=== PATIENT | male | born 1965 | race Caucasian/White ===

== ENCOUNTER 2020-01-23 23:01 | Observation (INO) ==
[2020-01-23] MEDS ORDERED: HYDROmorphone INJ 1 MG/ML SYRINGE IV STA (23:35)
--- NOTE | 2020-01-23 23:57 | Emergency Department Note ---
Impression & Plan Intractable pain ED Provider Note NAME: CLARITA PENA AGE: 54 SEX: M ARRIVES VIA: Walk-In INFORMANT: Patient, his ED PROVIDER(S): Isabel Aden DO CHIEF COMPLAINT: Intractable left-sided pain status post trauma PLAN: Disposition: Admitted to the [facility] service Condition: Good MEDICAL DECISION MAKING: This is a 54-year-old male patient who was involved in a major trauma 2 days ago and transferred to [facility] in [place] as a level 1 trauma patient. Patient was discharged around 3 PM this afternoon from [place]. Tonight, the patient had difficulty getting himself up out of bed because of the pain associated with his injuries. Triage Nursing notes reviewed and agree them. Additional history obtained from the patient's Prior medical records reviewed Vital Signs: reviewed and remarkable for hypertension Differential diagnosis: Anxiety, medication noncompliance, intractable pain, multisystem trauma ER treatment provided: IV Dilaudid HPI: 54/M arrives for evaluation of intractable pain. The patient was a multisystem trauma from 2 days ago. The patient fell from a ladder and suffered multiple traumatic injuries. He was transferred to [facility] in [place] as a level 1 trauma patient. He was admitted there for 2 days and discharged from the hospital to home yesterday. The patient took Tylenol for his pain last evening but had extreme difficulty getting himself in and out of bed because of the discomfort in his left elbow and the left side of his chest. The patient's left elbow is in a sling because of a fracture. He describes having difficulty with pulling himself up out of bed because of not having anything to grab onto. He describes that his is unable to help him due to her size. ROS: The patient has not taken the oxycodone that was prescribed for him as of yet because he would normally take it at bedtime and he has not yet gone to bed. Patient denies any new injuries and only describes the pain associated with the diagnosed spinous fractures, clavicle fracture, and elbow fracture PAST MEDICAL HISTORY:See Below PAST SURGICAL HISTORY:See Below FAMILY HISTORY:See Below SOCIAL HISTORY:See Below HOME MEDICATIONS:See list ALLERGIES:See list VITALS:See Below PHYSICAL EXAMINATION: HEENT: Head - normocephalic and atraumatic Pupils are equal, round, and reactive to light. Extraocular eye muscles are intact, and sclera are anicteric. Nose - moist nasal mucosa without discharge. Mouth - moist buccal mucosa. Oropharynx is nonerythematous and there is no tonsillar exudate or edema noted. Neck: Supple; no JVD, nuchal rigidity, cervical lymphadenopathy, or auscultated bruits. Heart: Regular rate and rhythm. There is a normal S1 and S2 with no murmurs, clicks, or gallops appreciated. Lungs: Clear to auscultation bilaterally with no wheezes, rales, or rhonchi. Abdomen: Soft, completely nontender, nondistended, with good bowel sounds. There are no palpable pulsatile masses or hepatosplenomegaly. There is no guarding, rigidity, or rebound noted. Back: Patient has multiple areas of ecchymosis over the lower back from his trauma Extremities: Left upper extremity is in splinting material and a sling. Skin: warm and dry with good turgor and no rashes. ED COURSE: Times/Reassessments: 2320: Patient was evaluated in room C 11. A complete history and physical was performed. An IV lock was initiated and the patient was given a dose of IV Dilaudid for pain. Did review previous electronic medical records with regards to the trauma from 2 days ago. 0025: The patient was reevaluated at this time and is feeling much better. I discussed the case with the executive account manager and she has evaluated the situation and reviewed the notes in [facility]. The patient will be admitted into the hospital and evaluated for possible admission to [facility] Isabel Aden DO Past Med/Surg History Medical History (Updated 01/25/20 @ 18:23 by Isabel dAen DO) Cough H/O backache History of night sweats Hx of allergic rhinitis Hx of anxiety disorder Hx of chest pain Hx of cirrhosis Hx of esophageal varices Hx of urticaria Hypertension Positive colorectal cancer screening using Cologuard test Surgical History H/O colonoscopy History of esophagogastroduodenoscopy (EGD) Hx of arthroscopy of knee Family History Other Cancer Social History Smoking Status: Never smoker Hx Alcohol Use: No Hx Substance Use: No Preferred Language: Ghanaian Communication Ability: Effective Mixer Runner Required: No Beliefs That Will Affect Care: None marital status: Single Current Living Situation: Significant Other Current Living Situation Comment: girlfriend and granddaughter 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 Safe at Home: Yes Safety Concerns: Feels Safe At This Time Childhood Exposure to Second-Hand Smoke: No Assistive Devices: Brace/Splint/Immobilizer and Glasses Allergies Allergies Allergy/AdvReac Type Severity Reaction Status Date / Time hydrocodone [From Vicodin] Allergy Intermediate Hallucinati Verified 01/24/20 09:48 ng Home Meds Home Medications Medication Instructions Recorded Confirmed azelastine 137 mcg (0.1 %) nasal 1 sprays INTNAS BID PRN 02/17/19 01/23/20 spray aerosol dicyclomine 20 mg tablet 20 mg PO DAILY tab 02/17/19 01/23/20 lisinopril 20 mg tablet 20 mg PO DAILY 02/17/19 01/23/20 loratadine 10 mg tablet 10 mg PO DAILY 02/17/19 01/23/20 pantoprazole 40 mg tablet,delayed 40 mg PO DAILY 02/17/19 01/23/20 release tramadol 50 mg tablet 50 mg PO Q6H PRN 02/17/19 01/23/20 Qvar RediHaler 1 puffs INH BID PRN 01/21/20 01/23/20 Previous Rx's Medication Instructions Recorded sucralfate 1 gram tablet 1 gm PO BID #60 tab 02/17/19 docusate sodium 100 mg PO BID 30 Days #60 cap 01/25/20 oxycodone 5 mg PO Q4H PRN 4 Days #16 tab 01/25/20 polyethylene glycol 3350 [Miralax] 17 g PO DAILY PRN 30 Days #30 ea 01/25/20 sennosides [Senokot] 8.6 mg PO QAM 30 Days #30 tab 01/25/20 Results & Data (ED) Vital Signs Vital Signs - 24 hr 01/23/20 23:06 01/24/20 00:15 01/24/20 00:50 Temperature 37 C Temperature Source Oral Pulse Rate 85 Pulse Rate [Finger] 75 Respiratory Rate 20 16 Respiratory Effort / Characteristics Non-Labored Spontaneous Non-Labored Spontaneous Respiratory Depth Normal Normal Blood Pressure 166/89 H Blood Pressure [Right Arm] 159/77 H Blood Pressure Mean 114 Blood Pressure Mean [Right Arm] 104 Blood Pressure Position Sitting Pulse Oximetry 94 93 88 L Oxygen Delivery Method Room Air Room Air Room Air Sepsis Recent Fever Within 48 Hours No Sepsis New/Unexplained Change in Mental Status N/A Sepsis Action Taken by Nursing No Action Required Oxygen Flow Rate - Titration 2 Pulse Oximetry Post Tiitration 96 Laboratory Data Result diagrams: 01/25/20 05:11 01/25/20 05:11 Administered Medications Discontinued Medications Dicyclomine HCl (Dicyclomine Hcl 20 Mg Tab) 20 mg PO DAILY THERESA Stop: 02/23/20 08:59 Last Admin: 01/24/20 15:22 Dose: Not Given Documented by: [id number] Dicyclomine HCl (Dicyclomine Hcl 20 Mg Tab) 20 mg PO HS THERESA Stop: 02/23/20 20:59 Last Admin: 01/24/20 20:23 Dose: 20 mg Documented by: [id number] Docusate Sodium (Docusate Sodium 100 Mg Cap) 100 mg PO BID THERESA Stop: 02/23/20 11:44 Last Admin: 01/25/20 08:02 Dose: 100 mg Documented by: [id number] Admin: 01/24/20 20:24 Dose: 100 mg Documented by: [id number] Admin: 01/24/20 13:01 Dose: 100 mg Documented by: [id number] Hydromorphone HCl (Hydromorphone Inj 1 Mg/Ml Syringe) 1 mg IV NOW STA Stop: 01/23/20 23:36 Last Admin: 01/23/20 23:50 Dose: 1 mg Documented by: [id number] Potassium Chloride (K Andre / Wtr) 10 meq in 100 mls @ 100 mls/hr IV ONE ONE Stop: 01/24/20 10:41 Last Infusion: 01/24/20 11:58 Dose: 0 mls/hr Documented by: [id number] Admin: 01/24/20 10:55 Dose: 100 mls/hr Documented by: [id number] Promethazine HCl 6.25 mg/ (Sodium Chloride) 50.25 mls @ 201 mls/hr IV Q6H PRN PRN Reason: Nausea And Vomiting Stop: 02/24/20 08:44 Last Infusion: 01/25/20 09:33 Dose: 0 mls/hr Documented by: [id number] Admin: 01/25/20 08:45 Dose: 201 mls/hr Documented by: [id number] Lisinopril (Lisinopril 20 Mg Tab) 20 mg PO DAILY [facility] Stop: 02/23/20 08:59 Last Admin: 01/25/20 08:01 Dose: 20 mg Documented by: [id number] Admin: 01/24/20 11:02 Dose: 20 mg Documented by: [id number] Loratadine (Loratadine 10 Mg Tab) 10 mg PO DAILY [facility] Stop: 02/23/20 08:59 Last Admin: 01/25/20 08:02 Dose: 10 mg Documented by: [id number] Admin: 01/24/20 11:02 Dose: 10 mg Documented by: [id number] Miscellaneous (Azelastine~Order Awaiting Action) 1 ea N/A QS [facility] Stop: 02/23/20 07:59 Last Admin: 01/25/20 08:03 Dose: Not Given Documented by: [id number] Admin: 01/24/20 22:47 Dose: Not Given Documented by: [id number] Admin: 01/24/20 18:06 Dose: Not Given Documented by: [id number] Admin: 01/24/20 15:21 Dose: Not Given Documented by: [id number] Ondansetron HCl (Ondansetron Inj 2 Mg/Ml 2 Ml Vial) 4 mg IV Q6H PRN PRN Reason: Nausea Stop: 02/23/20 02:07 Last Admin: 01/25/20 06:13 Dose: 4 mg Documented by: [id number] Admin: 01/24/20 09:10 Dose: 4 mg Documented by: [id number] Oxycodone HCl (Oxycodone Hcl Ir 5 Mg Tab (Immediate Release)) 5 mg PO Q4H PRN PRN Reason: Pain Stop: 02/07/20 02:07 Last Admin: 01/25/20 08:01 Dose: 5 mg Documented by: [id number] Admin: 01/24/20 22:48 Dose: 5 mg Documented by: [id number] Admin: 01/24/20 18:04 Dose: 5 mg Documented by: [id number] Admin: 01/24/20 13:28 Dose: 5 mg Documented by: [id number] Admin: 01/24/20 09:21 Dose: 5 mg Documented by: [id number] Admin: 01/24/20 02:38 Dose: 5 mg Documented by: [id number] Pantoprazole Sodium (Pantoprazole 40 Mg Tab) 40 mg PO DAILY THERESA Stop: 02/23/20 08:59 Last Admin: 01/25/20 08:02 Dose: 40 mg Documented by: [id number] Admin: 01/24/20 11:02 Dose: 40 mg Documented by: [id number] Polyethylene Glycol (Polyethylene (Miralax) 17 Gm Pack) 17 gm PO DAILY THERESA Stop: 02/23/20 11:44 Last Admin: 01/25/20 08:03 Dose: 17 gm Documented by: [id number] Admin: 01/24/20 13:00 Dose: 17 gm Documented by: [id number] Potassium Chloride (Potassium Chloride 20 Meq Tabcr) 60 meq PO NOW STA Stop: 01/24/20 09:43 Last Admin: 01/24/20 10:58 Dose: 60 meq Documented by: [id number] Potassium Chloride (Potassium Chloride 20 Meq Tabcr) 40 meq PO NOW STA Stop: 01/25/20 07:21 Last Admin: 01/25/20 08:03 Dose: 40 meq Documented by: [id number] Sennosides (Senna 8.6 Mg Tab) 8.6 mg PO QAM THERESA Stop: 02/23/20 11:44 Last Admin: 01/25/20 08:02 Dose: 8.6 mg Documented by: [id number] Admin: 01/24/20 13:01 Dose: 8.6 mg Documented by: [id number] Sucralfate (Sucralfate 1 Gm Tab) 1 gm PO BID THERESA Stop: 02/23/20 08:59 Last Admin: 01/25/20 08:02 Dose: 1 gm Documented by: [id number] Admin: 01/24/20 20:24 Dose: 1 gm Documented by: [id number] Admin: 01/24/20 11:01 Dose: 1 gm Documented by: [id number] Discharge Plan Visit Data Chief Complaint: Pain (Generalized) Stated Complaint: LEFT SIDE PAIN DISCHARGED FROM [facility] TODAY ED Provider: Isabel Aden Discharge Problem: Intractable pain Patient Disposition: Admitted As Inpatient Condition: Good Discharge Instructions Interventions: ED Discharge Assessment Last Done: 01/24/20 01:46
[2020-01-24] MEDS ORDERED: TRAMADOL HCL 50 MG TABLET PO PRN (02:08)
[2020-01-24] MEDS ORDERED: HYDROmorphone INJ 0.5 MG/0.5 ML SYR IV PRN (02:08)
[2020-01-24] MEDS ORDERED: POLYETHYLENE (MIRALAX) 17 GM PACK PO PRN (02:08)
[2020-01-24] MEDS: OXYCODONE HCL IR 5 MG TAB (IMMEDIATE RELEASE) PO PRN ×5 (02:38→22:48)
[2020-01-24] MEDS ORDERED: FLUTICASONE FUROATE 100MCG 14 PUFFS/INHALER INH PRN (03:13)
--- NOTE | 2020-01-24 06:28 | History and Physical Report ---
DATE OF ADMISSION: 01/23/2020 CHIEF COMPLAINT: Status post recent fall with left-sided fractures, comes with generalized pain. 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 Recently the patient couple of days ago fell from the ladder 6 feet high and fractured, left ulna fracture, left clavicle fracture, left T9-T10 spinous process fracture, left posterior 10th rib fracture. He was transferred to [facility] as a level 2 alert and the patient's says he was fine there. He said his bed was elevated and there was rails, was able to get up from the bed, and able to walk and they discharged him on pain medications yesterday in 3:00 p.m. When he goes home, at home he again had difficulty ambulating and could not able to get out of the bed because of pain. His tried to help him by pulling and it exacerbated his pain and decided to come to the ER for possible rehab placement. Currently resting comfortably and hemodynamically stable. Denies any other complaints. He did not moved his bowels since last when he fell. Denies any headache. No dizziness, no blurred vision. No earache, no runny nose, no sore throat, no cough, no difficulty swallowing. Appetite is not that great. No chest pain, no shortness of breath. Because of pain, he was nauseous earlier, but that is resolved now. No abdominal pain. Constipated. Normal bladder movements. No rash seen anywhere. ALLERGIES: VICODIN. PAST MEDICAL HISTORY: As mentioned above. PAST SURGICAL HISTORY: Colonoscopies, multiple EGDs with endoscopic ultrasound, left knee meniscectomy. MEDICATIONS: Currently the patient from [place] is discharged on Tylenol 325 mg 3 tablets p.o. 8 hours p.r.n. for 5 days, lidocaine patch topical skin daily, oxycodone 10 mg p.o. q. 6 hours p.r.n. for pain, tramadol 50 mg p.o. q. 6 hours p.r.n. for pain, Bentyl 20 mg p.o. at bedtime, sucralfate 1 gram p.o. at bedtime, lisinopril 20 mg p.o. daily, Protonix 40 mg p.o. daily, ipratropium nasal spray b.i.d., cyclobenzaprine 10 mg p.o. at bedtime p.r.n., azelastine 0.1% nasal spray b.i.d., Claritin 10 mg p.o. daily. FAMILY HISTORY: Significant for mother had stomach cancer, at age of 36. Brother has hypertension. Maternal grandmother of heart disease in the 30s. SOCIAL HISTORY: No smoking, no alcohol, no drug use. Lives with his . REVIEW OF SYMPTOMS: As per HPI. Rest of review of symptoms negative. PHYSICAL EXAMINATION: GENERAL: The patient is of moderate build, not in acute distress. VITAL SIGNS: Temperature 37, pulse 75, respiratory rate 16, blood pressure 159/77, HEENT: Atraumatic. Pupils equal, round, reactive to light. Oral mucosa moist. NECK: No JVD, no neck masses. CARDIOVASCULAR SYSTEM: S1, S2 heard. Regular rate and rhythm. No murmur, no gallop. RESPIRATORY SYSTEM: Normal AP diameter. No accessory muscle use. No wheezing, no crackles. ABDOMEN: Soft, bowel sounds present, nontender. No distention. CENTRAL NERVOUS SYSTEM: Cranial nerves II-XII grossly intact. Nonfocal. EXTREMITIES: Left upper extremity is in sling. Able to move his lower extremity. No edema seen, no erythema seen. LABORATORY DATA: Labs from [place] from yesterday , hemoglobin 12.1, hematocrit 35.5, platelets 86. Sodium 141, potassium 3.7, chloride 106, bicarb 26, BUN 15, creatinine 1.4, serum glucose 93. ASSESSMENT AND PLAN: A 54-year-old male who recently fell from the ladder, mechanical fall with left-sided clavicle fracture, left posterior 10th rib fracture, left ulna fracture, left T9-T10 spinous process fracture, was transferred to [facility] and was discharged, comes in because of generalized pain and not able to ambulate. 1. Recent status post mechanical fall with multiple fractures on the left side as mentioned above.Having ambulatory dysfunction. Pain control with oxycodone p.r.n. and Dilaudid p.r.n. PT/OT, the patient may need placement. Social Service to help with discharge. 2. 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 Continue sucralfate, Protonix. 3. Thrombocytopenia secondary to liver cirrhosis. We will follow the labs 4. Hypertension. Continue his lisinopril. We will monitor the blood pressure. 5. Allergic rhinitis, nasal sprays. 6. Deep vein thrombosis prophylaxis, SCDs. DISPOSITION: Observe in medical floor. PT/OT. Social Service to help with discharge planning. Level 1 full code. MTDD
[2020-01-24 07:19] LABS: Basophils # (auto) 0.03 K/uL (0-0.2); Basophils % (auto) 0.6 %; Eosinophils # (auto) 0.24 K/uL (0-0.5); Eosinophils % (auto) 4.4 %; Hematocrit (blood only) 34.9 % (42-52); Hemoglobin 12.6 g/dL (14.0-18.0); Immature Granulocytes # (auto) 0.01 K/uL (0.00-0.02); Immature Granulocytes % (auto) 0.2 %; Lymphocytes % (auto) 20.2 %; Mean Corpuscular Hemoglobin 32.3 pg (25-34); Mean Corpuscular Hgb Conc 36.1 g/dL (32-36); Mean Corpuscular Volume 89.5 fL (80-100); Mean Platelet Volume 9.3 fL (7.4-10.4); Monocytes # (auto) 0.65 K/uL (0.11-0.59); Monocytes % (auto) 11.9 %; Neutrophils # (auto) 3.41 K/uL (1.4-6.5); Neutrophils % (auto) 62.7 %; Platelet Count 100 K/uL (130-400); RDW Coefficient of Variation 13.9 % (11.5-14.5); RDW Standard Deviation 45.4 fL (36.4-46.3); White Blood Count 5.44 K/uL (4.8-10.8)
[2020-01-24 07:46] LABS: BUN Creatinine Ratio 12.8 (10-20); Calcium 9.2 mg/dl (8.5-10.1); Creatinine Clr Calc Pharmacy 103.7 ml/min; Est GFR (African American) 81.1; Magnesium 2.2 mg/dl (1.8-2.4); Potassium 3.2 mmol/L (3.5-5.1)
[2020-01-24] MEDS ORDERED: DICYCLOMINE HCL 20 MG TAB PO SCH ×2 (09:00→21:00)
[2020-01-24] MEDS: ONDANSETRON INJ 2 MG/ML 2 ML VIAL IV PRN (09:10)
[2020-01-24] MEDS ORDERED: POTASSIUM CHLORIDE 20 MEQ TABCR PO STA (09:42)
[2020-01-24] MEDS ORDERED: POTASSIUM CHLORIDE / WTR 10 MEQ/100 ML PLCT IV ONE (09:42)
[2020-01-24] MEDS: SUCRALFATE 1 GM TAB PO SCH ×2 (11:01→20:24)
[2020-01-24] MEDS: LORATADINE 10 MG TAB PO SCH (11:02)
[2020-01-24] MEDS: PANTOprazole 40 MG TAB PO SCH (11:02)
[2020-01-24] MEDS: lisinopriL 20 MG TAB PO SCH (11:02)
--- NOTE | 2020-01-24 11:32 | Hospitalist Progress Note ---
Date of Service January 24, 2020 Assessment & Plan (1) Clavicle fracture: (2) Left ulnar fracture: (3) Closed fracture of spinous process of thoracic vertebra: (4) Closed rib fracture: (5) Pain: -A 54-year-old male who recently fell from the ladder, mechanical fall with left-sided clavicle fracture, left posterior 10th rib fracture, left ulna fracture, left T9-T10 spinous process fracture, was transferred to [facility] and was discharged, comes in because of generalized pain and not able to ambulate. 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 Patient described recent medical care prior to this presentation at [facility] primarily because patient feels he is lacking in home supports for non-surgical fractures. Patient breathing on room air. no shortness of breath. no chest pain. no abdomen pain. tolerating left upper extremity discomforts when talking to medical doctor. Patient reports constipation. Patient was seen by ed case manager and physical therapy options were discussed. Review of Systems Review of Systems: All systems reviewed & are unremarkable except as noted in Subjective Physical Exam Constitutional: cooperative Eyes: PERRL, conjunctivae normal, anicteric sclerae EOM intact bilaterally ENMT: external ear and nose normal, oropharynx normal Neck: trachea midline, no thyromegaly Respiratory: normal respiratory effort, lungs clear to auscultation Cardiovascular: Rate/Rhythm: regular rate Gastrointestinal (Abdomen): normal bowel sounds, soft, nontender, no hepatosplenomegaly Musculoskeletal: left shoulder in sling and left arm with dressing Neurologic: PERRL, EOMI, accommodation nl, no face palsy, no dysarthria Psychiatric: A+Ox3, euthymic affect Results & Data Results & Data ([facility]) Vital Signs (Past 12 Hours) Vital Signs Temp Pulse Pulse Resp BP Pulse Ox 01/24/20 07:04 37 C 72 20 129/79 96 01/24/20 02:05 37.1 C 79 14 143/78 H 94 01/24/20 01:45 67 16 140/80 97 01/24/20 00:50 88 L 01/24/20 00:15 75 16 159/77 H 93 (1) Clavicle fracture Clavicle location: unspecified part of clavicle Encounter type: initial encounter Fracture alignment: displaced Fracture type: closed Laterality: left Qualified Code(s): S42.002A - Fracture of unspecified part of left clavicle, initial encounter for closed fracture (2) Left ulnar fracture Encounter type: initial encounter Fracture alignment: displaced Fracture morphology: comminuted Fracture type: closed Ulna location: shaft Qualified Code(s): S52.252A - Displaced comminuted fracture of shaft of ulna, left arm, initial encounter for closed fracture (3) Closed fracture of spinous process of thoracic vertebra Encounter type: initial encounter Qualified Code(s): S22.008A - Other fracture of unspecified thoracic vertebra, initial encounter for closed fracture (4) Closed rib fracture Encounter type: initial encounter Laterality: unspecified laterality Rib fracture type: single rib Qualified Code(s): S22.39XA - Fracture of one rib, unspecified side, initial encounter for closed fracture
[2020-01-24] MEDS: POLYETHYLENE (MIRALAX) 17 GM PACK PO SCH (13:00)
[2020-01-24] MEDS: DOCUSATE SODIUM 100 MG CAP PO SCH ×2 (13:01→20:24)
[2020-01-24] MEDS: SENNA 8.6 MG TAB PO SCH (13:01)
[2020-01-24] MEDS ORDERED: Nursing to Pharmacy Communication SCH (15:00)
[2020-01-24] MEDS: AZELASTINE~ORDER AWAITING ACTION SCH ×3 (15:21→22:47)
[2020-01-25 05:42] LABS: Hematocrit (blood only) 33.7 % (42-52); Mean Corpuscular Hgb Conc 35.6 g/dL (32-36); Mean Corpuscular Volume 89.9 fL (80-100); RDW Coefficient of Variation 13.8 % (11.5-14.5); RDW Standard Deviation 45.2 fL (36.4-46.3); Red Blood Count 3.75 M/uL (4.7-6.1); White Blood Count 4.86 K/uL (4.8-10.8)
[2020-01-25 06:08] LABS: Basophils # (auto) 0.04 K/uL (0-0.2); Basophils % (auto) 0.8 %; Eosinophils # (auto) 0.22 K/uL (0-0.5); Eosinophils % (auto) 4.5 %; Immature Granulocytes # (auto) 0.01 K/uL (0.00-0.02); Immature Granulocytes % (auto) 0.2 %; Lymphocytes # (auto) 1.19 K/uL (1.2-3.4); Lymphocytes % (auto) 24.5 %; Mean Platelet Volume 9.7 fL (7.4-10.4); Monocytes # (auto) 0.51 K/uL (0.11-0.59); Monocytes % (auto) 10.5 %; Neutrophils # (auto) 2.89 K/uL (1.4-6.5); Neutrophils % (auto) 59.5 %; Platelet Count 98 K/uL (130-400); Platelet Estimate Decreased (Normal); RBC Morphology Unremarkable
[2020-01-25] MEDS: ONDANSETRON INJ 2 MG/ML 2 ML VIAL IV PRN (06:13)
[2020-01-25 06:19] LABS: Albumin Level 3.2 gm/dl (3.4-5.0); BUN Creatinine Ratio 12.3 (10-20); Calcium 8.5 mg/dl (8.5-10.1); Creatinine Clr Calc Pharmacy 109.3 ml/min; Est GFR (African American) 86.5; Est GFR (Non-African American) 74.6; Potassium 3.3 mmol/L (3.5-5.1)
[2020-01-25 06:22] LABS: Albumin Globulin Ratio 1.1 (0.9-2); Bilirubin,Total 1.8 mg/dl (0.2-1); Globulin 2.9 gm/dl (2.5-4.0); Total Protein 6.1 gm/dl (6.4-8.2)
[2020-01-25] MEDS ORDERED: POTASSIUM CHLORIDE 20 MEQ TABCR PO STA (07:20)
[2020-01-25] MEDS: lisinopriL 20 MG TAB PO SCH (08:01)
[2020-01-25] MEDS: OXYCODONE HCL IR 5 MG TAB (IMMEDIATE RELEASE) PO PRN (08:01)
[2020-01-25] MEDS: DOCUSATE SODIUM 100 MG CAP PO SCH (08:02)
[2020-01-25] MEDS: SUCRALFATE 1 GM TAB PO SCH (08:02)
[2020-01-25] MEDS: PANTOprazole 40 MG TAB PO SCH (08:02)
[2020-01-25] MEDS: SENNA 8.6 MG TAB PO SCH (08:02)
[2020-01-25] MEDS: LORATADINE 10 MG TAB PO SCH (08:02)
[2020-01-25] MEDS: AZELASTINE~ORDER AWAITING ACTION SCH (08:03)
[2020-01-25] MEDS: POLYETHYLENE (MIRALAX) 17 GM PACK PO SCH (08:03)
[2020-01-25] MEDS ORDERED: PROMETHAZINE HCL 6.25 MG in SODIUM CHLORIDE 0.9% 50 ML IV PRN (08:45)
--- NOTE | 2020-01-25 09:25 | Hospitalist Progress Note ---
Date of Service January 25, 2020 Assessment & Plan (1) Clavicle fracture: (2) Left ulnar fracture: (3) Closed fracture of spinous process of thoracic vertebra: (4) Closed rib fracture: (5) Pain: -A 54-year-old male who recently fell from the ladder, mechanical fall with left-sided clavicle fracture, left posterior 10th rib fracture, left ulna fracture, left T9-T10 spinous process fracture, was transferred to [facility] and was discharged, comes in because of generalized pain and not able to ambulate. 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 He has not vomiting so far. he reports of some left lower rib pain. He reports he is using incentive spirometer. Otherwise patient not in distress. breathing on room air. no sternal chest pain. no abdominal pain. no dizziness. gallery manager is working on his case in regards to physical therapy center. Review of Systems Review of Systems: All systems reviewed & are unremarkable except as noted in Subjective Physical Exam Constitutional: cooperative Eyes: PERRL, conjunctivae normal, anicteric sclerae EOM intact bilaterally ENMT: external ear and nose normal, oropharynx normal Neck: trachea midline, no thyromegaly Respiratory: normal respiratory effort, lungs clear to auscultation Cardiovascular: Rate/Rhythm: regular rate Gastrointestinal (Abdomen): normal bowel sounds, soft, nontender, no hepatosplenomegaly Musculoskeletal: Head/Neck/Chest: normocephalic Extremities: + upper extremity abnormal to inspection (left shoulder/arm sling) Neurologic: PERRL, EOMI, accommodation nl, no face palsy, no dysarthria Psychiatric: A+Ox3, euthymic affect Results & Data Results [facility] ([facility]) Vital Signs (Past 12 Hours) Vital Signs Temp Pulse Resp BP Pulse Ox 01/25/20 06:04 37.1 C 77 16 132/82 93 01/24/20 23:38 37.2 C 72 16 141/69 H 94 (1) Clavicle fracture Clavicle location: unspecified part of clavicle Encounter type: initial encounter Fracture alignment: displaced Fracture type: closed Laterality: left Qualified Code(s): S42.002A - Fracture of unspecified part of left clavicl e, initial encounter for closed fracture (2) Left ulnar fracture Encounter type: initial encounter Fracture alignment: displaced Fracture morphology: comminuted Fracture type: closed Ulna location: shaft Qualified Code(s): S52.252A - Displaced comminuted fracture of shaft of ulna, left arm, initial encounter for closed fracture (3) Closed fracture of spinous process of thoracic vertebra Encounter type: initial encounter Qualified Code(s): S22.008A - Other fracture of unspecified thoracic vertebra, initial encounter for closed fracture (4) Closed rib fracture Encounter type: initial encounter Laterality: unspecified laterality Rib fracture type: single rib Qualified Code(s): S22.39XA - Fracture of one rib, unspecified side, initial encounter for closed fracture
--- NOTE | 2020-01-25 12:13 | Discharge Summary ---
Date of Service January 25, 2020 Admission HPI Per Admitting Provider DATE OF ADMISSION: 01/23/2020 CHIEF COMPLAINT: Status post recent fall with left-sided fractures, comes with generalized pain. 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 Recently the patient couple of days ago fell from the ladder 6 feet high and fractured, left ulna fracture, left clavicle fracture, left T9-T10 spinous process fracture, left posterior 10th rib fracture. He was transferred to [facility] as a level 2 alert and the patient's says he was fine there. He said his bed was elevated and there was rails, was able to get up from the bed, and able to walk and they discharged him on pain medications yesterday in 3:00 p.m. When he goes home, at home he again had difficulty ambulating and could not able to get out of the bed because of pain. His tried to help him by pulling and it exacerbated his pain and decided to come to the ER for possible rehab placement. Currently resting comfortably and hemodynamically stable. Denies any other complaints. He did not moved his bowels since last when he fell. Denies any headache. No dizziness, no blurred vision. No earache, no runny nose, no sore throat, no cough, no difficulty swallowing. Appetite is not that great. No chest pain, no shortness of breath. Because of pain, he was nauseous earlier, but that is resolved now. No abdominal pain. Constipated. Normal bladder movements. No rash seen anywhere. Principal Diagnosis Clavicle fracture Left ulnar fracture Closed fracture of spinous process of thoracic vertebra Closed rib fracture Pain Hypokalemia, mild Constipation Discharge Exam Constitutional cooperative Eyes PERRL, conjunctivae normal, anicteric sclerae EOM intact bilaterally ENMT external ear and nose normal, oropharynx normal Neck trachea midline, no thyromegaly Respiratory normal respiratory effort, lungs clear to auscultation Cardiovascular Rate/Rhythm: regular rate Gastrointestinal (Abdomen) normal bowel sounds, soft, nontender, no hepatosplenomegaly Musculoskeletal Head/Neck/Chest: normocephalic Extremities: + upper extremity abnormal to inspection (left shoulder/arm sling) Neurologic PERRL, EOMI, accommodation nl, no face palsy, no dysarthria Psychiatric A+Ox3, euthymic affect Discharge Data Allergies Allergy/AdvReac Type Severity Reaction Status Date / Time hydrocodone [From Vicodin] Allergy Intermediate Hallucinati Verified 01/24/20 09:48 ng Consultations 01/24/20 00:27 ED Decision to Admit Stat 01/24/20 02:08 Consult Case Management - Discharge Planning Routine Hospital Course (1) Clavicle fracture: (2) Left ulnar fracture: (3) Closed fracture of spinous process of thoracic vertebra: (4) Closed rib fracture: (5) Pain: -A 54-year-old male who recently fell from the ladder, mechanical fall with left-sided clavicle fracture, left posterior 10th rib fracture, left ulna fracture, left T9-T10 spinous process fracture, was transferred to [facility] and was discharged, comes in because of generalized pain and not able to ambulate. 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, history of esophageal varices -sucralfate, Protonix Thrombocytopenia secondary to liver cirrhosis -follow the platelets Hypertension -lisinopril Hypokalemia, mild -serum potassium 3.2 on presentation, patient has been receiving potassium supplements Allergic rhinitis -no airway complaints -on nasal sprays as needed Deep vein thrombosis prophylaxis: SCDs Total Time Total Time Spent Total Time Spent (In Minutes): 40 minutes Total Time Includes: Examination of the Patient, Discharge Planning, Medication Reconciliation and Communication With Other Providers Discharge Plan Discharge Items Patient Disposition: Transfer Inpatient Rehab Fac Reason For Visit: FALL, PAIN Discharge Diagnosis: Clavicle fracture: Left ulnar fracture: Closed fracture of spinous process of thoracic vertebra: Closed rib fracture: Pain Hypokalemia, mild Constipation Condition on Discharge: Good Activity: Per Instructions section Non-emergency contact: Primary Care Provider Call non-emergency contact if: you have any medication questions Follow-up/Referrals: Tim Brown DO [Primary Care Provider] - Diet: Regular Addtl Attending Provider Instructions: discharge to [facility] for physical therapy Patient should have follow up serum potassium and CBC performed by primary care doctor 02/15/2020 9:00 AM Provider Tim Brown Department Family [facility] Patient reports that he will follow in [facility] area for any musculoskeletal assessments with specialists for the multiple fractures in healing Pending Studies at Discharge: No Stand-Alone Forms: My [facility] [employer] Skilled Items Patient informed of condition?: Yes DNR: No Discharge Level of Care: Acute rehab Communicable Disease: No Discharge Prognosis: Stable Lines: None Urinary Catheter: No Medications and DC Order Prescriptions: New sennosides [Senokot] 8.6 mg Tablet 8.6 mg PO QAM 30 Days Qty: 30 RF: 0 polyethylene glycol 3350 [Miralax] 17 gram Powder In Packet 17 g PO DAILY PRN (Reason: constipation) 30 Days Qty: 30 RF: 0 docusate sodium 100 mg Capsule 100 mg PO BID 30 Days Qty: 60 RF: 0 oxycodone 5 mg Tablet 5 mg PO Q4H PRN (Reason: pain) 4 Days Qty: 16 RF: 0 Continued lisinopril [Prinivil] 20 mg tablet 20 mg PO DAILY RF: 0 sucralfate [Carafate] 1 gram tablet 1 gm PO BID Qty: 60 RF: 2 pantoprazole [Protonix] 40 mg tablet,delayed release (DR/EC) 40 mg PO DAILY RF: 0 dicyclomine 20 mg tablet 20 mg PO DAILY RF: 0 loratadine [Claritin] 10 mg tablet 10 mg PO DAILY RF: 0 tramadol 50 mg tablet 50 mg PO Q6H PRN (Reason: Pain) RF: 0 azelastine 137 mcg (0.1 %) aerosol,spray 1 sprays INTNAS BID PRN (Reason: Nasal Congestion) RF: 0 Qvar RediHaler 40 mcg/actuation HFA aerosol breath activated 1 puffs INH BID PRN (Reason: Shortness Of Breath Or Wheezing) RF: 0 Discharge Orders: Discharge Order (Routine); Ordered 01/25/20 Ordered By: Bj Velez Admission Data Admit Date/Time: 01/24/20 01:20 Attending Provider: Bj Velez Admit Provider: Renan Leigh Primary Care Provider: Tim Brown Other Providers: Renan Leigh ; [facility] ; [place] ; [place] Other Interventions: Discharge Summary Assessment (RN) Last Done: 01/25/20 11:53
== END 2020-01-25 14:18 ==
LOC: ED 23:01 → 3E 23:01

== ENCOUNTER 2020-03-14 11:34 | Observation (INO) ==
[2020-03-14] MEDS ORDERED: HYDROmorphone INJ 1 MG/ML SYRINGE IV STA (12:10)
[2020-03-14] MEDS ORDERED: SODIUM CHLORIDE 0.9% 1000ML 1,000 ML IV ONE (12:10)
[2020-03-14] MEDS ORDERED: ONDANSETRON INJ 2 MG/ML 2 ML VIAL IV STA ×2 (12:10→16:21)
--- NOTE | 2020-03-14 12:14 | Emergency Department Note ---
History of Present Illness General Chief complaint: Abdominal Pain Stated complaint: ABDOMINAL PAIN/DR ROUSSEAU TO MEET PT Time Seen by Provider: 03/14/20 11:43 Source: patient Mode of arrival: ambulatory Limitations: no limitations History of Present Illness Maximum Pain Intensity: 9 This patient is a 54-year-old male who presents to the emergency department for evaluation of abdominal pain and nausea. Patient reports symptoms started 4 days ago. He was seen here for the symptoms 3 days ago, but feels that they were treating his back pain rather than his abdominal pain. He states the pain is across the lower abdomen and he feels extremely nauseous, but is unable to vomit. He has tried to make himself vomit but has been unable to. He was initially having diarrhea but states that he has not had a bowel movement since he was seen here. He did notice some greenish mucus with bowel movements when he was still having them. He states that he has not been able to eat or drink anything since he was seen here. He states that he has some episodes of feeling sweaty at times, but denies any fevers. He denies any urinary symptoms. Patient rates his discomfort a 9/10. He reports a history of esophageal varices. He does not drink alcohol. He states that he was cleared by his primary care provider, Dr. Brown today. He states that Dr. Brown contacted Dr. Rousseau from GI, who had recommended a scope per patient. Home Medications Home Medications Medication Instructions Recorded Confirmed Type dicyclomine 20 mg tablet 20 mg PO DAILY tab 02/17/19 03/14/20 History lisinopril 20 mg tablet 20 mg PO DAILY 02/17/19 03/14/20 History loratadine 10 mg tablet 10 mg PO DAILY 02/17/19 03/14/20 History pantoprazole 40 mg tablet,delayed 40 mg PO DAILY 02/17/19 03/14/20 History release tramadol 50 mg tablet 50 - 100 mg PO Q6H PRN 02/17/19 03/14/20 History Qvar RediHaler 1 puffs INH BID PRN 01/21/20 03/14/20 History docusate sodium [Col-Rite] 100 mg PO BID PRN 03/11/20 03/14/20 History gabapentin 300 mg PO TID 03/11/20 03/14/20 History metoclopramide HCl [Reglan] 10 mg PO Q6H PRN #20 tab 03/11/20 03/14/20 Rx ondansetron 4 mg TRANSLINGUAL Q8 PRN 03/11/20 03/14/20 History polyethylene glycol 3350 17 g PO DAILY PRN 03/11/20 03/14/20 History sennosides [Senna Lax] 8.6 mg PO QAM 03/11/20 03/14/20 History Allergies Allergy/AdvReac Type Severity Reaction Status Date / Time hydrocodone [From Vicodin] Allergy Intermediate Hallucinati Verified 03/14/20 12:08 ng Past Med/Surg History Medical History Cirrhosis Cough H/O backache History of night sweats HTN (hypertension) Hx of allergic rhinitis Hx of anxiety disorder Hx of chest pain Hx of cirrhosis Hx of esophageal varices Hx of urticaria Hypertension Positive colorectal cancer screening using Cologuard test Surgical History H/O colonoscopy History of esophagogastroduodenoscopy (EGD) Hx of arthroscopy of knee Family History Other Cancer Social History Smoking Status: Never smoker Hx Alcohol Use: No Hx Substance Use: No Preferred Language: Spanish Communication Ability: Effective Head Waitress Required: No Beliefs That Will Affect Care: None marital status: Single Current Living Situation: Spouse Current Living Situation Comment: girlfriend and granddaughter 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 Other Information That Helps Us Care for You: No Feels Safe at Home: Yes Safety Concerns: Feels Safe At This Time Childhood Exposure to Second-Hand Smoke: No Assistive Devices: Glasses Review of Systems A total of 10 systems reviewed and were otherwise negative Physical Exam Vital Signs Vital Signs - 24 hr 03/14/20 11:36 03/14/20 12:34 03/14/20 12:50 Temperature 37 C Temperature Source Oral Pulse Rate 83 65 66 Pulse Rate from SpO2 Sensor 63 64 Pulse Rhythm Regular Pulse Strength Normal Respiratory Rate 20 27 H 16 Respiratory Effort / Characteristics Non-Labored Spontaneous Respiratory Depth Normal Respiratory Pattern Regular Blood Pressure 153/104 H 135/84 Blood Pressure Mean 120 106 Pulse Oximetry 95 93 91 Oxygen Delivery Method Room Air Sepsis Recent Fever Within 48 Hours No Sepsis New/Unexplained Change in Mental Status N/A Sepsis Action Taken by Nursing No Action Required 03/14/20 14:48 03/14/20 14:49 03/14/20 14:50 Temperature Temperature Source Pulse Rate 62 67 72 Pulse Rate from SpO2 Sensor 64 64 73 Pulse Rhythm Pulse Strength Respiratory Rate 12 16 16 Respiratory Effort / Characteristics Respiratory Depth Respiratory Pattern Blood Pressure 127/77 Blood Pressure Mean 81 Pulse Oximetry 99 97 97 Oxygen Delivery Method Sepsis Recent Fever Within 48 Hours Sepsis New/Unexplained Change in Mental Status Sepsis Action Taken by Nursing 03/14/20 15:00 03/14/20 15:10 03/14/20 15:20 Temperature Temperature Source Pulse Rate 61 60 64 Pulse Rate from SpO2 Sensor 61 60 64 Pulse Rhythm Pulse Strength Respiratory Rate 14 12 16 Respiratory Effort / Characteristics Respiratory Depth Respiratory Pattern Blood Pressure 140/80 Blood Pressure Mean 91 Pulse Oximetry 99 98 97 Oxygen Delivery Method Sepsis Recent Fever Within 48 Hours Sepsis New/Unexplained Change in Mental Status Sepsis Action Taken by Nursing 03/14/20 15:30 03/14/20 15:40 Temperature Temperature Source Pulse Rate 70 61 Pulse Rate from SpO2 Sensor 64 60 Pulse Rhythm Pulse Strength Respiratory Rate 12 14 Respiratory Effort / Characteristics Respiratory Depth Respiratory Pattern Blood Pressure 130/77 Blood Pressure Mean 94 Pulse Oximetry 98 97 Oxygen Delivery Method Sepsis Recent Fever Within 48 Hours Sepsis New/Unexplained Change in Mental Status Sepsis Action Taken by Nursing VITALS: Vitals are noted on the nurse's note and reviewed by myself. GENERAL: This is a 54-year-old male, uncomfortable appearing but in no significant distress. SKIN: The skin was without rashes. EARS: External auditory canals clear, tympanic membranes pearly wylie without erythema or effusion bilaterally. EYES: Pupils equal round and reactive to light and accommodation. No scleral icterus. MOUTH: Mucous membranes moist. Tonsils are not enlarged. Pharynx without erythema or exudate. NECK: Supple without nuchal rigidity. No lymphadenopathy. HEART: Regular rate and rhythm without murmurs gallops or rubs. LUNGS: Clear to auscultation bilaterally without wheezes, rales or rhonchi. ABDOMEN: Positive bowel sounds x 4. Soft, mild tenderness to palpation across lower abdomen. No guarding or rebound tenderness. NEURO: Patient was alert and oriented to person place and time. Course Consultations Consultation #1: Maryjane Barron NP - GI Consultation #2: Erica Quinn PA-C - [facility] hospitalist Administered Medications Discontinued Medications Hydromorphone HCl (Hydromorphone Inj 1 Mg/Ml Syringe) 1 mg IV NOW STA Stop: 03/14/20 12:11 Last Admin: 03/14/20 12:30 Dose: 1 mg Documented by: [id number] Hydromorphone HCl (Hydromorphone Inj 0.5 Mg/0.5 Ml Syr) 0.5 mg IV NOW STA Stop: 03/14/20 16:22 Last Admin: 03/14/20 17:08 Dose: 0.5 mg Documented by: [id number] Sodium Chloride (Nss 1000ml) 1,000 mls @ 999 mls/hr IV .Q1H1M ONE Stop: 03/14/20 13:10 Last Infusion: 03/14/20 14:48 Dose: 0 mls/hr Documented by: [id number] Admin: 03/14/20 12:31 Dose: 999 mls/hr Documented by: [id number] Potassium Chloride (K Andre / Wtr) 10 meq in 100 mls @ 100 mls/hr IV Q1H THERESA Stop: 03/14/20 17:59 Last Infusion: 03/14/20 18:24 Dose: 0 mls/hr Documented by: [id number] Admin: 03/14/20 17:08 Dose: 100 mls/hr Documented by: [id number] Ioversol (Ioversol 100ml) 93 ml IV ONCE ONE Stop: 03/14/20 20:07 Last Admin: 03/14/20 20:07 Dose: 1 ml Documented by: [id number] Ondansetron HCl (Ondansetron Inj 2 Mg/Ml 2 Ml Vial) 4 mg IV NOW STA Stop: 03/14/20 12:11 Last Admin: 03/14/20 12:30 Dose: 4 mg Documented by: [id number] Ondansetron HCl (Ondansetron Inj 2 Mg/Ml 2 Ml Vial) 4 mg IV NOW STA Stop: 03/14/20 16:22 Last Admin: 03/14/20 17:08 Dose: 4 mg Documented by: [id number] Medical Decision Making Differential Diagnosis Differential diagnosis includes appendicitis, diverticulitis, bowel obstruction, inflammatory bowel disease, renal colic, PUD, biliary pathology, pancreatitis, mesenteric ischemia, aortic pathology, infection, genitourinary, UTI, perforated viscus, among others. Medical Records Attestation: I reviewed the patient's medical records. Home Medications Current Medication List: was personally reviewed by me Laboratory Data Attestation: I reviewed the patient's lab results. Result diagrams: 03/14/20 12:27 03/14/20 12: Lab Results 03/14/20 03/14/20 03/14/20 Range/Units 12:27 12: 12: WBC 4.77 L (4.8-10.8) K/uL RBC 4.32 L (4.7-6.1) M/uL Hgb 14.0 (14.0-18.0) g/dL Hct 38.5 L (42-52) % MCV 89.1 (80-100) fL MCH 32.4 (25-34) pg MCHC 36.4 H (32-36) g/dL RDW Std Deviation 43.2 (36.4-46.3) fL RDW Coeff of [place]enceslao 13.3 (11.5-14.5) % Plt Count 100 L (130-400) K/uL MPV 9.9 (7.4-10.4) fL Immature Gran % (Auto) 0.4 % Neut % (Auto) 66.0 % Lymph % (Auto) 20.8 % [place] % (Auto) 8.0 % Eos % (Auto) 4.2 % Baso % (Auto) 0.6 % Neut # (Auto) 3.15 (1.4-6.5) K/uL Lymph # (Auto) 0.99 L (1.2-3.4) K/uL [place] # (Auto) 0.38 (0.11-0.59) K/uL Eos # (Auto) 0.20 (0-0.5) K/uL Baso # (Auto) 0.03 (0-0.2) K/uL Immature Gran # (Auto) 0.02 (0.00-0.02) K/uL Sodium 141 (136-145) mmol/L Potassium 3.2 L (3.5-5.1) mmol/L Chloride 108 H (98-107) mmol/L Carbon Dioxide 27 (21-32) mmol/L Anion Gap 6.0 (3-11) BUN 12 (7-18) mg/dl Creatinine 1.31 (0.6-1.4) mg/dl Est Cr Clr Drug Dosing 88.2 ml/min Est GFR ( Amer) 70.0 Est GFR (Non-Af Amer) 60.4 BUN/Creatinine Ratio 8.9 L (10-20) Glucose 91 (70-99) mg/dl Calcium 9.6 (8.5-10.1) mg/dl Magnesium 2.3 (1.8-2.4) mg/dl Total Bilirubin 2.3 H (0.2-1) mg/dl Direct Bilirubin 0.4 H (0-0.2) mg/dl AST 26 (15-37) U/L ALT 26 (12-78) U/L Alkaline Phosphatase 69 (45-117) U/L Total Protein 7.1 (6.4-8.2) gm/dl Albumin 4.0 (3.4-5.0) gm/dl Globulin 3.1 (2.5-4.0) gm/dl Albumin/Globulin Ratio 1.3 (0.9-2) Lipase 140 (73-393) U/L TSH 2.870 (0.300-4.500) uIu/ml Urine Color Urine Appearance (Clear) Urine pH (4.5-7.5) Ur Specific [place] (1.000-1.030) Urine Protein (Negative) Urine Glucose (UA) (Negative) Urine Ketones (Negative) Urine Blood (Negative) Urine Nitrite (Negative) Urine Bilirubin (Negative) Urine Urobilinogen (Negative) Ur Leukocyte Esterase (Negative) Urine WBC (Auto) (0-5) /hpf Urine RBC (Auto) (0-4) /hpf U Hyaline Cast (Auto) (0-5) /lpf U Epithel Cells (Auto) (0-5) /lpf Urine Bacteria (Auto) (Negative) 03/14/20 Range/Units 14:00 WBC (4.8-10.8) K/uL RBC (4.7-6.1) M/uL Hgb (14.0-18.0) g/dL Hct (42-52) % MCV (80-100) fL MCH (25-34) pg MCHC (32-36) g/dL RDW Std Deviation (36.4-46.3) fL RDW Coeff of [place]enceslao (11.5-14.5) % Plt Count (130-400) K/uL MPV (7.4-10.4) fL Immature Gran % (Auto) % Neut % (Auto) % Lymph % (Auto) % [place] % (Auto) % Eos % (Auto) % Baso % (Auto) % Neut # (Auto) (1.4-6.5) K/uL Lymph # (Auto) (1.2-3.4) K/uL [place] # (Auto) (0.11-0.59) K/uL Eos # (Auto) (0-0.5) K/uL Baso # (Auto) (0-0.2) K/uL Immature Gran # (Auto) (0.00-0.02) K/uL Sodium (136-145) mmol/L Potassium (3.5-5.1) mmol/L Chloride (98-107) mmol/L Carbon Dioxide (21-32) mmol/L Anion Gap (3-11) BUN (7-18) mg/dl Creatinine (0.6-1.4) mg/dl Est Cr Clr Drug Dosing ml/min Est GFR ( Amer) Est GFR (Non-Af Amer) BUN/Creatinine Ratio (10-20) Glucose (70-99) mg/dl Calcium (8.5-10.1) mg/dl Magnesium (1.8-2.4) mg/dl Total Bilirubin (0.2-1) mg/dl Direct Bilirubin (0-0.2) mg/dl AST (15-37) U/L ALT (12-78) U/L Alkaline Phosphatase (45-117) U/L Total Protein (6.4-8.2) gm/dl Albumin (3.4-5.0) gm/dl Globulin (2.5-4.0) gm/dl Albumin/Globulin Ratio (0.9-2) Lipase (73-393) U/L TSH (0.300-4.500) uIu/ml Urine Color Dark Yellow Urine Appearance Clear (Clear) Urine pH 6.5 (4.5-7.5) Ur Specific [place] 1.019 (1.000-1.030) Urine Protein Trace H (Negative) Urine Glucose (UA) Negative (Negative) Urine Ketones Negative (Negative) Urine Blood Negative (Negative) Urine Nitrite Negative (Negative) Urine Bilirubin Negative (Negative) Urine Urobilinogen Negative (Negative) Ur Leukocyte Esterase Negative (Negative) Urine WBC (Auto) 1-5 (0-5) /hpf Urine RBC (Auto) 0-4 (0-4) /hpf U Hyaline Cast (Auto) 1-5 (0-5) /lpf U Epithel Cells (Auto) 5-10 H (0-5) /lpf Urine Bacteria (Auto) Negative (Negative) Imaging Data Attestation: I personally reviewed and interpreted this imaging study as follows: Radiologist's Impression: AP CHEST WITH ABDOMINAL SERIES CLINICAL HISTORY: Lower abdominal pain. Nausea FINDINGS: An AP upright chest radiograph is compared to study dated 12/18/2013 and correlated with chest CT dated 01/21/2020. The cardiomediastinal silhouette is unremarkable. There is mild elevation of the right hemidiaphragm. Atelectasis is noted at the lung bases. The lungs and pleural spaces are otherwise clear. No pneumothorax is seen. The bony thorax is grossly intact. Supine and decubitus abdominal radiographs are correlated with abdominal CT dated 03/11/2020. There is a nonobstructed abdominal bowel gas pattern. No evidence of intraperitoneal free air is seen. A 5 mm nonobstructing calculus is seen over the left lower pole. No calcifications are seen projecting over the right kidney or along the course of the ureters. The spleen is enlarged. The lumbosacral spine and bony pelvis appear intact. IMPRESSION: 1. No active disease in the chest. 2. Nonobstructed abdominal bowel gas pattern. 3. Left-sided nephrolithiasis. 4. Splenomegaly. MDM Narrative The patient is a 54-year-old male who presents today complaining of continued lower abdominal pain. Patient with a recent history of trauma 2 months ago and several injuries sustained at that time. Patient now having lower abdominal pain over the past 4 to 5 days. He was seen here 3 days ago and had a CT scan which showed cirrhosis, no acute intra-abdominal pathology. Patient did have a hematoma of the lower back, which certainly could be contributing to his pain. Labs today are unremarkable, unchanged from previous. Urinalysis is unremarkable, post void bladder scan without any urinary retention. At this point, patient has had several days of pain which has been intractable. He reports that his symptoms are so severe that he is not eating or drinking at home. I did speak with GI on-call, and they feel that the patient may be a good candidate for admission and endoscopy possibly tomorrow. I discussed options of care with the patient and he does not feel that he can go home. The case was discussed with the [facility] service, who agreed to evaluate the patient for further care. Impression & Plan Intractable abdominal pain, Nausea Discharge Plan Visit Data Chief Complaint: Abdominal Pain Stated Complaint: ABDOMINAL PAIN/DR ROUSSEAU TO MEET PT ED Provider: John Walker ED Midlevel Provider: Natalie Kuhn Discharge Problem: Intractable abdominal pain, Nausea Patient Disposition: Admitted As Inpatient Discharge Instructions Interventions: ED Discharge Assessment Last Done: 03/14/20 17:20
[2020-03-14 12:38] LABS: Basophils # (auto) 0.03 K/uL (0-0.2); Basophils % (auto) 0.6 %; Eosinophils % (auto) 4.2 %; Hematocrit (blood only) 38.5 % (42-52); Immature Granulocytes # (auto) 0.02 K/uL (0.00-0.02); Immature Granulocytes % (auto) 0.4 %; Lymphocytes # (auto) 0.99 K/uL (1.2-3.4); Lymphocytes % (auto) 20.8 %; Mean Corpuscular Hemoglobin 32.4 pg (25-34); Mean Corpuscular Hgb Conc 36.4 g/dL (32-36); Mean Corpuscular Volume 89.1 fL (80-100); Mean Platelet Volume 9.9 fL (7.4-10.4); Monocytes # (auto) 0.38 K/uL (0.11-0.59); Neutrophils # (auto) 3.15 K/uL (1.4-6.5); Platelet Count 100 K/uL (130-400); RDW Coefficient of Variation 13.3 % (11.5-14.5); RDW Standard Deviation 43.2 fL (36.4-46.3); Red Blood Count 4.32 M/uL (4.7-6.1); White Blood Count 4.77 K/uL (4.8-10.8)
[2020-03-14 12:54] LABS: BUN Creatinine Ratio 8.9 (10-20); Calcium 9.6 mg/dl (8.5-10.1); Creatinine Clr Calc Pharmacy 88.2 ml/min; Est GFR (Non-African American) 60.4; Potassium 3.2 mmol/L (3.5-5.1)
[2020-03-14 12:57] LABS: Albumin Globulin Ratio 1.3 (0.9-2); Bilirubin,Total 2.3 mg/dl (0.2-1); Globulin 3.1 gm/dl (2.5-4.0); Total Protein 7.1 gm/dl (6.4-8.2)
--- NOTE | 2020-03-14 13:27 | XRay Report ---
AP CHEST WITH ABDOMINAL SERIES CLINICAL HISTORY: Lower abdominal pain. Nausea FINDINGS: An AP upright chest radiograph is compared to study dated 12/18/2013 and correlated with chest CT date d 01/21/2020. The cardiomediastinal silhouette is unremarkable. There is mild elevation of the right h emidiaphragm. Atelectasis is noted at the lung bases. The lungs and pleural spaces are otherwise andra r. No pneumothorax is seen. The bony thorax is grossly intact. Supine and decubitus abdominal radiographs are correlated with abdominal CT dated 03/11/2020. There is a nonobstructed abdominal bowel gas pattern. No evidence of intraperitoneal free air is seen. A 5 mm nonobstructing calculus is seen over the left lower pole. No calcifications are seen projecting over the right kidney or along the course of the ureters. The spleen is enlarged. The lumbosacral spine a nd bony pelvis appear intact. IMPRESSION: 1. No active disease in the chest. 2. Nonobstructed abdominal bowel gas pattern. 3. Left-sided nephrolithiasis. 4. Splenomegaly. ACT 112: Negative or not required by law. Electronically signed by: John Ross M.D. 03/14/2020 1:25 PM
[2020-03-14 14:27] LABS: Appearance Urine Clear (Clear); Bacteria Urine Automated Negative (Negative); Bilirubin Urine Negative (Negative); Blood Urine Negative (Negative); Color Urine Dark Yellow; Glucose Urine UA Negative (Negative); Ketones Urine Negative (Negative); Leukocyte Esterase Urine Negative (Negative); Nitrite Urine Negative (Negative); Protein Urine Trace (Negative); RBC Urine Automated 0-4 /hpf (0-4); Specific Gravity Urine 1.019 (1.000-1.030); Urobilinogen Urine Negative (Negative); pH Urine 6.5 (4.5-7.5)
[2020-03-14] MEDS ORDERED: HYDROmorphone INJ 0.5 MG/0.5 ML SYR IV STA (16:21)
--- NOTE | 2020-03-14 17:03 | History & Physical Report ---
Date of Service March 14, 2020 Assessment & Plan (1) Nausea & vomiting: (2) RLQ abdominal pain: This is a 54-year-old male who has significant past medical history of hepatic cirrhosis, esophageal varices, hyperlipidemia, allergic rhinitis, recent trauma who presents to ED secondary to nausea and abdominal pain x5 days. admit to med/surg obtain CT A/P with IV and oral contrast given hx of RLQ abd pain/diarrhea IV PPI BID consult GI Clear liquid diet, NPO after midnight antiemetics, IV dilaudid prn continue bentyl - if CT unremarkable consider increasing frequency covid screen likely EGD in a.m. if diarrhea returns - culture/cdiff (3) Cirrhosis: Follows [facility] GI plt 100, no s/sx of active bleeding known lumbar sacral hematoma from trauma euvolemic (4) H/O recent trauma: s/p Fall from ladder to back from 6ft L clavicle fx L ulnar fx - continue splint, follow ortho L rib fracture Transverse spinous process fx L posterior gluteal/sacral hematoma - still with pain - on gabapentin, prn tramadol - not improving (5) HTN (hypertension): BP elevated in ED likely in setting of pain continue lisinopril (6) DVT prophylaxis: SCDS/TEDS avoid chemical prophylaxis in setting of hematoma Disposition: admit to med/surg Follow up: PCP Dr. Brown upon discharge along with appropriate [facility] and surg follow up Pt was seen and examined in collaboration with Dr. Rivera, please see addendum History of Present Illness Chief Complaint: Nausea and abdominal pain x5 days. Primary Care Provider: Tim Brown, This is a 54-year-old male who has significant past medical history of hepatic cirrhosis, esophageal varices, hyperlipidemia, allergic rhinitis, recent trauma who presents to ED secondary to nausea and abdominal pain x5 days. Of significance patient recently hospitalized at [facility] on 01/20-01/22 secondary to falling backwards 6 foot from ladder. He sustained a left ulnar fracture, left clavicle fracture, left rib fracture, fracture thoracic spinous processes and left gluteal and sacral hematoma. He was initially discharged home; however he presented back to hospital secondary to inability to care for self. He had a 5-day stay at [facility]. Since hospitalization he has been experiencing intermittent nausea and abdominal pain. He has also been experiencing low back pain secondary to hematoma. Approximately 5 days ago nausea became constant. He feels like he has to vomit but is unable to bring anything up. "I try to stick finger down my throat but nothing comes up." "I feel like I am full up to my throat." Overall poor appetite and poor p.o. intake for the last 5 days. He has had inability to vomit. He also complains of lower abdominal pain right greater than left. Pain has gradually increased in severity and is constant. Worse with movement and trying to buckle pants. Also worse with palpation. He states 3 days ago he had significant diarrhea with associated yellow film, but since then he has not been able to have a bowel movement. He denies any difficulty with urination. He complains of sweats and chills but denies any documented fever. He denies any lightheadedness, di zziness, chest pain, shortness of breath, cough or hemoptysis. He does follow GI secondary to history of cirrhosis, esophageal varices and splenomegaly. He denies any melena or hematochezia. He further denies any hematemesis. He denies any prior history of peptic ulcer disease. He denies any history of alcohol abuse. Denies significant NSAID use. Of significance patient was seen and evaluated by PCP today. Case was discussed with GI Dr. Rousseau who recommended inpatient admission for likely EGD. He is currently not partaking in any outpatient therapy. He continues to have left upper extremity splint in place. He has [facility] in [place] secondary to hematoma due to persistent low back pain. He states he gets swelling and warmth to his low back with movement that resolves with rest. He feels hematoma is not improving. 1 week ago he did CT abdomen pelvis with IV contrast which revealed collection in the posterior body wall in the upper pelvic region which may represent evolving hematoma, fat necrosis was also differential. In ED patient remained hemodynamically stable. Lab work notable for WBC 4.77, H&H 14.0 and 30.5, platelet 100, K3.2, BUN 12, creatinine 1.31, total bilirubin 2.3. Urinalysis unremarkable. Chest x-ray abdomen pelvis revealed nonobstructive bowel gas pattern, splenomegaly and left-sided nephrolithiasis. He received IV Dilaudid and Zofran with mild improvement of symptoms. Allergies Allergy/AdvReac Type Severity Reaction Status Date / Time hydrocodone [From Vicodin] Allergy Intermediate Hallucinati Verified 03/14/20 12:08 ng Home Medications Home Medications Medication Instructions Recorded Confirmed Type dicyclomine 20 mg tablet 20 mg PO DAILY tab 02/17/19 03/14/20 History lisinopril 20 mg tablet 20 mg PO DAILY 02/17/19 03/14/20 History loratadine 10 mg tablet 10 mg PO DAILY 02/17/19 03/14/20 History pantoprazole 40 mg tablet,delayed 40 mg PO DAILY 02/17/19 03/14/20 History release tramadol 50 mg tablet 50 - 100 mg PO Q6H PRN 02/17/19 03/14/20 History Qvar RediHaler 1 puffs INH BID PRN 01/21/20 03/14/20 History docusate sodium [Col-Rite] 100 mg PO BID PRN 03/11/20 03/14/20 History gabapentin 300 mg PO TID 03/11/20 03/14/20 History metoclopramide HCl [Reglan] 10 mg PO Q6H PRN #20 tab 03/11/20 03/14/20 Rx ondansetron 4 mg TRANSLINGUAL Q8 PRN 03/11/20 03/14/20 History polyethylene glycol 3350 17 g PO DAILY PRN 03/11/20 03/14/20 History sennosides [Senna Lax] 8.6 mg PO QAM 03/11/20 03/14/20 History Past Med/Surg History Medical History Cirrhosis Cough H/O backache History of night sweats HTN (hypertension) Hx of allergic rhinitis Hx of anxiety disorder Hx of chest pain Hx of cirrhosis Hx of esophageal varices Hx of urticaria Hypertension Positive colorectal cancer screening using Cologuard test Surgical History H/O colonoscopy History of esophagogastroduodenoscopy (EGD) Hx of arthroscopy of knee Family History Other Cancer Social History Smoking Status: Never smoker Hx Alcohol Use: No Hx Substance Use: No Preferred Language: Nigerian Communication Ability: Effective [place] Joiner Required: No Beliefs That Will Affect Care: None marital status: Single Current Living Situation: Spouse Current Living Situation Comment: girlfriend and granddaughter 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 Safe at Home: Yes Childhood Exposure to Second-Hand Smoke: No Assistive Devices: Brace/Splint/Immobilizer and Glasses Review of Systems Review of Systems: All systems reviewed & are unremarkable except as noted in HPI & below Physical Exam Physical Exam: Constitutional: WD/WN, male, vitals as above, NAD, sitting up in bed, pleasant, conversing easily Head: Normocephalic, Atraumatic Eyes: PERRL, conjunctivae normal, anicteric sclerae ENMT: external ear and nose normal, oropharynx normal Neck: trachea midline, no thyromegaly normal visual inspection Respiratory: normal respiratory effort, lungs clear to auscultation, no wheeze, rales, rhonchi. Normal insp/exp effort, no accessory muscle use Cardiovascular: RRR, no murmur, no edema Vessels: no JVD or carotid bruit Chest: normal inspection of chest Abdomen: normal bowel sounds, tender to palpation right lower quadrant, positive rebound, positive McBurney's, soft, nondistended Musculoskeletal: no cyanosis or clubbing, extremities motor strength 5/5, left upper extremity forearm splint in place, NVI distally Skin: no rashes, warm and dry normal turgor Neurologic: PERRL, EOMI, accommodation nl, no face palsy, no dysarthria CN's II-XI intact bilaterally and moves all extremities Psychiatric: A+Ox3, euthymic affect Lymphatic: no cervical or axillary lymphadenopathy : deferred Results & Data Results & Data ([facility]) Vital Signs (Past 12 Hours) Vital Signs Temp Pulse Resp BP Pulse Ox 03/14/20 16:00 75 21 134/96 97 03/14/20 15:50 64 15 97 03/14/20 15:40 61 14 97 03/14/20 15:30 70 12 130/77 98 03/14/20 15:20 64 16 97 03/14/20 15:10 60 12 98 03/14/20 15:00 61 14 140/80 99 03/14/20 14:50 72 16 97 03/14/20 14:49 67 16 97 03/14/20 14:48 62 12 127/77 99 03/14/20 12:50 66 16 91 03/14/20 12:34 65 27 H 135/84 93 03/14/20 11:36 37 C 83 20 153/104 H 95 Laboratory Results Short CBC 03/14/20 Range/Units 12:27 WBC 4.77 L (4.8-10.8) K/uL Hgb 14.0 (14.0-18.0) g/dL Hct 38.5 L (42-52) % Plt Count 100 L (130-400) K/uL BMP 03/14/20 12:27 Sodium 141 Potassium 3.2 L Chloride 108 H Carbon Dioxide 27 BUN 12 Creatinine 1.31 Glucose 91 Calcium 9.6 Liver Function 03/14/20 Range/Units 12:27 Total Bilirubin 2.3 H (0.2-1) mg/dl AST 26 (15-37) U/L ALT 26 (12-78) U/L Alkaline Phosphatase 69 (45-117) U/L Albumin 4.0 (3.4-5.0) gm/dl Urine 03/14/20 Range/Units 14:00 Urine Color Dark Yellow Urine Appearance Clear (Clear) Urine pH 6.5 (4.5-7.5) Ur Specific [place] 1.019 (1.000-1.030) Urine Protein Trace H (Negative) Urine Glucose (UA) Negative (Negative) Diagnostic Findings CXR/KUB: IMPRESSION: 1. No active disease in the chest. 2. Nonobstructed abdominal bowel gas pattern. 3. Left-sided nephrolithiasis. 4. Splenomegaly. CT A/P IV contrast: IMPRESSION 1. Collection in the posterior body wall in the upper pelvic region may represent evolving hematoma. Fat necrosis is also a differential. No air foci to suggest superimposed infection. 2. Cirrhosis with portal hypertension. 3. Mild prostatomegaly. Medications Administered Discontinued Medications Hydromorphone HCl (Hydromorphone Inj 1 Mg/Ml Syringe) 1 mg IV NOW STA Stop: 03/14/20 12:11 Last Admin: 03/14/20 12:30 Dose: 1 mg Documented by: [id number] Sodium Chloride (Nss 1000ml) 1,000 mls @ 999 mls/hr IV .Q1H1M ONE Stop: 03/14/20 13:10 Last Infusion: 03/14/20 14:48 Dose: 0 mls/hr Documented by: [id number] Admin: 03/14/20 12:31 Dose: 999 mls/hr Documented by: [id number] Ondansetron HCl (Ondansetron Inj 2 Mg/Ml 2 Ml Vial) 4 mg IV NOW STA Stop: 03/14/20 12:11 Last Admin: 03/14/20 12:30 Dose: 4 mg Documented by: [id number] Code Status & VTE Plan Code Status Full Code VTE Prophylaxis Plan VTE Prophylaxis will be ordered: Yes Reason for no VTE drug order: Contraindicated Supervising Physician Co-Signing Physician Notes Pt was seen and examined. Agreed with VANGIE exam, assessment and plan. 54-year-old male with PMH of hepatic cirrhosis, esophageal varices, hyperlipidemia, allergic rhinitis, recent trauma presented to ED secondary to nausea and abdominal pain x5 days. Pt was recently hospitalized at [facility] on 01/20-01/22 after falling backwards 6 foot from ladder that caused left ulnar fracture, left clavicle fracture, left rib fracture, fracture thoracic spinous processes and left gluteal and sacral hematoma. Pt said that he has been having intermittent nausea associated with abdominal pain since discharge from [facility]. Pt said that he has not been eating much. He said that he tried to induce himself to vomiting, but unable to vomit. He said that he continues to have constant lower abdominal pain that is worsening. Denies any lightheadedness, dizziness, chest pain, shortness of breath, cough or hemoptysis. CT head showed marked splenomegaly and esophageal varices indicate portal hypertension. Gallbladder wall thickening is nonspecific and may be related to chronic liver disease. A crescentic fluid collection in the soft tissues superficial to the sacral paraspinous musculature is likely related to recent trauma. Will start on clear liquid diet. Continue antiemetics, IVF and IV dilaudid prn. Gastro consult. Will make NPO after midnight for possible EGD. Continue monitor closely. MD Miguel (1) Nausea & vomiting Vomiting Intractability: non-intractable Vomiting type: unspecified Qualified Code(s): R11.2 - Nausea with vomiting, unspecified
[2020-03-14] MEDS: POTASSIUM CHLORIDE / WTR 10 MEQ/100 ML PLCT IV SCH ×2 (17:08→20:21)
[2020-03-14 18:00] LABS: Magnesium 2.3 mg/dl (1.8-2.4); Thyroid Stimulating Hormone 2.87 uIu/ml (0.300-4.500)
[2020-03-14] MEDS ORDERED: POLYETHYLENE (MIRALAX) 17 GM PACK PO PRN (18:23)
[2020-03-14] MEDS ORDERED: ACETAMINOPHEN 325 MG TAB PO PRN (18:23)
[2020-03-14] MEDS ORDERED: ALUMINUM/MAGNESIUM SUSP 30 ML UDC PO PRN (18:23)
[2020-03-14] MEDS ORDERED: MAGNESIUM HYDROXIDE SUSP 30 ML UDC PO PRN (18:23)
[2020-03-14 19:51] LABS: Bilirubin Direct 0.4 mg/dl (0-0.2)
[2020-03-14] MEDS ORDERED: IOVERSOL 100ml IV ONE (20:06)
[2020-03-14] MEDS: NSS + 20MEQ KCL 20 MEQ/1,000 ML BAG IV SCH (20:21)
--- NOTE | 2020-03-14 20:30 | CT Scan Report ---
CT SCAN OF THE ABDOMEN AND PELVIS WITH IV CONTRAST CLINICAL HISTORY: Right lower quadrant abdominal pain. COMPARISON STUDY: Abdominal CT dated 03/11/2020. TECHNIQUE: Following the IV administration of 93 cc of Optiray 320, CT scan of the abdomen and pelvi s is performed from the lung bases to the proximal femora. Images are reviewed in the axial, sagittal , and coronal planes. IV contrast was administered without complication. Oral contrast was utilized. A dose lowering technique was utilized adhering to the principles of ALARA. CT DOSE: 1426.70 mGy.cm FINDINGS: Lung bases: The heart is normal in size and without pericardial effusion. The lung bases are clear no ting bibasilar atelectasis. There is a tiny hiatal hernia. Esophageal varices are noted. Liver: The contrast-enhanced liver is cirrhotic in morphology and heterogeneous in attenuation. There is hypertrophy of the left lobe and nodularity of the surface contour. Diffusely diminished attenuat ion of the liver suggests steatosis. There is no intrahepatic biliary ductal dilatation. The hepatic veins and portal veins are patent. Question a subtle 3 cm low-attenuation lesion in the right lobe of the liver. This is best seen on axial image #31 of 110. Gallbladder: The gallbladder wall appears thickened and there is pericholecystic inflammation. Spleen: The spleen is enlarged measuring 21.8 cm in length. Pancreas: Mildly atrophic and grossly unremarkable. Adrenal glands: Unremarkable. Kidneys: The contrast enhanced kidneys demonstrate mild cortical atrophy and are without hydronephros is. The kidneys enhance symmetrically. A 4 mm nonobstructing calculus is seen in the left lower pole. Abdominal vasculature: The abdominal aorta is normal in course and caliber noting mild atheroscleroti c calcification. Bowel: There is no bowel obstruction. Enteric contrast reaches the sigmoid colon. The appendix is we ll-visualized and normal. Peritoneum: There is no intraperitoneal free air or abdominal ascites. There is a small fat-containin g umbilical hernia. Lymphadenopathy: Numerous mildly enlarged upper abdominal and portacaval lymph nodes are nonspecific and may be related to chronic liver disease. Pelvic viscera: The prostate gland is enlarged and heterogeneous. There is asymmetric enhancement inv olving the right peripheral zone seen on image #488. Median lobe hypertrophy is observed. The bladder wall is thickened and trabeculated indicating chronic outlet obstruction. Skeletal structures: No lytic or blastic lesions are seen. There is a subacute/healing left posterior 10th rib fracture. There are subacute/healing spinous process fractures of T8, T9, and T10. A 6 x 2 x 12.5 cm crescentic fluid collection superficial to the sacral paraspinous musculature is seen on im age #356. IMPRESSION: 1. The liver is cirrhotic in morphology and heterogeneous in attenuation. 2. Marked splenomegaly and esophageal varices indicate portal hypertension. 3. Gallbladder wall thickening is nonspecific and may be related to chronic liver disease. There is p ericholecystic inflammation, and given the history of right-sided abdominal pain a gallbladder ultras ound is recommended to assess for acute cholecystitis. 4. There are subacute/healing fractures of the left posterior 10th rib and the spinous processes of T 8, T9, and T10. 5. The prostate gland is enlarged and heterogeneous. Asymmetric enhancement is noted involving the ri ght peripheral zone. This is not well assessed by CT and correlation with serum PSA levels is recomme nded. 6. Question a subtle 3 cm low-attenuation lesion in the right lobe of liver. Correlation a nonemergen t MRI of the liver is recommended for further assessment. 7. There are numerous mildly enlarged upper abdominal lymph nodes. This are nonspecific and may be re lated to chronic liver disease. 8. A crescentic fluid collection in the soft tissues superficial to the sacral paraspinous musculatur e is likely related to recent trauma. 9. Left-sided nephrolithiasis. 10. Additional findings as above. ACT 112: Negative or not required by law. Electronically signed by: John Ross M.D. 03/14/2020 8:29 PM
[2020-03-14] MEDS: GABAPENTIN 300 MG CAP PO SCH (21:22)
[2020-03-14] MEDS: PANTOprazole 40 MG in SYRINGE 0 ML IV SCH (21:22)
[2020-03-14] MEDS: ONDANSETRON INJ 2 MG/ML 2 ML VIAL IV PRN (22:52)
[2020-03-14] MEDS: PROMETHAZINE HCL 12.5 MG in SODIUM CHLORIDE 0.9% 50 ML IV PRN (23:54)
[2020-03-15] MEDS: NSS + 20MEQ KCL 20 MEQ/1,000 ML BAG IV SCH (06:04)
[2020-03-15 06:15] LABS: Hematocrit (blood only) 35.9 % (42-52); Hemoglobin 12.9 g/dL (14.0-18.0); Mean Corpuscular Hgb Conc 35.9 g/dL (32-36); Mean Corpuscular Volume 89.1 fL (80-100); RDW Coefficient of Variation 13.3 % (11.5-14.5); RDW Standard Deviation 42.8 fL (36.4-46.3); Red Blood Count 4.03 M/uL (4.7-6.1)
[2020-03-15] MEDS: ONDANSETRON INJ 2 MG/ML 2 ML VIAL IV PRN (06:29)
[2020-03-15 06:30] LABS: Mean Platelet Volume 10.7 fL (7.4-10.4); Platelet Count 68 K/uL (130-400)
[2020-03-15 06:48] LABS: Albumin Globulin Ratio 1.3 (0.9-2); Albumin Level 3.4 gm/dl (3.4-5.0); BUN Creatinine Ratio 9.9 (10-20); Bilirubin,Total 2.4 mg/dl (0.2-1); Calcium 8.7 mg/dl (8.5-10.1); Creatinine Clr Calc Pharmacy 90.9 ml/min; Est GFR (African American) 72.7; Est GFR (Non-African American) 62.7; Globulin 2.6 gm/dl (2.5-4.0); Potassium 3.7 mmol/L (3.5-5.1)
[2020-03-15] MEDS: PROMETHAZINE HCL 12.5 MG in SODIUM CHLORIDE 0.9% 50 ML IV PRN (07:55)
[2020-03-15] MEDS: HYDROmorphone INJ 0.5 MG/0.5 ML SYR IV PRN ×2 (09:54→16:30)
--- NOTE | 2020-03-15 10:47 | Ultrasound Report ---
US abdomen limited HISTORY: 54 years-old Male eval for cholecystitis acute nausea with vomiting COMPARISON: CT abdomen and pelvis 03/14/2020 TECHNIQUE: Multiple real-time sonographic images of the abdominal right upper quadrant were obtained assessing grayscale appearance and color flow FINDINGS: The pancreas is mostly obscured by bowel gas. Marginal nodularity of the heterogeneous liver suggesti ve of cirrhosis. No hepatic mass identified. Normal common bile duct, 4 mm. The gallbladder wall isael ures the upper limits of normal at 3 mm and is mildly distended. No shadowing cholelithiasis. The per icholecystic edema is better characterized on comparison CT. Obscuring bowel gas limits the study. Imaged right kidney is unremarkable without hydronephrosis. IMPRESSION: 1. Limited exam secondary to obscuring bowel gas. 2. Mild gallbladder distention with the wall measuring in the upper limits of normal. No cholelithias is identified. The pericholecystic inflammation is better characterized on comparison CT. Findings ma y be secondary from underlying liver disease versus acute acalculus cholecystitis. Follow-up nuclear medicine hepatobiliary scan may be considered. 3. Cirrhotic morphology of the liver. ACT 112: Negative or not required by law. The above report was generated using voice recognition software. It may contain grammatical, syntax o r spelling errors. Electronically signed by: Vipul Adan M.D. 03/15/2020 10:45 AM
--- NOTE | 2020-03-15 10:53 | Gastrointestinal Consultation ---
Date of Consultation March 15, 2020 Assessment & Plan (1) Nausea: (2) Cirrhosis: (3) RLQ abdominal pain: Pt is a 54 yo male w hx of cirrhosis who sustained a fall from ladder back in January and suffered several fractures, large hematoma on sacral area; admitted for persistent nausea w/o vomiting, poor PO intake and abd pain mainly on RLQ area. CT abd/pelvis showed signs of possible gallbladder thickening ? related to cirrhosis vs cholecystitis. ? 3cm R liver lesion, non specific upper abd lymph node enlargement. No obstructive or inflammatory process in bowels noted. He has been taking Tramadol for his injuries but denies NSAIDs, ETOH. ? gastritis vs PUD causing nausea/poor appetite - IVF support - CL diet - PPI IV BID - Zofran prn nausea - Obtain RUQ u/s to r/o cholelithiasis, cholecystitis - Will keep him NPO after midnight and consider EGD inpt vs outpt depending on his clinical response - Need outpt GI f/u for cirrhosis management and further eval of R liver mass w MRI liver Supervising Physician Co-Signing Physician Notes I performed a history and physical examination of the patient today, including specifically on physical exam - soft abdomen. I have discussed the patient's management with the advanced practitioner. Please refer to the nurse practitioner's note for the documented findings and plan of care. 54 yrs old male patient admitted with N/V/Abdominal pain, CT scan showed ? cholecystitis, No gallstones on sono, LFTs normal except elevated Bilirubin related to his liver cirrhosis. Also showed varices and periportal LN. ? 3 cm Liver lesion. Plan for EGD tomorrow, if negative then consider HIDA scan to r/o cholecystitis though seems unlikely. MRI Liver protocol to evaluate the liver lesion. History of Present Illness Reason for Consultation: Abd pain, nausea Requesting Physician: Dr. Hamlet Miguel Attending Physician: Dr. Elizabeth Medeiros History of Present Illness Pt is a 54 y/o male who was referred to ED by his PCP for c/o persistent nausea, poor appetite and lower abd pain. He had a fall from ladder in January was admitted at [facility] and he sustained a left ulnar fracture, left clavicle fracture, left rib fracture, fracture thoracic spinous processes and left gluteal and sacral hematoma. He had been taking Tramadol for his lower back pain and reports in last few weeks cannot eat/drink much. He feels very nauseated t brooke not vomiting even after drinking sips of fluid. He is having dry heaves and felt abd pain may be related to this. He's had multiple CT abd/pelvis in this hospital and [employer] system in last week. But most recently one yesterday on admission showed: 1. The liver is cirrhotic in morphology and heterogeneous in attenuation. 2. Marked splenomegaly and esophageal varices indicate portal hypertension. 3. Gallbladder wall thickening is nonspecific and may be related to chronic liver disease. There is pericholecystic inflammation, and given the history of right-sided abdominal pain a gallbladder ultrasound is recommended to assess for acute cholecystitis. 4. There are subacute/healing fractures of the left posterior 10th rib and the spinous processes of T8, T9, and T10. 5. The prostate gland is enlarged and heterogeneous. Asymmetric enhancement is noted involving the right peripheral zone. This is not well assessed by CT and correlation with serum PSA levels is recommended. 6. Question a subtle 3 cm low-attenuation lesion in the right lobe of liver. Correlation a nonemergent MRI of the liver is recommended for further assessment. 7. There are numerous mildly enlarged upper abdominal lymph nodes. This are nonspecific and may be related to chronic liver disease. 8. A crescentic fluid collection in the soft tissues superficial to the sacral paraspinous musculature is likely related to recent trauma. 9. Left-sided nephrolithiasis. Last EGD in 2018: grade III varices, hyperplastic gastric polyps Last colonoscopy in 2018: Adenomatous colon polyp including tubuvillous adenoma, recall 6 months recommended Allergies Allergy/AdvReac Type Severity Reaction Status Date / Time hydrocodone [From Vicodin] Allergy Intermediate Hallucinati Verified 03/14/20 12:08 Home Medications Home Medications Medication Instructions Recorded Confirmed Type dicyclomine 20 mg tablet 20 mg PO DAILY tab 02/17/19 03/14/20 History lisinopril 20 mg tablet 20 mg PO DAILY 02/17/19 03/14/20 History loratadine 10 mg tablet 10 mg PO DAILY 02/17/19 03/14/20 History pantoprazole 40 mg tablet,delayed 40 mg PO DAILY 02/17/19 03/14/20 History release tramadol 50 mg tablet 50 - 100 mg PO Q6H PRN 02/17/19 03/14/20 History Qvar RediHaler 1 puffs INH BID PRN 01/21/20 03/14/20 History docusate sodium [Col-Rite] 100 mg PO BID PRN 03/11/20 03/14/20 History gabapentin 300 mg PO TID 03/11/20 03/14/20 History metoclopramide HCl [Reglan] 10 mg PO Q6H PRN #20 tab 03/11/20 03/14/20 Rx ondansetron 4 mg TRANSLINGUAL Q8 PRN 03/11/20 03/14/20 History polyethylene glycol 3350 17 g PO DAILY PRN 03/11/20 03/14/20 History sennosides [Senna Lax] 8.6 mg PO QAM 03/11/20 03/14/20 History Patient History Medical History Cirrhosis Cough H/O backache History of night sweats HTN (hypertension) Hx of allergic rhinitis Hx of anxiety disorder Hx of chest pain Hx of cirrhosis Hx of esophageal varices Hx of urticaria Hypertension Positive colorectal cancer screening using Cologuard test Surgical History H/O colonoscopy History of esophagogastroduodenoscopy (EGD) Hx of arthroscopy of knee Family History Other Cancer Social History Smoking Status: Never smoker Hx Alcohol Use: No Hx Substance Use: No Preferred Language: Vietnamese Communication Ability: Effective Avionics Engineer Required: No Beliefs That Will Affect Care: None marital status: Single Current Living Situation: Spouse Current Living Situation Comment: girlfriend and granddaughter 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 Safe at Home: Yes Childhood Exposure to Second-Hand Smoke: No Assistive Devices: Brace/Splint/Immobilizer Review of Systems Review of Systems: All systems reviewed & are unremarkable except as noted in HPI & below Physical Exam Constitutional: WD/WN, vitals as above well groomed, cooperative and comfortable Eyes: PERRL, conjunctivae normal, anicteric sclerae ENMT: external ear and nose normal, oropharynx normal Respiratory: normal respiratory effort, lungs clear to auscultation Cardiovascular: RRR, no murmur, no edema Gastrointestinal (Abdomen): TTP RLQ abd Skin: no rashes, warm and dry no jaundice Psychiatric: A+Ox3, euthymic affect Lymphatic: no lymphedema Results & Data ([facility]) Vital Signs (Past 12 Hours) Vital Signs Temp Pulse Resp BP Pulse Ox 03/15/20 07:07 36.8 C 59 L 18 142/83 H 97 03/14/20 22:50 36.7 C 64 20 126/84 96
[2020-03-15] MEDS: GABAPENTIN 300 MG CAP PO SCH ×3 (11:25→20:34)
[2020-03-15] MEDS: DICYCLOMINE HCL 20 MG TAB PO SCH ×2 (11:25→11:42)
[2020-03-15] MEDS: FLUTICASONE FUROATE 100MCG 14 PUFFS/INHALER INH SCH ×2 (11:26→11:40)
[2020-03-15] MEDS: lisinopril 20 MG TAB PO SCH (11:42)
[2020-03-15] MEDS: PANTOprazole 40 MG in SYRINGE 0 ML IV SCH ×2 (11:42→20:33)
--- NOTE | 2020-03-15 20:18 | Hospitalist Progress Note ---
Date of Service March 15, 2020 Assessment & Plan (1) Nausea & vomiting: (2) RLQ abdominal pain: Per admitting service notes: This is a 54-year-old male who has significant past medical history of hepatic cirrhosis, esophageal varices, hyperlipidemia, allergic rhinitis, recent trauma who presents to ED secondary to nausea and abdominal pain x5 days. CT abdomen/pelvis: 1. The liver is cirrhotic in morphology and heterogeneous in attenuation. 2. Marked splenomegaly and esophageal varices indicate portal hypertension. 3. Gallbladder wall thickening is nonspecific and may be related to chronic liver disease. There is pericholecystic inflammation, and given the history of right-sided abdominal pain a gallbladder ultrasound is recommended to assess for acute cholecystitis. 4. There are subacute/healing fractures of the left posterior 10th rib and the spinous processes of T8, T9, and T10. 5. The prostate gland is enlarged and heterogeneous. Asymmetric enhancement is noted involving the right peripheral zone. This is not well assessed by CT and correlation with serum PSA levels is recommended. 6. Question a subtle 3 cm low-attenuation lesion in the right lobe of liver. Correlation a nonemergent MRI of the liver is recommended for further assessment. 7. There are numerous mildly enlarged upper abdominal lymph nodes. This are nonspecific and may be related to chronic liver disease. 8. A crescentic fluid collection in the soft tissues superficial to the sacral paraspinous musculature is likely related to recent trauma. 9. Left-sided nephrolithiasis. 10. Additional findings as above. GB US: 1. Limited exam secondary to obscuring bowel gas. 2. Mild gallbladder distention with the wall measuring in the upper limits of normal. No cholelithiasis identified. The pericholecystic inflammation is better characterized on comparison CT. Findings may be secondary from underlying liver disease versus acute acalculus cholecystitis. Follow-up nuclear medicine hepatobiliary scan may be considered. 3. Cirrhotic morphology of the liver. -- check PSA level Right Liver Lesion: will need MRI of the liver -- GI consulted for EGD tomorrow, possible HIDA scan (3) Cirrhosis: Follows [facility] plt 68k, no s/sx of active bleeding--> monitor known lumbar sacral hematoma from trauma euvolemic (4) H/O recent trauma: per admitting service notes: s/p Fall from ladder to back from 6ft L clavicle fx L ulnar fx - continue splint, follow ortho L rib fracture Transverse spinous process fx L posterior gluteal/sacral hematoma - still with pain - on gabapentin, prn tramadol - not improving (5) HTN (hypertension): BP stable continue lisinopril (6) DVT prophylaxis: SCDS/TEDS avoid chemical prophylaxis in setting of hematoma Disposition: anticipate d/c home when medically stable PCP Dr. Brown upon discharge along with appropriate [facility] surg follow up Pt was seen and examined in collaboration with Dr. Rivera, please see addendum Admission and Anticipated Discharge Date Admission Date: March 14, 2020 Subjective Follow-up for abdominal pain, history of cirrhosis Seen resting in bed, watching TV, comfortable, not in distress Reports persistent lower quadrant pain Had intermittent nausea today No fevers or chills No chest pain, shortness of breath, palpitations, dizziness No other symptoms Review of Systems Review of Systems: All systems reviewed & are unremarkable except as noted in Subjective Physical Exam Physical Exam: General- oriented x 3, not in distress, speaks in sentences with no effort or accessory muscle use Head- atraumatic Eyes- PERRL, EOMI, anicteric ENT- oropharynx clear Neck- supple, no JVD, no adenopathy, no thyromegaly; carotids +2/2, no bruits appreciated Lungs- clear to auscultation bilaterally, no rales/wheezes Heart- normal rate, regular rhythm; no murmur, no gallop, no rub appreciated Abdomen- normal bowel sounds, nondistended, soft, nontender, no masses or hepatosplenomegaly Extremities- no pretibial edema, no calf tenderness; peripheral pulses intact Neuro- alert, oriented x 3; CN 2-12 grossly intact; motor 5/5 bilaterally;sensation 100% on all extremities; no other gross focal neurologic deficits Skin- warm & dry Results & Data Results & Data ([facility]) Vital Signs (Past 12 Hours) Vital Signs Pulse Resp BP Pulse Ox 03/15/20 15:45 64 17 121/75 96 Laboratory Results Laboratory Results - last 24 hr 03/15/20 03/15/20 03/15/20 05:54 05:54 05:54 WBC 3.40 L RBC 4.03 L Hgb 12.9 L Hct 35.9 L MCV 89.1 MCH 32.0 MCHC 35.9 RDW Std Deviation 42.8 RDW Coeff of Wenceslao 13.3 Plt Count 68 L MPV 10.7 H Sodium 141 Potassium 3.7 D Chloride 110 H Carbon Dioxide 26 Anion Gap 4.0 BUN 13 Creatinine 1.27 Est Cr Clr Drug Dosing 90.9 Est GFR ( Amer) 72.7 Est GFR (Non-Af Amer) 62.7 BUN/Creatinine Ratio 9.9 L Glucose 84 Calcium 8.7 Total Bilirubin 2.4 H AST 29 ALT 22 Alkaline Phosphatase 59 Total Protein 6.0 L Albumin 3.4 Globulin 2.6 Albumin/Globulin Ratio 1.3 Specimen Hemolysis Hepatitis C Ab Screen Neg (1) Nausea & vomiting Vomiting Intractability: non-intractable Vomiting type: unspecified Qualified Code(s): R11.2 - Nausea with vomiting, unspecified
[2020-03-16] MEDS: ONDANSETRON INJ 2 MG/ML 2 ML VIAL IV PRN ×2 (04:43→20:27)
[2020-03-16] MEDS: HYDROmorphone INJ 0.5 MG/0.5 ML SYR IV PRN ×2 (06:26→16:57)
--- NOTE | 2020-03-16 08:45 | Gastroenterology Progress Note ---
Date of Service March 16, 2020 Assessment & Plan (1) Nausea: (2) Cirrhosis: (3) RLQ abdominal pain: Pt is a 54 yo male w hx of cirrhosis who sustained a fall from ladder back in January and suffered several fractures, large hematoma on sacral area; admitted for persistent nausea w/o vomiting, poor PO intake and abd pain mainly on RLQ area. CT abd/pelvis showed signs of possible gallbladder thickening ? related to cirrhosis vs cholecystitis. ? 3cm R liver lesion, non specific upper abd lymph node enlargement. No obstructive or inflammatory process in bowels noted. He has been taking Tramadol for his injuries but denies NSAIDs, ETOH. ? gastritis vs PUD causing nausea/poor appetite U/S 03/15/2020: 1. Limited exam secondary to obscuring bowel gas. 2. Mild gallbladder distention with the wall measuring in the upper limits of normal. No cholelithiasis identified. The pericholecystic inflammation is better characterized on comparison CT. Findings may be secondary from underlying liver disease versus acute acalculus cholecystitis. Follow-up nuclear medicine hepatobiliary scan may be considered. 3. Cirrhotic morphology of the liver. - IVF support - Keep NPO for EGD eval today - PPI IV BID - Zofran & Phenergan prn nausea - Bentyl 20mg BID prn cramping - Check stool cx, Cdiff if diarrhea continues - If EGD unremarkable will consider HIDA scan to r/o biliary dyskinesia , acalculus cholecystitis - Need outpt GI f/u for cirrhosis management and further eval of R liver mass w MRI liver Attg add: I interviewed and examined pt, reviewed chart and labs. Pt with persistent nausea. Exam as above. Will plan EGD today. Admission and Anticipated Discharge Date Admission Date: March 14, 2020 Subjective Pt had nausea, diarrhea and abd cramping overnight after supper. Stools black- greenish in color Can't eat much liquids yesterday Review of Systems Review of Systems: All systems reviewed & are unremarkable except as noted in HPI & below Physical Exam Constitutional: WD/WN, vitals as above well groomed, cooperative and comfortable Eyes: PERRL, conjunctivae normal, anicteric sclerae ENMT: external ear and nose normal, oropharynx normal Respiratory: normal respiratory effort, lungs clear to auscultation Cardiovascular: RRR, no murmur, no edema Gastrointestinal (Abdomen): Inspection/Auscultation: + hypoactive bowel sounds Percussion/Palpation: + abdomen tender (RUQ, across lower abd areas ) and abdomen soft Skin: no rashes, warm and dry no jaundice Psychiatric: A+Ox3, euthymic affect Lymphatic: no lymphedema Results & Data ([facility]) Vital Signs (Past 12 Hours) Vital Signs Temp Pulse Resp BP Pulse Ox 03/16/20 07:55 36.8 C 65 16 137/82 94 03/15/20 23:50 36.9 C 66 20 143/77 H 96
[2020-03-16] MEDS: FLUTICASONE FUROATE 100MCG 14 PUFFS/INHALER INH SCH (08:48)
[2020-03-16] MEDS: PANTOprazole 40 MG in SYRINGE 0 ML IV SCH ×2 (08:48→20:39)
[2020-03-16] MEDS: lisinopril 20 MG TAB PO SCH (08:48)
[2020-03-16] MEDS: GABAPENTIN 300 MG CAP PO SCH ×3 (08:48→20:35)
--- NOTE | 2020-03-16 10:33 | Anesthesiology Consultation ---
Date of Service March 16, 2020 Assessment & Plan (1) Encounter for pre-operative examination: Chart Review Chart Review: Acceptable Risk for Surgery and Patient NOT seen in Pre Admission Testing Consults Requested none ASA ASA3 Proposed Anesthesia Anesthesia Type: MAC Risk / Benefits Reviewed With: PT / POA / Parent / Guardian, Accepts Plan and In formed Consent Obtained History Surgery Operation Date: 03/16/20 10:15 Proposed Procedures p Esophagogastroduodenoscopy Dr Amaya - Jeffy Boggs MD Height/Weight Height: 6 ft 4 in Weight: 117.3 kg Allergies Allergy/AdvReac Type Severity Reaction Status Date / Time hydrocodone [From Vicodin] Allergy Intermediate Hallucinati Verified 03/14/20 12:08 ng Medications Home Medications Medication Instructions Recorded Confirmed Last Taken dicyclomine 20 mg tablet 20 mg PO DAILY tab 02/17/19 03/14/20 03/13/20 lisinopril 20 mg tablet 20 mg PO DAILY 02/17/19 03/14/20 03/13/20 loratadine 10 mg tablet 10 mg PO DAILY 02/17/19 03/14/20 03/13/20 pantoprazole 40 mg tablet,delayed 40 mg PO DAILY 02/17/19 03/14/20 03/13/20 release tramadol 50 mg tablet 50 - 100 mg PO Q6H PRN 02/17/19 03/14/20 03/13/20 Qvar RediHaler 1 puffs INH BID PRN 01/21/20 03/14/20 03/13/20 docusate sodium [Col-Rite] 100 mg PO BID PRN 03/11/20 03/14/20 03/13/20 gabapentin 300 mg PO TID 03/11/20 03/14/20 03/13/20 metoclopramide HCl [Reglan] 10 mg PO Q6H PRN #20 tab 03/11/20 03/14/20 03/13/20 ondansetron 4 mg TRANSLINGUAL Q8 PRN 03/11/20 03/14/20 03/13/20 polyethylene glycol 3350 17 g PO DAILY PRN 03/11/20 03/14/20 03/13/20 sennosides [Senna Lax] 8.6 mg PO QAM 03/11/20 03/14/20 03/13/20 Active Medications Generic Name Dose Route Start Last Admin Trade Name Freq PRN Reason Stop Dose Admin Fluticasone Furoate 1 puffs 03/15/20 09:00 03/16/20 08:48 Fluticasone Furoate 100mcg 14 Puffs/Inhaler INH 04/14/20 08:59 Not Given QAM THERESA Gabapentin 300 mg 03/14/20 21:00 03/16/20 08:48 Gabapentin 300 Mg Cap PO 04/13/20 20:59 Not Given TID THERESA Hydromorphone HCl 0.5 mg 03/14/20 18:23 03/16/20 06:26 Hydromorphone Inj 0.5 Mg/0.5 Ml Syr IV 03/28/20 18:22 0.5 mg Q4H PRN Administration Pain Pantoprazole Sodium 40 mg/ 10 mls @ 5 mls/min 03/14/20 21:00 03/16/20 08:48 Syringe IV 04/13/20 20:59 5 mls/min BID THERESA Administration Promethazine HCl 12.5 mg/ 50.5 mls @ 202 mls/hr 03/14/20 23:28 03/15/20 09:19 Sodium Chloride IV 04/13/20 23:27 Infused Q6H PRN Infusion Nausea And Vomiting Lisinopril 20 mg 03/15/20 09:00 03/16/20 08:48 Lisinopril 20 Mg Tab PO 04/14/20 08:59 20 mg DAILY THERESA Administration Ondansetron HCl 4 mg 03/14/20 18:23 03/16/20 04:43 Ondansetron Inj 2 Mg/Ml 2 Ml Vial IV 04/13/20 18:22 4 mg Q6H PRN Administration Nausea NPO Date Last Intake of Fluids: 03/15/20 Time Last Intake of Fluids: 18:00 Date Last Intake of Solids: 03/11/20 Time Last Intake of Solids: 08:00 Past Medical History Medical History Cirrhosis Cough H/O backache History of night sweats HTN (hypertension) Hx of allergic rhinitis Hx of anxiety disorder Hx of chest pain Hx of cirrhosis Hx of esophageal varices Hx of urticaria Hypertension Positive colorectal cancer screening using Cologuard test Exercise / Class Metabolic Activity II 4-5 Yardwork/Stairs/Walk up hill Past Family History Family History Other Cancer Past Surgical History Surgical History H/O colonoscopy History of esophagogastroduodenoscopy (EGD) Hx of arthroscopy of knee Past Anesthesia History No Hx of Anesthesia Complications and No Family Hx of Anesthesia Complications History of PONV No Hx of PONV and No Hx of Motion Sickness Social History Smoking Status: Never smoker Hx Alcohol Use: No Hx Substance Use: No substance use type: does not use Physical Exam Vital Signs Last Vital Signs Temp 36.8 C 03/16/20 10:19 Pulse 60 03/16/20 10:19 Resp 16 03/16/20 10:19 BP 137/81 03/16/20 10:19 Pulse Ox 94 03/16/20 10:19 Constitutional + obese ENMT Mouth: no dentition abnormality Thyromental Distance: > or= 3.5 Finger Breadths Mallampati Class: II Neck normal visual inspection Respiratory normal respiratory effort Auscultation: lungs clear to auscultation bilaterally Cardiovascular Rate/Rhythm: regular rate and regular rhythm Psychiatric Orientation: alert Testing Laboratory Results 03/15/20 05:54 03/15/20 05:54 Urine Color Dark Yellow 03/14/20 14:00 Urine Appearance Clear (Clear) 03/14/20 14:00 Urine pH 6.5 (4.5-7.5) 03/14/20 14:00 Ur Specific [place] 1.019 (1.000-1.030) 03/14/20 14:00 Urine Protein Trace (Negative) H 03/14/20 14:00 Urine Glucose (UA) Negative (Negative) 03/14/20 14:00 Urine Ketones Negative (Negative) 03/14/20 14:00 Urine Nitrite Negative (Negative) 03/14/20 14:00 Ur Leukocyte Esterase Negative (Negative) 03/14/20 14:00 Urine WBC (Auto) 1-5 /hpf (0-5) 03/14/20 14:00 Urine RBC (Auto) 0-4 /hpf (0-4) 03/14/20 14:00 U Hyaline Cast (Auto) 1-5 /lpf (0-5) 03/14/20 14:00 U Epithel Cells (Auto) 5-10 /lpf (0-5) H 03/14/20 14:00 Urine Bacteria (Auto) Negative (Negative) 03/14/20 14:00
[2020-03-16] MEDS ORDERED: fentaNYL citrate 100 MCG/2 ML VIAL ONE (11:04)
[2020-03-16] MEDS ORDERED: ONDANSETRON INJ 2 MG/ML 2 ML VIAL ONE (11:18)
[2020-03-16] MEDS ORDERED: LIDOCAINE HCL 2% 2 ML VIAL/AMP(20MG/ML) INFIL ONE (11:28)
[2020-03-16] MEDS ORDERED: PROPOFOL IV EMULSION 10 MG/ML 20 ML VIAL IV ONE (11:28)
--- NOTE | 2020-03-16 11:35 | GI REPORT ---
Patient Name: Holli Weinstein Procedure Date: 03/16/2020 10:52 AM Date of : 1965 Admit Type: Inpatient Age: 54 Gender: Male Attending MD: Jeffy Boggs MD Procedure: Upper GI endoscopy Providers: Jeffy Boggs MD Referring MD: Tim Brown Do, Bj Daugherty Do Indications: Nausea with vomiting Medicines: See the Anesthesia note for documentation of the administered medications Complications: No immediate complications. Estimated Blood Loss: Estimated blood loss: none. Procedure: Pre-Anesthesia Assessment: - ASA Grade Assessment: III - A patient with severe systemic disease. After obtaining informed consent, the endoscope was passed under direct vision. Throughout the procedure, the patient's blood pressure, pulse, and oxygen saturations were monitored continuously. The Scope was introduced through the mouth, and advanced to the second part of duodenum. The upper GI endoscopy was accomplished without difficulty. The patient tolerated the procedure well. Findings: Three columns of grade II varices with stigmata of recent bleeding were found in the lower third of the esophagus. Few red mookie signs were present. The varices appeared unchanged in size from prior exam. The GE junction was at 44 cm. The gastroesophageal flap valve was visualized endoscopically and classified as Hill Grade II (fold present, opens with respiration). There were no gastric varices. The mucosa of the body, cardia, and fundus were normal -- there was no significant evidence of portal gastropathy. There were multiple nodules in the antrum, similar to before; this is likely related to portal hypertension. The duodenum was normal. The papilla was normal. Biopsies taken from the duodenum and from the stomach. Recommendation: - Discharge patient to home. Mike Negro MD 03/16/2020 11:35:26 AM This report has been signed electronically. Note Initiated On: 03/16/2020 10:52 AM Number of Addenda: 0 I attest to the content of the Intraoperative Record and orders documented therein, exceptions below {[id number]}
--- NOTE | 2020-03-16 13:12 | Hospitalist Progress Note ---
Date of Service March 16, 2020 Assessment & Plan (1) Nausea & vomiting: (2) RLQ abdominal pain: Per admitting service notes: This is a 54-year-old male who has significant past medical history of hepatic cirrhosis, esophageal varices, hyperlipidemia, allergic rhinitis, recent trauma who presents to ED secondary to nausea and abdominal pain x5 days. CT abdomen/pelvis: 1. The liver is cirrhotic in morphology and heterogeneous in attenuation. 2. Marked splenomegaly and esophageal varices indicate portal hypertension. 3. Gallbladder wall thickening is nonspecific and may be related to chronic liver disease. There is pericholecystic inflammation, and given the history of right-sided abdominal pain a gallbladder ultrasound is recommended to assess for acute cholecystitis. 4. There are subacute/healing fractures of the left posterior 10th rib and the spinous processes of T8, T9, and T10. 5. The prostate gland is enlarged and heterogeneous. Asymmetric enhancement is noted involving the right peripheral zone. This is not well assessed by CT and correlation with serum PSA levels is recommended. 6. Question a subtle 3 cm low-attenuation lesion in the right lobe of liver. Correlation a nonemergent MRI of the liver is recommended for further assessment. 7. There are numerous mildly enlarged upper abdominal lymph nodes. This are nonspecific and may be related to chronic liver disease. 8. A crescentic fluid collection in the soft tissues superficial to the sacral paraspinous musculature is likely related to recent trauma. 9. Left-sided nephrolithiasis. 10. Additional findings as above. GB US: 1. Limited exam secondary to obscuring bowel gas. 2. Mild gallbladder distention with the wall measuring in the upper limits of normal. No cholelithiasis identified. The pericholecystic inflammation is better characterized on comparison CT. Findings may be secondary from underlying liver disease versus acute acalculus cholecystitis. Follow-up nuclear medicine hepatobiliary scan may be considered. 3. Cirrhotic morphology of the liver. -- check PSA level Right Liver Lesion: will need MRI of the liver -- GI consulted for EGD today, possible HIDA scan (3) Cirrhosis: Follows [facility] plt 68k, no s/sx of active bleeding--> monitor known lumbar sacral hematoma from trauma euvolemic (4) H/O recent trauma: per admitting service notes: s/p Fall from ladder to back from 6ft L clavicle fx L ulnar fx - continue splint, follow ortho L rib fracture Transverse spinous process fx L posterior gluteal/sacral hematoma - still with pain - on gabapentin, prn tramadol - not improving (5) HTN (hypertension): BP stable continue lisinopril (6) DVT prophylaxis: SCDS/TEDS avoid chemical prophylaxis in setting of hematoma Disposition: anticipate d/c home when medically stable PCP Dr. Brown upon discharge along with appropriate [facility] and surg follow up Labs Checked ROS-No Headache, No Visual Changes, No Nausea, No Vomiting, No Fever, No Chills, No Neck Pain or Stiffness, No Chest Pain, No Palpitations, No SOB, No CAMACHO, No Cough, No Sputum, No Wheezing, No Abdominal Pain, No Diarrhea, No Hematemesis, No Hemoptysis, No Unexpected Weight Loss, No Flank pain, No Melena, No Hematochezia, No Frequency, No Urgency, No Burning, No Hematuria, No Rashes, No Diaphoresis. Appetite is Normal, +Back and abd pain Physical Exam Gen-AAO x 3, NAD, Afebrile Head-NCAT, EOMI, PERRLA, Anicteric Sclera, No Posterior Pharyngeal Erythema Neck-Supple, No JVD, No Thyromegaly, No Masses, No LAD, No Bruits Lungs-Clear to Auscultation Bilaterally, No Rales, No Rhonchi, No Wheezing, No Crepitus Chest-No S4, +S1, +S2, No S3, No Murmurs, No Rubs, No Gallops, No Ectopy Abdomen-Soft, Bowel Sounds Present, Tender, Non Distended, No Hepatomegaly, No Splenomegaly, No Palpable Masses, No Rebound, No Rigidity, No Guarding Musculoskeletal-Full Range of Motion Bilaterally, No CVAT Extremities-No Cyanosis, No Clubbing, No Edema Nuero-Cranial Nerves II-XII grossly intact, Motor WNL, DTRs WNL, Strength WNL, Non Focal Psych-Normal Mood Admission and Anticipated Discharge Date Admission Date: March 14, 2020 Results & Data Results & Data ([facility]) Vital Signs (Past 12 Hours) Vital Signs Temp Pulse Resp BP BP Pulse Ox 03/16/20 12:47 37.1 C 69 18 132/77 96 03/16/20 11:54 61 16 136/83 98 03/16/20 11:40 66 16 144/87 H 94 11/11/20 11:25 73 16 128/75 96 03/16/20 10:19 36.8 C 60 16 137/81 94 03/16/20 07:55 36.8 C 65 16 137/82 94 (1) Nausea & vomiting Vomiting Intractability: non-intractable Vomiting type: unspecified Qualified Code(s): R11.2 - Nausea with vomiting, unspecified
--- NOTE | 2020-03-16 13:14 | Anesthesiology Progress Note ---
Date of Service March 16, 2020 Anesthesia Post Procedure Vital Signs Vital Signs: Temp Pulse Resp BP BP Pulse Ox 03/16/20 12:47 37.1 C 69 18 132/77 96 03/16/20 11:54 61 16 136/83 98 03/16/20 11:40 66 16 144/87 H 94 03/16/20 11:25 73 16 128/75 96 03/16/20 10:19 36.8 C 60 16 137/81 94 03/16/20 07:55 36.8 C 65 16 137/82 94 03/15/20 23:50 36.9 C 66 20 143/77 H 96 03/15/20 15:45 64 17 121/75 96 Transfer of Care Handoff Completed per policy Notes Mental Status: alert / awake / arousable Patient Amnestic to Procedure: Yes Nausea / Vomiting: adequately controlled Pain: adequately controlled Airway Patency, RR, SpO2: stable & adequate BP & HR: stable & adequate Hydration State: stable & adequate Anesthetic Complications: no major complications apparent
[2020-03-16] MEDS: DICYCLOMINE HCL 20 MG TAB PO SCH ×2 (13:36→20:38)
[2020-03-16] MEDS: PROMETHAZINE HCL 12.5 MG in SODIUM CHLORIDE 0.9% 50 ML IV PRN (22:08)
[2020-03-17] MEDS: HYDROmorphone INJ 0.5 MG/0.5 ML SYR IV PRN ×2 (06:44→23:57)
[2020-03-17] MEDS: ONDANSETRON INJ 2 MG/ML 2 ML VIAL IV PRN (06:44)
[2020-03-17 09:00] LABS: Hematocrit (blood only) 34.9 % (42-52); Hemoglobin 12.8 g/dL (14.0-18.0); Mean Corpuscular Hemoglobin 32.2 pg (25-34); Mean Corpuscular Hgb Conc 36.7 g/dL (32-36); Mean Corpuscular Volume 87.9 fL (80-100); RDW Coefficient of Variation 13.2 % (11.5-14.5); RDW Standard Deviation 42.3 fL (36.4-46.3); Red Blood Count 3.97 M/uL (4.7-6.1); White Blood Count 3.36 K/uL (4.8-10.8)
[2020-03-17 09:10] LABS: Mean Platelet Volume 10.1 fL (7.4-10.4); Platelet Count 85 K/uL (130-400)
[2020-03-17 09:23] LABS: Albumin Level 3.5 gm/dl (3.4-5.0); BUN Creatinine Ratio 8.5 (10-20); Calcium 9.1 mg/dl (8.5-10.1); Creatinine Clr Calc Pharmacy 89.5 ml/min; Est GFR (African American) 71.4; Est GFR (Non-African American) 61.6; Potassium 3.3 mmol/L (3.5-5.1)
[2020-03-17 09:27] LABS: Basophils # (auto) 0.03 K/uL (0-0.2); Basophils % (auto) 0.9 %; Eosinophils # (auto) 0.18 K/uL (0-0.5); Eosinophils % (auto) 5.4 %; Immature Granulocytes # (auto) 0.01 K/uL (0.00-0.02); Immature Granulocytes % (auto) 0.3 %; Lymphocytes # (auto) 0.68 K/uL (1.2-3.4); Lymphocytes % (auto) 20.2 %; Monocytes # (auto) 0.26 K/uL (0.11-0.59); Monocytes % (auto) 7.7 %; Neutrophils % (auto) 65.5 %
[2020-03-17 09:46] LABS: Albumin Globulin Ratio 1.3 (0.9-2); Bilirubin,Total 3.3 mg/dl (0.2-1); Globulin 2.8 gm/dl (2.5-4.0); Total Protein 6.3 gm/dl (6.4-8.2)
[2020-03-17] MEDS: FLUTICASONE FUROATE 100MCG 14 PUFFS/INHALER INH SCH (10:00)
[2020-03-17] MEDS: GABAPENTIN 300 MG CAP PO SCH ×3 (10:19→21:48)
[2020-03-17] MEDS: DICYCLOMINE HCL 20 MG TAB PO SCH ×2 (10:19→21:48)
--- NOTE | 2020-03-17 10:20 | Gastroenterology Progress Note ---
Date of Service March 17, 2020 Assessment & Plan (1) Nausea: (2) Cirrhosis: (3) RLQ abdominal pain: Pt is a 54 yo male w hx of cirrhosis who sustained a fall from ladder back in January and suffered several fractures, large hematoma on sacral area; admitted for persistent nausea w/o vomiting, poor PO intake and abd pain mainly on RLQ area. CT abd/pelvis showed signs of possible gallbladder thickening ? related to cirrhosis vs cholecystitis. ? 3cm R liver lesion, non specific upper abd lymph node enlargement. No obstructive or inflammatory process in bowels noted. He has been taking Tramadol for his injuries but denies NSAIDs, ETOH. ? gastritis vs PUD causing nausea/poor appetite U/S 03/15/2020: 1. Limited exam secondary to obscuring bowel gas. 2. Mild gallbladder distention with the wall measuring in the upper limits of normal. No cholelithiasis identified. The pericholecystic inflammation is better characterized on comparison CT. Findings may be secondary from underlying liver disease versus acute acalculus cholecystitis. Follow-up nuclear medicine hepatobiliary scan may be considered. 3. Cirrhotic morphology of the liver. EGD 03/16/2020: Grade II varices, portal hypertensive gastropathy - HIDA scan today - Outpt [facility] - Will try him on Reglan 5mg IV qAC to promote Gi motility - PPI IV BID - Zofran & Phenergan prn nausea - Bentyl 20mg BID prn cramping - Check stool cx, Cdiff if diarrhea continues -> Cdiff negative ; cx pending - Need outpt GI f/u for cirrhosis management and further eval of R liver mass w MRI liver Attg add: I interviewed and examined pt, reviewed chart and labs. Pt with continued pain and nausea. Plan as above. Admission and Anticipated Discharge Date Admission Date: March 16, 2020 Subjective Pt had Dilaudid IV for abd pain this AM. GES unable to be completed today due to him receiving narcotic causing delay in test time + staff shortage . He again is c/o some nausea and abd pain w CL ingestion. Loose stools overnight Review of Systems Review of Systems: All systems reviewed & are unremarkable except as noted in HPI & below Physical Exam Constitutional: WD/WN, vitals as above well groomed, cooperative and comfortable Eyes: PERRL, conjunctivae normal, anicteric sclerae ENMT: external ear and nose normal, oropharynx normal Respiratory: normal respiratory effort, lungs clear to auscultation Cardiovascular: RRR, no murmur, no edema Gastrointestinal (Abdomen): Inspection/Auscultation: normal bowel sounds Percussion/Palpation: + abdomen tender (RUQ, across lower abd areas ) and abdomen soft Skin: no rashes, warm and dry no jaundice Psychiatric: A+Ox3, euthymic affect Lymphatic: no lymphedema Results & Data ([facility]) Vital Signs (Past 12 Hours) Vital Signs Temp Pulse Resp BP BP Pulse Ox 03/17/20 07:45 36.7 C 60 18 127/78 92 03/17/20 00:00 36.8 C 55 L 18 132/79 95
[2020-03-17] MEDS: lisinopril 20 MG TAB PO SCH (10:23)
[2020-03-17] MEDS: PANTOprazole 40 MG in SYRINGE 0 ML IV SCH ×2 (10:24→21:48)
--- NOTE | 2020-03-17 10:46 | Hospitalist Progress Note ---
Date of Service March 17, 2020 Assessment & Plan (1) Nausea & vomiting: (2) RLQ abdominal pain: Per admitting service notes: This is a 54-year-old male who has significant past medical history of hepatic cirrhosis, esophageal varices, hyperlipidemia, allergic rhinitis, recent trauma who presents to ED secondary to nausea and abdominal pain x5 days. CT abdomen/pelvis: 1. The liver is cirrhotic in morphology and heterogeneous in attenuation. 2. Marked splenomegaly and esophageal varices indicate portal hypertension. 3. Gallbladder wall thickening is nonspecific and may be related to chronic liver disease. There is pericholecystic inflammation, and given the history of right-sided abdominal pain a gallbladder ultrasound is recommended to assess for acute cholecystitis. 4. There are subacute/healing fractures of the left posterior 10th rib and the spinous processes of T8, T9, and T10. 5. The prostate gland is enlarged and heterogeneous. Asymmetric enhancement is noted involving the right peripheral zone. This is not well assessed by CT and correlation with serum PSA levels is recommended. 6. Question a subtle 3 cm low-attenuation lesion in the right lobe of liver. Correlation a nonemergent MRI of the liver is recommended for further assessment. 7. There are numerous mildly enlarged upper abdominal lymph nodes. This are nonspecific and may be related to chronic liver disease. 8. A crescentic fluid collection in the soft tissues superficial to the sacral paraspinous musculature is likely related to recent trauma. 9. Left-sided nephrolithiasis. 10. Additional findings as above. GB US: 1. Limited exam secondary to obscuring bowel gas. 2. Mild gallbladder distention with the wall measuring in the upper limits of normal. No cholelithiasis identified. The pericholecystic inflammation is better characterized on comparison CT. Findings may be secondary from underlying liver disease versus acute acalculus cholecystitis. Follow-up nuclear medicine hepatobiliary scan may be considered. 3. Cirrhotic morphology of the liver. Nuc Scan today (3) Cirrhosis: Follows [facility]t 68k, no s/sx of active bleeding--> monitor known lumbar sacral hematoma from trauma euvolemic (4) H/O recent trauma: per admitting service notes: s/p Fall from ladder to back from 6ft L clavicle fx L ulnar fx - continue splint, follow ortho L rib fracture Transverse spinous process fx L posterior gluteal/sacral hematoma - still with pain - on gabapentin, prn tramadol - not improving (5) HTN (hypertension): BP stable continue lisinopril (6) DVT prophylaxis: SCDS/TEDS avoid chemical prophylaxis in setting of hematoma Disposition: anticipate d/c home when medically stable, Saturday likely PCP Dr. Brown upon discharge along with appropriate [facility] and surg follow up Labs Checked ROS-No Headache, No Visual Changes, No Nausea, No Vomiting, No Fever, No Chills, No Neck Pain or Stiffness, No Chest Pain, No Palpitations, No SOB, No CAMACHO, No Cough, No Sputum, No Wheezing, No Abdominal Pain, + Diarrhea, No Hematemesis, No Hemoptysis, No Unexpected Weight Loss, No Flank pain, No Melena, No Hematochezia, No Frequency, No Urgency, No Burning, No Hematuria, No Rashes, No Diaphoresis. Appetite is Normal, +Back and abd pain Physical Exam Gen-AAO x 3, NAD, Afebrile Head-NCAT, EOMI, PERRLA, Anicteric Sclera, No Posterior Pharyngeal Erythema Neck-Supple, No JVD, No Thyromegaly, No Masses, No LAD, No Bruits Lungs-Clear to Auscultation Bilaterally, No Rales, No Rhonchi, No Wheezing, No Crepitus Chest-No S4, +S1, +S2, No S3, No Murmurs, No Rubs, No Gallops, No Ectopy Abdomen-Soft, Bowel Sounds Present, Tender, Non Distended, No Hepatomegaly, No Splenomegaly, No Palpable Masses, No Rebound, No Rigidity, No Guarding Musculoskeletal-Full Range of Motion Bilaterally, No CVAT Extremities-No Cyanosis, No Clubbing, No Edema Nuero-Cranial Nerves II-XII grossly intact, Motor WNL, DTRs WNL, Strength WNL, Non Focal Psych-Normal Mood Admission and Anticipated Discharge Date Admission Date: March 16, 2020 Results & Data Results & Data ([facility]) Vital Signs (Past 12 Hours) Vital Signs Temp Pulse Resp BP BP Pulse Ox 03/17/20 10:21 62 131/80 03/17/20 07:45 36.7 C 60 18 127/78 92 03/17/20 00:00 36.8 C 55 L 18 132/79 95 (1) Nausea & vomiting Vomiting Intractability: non-intractable Vomiting type: unspecified Qualified Code(s): R11.2 - Nausea with vomiting, unspecified
[2020-03-17] MEDS ORDERED: SINCALIDE IV ONE (14:00)
[2020-03-17] MEDS ORDERED: SODIUM CHLORIDE 0.9% IV ONE (14:00)
--- NOTE | 2020-03-17 15:22 | Nuclear Medicine Report ---
NM hepatobiliary EF CLINICAL HISTORY: eval for biliary dyskinesia and cholecystitis COMPARISON STUDY: CT of the abdomen and pelvis March 14, 2020. Right upper quadrant ultrasound Nov emb 2019. TECHNIQUE: 5.3 mCi of technetium 99m Choletec was injected IV at 1:00 PM on March 17, 2020. Imagin g of the abdomen was carried out for 60 minutes. At this time, 2.35 mcg of sincalide was injected IV as per protocol and imaging carried is carried out for an additional 45 minutes. FINDINGS: Hepatic uptake of radiotracer is prompt and homogeneous. Apparent decreased uptake within t he right hepatic lobe is due to asymmetric decreased size of the right hepatic lobe which is shown on CT. Activity within the common bile duct and small bowel is noted at 10 minutes. Gallbladder activit y is noted at 20 minutes. Gallbladder ejection fraction was difficult to estimate given adjacent colo n however the gallbladder ejection fraction is within normal limits and likely greater than 90%. IMPRESSION: 1. No evidence for acute or chronic cholecystitis. 2. Gallbladder ejection fraction difficult to calculate but within normal limits. ACT 112: Negative or not required by law. Electronically signed by: Arnol Oliva M.D. 03/17/2020 3:21 PM
[2020-03-17] MEDS: METOCLOPRAMIDE HCL INJ 5 MG/ML 2 ML VIAL IV SCH ×2 (15:47→18:09)
[2020-03-18 07:19] LABS: Hematocrit (blood only) 37.8 % (42-52); Hemoglobin 13.5 g/dL (14.0-18.0); Mean Corpuscular Hgb Conc 35.7 g/dL (32-36); Mean Corpuscular Volume 89.6 fL (80-100); Platelet Count 110 K/uL (130-400); RDW Coefficient of Variation 13.5 % (11.5-14.5); Red Blood Count 4.22 M/uL (4.7-6.1); White Blood Count 4.27 K/uL (4.8-10.8)
[2020-03-18] MEDS: METOCLOPRAMIDE HCL INJ 5 MG/ML 2 ML VIAL IV SCH ×2 (07:33→11:30)
[2020-03-18 07:49] LABS: Albumin Level 3.7 gm/dl (3.4-5.0); BUN Creatinine Ratio 9.2 (10-20); Calcium 9.1 mg/dl (8.5-10.1); Creatinine Clr Calc Pharmacy 83.7 ml/min; Est GFR (African American) 65.8; Est GFR (Non-African American) 56.7; Potassium 3.3 mmol/L (3.5-5.1)
[2020-03-18 07:52] LABS: Albumin Globulin Ratio 1.4 (0.9-2); Bilirubin,Total 2.8 mg/dl (0.2-1); Globulin 2.7 gm/dl (2.5-4.0); Total Protein 6.4 gm/dl (6.4-8.2)
[2020-03-18] MEDS: PANTOprazole 40 MG in SYRINGE 0 ML IV SCH (09:14)
[2020-03-18] MEDS: DICYCLOMINE HCL 20 MG TAB PO SCH (09:14)
[2020-03-18] MEDS: FLUTICASONE FUROATE 100MCG 14 PUFFS/INHALER INH SCH ×2 (09:14→09:17)
[2020-03-18] MEDS: lisinopril 20 MG TAB PO SCH (09:14)
[2020-03-18] MEDS: GABAPENTIN 300 MG CAP PO SCH ×2 (09:14→09:16)
--- NOTE | 2020-03-18 10:13 | Gastroenterology Progress Note ---
Date of Service March 18, 2020 Assessment & Plan (1) Nausea: (2) Cirrhosis: (3) RLQ abdominal pain: Pt is a 54 yo male w hx of cirrhosis who sustained a fall from ladder back in January and suffered several fractures, large hematoma on sacral area; admitted for persistent nausea w/o vomiting, poor PO intake and abd pain mainly on RLQ area. CT abd/pelvis showed signs of possible gallbladder thickening ? related to cirrhosis vs cholecystitis. ? 3cm R liver lesion, non specific upper abd lymph node enlargement. No obstructive or inflammatory process in bowels noted. He has been taking Tramadol for his injuries but denies NSAIDs, ETOH. ? gastritis vs PUD causing nausea/poor appetite U/S 03/15/2020: 1. Limited exam secondary to obscuring bowel gas. 2. Mild gallbladder distention with the wall measuring in the upper limits of normal. No cholelithiasis identified. The pericholecystic inflammation is better characterized on comparison CT. Findings may be secondary from underlying liver disease versus acute acalculus cholecystitis. Follow-up nuclear medicine hepatobiliary scan may be considered. 3. Cirrhotic morphology of the liver. EGD 03/16/2020: Grade II varices, portal hypertensive gastropathy HIDA scan 03/17/2020: No signs of cholecystitis, normal EF He is able to tolerate solid meals now since last night and after trial of Reglan. - No contraindication for DC home from GI standpoint. Please send home with Rx of Reglan 5mg PO QAC -Will arrange outpt [facility]ES and outpt GI f/u for cirrhosis management &further eval of R liver mass w MRI liver Admission and Anticipated Discharge Date Admission Date: March 16, 2020 Supervising Physician Co-Signing Physician Notes I have discussed the patient's management with the advanced practitioner. Please refer to the nurse practitioner's note for the documented findings and plan of care. Subjective Pt tolerated solid meals w/o further n/v, abd pain symptoms. He feels ready to go home Yesterday HIDA scan study was unremarkable. Review of Systems Review of Systems: All systems reviewed & are unremarkable except as noted in HPI & below Physical Exam Constitutional: WD/WN, vitals as above well groomed, cooperative and comfortable Eyes: PERRL, conjunctivae normal, anicteric sclerae ENMT: external ear and nose normal, oropharynx normal Respiratory: no respiratory distress and does not use accessory muscles Gastrointestinal (Abdomen): Percussion/Palpation: abdomen soft; abdomen nontender (RUQ, across lower abd areas ) Skin: no rashes, warm and dry no jaundice Psychiatric: A+Ox3, euthymic affect Lymphatic: no lymphedema Results & Data ([facility]) Vital Signs (Past 12 Hours) Vital Signs Temp Pulse Resp BP BP Pulse Ox 03/18/20 07:42 36.7 C 58 L 20 122/76 94 03/17/20 23:53 37.1 C 64 14 119/72 94
--- NOTE | 2020-03-18 10:46 | Discharge Summary ---
Date of Service March 18, 2020 Admission HPI Per Admitting Provider This is a 54-year-old male who has significant past medical history of hepatic cirrhosis, esophageal varices, hyperlipidemia, allergic rhinitis, recent trauma who presents to ED secondary to nausea and abdominal pain x5 days. Of significance patient recently hospitalized at [facility] on 01/20-01/22 secondary to falling backwards 6 foot from ladder. He sustained a left ulnar fracture, left clavicle fracture, left rib fracture, fracture thoracic spinous processes and left gluteal and sacral hematoma. He was initially discharged home; however he presented back to hospital secondary to inability to care for s elf. He had a 5-day stay at [facility]. Since hospitalization he has been experiencing intermittent nausea and abdominal pain. He has also been experiencing low back pain secondary to hematoma. Approximately 5 days ago nausea became constant. He feels like he has to vomit but is unable to bring anything up. "I try to stick finger down my throat but nothing comes up." "I feel like I am full up to my throat." Overall poor appetite and poor p.o. intake for the last 5 days. He has had inability to vomit. He also complains of lower abdominal pain right greater than left. Pain has gradually increased in severity and is constant. Worse with movement and trying to buckle pants. Also worse with palpation. He states 3 days ago he had significant diarrhea with associated yellow film, but since then he has not been able to have a bowel movement. He denies any difficulty with urination. He complains of sweats and chills but denies any documented fever. He denies any lightheadedness, dizziness, chest pain, shortness of breath, cough or hemoptysis. He does follow GI secondary to history of cirrhosis, esophageal varices and splenomegaly. He denies any melena or hematochezia. He further denies any hematemesis. He denies any prior history of peptic ulcer disease. He denies any history of alcohol abuse. Denies significant NSAID use. Of significance patient was seen and evaluated by PCP today. Case was discussed with GI Dr. Rousseau who recommended inpatient admission for likely EGD. He is currently not partaking in any outpatient therapy. He continues to have left upper extremity splint in place. He has followed up with [facility] in [place] secondary to hematoma due to persistent low back pain. He states he gets swelling and warmth to his low back with movement that resolves with rest. He feels hematoma is not improving. 1 week ago he did CT abdomen pelvis with IV contrast which revealed collection in the posterior body wall in the upper pelvi c region which may represent evolving hematoma, fat necrosis was also differential. In ED patient remained hemodynamically stable. Lab work notable for WBC 4.77, H&H 14.0 and 30.5, platelet 100, K3.2, BUN 12, creatinine 1.31, total bilirubin 2.3. Urinalysis unremarkable. Chest x-ray abdomen pelvis revealed nonobstructive bowel gas pattern, splenomegaly and left-sided nephrolithiasis. He received IV Dilaudid and Zofran with mild improvement of symptoms. Admission Exam Per Admitting Provider Constitutional: WD/WN, male, vitals as above, NAD, sitting up in bed, pleasant, conversing easily Head: Normocephalic, Atraumatic Eyes: PERRL, conjunctivae normal, anicteric sclerae ENMT: external ear and nose normal, oropharynx normal Neck: trachea midline, no thyromegaly normal visual inspection Respiratory: normal respiratory effort, lungs clear to auscultation, no wheeze, rales, rhonchi. Normal insp/exp effort, no accessory muscle use Cardiovascular: RRR, no murmur, no edema Vessels: no JVD or carotid bruit Chest: normal inspection of chest Abdomen: normal bowel sounds, tender to palpation right lower quadrant, positive rebound, positive McBurney's, soft, nondistended Musculoskeletal: no cyanosis or clubbing, extremities motor strength 5/5, left upper extremity forearm splint in place, NVI distally Skin: no rashes, warm and dry normal turgor Neurologic: PERRL, EOMI, accommodation nl, no face palsy, no dysarthria CN's II-XI intact bilaterally and moves all extremities Psychiatric: A+Ox3, euthymic affect Lymphatic: no cervical or axillary lymphadenopathy : deferred Principal Diagnosis (1) Nausea & vomiting: (2) RLQ abdominal pain: (3) Cirrhosis: (4) H/O recent trauma: (5) HTN (hypertension): Discharge Exam See Below Discharge Data Allergies Allergy/AdvReac Type Severity Reaction Status Date / Time hydrocodone [From Vicodin] Allergy Intermediate Hallucinati Verified 03/14/20 12:08 ng Consultations 03/14/20 15:12 ED Decision to Admit Stat 03/14/20 15:48 Consult Gastroenterology Routine 03/18/20 06:58 Consult General Surgery Routine Current Diagnoses Essential (primary) hypertension (03/16/20) Unspecified cirrhosis of liver (03/16/20) Right lower quadrant pain (03/16/20) Nausea (03/16/20) Nausea with vomiting, unspecified (03/16/20) Encounter for other preprocedural examination (03/16/20) Encounter for prophylactic measures, unspecified (03/16/20) Personal history of other (healed) physical injury and trauma (03/16/20) Allergies hydrocodone [From Vicodin] Allergy (Intermediate, Verified 03/14/20 12:08) Hallucinating Height/Weight/Isolation Height 6 ft 4 in Weight 117.3 kg Chemistry 03/17/20 03/18/20 08:36 07:00 Sodium 142 141 Potassium 3.3 L 3.3 L Chloride 112 H 109 H Carbon Dioxide 24 26 Anion Gap 7.0 6.0 BUN 11 13 Creatinine 1.29 1.38 Glucose 86 91 Microbiology 03/17/20 06:00 Stool Escherichia coli Shiga Toxins Test - Pending 03/17/20 06:00 Stool Stool Culture - Pending Procedures Performed Operation Date: 03/16/20 10:15 Actual Procedures p EGD Biopsy Cytology - Jeffy Boggs MD Ordered Studies 03/14/20 16:20 CT abd pelvis oral and IV con Stat 03/15/20 10:00 US abdomen limited Routine Hospital Course (1) Nausea & vomiting: (2) RLQ abdominal pain: Per admitting service notes: This is a 54-year-old male who has significant past medical history of hepatic cirrhosis, esophageal varices, hyperlipidemia, allergic rhinitis, recent trauma who presents to ED secondary to nausea and abdominal pain x5 days. CT abdomen/pelvis: 1. The liver is cirrhotic in morphology and heterogeneous in attenuation. 2. Marked splenomegaly and esophageal varices indicate portal hypertension. 3. Gallbladder wall thickening is nonspecific and may be related to chronic liver disease. There is pericholecystic inflammation, and given the history of right-sided abdominal pain a gallbladder ultrasound is recommended to assess for acute cholecystitis. 4. There are subacute/healing fractures of the left posterior 10th rib and the spinous processes of T8, T9, and T10. 5. The prostate gland is enlarged and heterogeneous. Asymmetric enhancement is noted involving the right peripheral zone. This is not well assessed by CT and correlation with serum PSA levels is recommended. 6. Question a subtle 3 cm low-attenuation lesion in the right lobe of liver. Correlation a nonemergent MRI of the liver is recommended for further assessment. 7. There are numerous mildly enlarged upper abdominal lymph nodes. This are nonspecific and may be related to chronic liver disease. 8. A crescentic fluid collection in the soft tissues superficial to the sacral paraspinous musculature is likely related to recent trauma. 9. Left-sided nephrolithiasis. 10. Additional findings as above. GB US: 1. Limited exam secondary to obscuring bowel gas. 2. Mild gallbladder distention with the wall measuring in the upper limits of normal. No cholelithiasis identified. The pericholecystic inflammation is better characterized on comparison CT. Findings may be secondary from underlying liver disease versus acute acalculus cholecystitis. Follow-up nuclear medicine hepatobiliary scan may be considered. 3. Cirrhotic morphology of the liver. Nuc Scan Negagtive (3) Cirrhosis: Follows [facility] (4) H/O recent trauma: per admitting service notes: s/p Fall from ladder to back from 6ft L clavicle fx L ulnar fx - continue splint, follow ortho L rib fracture Transverse spinous process fx L posterior gluteal/sacral hematoma - still with pain - on gabapentin, prn tramadol - not improving (5) HTN (hypertension): BP stable continue lisinopril (6) DVT prophylaxis: SCDS/TEDS avoid chemical prophylaxis in setting of hematoma Disposition: d/c home today, Katja and Jasvir on DC PCP Dr. Brown upon discharge along with appropriate [facility] follow up Labs Checked ROS-No Headache, No Visual Changes, Occas Nausea, No Vomiting, No Fever, No Chills, No Neck Pain or Stiffness, No Chest Pain, No Palpitations, No SOB, No CAMACHO, No Cough, No Sputum, No Wheezing, No Abdominal Pain, + Diarrhea, No Hematemesis, No Hemoptysis, No Unexpected Weight Loss, No Flank pain, No Melena, No Hematochezia, No Frequency, No Urgency, No Burning, No Hematuria, No Rashes, No Diaphoresis. Appetite is Normal, +Back and abd pain Physical Exam Gen-AAO x 3, NAD, Afebrile Head-NCAT, EOMI, PERRLA, Anicteric Sclera, No Posterior Pharyngeal Erythema Neck-Supple, No JVD, No Thyromegaly, No Masses, No LAD, No Bruits Lungs-Clear to Auscultation Bilaterally, No Rales, No Rhonchi, No Wheezing, No Crepitus Chest-No S4, +S1, +S2, No S3, No Murmurs, No Rubs, No Gallops, No Ectopy Abdomen-Soft, Bowel Sounds Present, Tender, Non Distended, No Hepatomegaly, No Splenomegaly, No Palpable Masses, No Rebound, No Rigidity, No Guarding Musculoskeletal-Full Range of Motion Bilaterally, No CVAT Extremities-No Cyanosis, No Clubbing, No Edema Nuero-Cranial Nerves II-XII grossly intact, Motor WNL, DTRs WNL, Strength WNL, Non Focal Psych-Normal Mood Total Time Total Time Spent Total Time Spent (In Minutes): 45 mins Total Time Includes: Examination of the Patient, Discharge Planning, Medication Reconciliation and Communication With Other Providers Discharge Plan Discharge Items Patient Disposition: Home - Self-Care Reason For Visit: ABDOMINAL PAIN/DR ROUSSEAU TO MEET PT Discharge Diagnosis: (1) Nausea & vomiting: (2) RLQ abdominal pain: (3) Cirrhosis: (4) H/O recent trauma: (5) HTN (hypertension): Condition on Discharge: Good Activity: Resume your previous activity Lifting: None and Gradually increase as tolerated Bathing: No limitations Sexual Activity: When tolerated Exercise/Sports: Gradually increase as tolerated Driving/Machine Use: No limitations Weightbearing: Full weightbearing Non-emergency contact: Primary Care Provider and Cosmetic Sales Assistant Call non-emergency contact if: you have any medication questions Follow-up/Referrals: Jeffy Boggs MD [Physician] - Tim Brown DO [Primary Care Provider] - Diet: Regular Diet Comment: 6 small meals daily Addtl Attending Provider Instructions: none Pending Studies at Discharge: No Stand-Alone Forms: [employer], Smoking Cessation Medications and DC Order Prescriptions: New dicyclomine 20 mg Tablet 20 mg PO BID Qty: 60 RF: 0 Continued lisinopril [Prinivil] 20 mg tablet 20 mg PO DAILY RF: 0 pantoprazole [Protonix] 40 mg tablet,delayed release (DR/EC) 40 mg PO DAILY RF: 0 loratadine [Claritin] 10 mg tablet 10 mg PO DAILY RF: 0 tramadol 50 mg tablet 50 - 100 mg PO Q6H PRN (Reason: Pain) RF: 0 gabapentin 300 mg capsule 300 mg PO TID RF: 0 ondansetron 4 mg tablet,disintegrating 4 mg translingual Q8 PRN (Reason: Nausea) RF: 0 polyethylene glycol 3350 17 gram powder in packet 17 g PO DAILY PRN (Reason: Constipation) RF: 0 docusate sodium [Col-Rite] 100 mg capsule 100 mg PO BID PRN (Reason: Constipation) RF: 0 sennosides [Senna Lax] 8.6 mg tablet 8.6 mg PO QAM RF: 0 metoclopramide HCl [Reglan] 10 mg tablet 10 mg PO Q6H PRN (Reason: nausea and vomiting) Qty: 20 RF: 0 Qvar RediHaler 40 mcg/actuation HFA aerosol breath activated 1 puffs INH BID PRN (Reason: Shortness Of Breath Or Wheezing) RF: 0 Discontinued dicyclomine 20 mg tablet 20 mg PO DAILY RF: 0 Discharge Orders: Discharge Order (Routine); Ordered 03/18/20 Ordered By: Bj Daugherty Admission Data Admit Date/Time: 03/16/20 14:30 Attending Provider: Bj Daugherty Admit Provider: Timbo Rivera Primary Care Provider: Tim Brown Other Providers: Jeffy Boggs ; Timbo Rviera ; Miguel Casanova ; Rima Portillo ; Chula Rousseau ; Teddy Ellsworth ; Douglas Trujillo ; Elisabet Galarza ; Brandi Ledezma ; Lopez Hope Jr ; Jake Del Castillo ; Sven Renae ; Renee Johnson Other Interventions: Discharge Summary Assessment (RN) Last Done: 03/16/20 11:38
--- NOTE | 2020-03-18 11:27 | Surgery Consultation ---
Date of Consultation March 18, 2020 Assessment & Plan (1) RLQ abdominal pain: pt is a 54 year-old male who was admitted to hospital with nausea and RUQ pain, IMP: RUQ pain, HIDA scan - negative for acute cholecystitis plan, no surgery indication for cholecystectomy now, pt can be discharged home today, F/U 2 weeks, pt and his agree with the plan, I answered all questions, Thanks, Present on Admission?: Yes Supervising Physician Co-Signing Physician Notes Pt was seen and examined. Agreed with PA-C exam, assessment and plan. 54-year-old male with PMH of hepatic cirrhosis, esophageal varices, hyperlipidemia, allergic rhinitis, recent trauma presented to ED secondary to nausea and abdominal pain x5 days. Pt was recently hospitalized at [facility] on 01/20-01/22 after falling backwards 6 foot from ladder that caused left ulnar fracture, left clavicle fracture, left rib fracture, fracture thoracic spinous processes and left gluteal and sacral hematoma. Pt said that he has been having intermittent nausea associated with abdominal pain since discharge from [facility]. Pt said that he has not been eating much. He said that he tried to induce himself to vomiting, but unable to vomit. He said that he continues to have constant lower abdominal pain that is worsening. Denies any lightheadedness, dizziness, chest pain, shortness of breath, cough or hemoptysis. CT head showed marked splenomegaly and esophageal varices indicate portal hypertension. Gallbladder wall thickening is nonspecific and may be related to chronic liver disease. A crescentic fluid collection in the soft tissues superficial to the sacral paraspinous musculature is likely related to recent trauma. Will start on clear liquid diet. Continue antiemetics, IVF and IV dilaudid prn. Gastro consult. Will make NPO after midnight for possible EGD. Continue monitor closely. MD Miguel History of Present Illness Attending Physician: Bj Daugherty DO History of Present Illness Pt is a 54 y/o male who was referred to ED by his PCP for c/o persistent nausea, poor appetite and lower abd pain. He had a fall from ladder in January was admitted at [facility] and he sustained a left ulnar fracture, left clavicle fracture, left rib fracture, fracture thoracic spinous processes and left gluteal and sacral hematoma. He had been taking Tramadol for his lower back pain and reports in last few weeks cannot eat/drink much. He feels very nauseated though not vomiting even after drinking sips of fluid. He is having dry heaves and felt abd pain may be related to this. He's had multiple CT abd/pelvis in this hospital and [facility] system in last week. But most recently one yesterday on admission showed: 1. The liver is cirrhotic in morphology and heterogeneous in attenuation. 2. Marked splenomegaly and esophageal varices indicate portal hypertension. 3. Gallbladder wall thickening is nonspecific and may be related to chronic liver disease. There is pericholecystic inflammation, and given the history of right-sided abdominal pain a gallbladder ultrasound is recommended to assess for acute cholecystitis. 4. There are subacute/healing fractures of the left posterior 10th rib and the spinous processes of T8, T9, and T10. 5. The prostate gland is enlarged and heterogeneous. Asymmetric enhancement is noted involving the right peripheral zone. This is not well assessed by CT and correlation with serum PSA levels is recommended. 6. Question a subtle 3 cm low-attenuation lesion in the right lobe of liver. Correlation a nonemergent MRI of the liver is recommended for further assessment. 7. There are numerous mildly enlarged upper abdominal lymph nodes. This are nonspecific and may be related to chronic liver disease. 8. A crescentic fluid collection in the soft tissues superficial to the sacral paraspinous musculature is likely related to recent trauma. 9. Left-sided nephrolithiasis. Last EGD in 2018: grade III varices, hyperplastic gastric polyps Last colonoscopy in 2018: Adenomatous colon polyp including tubuvillous adenoma, recall 6 months recommended I ( Jake Del Castillo mD ) got a call for consult gallbladder disease, I reviewed pt's H/P, labs, CT scan, U/S, HIDA scan with pt. pt doing better, no abdominal pain, no nausea, no vomiting, no fever tolerated diet, Allergies Allergy/AdvReac Type Severity Reaction Status Date / Time hydrocodone [From Vicodin] Allergy Intermediate Hallucinati Verified 03/14/20 12:08 ng Home Medications Home Medications Medication Instructions Recorded Confirmed Type dicyclomine 20 mg tablet 20 mg PO DAILY tab 02/17/19 03/14/20 History lisinopril 20 mg tablet 20 mg PO DAILY 02/17/19 03/14/20 History loratadine 10 mg tablet 10 mg PO DAILY 02/17/19 03/14/20 History pantoprazole 40 mg tablet,delayed 40 mg PO DAILY 02/17/19 03/14/20 History release tramadol 50 mg tablet 50 - 100 mg PO Q6H PRN 02/17/19 03/14/20 History Qvar RediHaler 1 puffs INH BID PRN 01/21/20 03/14/20 History docusate sodium [Col-Rite] 100 mg PO BID PRN 03/11/20 03/14/20 History gabapentin 300 mg PO TID 03/11/20 03/14/20 History metoclopramide HCl [Reglan] 10 mg PO Q6H PRN #20 tab 03/11/20 03/14/20 Rx ondansetron 4 mg TRANSLINGUAL Q8 PRN 03/11/20 03/14/20 History polyethylene glycol 3350 17 g PO DAILY PRN 03/11/20 03/14/20 History sennosides [Senna Lax] 8.6 mg PO QAM 03/11/20 03/14/20 History Patient History Medical History Cirrhosis Cough H/O backache History of night sweats HTN (hypertension) Hx of allergic rhinitis Hx of anxiety disorder Hx of chest pain Hx of cirrhosis Hx of esophageal varices Hx of urticaria Hypertension Positive colorectal cancer screening using Cologuard test Surgical History H/O colonoscopy History of esophagogastroduodenoscopy (EGD) Hx of arthroscopy of knee Family History Other Cancer Social History Smoking Status: Never smoker Hx Alcohol Use: No Hx Substance Use: No Preferred Language: Austrian Communication Ability: Effective Hand Molder Meat Required: No Beliefs That Will Affect Care: None marital status: Single Current Living Situation: Spouse Current Living Situation Comment: girlfriend and granddaughter 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 Safe at Home: Yes Childhood Exposure to Second-Hand Smoke: No Assistive Devices: Brace/Splint/Immobilizer Review of Systems Review of Systems: All systems reviewed & are unremarkable except as noted in HPI & below Allergies Allergy/AdvReac Type Severity Reaction Status Date / Time hydrocodone [From Vicodin] Allergy Intermediate Hallucinati Verified 03/14/20 12:08 ng Home Medications Home Medications Medication Instructions Recorded Confirmed Type dicyclomine 20 mg tablet 20 mg PO DAILY tab 02/17/19 03/14/20 History lisinopril 20 mg tablet 20 mg PO DAILY 02/17/19 03/14/20 History loratadine 10 mg tablet 10 mg PO DAILY 02/17/19 03/14/20 History pantoprazole 40 mg tablet,delayed 40 mg PO DAILY 02/17/19 03/14/20 History release tramadol 50 mg tablet 50 - 100 mg PO Q6H PRN 02/17/19 03/14/20 History Qvar RediHaler 1 puffs INH BID PRN 01/21/20 03/14/20 History docusate sodium [Col-Rite] 100 mg PO BID PRN 03/11/20 03/14/20 History gabapentin 300 mg PO TID 03/11/20 03/14/20 History metoclopramide HCl [Reglan] 10 mg PO Q6H PRN #20 tab 03/11/20 03/14/20 Rx ondansetron 4 mg TRANSLINGUAL Q8 PRN 03/11/20 03/14/20 History polyethylene glycol 3350 17 g PO DAILY PRN 03/11/20 03/14/20 History sennosides [Senna Lax] 8.6 mg PO QAM 03/11/20 03/14/20 History dicyclomine 20 mg PO BID #60 tab 03/18/20 Rx Patient History Medical History Cirrhosis Cough H/O backache History of night sweats HTN (hypertension) Hx of allergic rhinitis Hx of anxiety disorder Hx of chest pain Hx of cirrhosis Hx of esophageal varices Hx of urticaria Hypertension Positive colorectal cancer screening using Cologuard test Surgical History H/O colonoscopy History of esophagogastroduodenoscopy (EGD) Hx of arthroscopy of knee Family History Other Cancer Social History Smoking Status: Never smoker Hx Alcohol Use: No Hx Substance Use: No Preferred Language: Austrian Communication Ability: Effective Hand Molder Meat Required: No Beliefs That Will Affect Care: None marital status: Single Current Living Situation: Spouse Current Living Situation Comment: girlfriend and granddaughter 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 Other Information That Helps Us Care for You: No Feels Safe at Home: Yes Safety Concerns: Feels Safe At This Time Childhood Exposure to Second-Hand Smoke: No Assistive Devices: None Results & Data ([facility]) Vital Signs (Past 12 Hours) Vital Signs Temp Pulse Resp BP BP Pulse Ox 03/18/20 07:42 36.7 C 58 L 20 122/76 94 03/17/20 23:53 37.1 C 64 14 119/72 94 Laboratory Results Abnormal Labs 03/14/20 03/14/20 03/14/20 12:27 12:27 12:27 WBC 4.77 L RBC 4.32 L Hgb Hct 38.5 L MCHC 36.4 H Plt Count 100 L MPV Lymph # (Auto) 0.99 L Potassium 3.2 L Chloride 108 H BUN/Creatinine Ratio 8.9 L Total Bilirubin 2.3 H Direct Bilirubin 0.4 H Total Protein Urine Protein U Epithel Cells (Auto) 03/14/20 03/15/20 03/15/20 14:00 05:54 05:54 WBC 3.40 L RBC 4.03 L Hgb 12.9 L Hct 35.9 L MCHC Plt Count 68 L MPV 10.7 H Lymph # (Auto) Potassium Chloride 110 H BUN/Creatinine Ratio 9.9 L Total Bilirubin 2.4 H Direct Bilirubin Total Protein 6.0 L Urine Protein Trace H U Epithel Cells (Auto) 5-10 H 03/17/20 03/17/20 03/18/20 08:36 08:36 07:00 WBC 3.36 L 4.27 L RBC 3.97 L 4.22 L Hgb 12.8 L 13.5 L Hct 34.9 L 37.8 L MCHC 36.7 H Plt Count 85 L 110 L MPV Lymph # (Auto) 0.68 L Potassium 3.3 L Chloride 112 H BUN/Creatinine Ratio 8.5 L Total Bilirubin 3.3 H Direct Bilirubin Total Protein 6.3 L Urine Protein U Epithel Cells (Auto) 03/18/20 07:00 WBC RBC Hgb Hct MCHC Plt Count MPV Lymph # (Auto) Potassium 3.3 L Chloride 109 H BUN/Creatinine Ratio 9.2 L Total Bilirubin 2.8 H Direct Bilirubin Total Protein Urine Protein U Epithel Cells (Auto) Diagnostic Findings NM hepatobiliary EF CLINICAL HISTORY: eval for biliary dyskinesia and cholecystitis COMPARISON STUDY: CT of the abdomen and pelvis March 14, 2020. Right upper quadrant ultrasound March 15, 2020. TECHNIQUE: 5.3 mCi of technetium 99m Choletec was injected IV at 1:00 PM on March 17, 2020. Imaging of the abdomen was carried out for 60 minutes. At this time, 2.35 mcg of sincalide was injected IV as per protocol and imaging carried is carried out for an additional 45 minutes. FINDINGS: Hepatic uptake of radiotracer is prompt and homogeneous. Apparent decreased uptake within the right hepatic lobe is due to asymmetric decreased size of the right hepatic lobe which is shown on CT. Activity within the common bile duct and small bowel is noted at 10 minutes. Gallbladder activity is noted at 20 minutes. Gallbladder ejection fraction was difficult to estimate given adjacent colon however the gallbladder ejection fraction is within normal limits and likely greater than 90%. IMPRESSION: 1. No evidence for acute or chronic cholecystitis. 2. Gallbladder ejection fraction difficult to calculate but within normal limits. US abdomen limited HISTORY: 54 years-old Male eval for cholecystitis acute nausea with vomiting COMPARISON: CT abdomen and pelvis 03/14/2020 TECHNIQUE: Multiple real-time sonographic images of the abdominal right upper quadrant were obtained assessing grayscale appearance and color flow FINDINGS: The pancreas is mostly obscured by bowel gas. Marginal nodularity of the heterogeneous liver suggestive of cirrhosis. No hepatic mass identified. Normal common bile duct, 4 mm. The gallbladder wall measures the upper limits of normal at 3 mm and is mildly distended. No shadowing cholelithiasis. The pericholecystic edema is better characterized on comparison CT. Obscuring bowel gas limits the study. Imaged right kidney is unremarkable without hydronephrosis. IMPRESSION: 1. Limited exam secondary to obscuring bowel gas. 2. Mild gallbladder distention with the wall measuring in the upper limits of normal. No cholelithiasis identified. The pericholecystic inflammation is better characterized on comparison CT. Findings may be secondary from underlying liver disease versus acute acalculus cholecystitis. Follow-up nuclear medicine hepatobiliary scan may be considered. 3. Cirrhotic morphology of the liver. CT SCAN OF THE ABDOMEN AND PELVIS WITH IV CONTRAST CLINICAL HISTORY: Right lower quadrant abdominal pain. COMPARISON STUDY: Abdominal CT dated 03/11/2020. TECHNIQUE: Following the IV administration of 93 cc of Optiray 320, CT scan of the abdomen and pelvis is performed from the lung bases to the proximal femora. Images are reviewed in the axial, sagittal, and coronal planes. IV contrast was administered without complication. Oral contrast was utilized. A dose lowering technique was utilized adhering to the principles of ALARA. CT DOSE: 1426.70 mGy.cm FINDINGS: Lung bases: The heart is normal in size and without pericardial effusion. The lung bases are clear noting bibasilar atelectasis. There is a tiny hiatal hernia. Esophageal varices are noted. Liver: The contrast-enhanced liver is cirrhotic in morphology and heterogeneous in attenuation. There is hypertrophy of the left lobe and nodularity of the surface contour. Diffusely diminished attenuation of the liver suggests steatosis. There is no intrahepatic biliary ductal dilatation. The hepatic veins and portal veins are patent. Question a subtle 3 cm low-attenuation lesion in the right lobe of the liver. This is best seen on axial image #31 of 110. Gallbladder: The gallbladder wall appears thickened and there is pericholecystic inflammation. Spleen: The spleen is enlarged measuring 21.8 cm in length. Pancreas: Mildly atrophic and grossly unremarkable. Adrenal glands: Unremarkable. Kidneys: The contrast enhanced kidneys demonstrate mild cortical atrophy and are without hydronephrosis. The kidneys enhance symmetrically. A 4 mm nonobstructing calculus is seen in the left lower pole. Abdominal vasculature: The abdominal aorta is normal in course and caliber noting mild atherosclerotic calcification. Bowel: There is no bowel obstruction. Enteric contrast reaches the sigmoid colon. The appendix is well-visualized and normal. Peritoneum: There is no intraperitoneal free air or abdominal ascites. There is a small fat-containing umbilical hernia. Lymphadenopathy: Numerous mildly enlarged upper abdominal and portacaval lymph nodes are nonspecific and may be related to chronic liver disease. Pelvic viscera: The prostate gland is enlarged and heterogeneous. There is asymmetric enhancement involving the right peripheral zone seen on image #488. Median lobe hypertrophy is observed. The bladder wall is thickened and trabeculated indicating chronic outlet obstruction. Skeletal structures: No lytic or blastic lesions are seen. There is a subacute/healing left posterior 10th rib fracture. There are subacute/healing spinous process fractures of T8, T9, and T10. A 6 x 2 x 12.5 cm crescentic fluid collection superficial to the sacral paraspinous musculature is seen on image #356. IMPRESSION: 1. The liver is cirrhotic in morphology and heterogeneous in attenuation. 2. Marked splenomegaly and esophageal varices indicate portal hypertension. 3. Gallbladder wall thickening is nonspecific and may be related to chronic liver disease. There is pericholecystic inflammation, and given the history of right-sided abdominal pain a gallbladder ultrasound is recommended to assess for acute cholecystitis. 4. There are subacute/healing fractures of the left posterior 10th rib and the spinous processes of T8, T9, and T10. 5. The prostate gland is enlarged and heterogeneous. Asymmetric enhancement is noted involving the right peripheral zone. This is not well assessed by CT and correlation with serum PSA levels is recommended. 6. Question a subtle 3 cm low-attenuation lesion in the right lobe of liver. Correlation a nonemergent MRI of the liver is recommended for further assessment. 7. There are numerous mildly enlarged upper abdominal lymph nodes. This are nonspecific and may be related to chronic liver disease. 8. A crescentic fluid collection in the soft tissues superficial to the sacral paraspinous musculature is likely related to recent trauma. 9. Left-sided nephrolithiasis. 10. Additional findings as above.
== END 2020-03-18 12:49 | disposition home or self-care (01) ==
LOC: 3N 11:34 → ED 11:34 → SUATTDRO 15:48 → 3N 17:20

== ENCOUNTER 2020-10-07 16:54 | Observation (INO) ==
[2020-10-07] MEDS ORDERED: KETOROLAC TROMETHAMINE 15 MG/ML VIAL IV STA (17:20)
[2020-10-07] MEDS ORDERED: GI COCKTAIL ED USE PO ONE (17:20)
[2020-10-07] MEDS ORDERED: SODIUM CHLORIDE 0.9% 1000ML 1,000 ML IV ONE (17:20)
[2020-10-07] MEDS ORDERED: ONDANSETRON INJ 2 MG/ML 2 ML VIAL IV STA (17:20)
--- NOTE | 2020-10-07 17:28 | Emergency Department Note ---
History of Present Illness General Chief Complaint: Illness Stated Complaint: SICK IN STOMACH, LIGHT HEADED, SHAKEY Time Seen by Provider: 10/07/20 17:07 History of Present Illness Provider Complaint: abdominal pain Onset (ago): 1 week(s) Pain Consistency: constant Location: epigastric Radiation: none Severity: moderate Maximum Pain Intensity: 8 Current Pain Intensity: 8 Quality: + aching Relieved By: + medication (Zofran) Exacerbated By: + nothing Context: no foreign travel, no possible food poisoning, no recent antibiotic use, no recent surgery/procedure and no history of similar episodes Associated Symptoms: + nausea, + vomiting and + weakness (and dizziness); no diarrhea, no fever, no chills, no constipation, no dysuria, no hematemesis, no hematochezia, no melena, no hematuria, no anorexia, no syncope, no headache, no neck pain, no back pain and no chest pain Home Medications Medication Instructions Recorded Confirmed Type lisinopril 20 mg tablet 20 mg PO QAM 02/17/19 10/07/20 History loratadine 10 mg tablet 10 mg PO QAM 02/17/19 10/07/20 History pantoprazole 40 mg tablet,delayed 40 mg PO BID 02/17/19 10/07/20 History release tramadol 50 mg tablet 50 - 100 mg PO Q6H PRN 02/17/19 10/07/20 History ondansetron 4 mg TRANSLINGUAL Q8H PRN 03/11/20 10/07/20 History dicyclomine 20 mg PO HS 07/05/20 10/07/20 History gabapentin 300 mg PO TID 07/05/20 10/07/20 History metoclopramide HCl [Reglan] 10 mg PO TID PRN 07/05/20 10/07/20 History sucralfate [Carafate] 1 g PO ACHS 07/05/20 10/07/20 History Allergies Allergy/AdvReac Type Severity Reaction Status Date / Time hydrocodone [From Vicodin] Allergy Intermediate Hallucinati Verified 10/07/20 17:41 ng Past Med/Surg History Medical History Cirrhosis Cough GI bleed H/O backache History of night sweats HTN (hypertension) Hx of allergic rhinitis Hx of anxiety disorder Hx of chest pain Hx of cirrhosis Hx of esophageal varices Hx of urticaria Hypertension Positive colorectal cancer screening using Cologuard test Surgical History H/O colonoscopy History of esophagogastroduodenoscopy (EGD) Hx of arthroscopy of knee Family History Other Cancer Social History Smoking Status: Never smoker Hx Alcohol Use: No Hx Substance Use: No Preferred Language: Mauritian Communication Ability: Effective End Trimmer Required: No Beliefs That Will Affect Care: None marital status: Single Current Living Situation: Family and Significant Other Current Living Situation Comment: [facility] 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 Safe at Home: Yes Childhood Exposure to Second-Hand Smoke: No Assistive Devices: Glasses Review of Systems A total of 10 systems reviewed and were otherwise negative Physical Exam Vital Signs: Vital Signs - 24 hr 10/07/20 17:00 10/07/20 18:00 10/07/20 18:16 Temperature 36.5 C Temperature Source Oral Pulse Rate 70 62 Pulse Rate [Apical ] 65 Pulse Rhythm Regular Pulse Rhythm [Apic al] Regular Pulse Strength [Ap ical] Normal Respiratory Rate 18 18 18 Respiratory Effort / Characteristics Non-Labored Sponta neous Respiratory Depth Normal Respiratory Patter n Regular Blood Pressure 159/92 H Blood Pressure [Ri ght Arm] 142/92 H Blood Pressure Litzy n 114 Blood Pressure Litzy n [Right Arm] 108 Blood Pressure Pos ition [Right Arm] Sitting Pulse Oximetry 97 96 96 Oxygen Delivery Me thod Room Air Room Air Sepsis Recent Feve r Within 48 Hours No Sepsis New/Unexpla ined Change in Men elana Status No Sepsis Action Take n by Nursing No Action Required Physical Exam: Physical Exam GENERAL: He is oriented to person, place, and time. He appears well-developed a nd well-nourished. He does not appear distressed. HENT: Exam performed. - Head: Normocephalic and atraumatic. - Right Ear: External ear normal. No mastoid tenderness. - Left Ear: External ear normal. No mastoid tenderness. - Mouth/Throat: The oropharynx is clear and moist. No trismus in the jaw. No dental abscesses or uvula swelling. No oropharyngeal exudate or tonsillar abscesses. EYES: Conjunctivae and EOM are normal. Pupils are equal, round, and reactive to light. Right eye exhibits no discharge. Left eye exhibits no discharge. No scleral icterus. NECK: Normal range of motion. Neck supple. No JVD present. No spinous process tenderness present. No carotid bruit present. No rigidity. No tracheal deviation and normal range of motion present. No Brudzinski's sign and no Kernig's sign noted. CV: Normal rate, regular rhythm, normal heart sounds and intact distal pulses. There is no peripheral edema. Palpable radial pulses bue. PULM/CHEST: Effort normal and breath sounds normal. No respiratory distress. No stridor. He has no wheezes. He has no rales. - Chest Wall: He exhibits no tenderness. ABD: The abdomen is soft. Bowel sounds are normal. He has no distension. No mass is present. There is no tenderness. There is no rebound, no guarding, no Torres's sign and no tenderness at McBurney's point. Rovsig negative. MUSC/SKEL: Normal range of motion. There is no peripheral edema, tenderness or deformity. LYMPH: No cervical adenopathy. NEURO: He is alert and oriented to person, place, and time. He has normal strength. No cranial nerve deficit or sensory deficit. Coordination and gait normal. GCS eye subscore is 4. GCS verbal subscore is 5. GCS motor subscore is 6. Cerebellar tests wnl. SKIN: Skin is warm and dry. He is not diaphoretic. PSYCH: He has a normal mood and affect. Behavior is normal. Judgment and thought content normal. Course Course 1706: The patient was evaluated in room A9. A complete history and physical exam was performed Cardiac monitoring: An order was placed for continuous cardiac monitoring. The monitor shows a rate of 70 with sinus rhythm 2020: Labs show leukopenia of 3.95 which is at the patient's baseline given the previous white blood cell counts were also low. Hemoglobin is within normal limits. D-dimer is elevated 780. CT of the chest negative for PE. Bilirubin alcohol is elevated to direct bilirubin is elevated , These do appear to be at the patient's baseline. Patient's troponin is elevated 0.058, this is better than his previous troponins. Ammonia elevated at 54.6. Patient has not had ammonia level drawn in our system. We will likely admit the patient to the [facility] team given his continued abdominal discomfort and his elevated ammonia level. Ultrasound of the gallbladder still pending at this time. 2055: Vital signs stable. Ultrasound shows no cholecystitis. Discussed the case with [facility]ist Dr. Moore who admit the patient to his service given his ammonia elevation and abdominal pain. Administered Medications Discontinued Medications Al Hydrox/Mg Hydrox/Simethicone (Gi Cocktail Ed Use) 1 dose PO ONE ONE Stop: 10/07/20 17:21 Last Admin: 10/07/20 17:48 Dose: 1 dose Documented by: [id number] Sodium Chloride (Nss 1000ml) 1,000 mls @ 999 mls/hr IV .Q1H1M ONE Stop: 10/07/20 18:20 Last Infusion: 10/07/20 18:49 Dose: 0 mls/hr Documented by: [id number] Admin: 10/07/20 17:49 Dose: 999 mls/hr Documented by: [id number] Ioversol (Optiray 350 500ml) 120 ml IV ONCE ONE Stop: 10/07/20 18:52 Last Admin: 10/07/20 18:53 Dose: 120 ml Documented by: [id number] Ketorolac Tromethamine (Ketorolac Tromethamine 15 Mg/Ml Vial) 15 mg IV NOW STA Stop: 10/07/20 17:21 Last Admin: 10/07/20 17:49 Dose: 15 mg Documented by: [id number] Ondansetron HCl (Ondansetron Inj 2 Mg/Ml 2 Ml Vial) 4 mg IV NOW STA Stop: 10/07/20 17:21 Last Admin: 10/07/20 17:48 Dose: 4 mg Documented by: [id number] Medical Decision Making Laboratory Data Result diagrams: 10/07/20 17:47 10/07/20 17:47 Lab Results 10/07/20 10/07/20 10/07/20 Range/Units 17:47 17:47 17:47 WBC 3.95 L (4.8-10.8) K/uL RBC 4.18 L (4.7-6.1) M/uL Hgb 13.7 L (14.0-18.0) g/dL Hct 37.5 L (42-52) % MCV 89.7 (80-100) fL MCH 32.8 (25-34) pg MCHC 36.5 H (32-36) g/dL RDW Std Deviation 44.6 (36.4-46.3) fL RDW Coeff of Wenceslao 13.6 (11.5-14.5) % Plt Count 91 L (130-400) K/uL MPV 9.7 (7.4-10.4) fL Immature Gran % (Auto) 0.3 % Neut % (Auto) 59.9 % Lymph % (Auto) 24.8 % [place] % (Auto) 8.4 % Eos % (Auto) 5.6 % Baso % (Auto) 1.0 % Neut # (Auto) 2.37 (1.4-6.5) K/uL Lymph # (Auto) 0.98 L (1.2-3.4) K/uL [place] # (Auto) 0.33 (0.11-0.59) K/uL Eos # (Auto) 0.22 (0-0.5) K/uL Baso # (Auto) 0.04 (0-0.2) K/uL Immature Gran # (Auto) 0.01 (0.00-0.02) K/uL PT 11.1 (9.0-12.0) Seconds INR 1.1 (0.9-1.1) APTT 24.8 (21.0-31.0) Seconds PTT Ratio 0.9 D-Dimer 780 H* (0-500) ug/L FEU Sodium 143 (136-145) mmol/L Potassium 3.4 L (3.5-5.1) mmol/L Chloride 109 H (98-107) mmol/L Carbon Dioxide 27 (21-32) mmol/L Anion Gap 6.0 (3-11) BUN 15 (7-18) mg/dl Creatinine 1.17 (0.6-1.4) mg/dl Est Cr Clr Drug Dosing 99.4 ml/min Est GFR ( Amer) 80.3 ml/min Est GFR (Non-Af Amer) 69.3 ml/min BUN/Creatinine Ratio 13.0 (10-20) Glucose 86 (70-99) mg/dl Calcium 9.8 (8.5-10.1) mg/dl Magnesium 2.1 (1.8-2.4) mg/dl Total Bilirubin 2.0 H (0.2-1) mg/dl Direct Bilirubin 0.4 H (0-0.2) mg/dl AST 27 (15-37) U/L ALT 32 (12-78) U/L Alkaline Phosphatase 61 (45-117) U/L Ammonia (11-32) umol/L Troponin I 0.058 H* (0-0.045) ng/ml Total Protein 6.7 (6.4-8.2) gm/dl Albumin 3.8 (3.4-5.0) gm/dl Lipase 131 (73-393) U/L COVID-19 Eval Order SARS-CoV-2 (PCR) (Negative) 10/07/20 10/07/20 10/07/20 Range/Units 17:47 17:47 17:47 WBC (4.8-10.8) K/uL RBC (4.7-6.1) M/uL Hgb (14.0-18.0) g/dL Hct (42-52) % MCV (80-100) fL MCH (25-34) pg MCHC (32-36) g/dL RDW Std Deviation (36.4-46.3) fL RDW Coeff of Wenceslao (11.5-14.5) % Plt Count (130-400) K/uL MPV (7.4-10.4) fL Immature Gran % (Auto) % Neut % (Auto) % Lymph % (Auto) % [place] % (Auto) % Eos % (Auto) % Baso % (Auto) % Neut # (Auto) (1.4-6.5) K/uL Lymph # (Auto) (1.2-3.4) K/uL [place] # (Auto) (0.11-0.59) K/uL Eos # (Auto) (0-0.5) K/uL Baso # (Auto) (0-0.2) K/uL Immature Gran # (Auto) (0.00-0.02) K/uL PT (9.0-12.0) Seconds INR (0.9-1.1) APTT (21.0-31.0) Seconds PTT Ratio D-Dimer (0-500) ug/L FEU Sodium (136-145) mmol/L Potassium (3.5-5.1) mmol/L Chloride (98-107) mmol/L Carbon Dioxide (21-32) mmol/L Anion Gap (3-11) BUN (7-18) mg/dl Creatinine (0.6-1.4) mg/dl Est Cr Clr Drug Dosing ml/min Est GFR ( Amer) ml/min Est GFR (Non-Af Amer) ml/min BUN/Creatinine Ratio (10-20) Glucose (70-99) mg/dl Calcium (8.5-10.1) mg/dl Magnesium (1.8-2.4) mg/dl Total Bilirubin (0.2-1) mg/dl Direct Bilirubin (0-0.2) mg/dl AST (15-37) U/L ALT (12-78) U/L Alkaline Phosphatase (45-117) U/L Ammonia 54.6 H (11-32) umol/L Troponin I (0-0.045) ng/ml Total Protein (6.4-8.2) gm/dl Albumin (3.4-5.0) gm/dl Lipase (73-393) U/L COVID-19 Eval Order Covid19 at [facility] SARS-CoV-2 (PCR) NEGATIVE (Negative) Imaging Data Radiologist's Impression: Chest/Abdomen X-ray 10/07/20 17:23 XR abdomen 2V w PA chest CLINICAL HISTORY: epigastric pain COMPARISON STUDY: No previous studies for comparison. FINDINGS: The erect chest reveals no evidence of free air. There is no evidence of focal pulmonary consolidation.] Erect and supine views of the abdomen reveal no abnormally dilated loops of large or small bowel. There are no transition zone to indicate bowel obstruction. IMPRESSION: No evidence of bowel obstruction. No evidence of free air. ACT 112: Negative or not required by law. The above report was generated using voice recognition software. It may contain grammatical, syntax or spelling errors. Electronically signed by: Cori Francisco DO 10/07/2020 7:37 PM Gallbladder Ultrasound 10/07/20 17:23 ABDOMINAL ULTRASOUND, RIGHT UPPER QUADRANT HISTORY: epigastric pain. COMPARISON: March 15, 2020 FINDINGS: Pancreas: Partially obscured by overlying bowel gas. No focal pancreatic lesions are seen. Liver: Diffuse increase in echogenicity and coarsening of echotexture of its parenchyma likely represent cirrhosis. No focal lesion or intrahepatic biliary dilatation seen. Liver is measuring 16 cm in length. Gallbladder: Is fluid-filled without evidence of intraluminal calculi. Minimal prominence of gallbladder wall measures 0.4 cm. Sonographic Torres's sign is negative. No pericholecystic edema is demonstrated. CBD: 0.4 cm Right kidney: No hydronephrosis. IMPRESSION: 1. Liver cirrhosis. 2. Slightly prominent gallbladder wall without evidence of cholelithiasis or cholecystitis. ACT 112: Negative or not required by law. The above report was generated using voice recognition software. It may contain grammatical, syntax or spelling errors. Electronically signed by: Cori Francisco DO 10/07/2020 8:50 PM Chest CTA 10/07/20 18:34 CT ANGIOGRAM OF THE CHEST CLINICAL HISTORY: ro PE COMPARISON STUDY: July 05, 2020 TECHNIQUE: Following the IV administration of mL of Optiray, CT angiogram of the thorax was performed from the thoracic inlet to the lung bases utilizing the pulmonary embolus protocol. Images are reviewed in the axial, sagittal, and coronal planes. IV contrast was administered without complication. MIP imaging was performed. A dose lowering technique was utilized adhering to the principles of ALARA. CT DOSE: 787.62 mGy.cm FINDINGS: There is adequate opacification within main pulmonary artery. No definite pulmonary embolus is seen. Main pulmonary artery is dilated measuring 3.3 cm in diameter which could be seen in pulmonary hypertension. No pathologically enlarged axillary mediastinal or hilar lymph nodes were visualized. There was no evidence of thoracic aortic dilatation. Tracheobronchial tree is patent. No large infiltrates or consolidative lesions are seen. Mild atelectasis is seen in the dependent portions of bilateral lower lobes. No pleural effusions are visualized. Limited evaluation of upper abdominal viscera shows further interval enlargement of the spleen now measuring 20 cm in anterior-posterior dimension and multiple nodular structures within upper abdominal which could represent varices or/and prominent lymph nodes. Evaluation of osseous structures shows no significant degenerative changes of the spine. IMPRESSION: 1. No evidence of pulmonary embolus. 2. No infiltrates or consolidative lesions. 3. Dilatation of the main pulmonary artery which could be seen in pulmonary hypertension. 4. Splenomegaly, possible varices and prominent lymph nodes within partially visualized upper abdomen. ACT 112: Negative or not required by law. The above report was generated using voice recognition software. It may contain grammatical, syntax or spelling errors. Electronically signed by: Cori Francisco DO 10/07/2020 7:13 PM ECG Data Indication: abdominal pain Rate (beats per minute): 62 Rhythm: normal sinus Findings: + PVC; no ST depression, no ST elevation and no prolonged QT MDM Narrative 1707: The patient was evaluated in room A9. A complete history and physical exam was performed Cardiac monitoring: An order was placed for continuous cardiac monitoring. The monitor shows a rate of 70 with sinus rhythm 2020: Labs show leukopenia of 3.95 which is at the patient's baseline given the previous white blood cell counts were also low. Hemoglobin is within normal limits. D-dimer is elevated 780. CT of the chest negative for PE. Bilirubin alcohol is elevated to direct bilirubin is elevated , These do appear to be at the patient's baseline. Patient's troponin is elevated 0.058, this is better than his previous troponins. Ammonia elevated at 54.6. Patient has not had ammonia level drawn in our system. We will likely admit the patient to the [facility] team given his continued abdominal discomfort and his elevated ammonia level. Ultrasound of the gallbladder still pending at this time. 2055: Vital signs stable. Ultrasound shows no cholecystitis. Discussed the ca se with [facility] hospitalist Dr. Moore who admit the patient to his service given his ammonia elevation and abdominal pain. Impression & Plan Serum ammonia increased, Weakness, Elevated troponin, Abdominal pain Discharge Plan Visit Data Chief Complaint: Illness Stated Complaint: SICK IN STOMACH, LIGHT HEADED, SHAKEY ED Provider: Tobi Schneider Discharge Problem: Serum ammonia increased, Weakness, Elevated troponin, Abdominal pain Patient Disposition: Being Evaluated by Hospitalist Forms Stand Alone Forms: [employer] [facility] Prescriptions Prescriptions: No Action lisinopril [Prinivil] 20 mg tablet 20 mg PO QAM RF: 0 pantoprazole [Protonix] 40 mg tablet,delayed release (DR/EC) 40 mg PO BID RF: 0 loratadine [Claritin] 10 mg tablet 10 mg PO QAM RF: 0 tramadol 50 mg tablet 50 - 100 mg PO Q6H PRN (Reason: Pain) RF: 0 ondansetron 4 mg tablet,disintegrating 4 mg translingual Q8H PRN (Reason: Nausea And Vomiting) RF: 0 dicyclomine 20 mg tablet 20 mg PO HS RF: 0 metoclopramide HCl [Reglan] 10 mg tablet 10 mg PO TID PRN (Reason: Nausea) RF: 0 sucralfate [Carafate] 1 gram Tablet 1 g PO ACHS RF: 0 gabapentin 300 mg capsule 300 mg PO TID RF: 0 Referrals Referrals: Tim Brown DO [Primary Care Provider] - Discharge Problem: Abdominal pain Qualifiers: Abdominal location: epigastric Qualified Code(s): R10.13 - Epigastric pain
[2020-10-07 18:29] LABS: INR 1.1 (0.9-1.1); Partial Thromboplastin Ratio 0.9; Partial Thromboplastin Time 24.8 Seconds (21.0-31.0); Prothrombin Time 11.1 Seconds (9.0-12.0)
[2020-10-07 18:33] LABS: D Dimer 780 ug/L FEU (0-500)
[2020-10-07 18:34] LABS: Albumin Level 3.8 gm/dl (3.4-5.0); Bilirubin Direct 0.4 mg/dl (0-0.2); Calcium 9.8 mg/dl (8.5-10.1); Creatinine Clr Calc Pharmacy 99.4 ml/min; Est GFR (African American) 80.3 ml/min; Est GFR (Non-African American) 69.3 ml/min; Magnesium 2.1 mg/dl (1.8-2.4); Potassium 3.4 mmol/L (3.5-5.1)
[2020-10-07 18:37] LABS: Hematocrit (blood only) 37.5 % (42-52); Hemoglobin 13.7 g/dL (14.0-18.0); Mean Corpuscular Hemoglobin 32.8 pg (25-34); Mean Corpuscular Hgb Conc 36.5 g/dL (32-36); Mean Corpuscular Volume 89.7 fL (80-100); Mean Platelet Volume 9.7 fL (7.4-10.4); Platelet Count 91 K/uL (130-400); RDW Coefficient of Variation 13.6 % (11.5-14.5); RDW Standard Deviation 44.6 fL (36.4-46.3); Red Blood Count 4.18 M/uL (4.7-6.1); White Blood Count 3.95 K/uL (4.8-10.8)
[2020-10-07 18:38] LABS: Basophils # (auto) 0.04 K/uL (0-0.2); Eosinophils # (auto) 0.22 K/uL (0-0.5); Eosinophils % (auto) 5.6 %; Immature Granulocytes # (auto) 0.01 K/uL (0.00-0.02); Immature Granulocytes % (auto) 0.3 %; Lymphocytes # (auto) 0.98 K/uL (1.2-3.4); Lymphocytes % (auto) 24.8 %; Monocytes # (auto) 0.33 K/uL (0.11-0.59); Monocytes % (auto) 8.4 %; Neutrophils # (auto) 2.37 K/uL (1.4-6.5); Neutrophils % (auto) 59.9 %
[2020-10-07 18:41] LABS: Total Protein 6.7 gm/dl (6.4-8.2); Troponin I 0.058 ng/ml (0-0.045)
[2020-10-07] MEDS ORDERED: OPTIRAY 350 500ml IV ONE (18:51)
[2020-10-07] MEDS ORDERED: LACTULOSE SYRUP 30 GM/45 ML UDP PO STA (18:55)
--- NOTE | 2020-10-07 19:14 | CT Scan Report ---
CT ANGIOGRAM OF THE CHEST CLINICAL HISTORY: ro PE COMPARISON STUDY: July 05, 2020 TECHNIQUE: Following the IV administration of mL of Optiray, CT angiogram of the thorax was performed from the thoracic inlet to the lung bases utilizing the pulmonary embolus protocol. Images are revie wed in the axial, sagittal, and coronal planes. IV contrast was administered without complication. NH P imaging was performed. A dose lowering technique was utilized adhering to the principles of ALARA. CT DOSE: 787.62 mGy.cm FINDINGS: There is adequate opacification within main pulmonary artery. No definite pulmonary embolus is seen. Main pulmonary artery is dilated measuring 3.3 cm in diameter which could be seen in pulmonary hypert ension. No pathologically enlarged axillary mediastinal or hilar lymph nodes were visualized. There was no evidence of thoracic aortic dilatation. Tracheobronchial tree is patent. No large infiltrates or consolidative lesions are seen. Mild atelectasis is seen in the dependent portions of bilateral lower lobes. No pleural effusions are visualized. Limited evaluation of upper abdominal viscera shows further interval enlargement of the spleen now me asuring 20 cm in anterior-posterior dimension and multiple nodular structures within upper abdominal which could represent varices or/and prominent lymph nodes. Evaluation of osseous structures shows no significant degenerative changes of the spine. IMPRESSION: 1. No evidence of pulmonary embolus. 2. No infiltrates or consolidative lesions. 3. Dilatation of the main pulmonary artery which could be seen in pulmonary hypertension. 4. Splenomegaly, possible varices and prominent lymph nodes within partially visualized upper abdome n. ACT 112: Negative or not required by law. The above report was generated using voice recognition software. It may contain grammatical, syntax o r spelling errors. Electronically signed by: Cori Francisco DO 10/07/2020 7:13 PM
--- NOTE | 2020-10-07 19:38 | XRay Report ---
XR abdomen 2V w PA chest CLINICAL HISTORY: epigastric pain COMPARISON STUDY: No previous studies for comparison. FINDINGS: The erect chest reveals no evidence of free air. There is no evidence of focal pulmonary co nsolidation.] Erect and supine views of the abdomen reveal no abnormally dilated loops of large or sm all bowel. There are no transition zone to indicate bowel obstruction. IMPRESSION: No evidence of bowel obstruction. No evidence of free air. ACT 112: Negative or not required by law. The above report was generated using voice recognition software. It may contain grammatical, syntax o r spelling errors. Electronically signed by: Cori Francisco DO 10/07/2020 7:37 PM
--- NOTE | 2020-10-07 20:52 | Ultrasound Report ---
ABDOMINAL ULTRASOUND, RIGHT UPPER QUADRANT HISTORY: epigastric pain. COMPARISON: March 15, 2020 FINDINGS: Pancreas: Partially obscured by overlying bowel gas. No focal pancreatic lesions are seen. Liver: Diffuse increase in echogenicity and coarsening of echotexture of its parenchyma likely repres ent cirrhosis. No focal lesion or intrahepatic biliary dilatation seen. Liver is measuring 16 cm in l ength. Gallbladder: Is fluid-filled without evidence of intraluminal calculi. Minimal prominence of gallblad maulik wall measures 0.4 cm. Sonographic Torres's sign is negative. No pericholecystic edema is demonstr ated. CBD: 0.4 cm Right kidney: No hydronephrosis. IMPRESSION: 1. Liver cirrhosis. 2. Slightly prominent gallbladder wall without evidence of cholelithiasis or cholecystitis. ACT 112: Negative or not required by law. The above report was generated using voice recognition software. It may contain grammatical, syntax o r spelling errors. Electronically signed by: Cori Francisco DO 10/07/2020 8:50 PM
[2020-10-07] MEDS ORDERED: POTASSIUM CHLORIDE CRTAB 20 MEQ TABCR PO STA (21:11)
--- NOTE | 2020-10-07 21:38 | History & Physical Report ---
Date of Service October 07, 2020 Assessment & Plan (1) Abdominal pain: (2) Elevated troponin: (3) Weakness: (4) Elevated d-dimer: (5) HTN (hypertension): (6) Cirrhosis: Assessment and Plan per Dr Dudley. See addendum History of Present Illness Chief Complaint: Abdominal pain Primary Care Provider: Tim Brown DO Pt is 54 y/o M with PMH cirrhosis, esophageal varices, HTN, dyslipidemia, obesity, back pain from trauma presented to ER with complaint of abdominal pain. Patient with history hospitalization 03/2020 for abdominal pain. He states since that time has been taking Reglan 3 times daily, Bentyl at bedtime and has Zofran to use as needed for breakthrough nausea. Patient states felt like he was doing well on that regimen and would only have occasional abdominal pain after eating, however the past 2 weeks has noted increased abdominal pain after eating described as pain to lower abdomen. This week symptoms of gotten increasingly worse and pain occurs after eating. Past 2 to 3 days has had decreased oral intake secondary to abdominal pain. Denies vomiting. Denies diarrhea. Last BM yesterday. Patient also reports past 1 to 2 weeks has had fatigue and has barely been able to complete his workday. Also complains of lightheadedness with standing and walking, resolves with sitting and resting. Denies syncope. Denies vision changes, headache. Patient states today when getting up to go to the bathroom he had sharp pain to left side of chest that lasted 5 minutes, resolved with sitting. Denies fever/chills, melena, hematochezia, neck pain, SOB, orthopnea, palpitations, cough, sore throat, choking, otalgia, rhinorrhea, noted abdominal distention, paresthesias, extremity weakness, extremity edema, rashes, dysuria, hematuria, urinary frequency. Denies known tick bite. Denies recent travels. Denies ill contacts. Allergies Allergy/AdvReac Type Severity Reaction Status Date / Time hydrocodone [From Vicodin] Allergy Intermediate Hallucinati Verified 10/07/20 17:41 ng Home Medications Medication Instructions Recorded Confirmed Type lisinopril 20 mg tablet 20 mg PO QAM 02/17/19 10/07/20 History loratadine 10 mg tablet 10 mg PO QAM 02/17/19 10/07/20 History pantoprazole 40 mg tablet,delayed 40 mg PO BID 02/17/19 10/07/20 History release tramadol 50 mg tablet 50 - 100 mg PO Q6H PRN 02/17/19 10/07/20 History ondansetron 4 mg TRANSLINGUAL Q8H PRN 03/11/20 10/07/20 History dicyclomine 20 mg PO HS 07/05/20 10/07/20 History gabapentin 300 mg PO TID 07/05/20 10/07/20 History metoclopramide HCl [Reglan] 10 mg PO TID PRN 07/05/20 10/07/20 History sucralfate [Carafate] 1 g PO ACHS 07/05/20 10/07/20 History Past Med/Surg History Medical History Cirrhosis Cough GI bleed H/O backache History of night sweats HTN (hypertension) Hx of allergic rhinitis Hx of anxiety disorder Hx of chest pain Hx of cirrhosis Hx of esophageal varices Hx of urticaria Hypertension Positive colorectal cancer screening using Cologuard test Surgical History H/O colonoscopy History of esophagogastroduodenoscopy (EGD) Hx of arthroscopy of knee Family History Other Cancer Social History Smoking Status: Never smoker Second Hand Exposure: No; Do You Dip or Chew Tobacco: No; Hx Alcohol Use: No Hx Substance Use: No Preferred Language: Polish Communication Ability: Effective 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 Beliefs That Will Affect Care: None marital status: Single Current Living Situation: Family and Significant Other Current Living Situation Comment: [employer] 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 Other Information That Helps Us Care for You: No Feels Safe at Home: Yes Safety Concerns: Feels Safe At This Time Childhood Exposure to Second-Hand Smoke: No Assistive Devices: Glasses Review of Systems Review of Systems: All systems reviewed & are unremarkable except as noted in HPI & below Physical Exam Physical Exam: General: no distress, WDWN Head: normocephalic, atraumatic Eyes: PERRL, EOM's intact, conjunctiva non-injected, anicteric ENT: normal inspection external ears, nose, mucous membranes moist Neck: supple, trachea midline Lungs: clear, no respiratory distress, no wheezing/rhonchi/rales CV: RRR, no murmur, no pretibial edema Abd: protuberant, normal BS, soft, +mild tenderness to palpation RUQ, RLQ, LLQ without rebound or guarding Ext: no cyanosis, no calf tenderness Neuro: A&O x 3, no focal deficits noted, normal affect Skin: warm, dry Results & Data Results & Data ([facility]) Vital Signs (Past 12 Hours) Vital Signs Temp Pulse Pulse Resp BP BP Pulse Ox 10/07/20 18:16 62 18 96 10/07/20 18:00 65 18 142/92 H 96 10/07/20 17:00 36.5 C 70 18 159/92 H 97 Laboratory Results Short CBC 10/07/20 Range/Units 17:47 WBC 3.95 L (4.8-10.8) K/uL Hgb 13.7 L (14.0-18.0) g/dL Hct 37.5 L (42-52) % Plt Count 91 L (130-400) K/uL BMP 10/07/20 17:47 Sodium 143 Potassium 3.4 L Chloride 109 H Carbon Dioxide 27 BUN 15 Creatinine 1.17 Glucose 86 Calcium 9.8 Cardiac Enzymes 10/07/20 Range/Units 17:47 Troponin I 0.058 H* (0-0.045) ng/ml Liver Function 10/07/20 Range/Units 17:47 Total Bilirubin 2.0 H (0.2-1) mg/dl Direct Bilirubin 0.4 H (0-0.2) mg/dl AST 27 (15-37) U/L ALT 32 (12-78) U/L Alkaline Phosphatase 61 (45-117) U/L Albumin 3.8 (3.4-5.0) gm/dl Diagnostic Findings Chest/Abdomen X-ray 10/07/20 17:23 XR abdomen 2V w PA chest CLINICAL HISTORY: epigastric pain COMPARISON STUDY: No previous studies for comparison. FINDINGS: The erect chest reveals no evidence of free air. There is no evidence of focal pulmonary consolidation.] Erect and supine views of the abdomen reveal no abnormally dilated loops of large or small bowel. There are no transition zone to indicate bowel obstruction. IMPRESSION: No evidence of bowel obstruction. No evidence of free air. ACT 112: Negative or not required by law. The above report was generated using voice recognition software. It may contain grammatical, syntax or spelling errors. Electronically signed by: Cori Francisco DO 10/07/2020 7:37 PM Gallbladder Ultrasound 10/07/20 17:23 ABDOMINAL ULTRASOUND, RIGHT UPPER QUADRANT HISTORY: epigastric pain. COMPARISON: March 15, 2020 FINDINGS: Pancreas: Partially obscured by overlying bowel gas. No focal pancreatic lesions are seen. Liver: Diffuse increase in echogenicity and coarsening of echotexture of its parenchyma likely represent cirrhosis. No focal lesion or intrahepatic biliary dilatation seen. Liver is measuring 16 cm in length. Gallbladder: Is fluid-filled without evidence of intraluminal calculi. Minimal prominence of gallbladder wall measures 0.4 cm. Sonographic Torres's sign is negative. No pericholecystic edema is demonstrated. CBD: 0.4 cm Right kidney: No hydronephrosis. IMPRESSION: 1. Liver cirrhosis. 2. Slightly prominent gallbladder wall without evidence of cholelithiasis or cholecystitis. ACT 112: Negative or not required by law. The above report was generated using voice recognition software. It may contain grammatical, syntax or spelling errors. Electronically signed by: Cori Francisco DO 10/07/2020 8:50 PM Chest CTA 10/07/20 18:34 CT ANGIOGRAM OF THE CHEST CLINICAL HISTORY: ro PE COMPARISON STUDY: July 05, 2020 TECHNIQUE: Following the IV administration of mL of Optiray, CT angiogram of the thorax was performed from the thoracic inlet to the lung bases utilizing the pulmonary embolus protocol. Images are reviewed in the axial, sagittal, and coronal planes. IV contrast was administered without complication. MIP imaging was performed. A dose lowering technique was utilized adhering to the principles of ALARA. CT DOSE: 787.62 mGy.cm FINDINGS: There is adequate opacification within main pulmonary artery. No definite pulmonary embolus is seen. Main pulmonary artery is dilated measuring 3.3 cm in diameter which could be seen in pulmonary hypertension. No pathologically enlarged axillary mediastinal or hilar lymph nodes were visualized. There was no evidence of thoracic aortic dilatation. Tracheobronchial tree is patent. No large infiltrates or consolidative lesions are seen. Mild atelectasis is seen in the dependent portions of bilateral lower lobes. No pleural effusions are visualized. Limited evaluation of upper abdominal viscera shows further interval enlargement of the spleen now measuring 20 cm in anterior-posterior dimension and multiple nodular structures within upper abdominal which could represent varices or/and prominent lymph nodes. Evaluation of osseous structures shows no significant degenerative changes of the spine. IMPRESSION: 1. No evidence of pulmonary embolus. 2. No infiltrates or consolidative lesions. 3. Dilatation of the main pulmonary artery which could be seen in pulmonary hypertension. 4. Splenomegaly, possible varices and prominent lymph nodes within partially visualized upper abdomen. ACT 112: Negative or not required by law. The above report was generated using voice recognition software. It may contain grammatical, syntax or spelling errors. Electronically signed by: Cori Francisco DO 10/07/2020 7:13 PM Supervising Physician Co-Signing Physician Notes IM ATTENDING : Patient seen and examined. History obtained from patient, family, and records. Preceding documentation by Ms. Salena Bentley PA-C reviewed. In addition: CT abdomen pelvis initial read showed splenic enlargement. Cirrhosis. No significant ascites. Decompressed urinary bladder. Normal appendix. No acute inflammatory changes seen involving the bowel. 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 intake Chronic pancytopenia secondary to cirrhosis OBS PCU Aspirin for CAD prevention Follow troponin TTE, Cardiology consult Re: Left-sided chest pain Check UA Lactulose GI consult Re: Hyperammonemia Replace potassium DVT prophylaxis. SCDs RE thrombocytopenia, history esophageal varices with propensity for bleeding Full code (1) Abdominal pain Abdominal location: epigastric Qualified Code(s): R10.13 - Epigastric pain
[2020-10-07 21:57] LABS: Lyme Ab IgG w/WB Rflx Negative (Negative); Lyme Ab IgM w/WB Rflx Negative (Negative)
[2020-10-07 22:31] LABS: Thyroid Stimulating Hormone 2.98 uIu/ml (0.300-4.500); Troponin I 0.057 ng/ml (0-0.045)
[2020-10-07] MEDS ORDERED: MoRPHine SULFATE 2 MG/ML CARP IV STA (22:39)
[2020-10-07] MEDS ORDERED: ASPIRIN 325 MG ECTAB PO STA (22:43)
[2020-10-07] MEDS ORDERED: ASPIRIN 81 MG ECTAB PO STA (22:53)
[2020-10-07] MEDS ORDERED: PROMETHAZINE 12.5 MG/50.5 ML BAG IV STA (22:56)
[2020-10-08] MEDS ORDERED: NITROGLYCERIN SL 0.4 MG/TAB TAB SL PRN (01:35)
[2020-10-08] MEDS ORDERED: ACETAMINOPHEN 325 MG TAB PO PRN (01:35)
[2020-10-08] MEDS ORDERED: POTASSIUM CHLORIDE 40 MEQ in SODIUM CHLORIDE 0.45 % 1,000 ML IV ONE (02:15)
[2020-10-08] MEDS: MoRPHine SULFATE 4 MG/ML 1 ML CARP\\VIAL IV PRN ×4 (02:19→18:17)
[2020-10-08] MEDS: PANTOprazole 40 MG TAB PO SCH ×3 (03:08→20:44)
[2020-10-08 05:43] LABS: Hematocrit (blood only) 35.4 % (42-52); Hemoglobin 12.6 g/dL (14.0-18.0); Mean Corpuscular Hemoglobin 32.1 pg (25-34); Mean Corpuscular Hgb Conc 35.6 g/dL (32-36); Mean Corpuscular Volume 90.3 fL (80-100); RDW Coefficient of Variation 13.8 % (11.5-14.5); RDW Standard Deviation 45.3 fL (36.4-46.3); Red Blood Count 3.92 M/uL (4.7-6.1); White Blood Count 3.55 K/uL (4.8-10.8)
[2020-10-08 05:51] LABS: Mean Platelet Volume 9.5 fL (7.4-10.4); Platelet Count 81 K/uL (130-400)
[2020-10-08 05:52] LABS: Partial Thromboplastin Time 25.1 Seconds (21.0-31.0)
[2020-10-08 06:10] LABS: Albumin Level 3.5 gm/dl (3.4-5.0); BUN Creatinine Ratio 12.4 (10-20); Calcium 8.5 mg/dl (8.5-10.1); Creatinine Clr Calc Pharmacy 91.6 ml/min; Est GFR (African American) 72.9 ml/min; Est GFR (Non-African American) 62.9 ml/min; Potassium 3.6 mmol/L (3.5-5.1)
[2020-10-08 06:18] LABS: Albumin Globulin Ratio 1.3 (0.9-2); Bilirubin,Total 1.9 mg/dl (0.2-1); Globulin 2.6 gm/dl (2.5-4.0); Total Protein 6.1 gm/dl (6.4-8.2); Troponin I 0.066 ng/ml (0-0.045)
[2020-10-08 06:32] LABS: Basophils # (auto) 0.02 K/uL (0-0.2); Basophils % (auto) 0.6 %; Eosinophils # (auto) 0.18 K/uL (0-0.5); Eosinophils % (auto) 5.1 %; Immature Granulocytes # (auto) 0.01 K/uL (0.00-0.02); Immature Granulocytes % (auto) 0.3 %; Lymphocytes # (auto) 1.14 K/uL (1.2-3.4); Lymphocytes % (auto) 32.1 %; Monocytes # (auto) 0.34 K/uL (0.11-0.59); Monocytes % (auto) 9.6 %; Neutrophils # (auto) 1.86 K/uL (1.4-6.5); Neutrophils % (auto) 52.3 %
--- NOTE | 2020-10-08 07:33 | Electrocardiogram Report ---
Test Reason : Blood Pressure : / mmHG Vent. Rate : 062 BPM Atrial Rate : 062 BPM P-R Int : 170 ms QRS Dur : 092 ms QT Int : 428 ms P-R-T Axes : 030 -16 023 degrees QTc Int : 434 ms Sinus rhythm with occasional Premature ventricular complexes Otherwise normal ECG When compared with ECG of 06-JUL-2020 06:57, Premature ventricular complexes are now Present Confirmed by Phan Smalls ([id number]) on 10/08/2020 7:33:25 AM Referred By: Ester Izquierdo Confirmed By:Phan Smalls
[2020-10-08] MEDS: SUCRALFATE 1 GM TAB PO SCH ×4 (08:28→20:44)
[2020-10-08] MEDS: LORATADINE 10 MG TAB PO SCH (08:29)
[2020-10-08] MEDS: GABAPENTIN 300 MG CAP PO SCH ×3 (08:29→20:44)
[2020-10-08] MEDS: ASPIRIN 81 MG ECTAB PO SCH (08:29)
[2020-10-08] MEDS: lisinopril 20 MG TAB PO SCH (08:29)
[2020-10-08 08:50] LABS: Appearance Urine Clear (Clear); Blood Urine Negative (Negative); Color Urine Dark Yellow; Glucose Urine UA Negative (Negative); Ketones Urine Trace (Negative); Leukocyte Esterase Urine Negative (Negative); Nitrite Urine Negative (Negative); Protein Urine Negative (Negative); Specific Gravity Urine > 1.045 (1.000-1.030); Urobilinogen Urine Positive (Negative)
[2020-10-08 08:51] LABS: Bilirubin Urine 1+ (Negative)
[2020-10-08] MEDS ORDERED: LACTULOSE SYRUP 30 GM/45 ML UDP PO SCH (09:00)
--- NOTE | 2020-10-08 09:23 | CT Scan Report ---
CT SCAN OF THE ABDOMEN AND PELVIS WITHOUT CONTRAST CLINICAL HISTORY: abd pain COMPARISON STUDY: March 14, 2012 TECHNIQUE: CT scan of the abdomen and pelvis was performed from the lung bases to the proximal femurs . Images are reviewed in the axial, sagittal, and coronal planes. IV contrast was not administered fo r this examination. A dose lowering technique was utilized adhering to the principles of ALARA. CT DOSE: 1304.84 mGy.cm FINDINGS: Lower chest: The heart is normal in size and configuration, without pericardial effusion. The lung ba ses and pleural spaces are clear. Liver: The unenhanced liver is normal in size and attenuation. Lobulated liver contour is again seen which could represent liver cirrhosis. There is no intrahepatic biliary ductal dilatation. Gallbladder: Is fluid-filled without intraluminal calculi. There is minimal gallbladder wall thickeni ng is seen which might represent developing cholecystitis. Spleen: Is enlarged. Pancreas: Unremarkable. Adrenal glands: Unremarkable. Kidneys: The unenhanced kidneys are normal in size without hydronephrosis. There is no contour deform ing renal mass lesion. Excreted contrast material is seen within bilateral renal pelvises likely from recent contrast-enhanced CT of the chest. Bowel: Minimal hiatal hernia. Bowel loops are nondilated. Appendix is normal in caliber. Peritoneum: There is no free intraperitoneal gas is seen. Varices are demonstrated. Mild mesenteric e gerber is seen, most prominent inferiorly to the gallbladder fossa, stable since prior study. Vasculature: The abdominal aorta is normal in course and caliber. Adenopathy: No mesenteric lymphadenopathy seen. Multiple small retroperitoneal lymph nodes are seen, measuring less than 1 cm in short axis and considered nonpathological by CT size criteria. Pelvic viscera: Urinary bladder is decompressed which limits evaluation. Prostate gland is mildly enl arged. Skeletal structures: Multilevel degenerative changes of the spine. IMPRESSION: 1. Liver cirrhosis. Splenomegaly. Abdominal varices. Mild mesenteric edema is unchanged since prior study. 2. Questionable thickening of the gallbladder wall could be related to liver cirrhosis or represent developing cholecystitis. No gallstones. 3. Nondilated loops of bowel. Normal appendix. ACT 112: Negative or not required by law. The above report was generated using voice recognition software. It may contain grammatical, syntax o r spelling errors. Electronically signed by: Cori Francisco DO 10/08/2020 9:22 AM
--- NOTE | 2020-10-08 10:19 | Gastrointestinal Consultation ---
Date of Consultation October 08, 2020 Assessment & Plan (1) Hepatic encephalopathy: (2) Serum ammonia increased: (3) Cirrhosis: with hx varices, no evidence of GI bleeding at this time. In regards to the encephalopathy, appears to be acute decompensation. Recs: Lactulose 15 mL QID rifaximin 550 mg BID zinc sulfate daily advance diet today as tolerated if signs of GI bleeding, please notify me, will likely need EGD inpatient then. Thank you for allowing me to participate in the care of this patient. History of Present Illness Attending Physician: Timbo Rivera MD 55 yo male with hx cirrhosis decompensated with varices (grade II, found on EGD 03/2020), HTN, HLD, obesity, back pain here for abd pains and confusion. GI consulted for hyperammonemia. Patient denies any hematochezia, melena, hematemesis but he notes that for the last week he has been increasingly forgetful and confused and tired. Also has been somewhat constipated and having gas pains/abdominal pains it appears. No edema nor insomina. labs reviewed. Allergies Allergy/AdvReac Type Severity Reaction Status Date / Time hydrocodone [From Vicodin] Allergy Intermediate Hallucinati Verified 10/07/20 17:41 ng Home Medications Medication Instructions Recorded Confirmed Type lisinopril 20 mg tablet 20 mg PO QAM 02/17/19 10/07/20 History loratadine 10 mg tablet 10 mg PO QAM 02/17/19 10/07/20 History pantoprazole 40 mg tablet,delayed 40 mg PO BID 02/17/19 10/07/20 History release tramadol 50 mg tablet 50 - 100 mg PO Q6H PRN 02/17/19 10/07/20 History ondansetron 4 mg TRANSLINGUAL Q8H PRN 03/11/20 10/07/20 History dicyclomine 20 mg PO HS 07/05/20 10/07/20 History gabapentin 300 mg PO TID 07/05/20 10/07/20 History metoclopramide HCl [Reglan] 10 mg PO TID PRN 07/05/20 10/07/20 History sucralfate [Carafate] 1 g PO ACHS 07/05/20 10/07/20 History Patient History Medical History Cirrhosis Cough GI bleed H/O backache History of night sweats HTN (hypertension) Hx of allergic rhinitis Hx of anxiety disorder Hx of chest pain Hx of cirrhosis Hx of esophageal varices Hx of urticaria Hypertension Positive colorectal cancer screening using Cologuard test Surgical History H/O colonoscopy History of esophagogastroduodenoscopy (EGD) Hx of arthroscopy of knee Family History Other Cancer Social History Smoking Status: Never smoker Second Hand Exposure: No; Do You Dip or Chew Tobacco: No; Hx Alcohol Use: No Hx Substance Use: No Preferred Language: Estonian Communication Ability: Effective 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 Beliefs That Will Affect Care: None marital status: Single Current Living Situation: Family and Significant Other Current Living Situation Comment: [employer] 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 Other Information That Helps Us Care for You: No Feels Safe at Home: Yes Safety Concerns: Feels Safe At This Time Childhood Exposure to Second-Hand Smoke: No Assistive Devices: Glasses Review of Systems Constitutional: no fever, no chills and no weight loss Eyes: as per Subjective / HPI Ear, Nose, Mouth, Throat: as per Subjective / HPI Respiratory: no dyspnea and no dyspnea on exertion Cardiovascular: no chest pain and no palpitations Gastrointestinal: as per Subjective / HPI Musculoskeletal: no joint pain and no swelling Integumentary: no rash and no lesions Neurologic: no numbness and no paresthesia Psychiatric: no depression and no anxiety Endocrine: no fatigue Hematologic / Lymphatic: no easy bleeding and no easy bruising Physical Exam Constitutional: WD/WN, vitals as above Eyes: EOM intact bilaterally Neck: normal visual inspection Respiratory: normal respiratory effort, lungs clear to auscultation Cardiovascular: RRR, no murmur, no edema Gastrointestinal (Abdomen): Inspection/Auscultation: abdomen normal to inspection; abdomen not distended Percussion/Palpation: abdomen soft; abdomen nontender and no hepatosplenomegaly no asterixis Musculoskeletal: Extremities: no cyanosis Gait: normal gait Skin: no rashes, warm and dry Neurologic: moves all extremities Psychiatric: A+Ox3, euthymic affect Results & Data ([facility]) Vital Signs (Past 12 Hours) Vital Signs Temp Pulse Pulse Resp BP Pulse Ox Pulse Ox 10/08/20 08:13 36.8 C 60 19 131/77 94 10/08/20 04:01 36.7 C 63 18 116/82 93 10/08/20 01:54 67 10/08/20 01:40 36.7 C 68 18 134/92 97 10/08/20 01:35 36.7 C 68 18 134/92 97 96 10/08/20 00:00 70 18 148/72 H 98 PG Care Time/CCT Total # of Minutes Spent Total Time Spent with Patient: Total time spent is greater than 50% in coordination of care (as documented) at patient's floor/unit and/or counseling patient: Coding Level of Care Code 82155 Office/OBS Consult Lvl 4 Diagnoses Hepatic encephalopathy K72.90 Serum ammonia increased E72.20 Cirrhosis K74.60
--- NOTE | 2020-10-08 10:47 | Cardiology Consultation ---
Date of Consultation October 08, 2020 Assessment & Plan (1) Cirrhosis: (2) Hepatic encephalopathy: (3) Elevated troponin: The patient's elevated troponins are most likely chronic and not related to acute coronary syndrome. His echocardiogram was unremarkable and his EKG except for a single PVC is normal. I do not believe any additional cardiac testing is indicated at this time. Any procedures that the GI service needs to perform they should proceed. We will see this patient on an as-needed basis. History of Present Illness Attending Physician: Timbo Rivera MD History of Present Illness This is a 55-year-old male patient with a history of cirrhosis who was admitted with abdominal pain. The GI consultation is appreciated. He has never had chest pain and denies any previous history of heart disease. His EKG on admission was normal except for a single PVC. He has borderline elevation of his cardiac troponins which in reviewing his record they are chronically elevated and not related to acute coronary syndrome. He has no complaints this morning. Allergies Allergy/AdvReac Type Severity Reaction Status Date / Time hydrocodone [From Vicodin] Allergy Intermediate Hallucinati Verified 10/07/20 17:41 ng Home Medications Medication Instructions Recorded Confirmed Type lisinopril 20 mg tablet 20 mg PO QAM 02/17/19 10/07/20 History loratadine 10 mg tablet 10 mg PO QAM 02/17/19 10/07/20 History pantoprazole 40 mg tablet,delayed 40 mg PO BID 02/17/19 10/07/20 History release tramadol 50 mg tablet 50 - 100 mg PO Q6H PRN 02/17/19 10/07/20 History ondansetron 4 mg TRANSLINGUAL Q8H PRN 03/11/20 10/07/20 History dicyclomine 20 mg PO HS 07/05/20 10/07/20 History gabapentin 300 mg PO TID 07/05/20 10/07/20 History metoclopramide HCl [Reglan] 10 mg PO TID PRN 07/05/20 10/07/20 History sucralfate [Carafate] 1 g PO ACHS 07/05/20 10/07/20 History Patient History Medical History Cirrhosis Cough GI bleed H/O backache History of night sweats HTN (hypertension) Hx of allergic rhinitis Hx of anxiety disorder Hx of chest pain Hx of cirrhosis Hx of esophageal varices Hx of urticaria Hypertension Positive colorectal cancer screening using Cologuard test Surgical History H/O colonoscopy History of esophagogastroduodenoscopy (EGD) Hx of arthroscopy of knee Family History Other Cancer Social History Smoking Status: Never smoker Second Hand Exposure: No; Do You Dip or Chew Tobacco: No; Hx Alcohol Use: No Hx Substance Use: No Preferred Language: Wallisian Communication Ability: Effective Investigative Agent Required: No Beliefs That Will Affect Care: None marital status: Single Current Living Situation: Family and Significant Other Current Living Situation Comment: [facility] 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 Physical Exam Physical Exam: General: no acute distress and stated age Head: normocephalic, no masses, lesions, tenderness or abnormalities Eyes: conjunctiva are pink and non-injected, sclera clear Neck: supple, no adenopathy, no bruits, normal jugular venous pulse, no hepatojugular reflux Chest: normal shape and normal respiratory effort Lungs: clear to auscultation and percussion Cardiac Exam: - regular rate & rhythm, no murmurs gallops or rubs - normal S1, normal S2 Pulses: 2(+) throughout Abdomen: abdomen soft, non-tender, no abnormal masses and no hepatosplenomegaly Musculoskeletal: no gait disturbance, no joint inflammation, no deforming arthritis Extremities: no edema and no cyanosis Neuro: grossly normal exam Results & Data ([facility]) Vital Signs (Past 12 Hours) Vital Signs Temp Pulse Pulse Resp BP Pulse Ox Pulse Ox 10/08/20 08:13 36.8 C 60 19 131/77 94 10/08/20 04:01 36.7 C 63 18 116/82 93 10/08/20 01:54 67 10/08/20 01:40 36.7 C 68 18 134/92 97 10/08/20 01:35 36.7 C 68 18 134/92 97 96 10/08/20 00:00 70 18 148/72 H 98 Laboratory Results Laboratory Results - last 24 hr 10/07/20 10/07/20 10/07/20 17:47 17:47 17:47 WBC 3.95 L RBC 4.18 L Hgb 13.7 L Hct 37.5 L MCV 89.7 MCH 32.8 MCHC 36.5 H RDW Std Deviation 44.6 RDW Coeff of Wenceslao 13.6 Plt Count 91 L MPV 9.7 Immature Gran % (Auto) 0.3 Neut % (Auto) 59.9 Lymph % (Auto) 24.8 [place] % (Auto) 8.4 Eos % (Auto) 5.6 Baso % (Auto) 1.0 Neut # (Auto) 2.37 Lymph # (Auto) 0.98 L [place] # (Auto) 0.33 Eos # (Auto) 0.22 Baso # (Auto) 0.04 Immature Gran # (Auto) 0.01 PT 11.1 INR 1.1 APTT 24.8 PTT Ratio 0.9 D-Dimer 780 H* Sodium 143 Potassium 3.4 L Chloride 109 H Carbon Dioxide 27 Anion Gap 6.0 BUN 15 Creatinine 1.17 Est Cr Clr Drug Dosing 99.4 Est GFR ( Amer) 80.3 Est GFR (Non-Af Amer) 69.3 BUN/Creatinine Ratio 13.0 Glucose 86 Calcium 9.8 Magnesium 2.1 Total Bilirubin 2.0 H Direct Bilirubin 0.4 H AST 27 ALT 32 Alkaline Phosphatase 61 Ammonia Troponin I 0.058 H* Total Protein 6.7 Albumin 3.8 Globulin Albumin/Globulin Ratio Triglycerides Cholesterol LDL Cholesterol, Calc VLDL Cholesterol, Calc HDL Cholesterol Cholesterol/HDL Ratio Lipase 131 TSH Urine Color Urine Appearance Urine pH Ur Specific [place] Urine Protein Urine Glucose (UA) Urine Ketones Urine Blood Urine Nitrite Urine Bilirubin Urine Urobilinogen Ur Leukocyte Esterase Lyme Disease IgG Ab Lyme Disease IgM Ab COVID-19 Eval Order SARS-CoV-2 (PCR) 10/07/20 10/07/20 10/07/20 17:47 17:47 17:47 WBC RBC Hgb Hct MCV MCH MCHC RDW Std Deviation RDW Coeff of Wenceslao Plt Count MPV Immature Gran % (Auto) Neut % (Auto) Lymph % (Auto) [place] % (Auto) Eos % (Auto) Baso % (Auto) Neut # (Auto) Lymph # (Auto) [place] # (Auto) Eos # (Auto) Baso # (Auto) Immature Gran # (Auto) PT INR APTT PTT Ratio D-Dimer Sodium Potassium Chloride Carbon Dioxide Anion Gap BUN Creatinine Est Cr Clr Drug Dosing Est GFR ( Amer) Est GFR (Non-Af Amer) BUN/Creatinine Ratio Glucose Calcium Magnesium Total Bilirubin Direct Bilirubin AST ALT Alkaline Phosphatase Ammonia 54.6 H Troponin I Total Protein Albumin Globulin Albumin/Globulin Ratio Triglycerides Cholesterol LDL Cholesterol, Calc VLDL Cholesterol, Calc HDL Cholesterol Cholesterol/HDL Ratio Lipase TSH Urine Color Urine Appearance Urine pH Ur Specific [place] Urine Protein Urine Glucose (UA) Urine Ketones Urine Blood Urine Nitrite Urine Bilirubin Urine Urobilinogen Ur Leukocyte Esterase Lyme Disease IgG Ab Lyme Disease IgM Ab COVID-19 Eval Order Covid19 at [facility] SARS-CoV-2 (PCR) NEGATIVE 10/07/20 10/07/20 10/08/20 17:47 21:36 05:30 WBC 3.55 L RBC 3.92 L Hgb 12.6 L Hct 35.4 L MCV 90.3 MCH 32.1 MCHC 35.6 RDW Std Deviation 45.3 RDW Coeff of Wenceslao 13.8 Plt Count 81 L MPV 9.5 Immature Gran % (Auto) 0.3 Neut % (Auto) 52.3 Lymph % (Auto) 32.1 [place] % (Auto) 9.6 Eos % (Auto) 5.1 Baso % (Auto) 0.6 Neut # (Auto) 1.86 Lymph # (Auto) 1.14 L [place] # (Auto) 0.34 Eos # (Auto) 0.18 Baso # (Auto) 0.02 Immature Gran # (Auto) 0.01 PT INR APTT PTT Ratio D-Dimer Sodium Potassium Chloride Carbon Dioxide Anion Gap BUN Creatinine Est Cr Clr Drug Dosing Est GFR ( Amer) Est GFR (Non-Af Amer) BUN/Creatinine Ratio Glucose Calcium Magnesium Total Bilirubin Direct Bilirubin AST ALT Alkaline Phosphatase Ammonia Troponin I 0.057 H* Total Protein Albumin Globulin Albumin/Globulin Ratio Triglycerides Cholesterol LDL Cholesterol, Calc VLDL Cholesterol, Calc HDL Cholesterol Cholesterol/HDL Ratio Lipase TSH 2.980 Urine Color Urine Appearance Urine pH Ur Specific [place] Urine Protein Urine Glucose (UA) Urine Ketones Urine Blood Urine Nitrite Urine Bilirubin Urine Urobilinogen Ur Leukocyte Esterase Lyme Disease IgG Ab Negative Lyme Disease IgM Ab Negative COVID-19 Eval Order SARS-CoV-2 (PCR) 10/08/20 10/08/20 10/08/20 05:30 05:30 05:31 WBC RBC Hgb Hct MCV MCH MCHC RDW Std Deviation RDW Coeff of Wenceslao Plt Count MPV Immature Gran % (Auto) Neut % (Auto) Lymph % (Auto) [place] % (Auto) Eos % (Auto) Baso % (Auto) Neut # (Auto) Lymph # (Auto) [place] # (Auto) Eos # (Auto) Baso # (Auto) Immature Gran # (Auto) PT INR APTT 25.1 PTT Ratio 1.0 D-Dimer Sodium 144 Potassium 3.6 Chloride 112 H Carbon Dioxide 27 Anion Gap 5.0 BUN 16 Creatinine 1.26 Est Cr Clr Drug Dosing 91.6 Est GFR ( Amer) 72.9 Est GFR (Non-Af Amer) 62.9 BUN/Creatinine Ratio 12.4 Glucose 84 Calcium 8.5 Magnesium Total Bilirubin 1.9 H Direct Bilirubin AST 26 ALT 33 Alkaline Phosphatase 54 Ammonia 41.0 H Troponin I 0.066 H* Total Protein 6.1 L Albumin 3.5 Globulin 2.6 Albumin/Globulin Ratio 1.3 Triglycerides 108 Cholesterol 103 LDL Cholesterol, Calc 55 VLDL Cholesterol, Calc 22 HDL Cholesterol 26 Cholesterol/HDL Ratio 4 Lipase TSH Urine Color Urine Appearance Urine pH Ur Specific [place] Urine Protein Urine Glucose (UA) Urine Ketones Urine Blood Urine Nitrite Urine Bilirubin Urine Urobilinogen Ur Leukocyte Esterase Lyme Disease IgG Ab Lyme Disease IgM Ab COVID-19 Eval Order SARS-CoV-2 (PCR) 10/08/20 10/08/20 08:00 09:38 WBC RBC Hgb Hct MCV MCH MCHC RDW Std Deviation RDW Coeff of Wenceslao Plt Count MPV Immature Gran % (Auto) Neut % (Auto) Lymph % (Auto) [place] % (Auto) Eos % (Auto) Baso % (Auto) Neut # (Auto) Lymph # (Auto) [place] # (Auto) Eos # (Auto) Baso # (Auto) Immature Gran # (Auto) PT INR APTT PTT Ratio D-Dimer Sodium Potassium Chloride Carbon Dioxide Anion Gap BUN Creatinine Est Cr Clr Drug Dosing Est GFR ( Amer) Est GFR (Non-Af Amer) BUN/Creatinine Ratio Glucose Calcium Magnesium Total Bilirubin Direct Bilirubin AST ALT Alkaline Phosphatase Ammonia Troponin I 0.069 H* Total Protein Albumin Globulin Albumin/Globulin Ratio Triglycerides Cholesterol LDL Cholesterol, Calc VLDL Cholesterol, Calc HDL Cholesterol Cholesterol/HDL Ratio Lipase TSH Urine Color Dark Yellow Urine Appearance Clear Urine pH 6.0 Ur Specific [place] > 1.045 H Urine Protein Negative Urine Glucose (UA) Negative Urine Ketones Trace H Urine Blood Negative Urine Nitrite Negative Urine Bilirubin 1+ H Urine Urobilinogen Positive H Ur Leukocyte Esterase Negative Lyme Disease IgG Ab Lyme Disease IgM Ab COVID-19 Eval Order SARS-CoV-2 (PCR) Medications Administered Current Inpatient Medications Acetaminophen (Acetaminophen 325 Mg Tab) 325 mg PO Q6H PRN PRN Reason: Mild Pain Stop: 11/07/20 01:34 Aspirin (Aspirin 81 Mg Ectab) [address] [facility] Stop: 11/07/20 08:59 Last Admin: 10/08/20 08:29 Dose: 81 mg Documented by: Gabapentin (Gabapentin 300 Mg Cap) 300 mg PO TID [facility] Stop: 11/07/20 08:59 Last Admin: 10/08/20 08:29 Dose: 300 mg Documented by: Potassium Chloride 40 meq/ (Sodium Chloride) 1,020 mls @ 50 mls/hr IV .[id number] ONE Stop: 10/08/20 22:38 Last Admin: 10/08/20 03:08 Dose: 50 mls/hr Documented by: Lactulose (Lactulose Syrup 30 Gm/45 Ml Udp) 30 gm PO QID [facility] Stop: 11/07/20 10:44 Lisinopril (Lisinopril 20 Mg Tab) [address] [facility] Stop: 11/07/20 08:59 Last Admin: 10/08/20 08:29 Dose: 20 mg Documented by: Loratadine (Loratadine 10 Mg Tab) [address] [facility] Stop: 11/07/20 08:59 Last Admin: 10/08/20 08:29 Dose: 10 mg Documented by: Morphine Sulfate (Morphine Sulfate 4 Mg/Ml 1 Ml Carp\Vial) 4 mg IV Q4H PRN PRN Reason: Pain Stop: 10/22/20 01:34 Last Admin: 10/08/20 08:23 Dose: 4 mg Documented by: Nitroglycerin (Nitroglycerin Sl 0.4 Mg/Tab Tab) 0.4 mg SL UD PRN PRN Reason: Chest Pain Stop: 11/07/20 01:34 Pantoprazole Sodium (Pantoprazole 40 Mg Tab) 40 mg PO BID [facility] Stop: 11/07/20 01:34 Last Admin: 10/08/20 08:30 Dose: 40 mg Documented by: Rifaximin (Rifaximin 550 Mg Tablet) 550 mg PO BID [facility] Stop: 11/07/20 10:44 Sucralfate (Sucralfate 1 Gm Tab) 1 gm PO ACHS [facility] Stop: 11/07/20 07:29 Last Admin: 10/08/20 08:28 Dose: 1 gm Documented by: Tramadol HCl (Tramadol Hcl 50 Mg Tablet) 25 - 50 mg PO Q4H PRN PRN Reason: Pain Stop: 11/07/20 01:34 Zinc Sulfate (Zinc Sulfate 220 Mg Capsule) 220 mg PO QAM [facility] Stop: 11/07/20 10:44
[2020-10-08] MEDS: rifAXIMin 550 MG TABLET PO SCH ×2 (11:29→20:44)
[2020-10-08] MEDS: ZINC SULFATE 220 MG CAPSULE PO SCH (11:29)
[2020-10-08] MEDS: LACTULOSE SYRUP 30 GM/45 ML UDP PO SCH ×5 (11:29→20:44)
[2020-10-08] MEDS ORDERED: ONDANSETRON INJ 2 MG/ML 2 ML VIAL IV PRN (13:47)
[2020-10-08] MEDS ORDERED: ONDANSETRON INJ 2 MG/ML 2 ML VIAL ONE (13:51)
[2020-10-08] MEDS ORDERED: PROMETHAZINE HCL 12.5 MG in SODIUM CHLORIDE 0.9% 50 ML IV STA (15:30)
--- NOTE | 2020-10-08 15:57 | Hospitalist Progress Note ---
Date of Service October 08, 2020 Assessment & Plan (1) Abdominal pain: (2) Cirrhosis: (3) Hepatic encephalopathy: Hx of Varices Present on admission with abdominal pain associated with nausea CT abd/pelvis showed liver cirrhosis, splenomegaly, abdominal varices. Questionable thickening of the gallbladder wall could be related to liver cirrhosis or represent developing cholecystitis. Gallbladder u/s liver cirrhosis. slightly prominent gallbladder wall without evidence of cholelithiasis or cholecystitis. Abdominal xray showed no evidence of bowel obstruction. No evidence of free air. Ammonia level 54 on admission, then dropped to 41 today Gastro on board recommended to start on Lactulose and Rifaximin and Zinc sulfate daily Diet advance diet as tolerated If signs of GI bleeding, will notify GI to reassess for possible EGD Continue pain control and antiemetic Continue monitor closely (4) Elevated troponin: Mostly chronic due to hx of elevating troponin EKG showed no acute ischemic changes Troponin 0.058, 0.057, 0.066, 0.069 Cardiology on board and no evidence of acute coronary syndrome Echo showed no significant valvular pathology. Left ventricular is normal in size. Left ventricular wall motion is normal. Ejection fraction 55 to 60%. No additional cardiac testing needed as per cardiology Continue aspirin Continue monitor closely (5) Weakness: Possible related with acute illness (acute decompensation) Continue monitor PT/OT eval Fall precaution (6) Elevated d-dimer: Due to acute cirrhosis decompensation CTA chest showed no evidence of pulmonary embolus. Thrombocytopenia Platelet 81 No sign of active bleeding Continue monitor CBC DVT px due to thrombocytopenia and hx of varices CODE STATUS full code Admission and Anticipated Discharge Date Admission Date: October 07, 2020 Subjective Pt was seen and examined for follow up abdominal pain and nausea Lying in bed with no distress Pt said that he continues to have left lower abdominal pain and nausea He was given lactulose this morning for elevating ammonia level Nurse said that Zofran does not provide any relief Denies any chest pain, palpitation, dizziness and fever Review of Systems Review of Systems: All systems reviewed & are unremarkable except as noted in Subjective Physical Exam Physical Exam: General- No acute distress Head- atraumatic Eyes- PERRL, EOMI, ENT- oropharynx clear Neck- supple, no JVD Lungs- clear to auscultation Heart- regular rhythm; no murmur Abdomen- normal bowel sounds, +tenderness Extremities- no calf tenderness Neuro- alert, oriented x 3; PERRL, EOMI; no facial palsy; no dysarthria Skin- warm & dry Results & Data Results & Data ([facility]) Vital Signs (Past 12 Hours) Vital Signs Temp Pulse Resp BP Pulse Ox Pulse Ox 10/08/20 15:29 36.5 C 65 21 175/82 H 95 10/08/20 12:18 36.7 C 58 L 19 125/76 92 10/08/20 11:00 94 10/08/20 08:13 36.8 C 60 19 131/77 94 10/08/20 04:01 36.7 C 63 18 116/82 93 (1) Abdominal pain Abdominal location: epigastric Qualified Code(s): R10.13 - Epigastric pain
[2020-10-09] MEDS: MoRPHine SULFATE 4 MG/ML 1 ML CARP\\VIAL IV PRN ×2 (00:04→12:28)
[2020-10-09] MEDS ORDERED: PROMETHAZINE HCL 12.5 MG in SODIUM CHLORIDE 0.9% 50 ML IV ONE (00:45)
[2020-10-09] MEDS ORDERED: PROMETHAZINE HCL 12.5 MG in SODIUM CHLORIDE 0.9% 50 ML IV PRN (01:30)
[2020-10-09] MEDS: SUCRALFATE 1 GM TAB PO SCH ×4 (07:50→22:16)
--- NOTE | 2020-10-09 08:06 | Electrocardiogram Report ---
Test Reason : Blood Pressure : / mmHG Vent. Rate : 081 BPM Atrial Rate : 081 BPM P-R Int : 166 ms QRS Dur : 090 ms QT Int : 386 ms P-R-T Axes : 037 -24 042 degrees QTc Int : 448 ms Normal sinus rhythm Normal ECG When compared with ECG of 07-OCT-2020 17:35, Premature ventricular complexes are no longer Present Confirmed by Phan Smalls ([id number]) on 10/09/2020 8:06:26 AM Referred By: Ester Izquierdo Confirmed By:Phan Smalls
[2020-10-09] MEDS: LACTULOSE SYRUP 30 GM/45 ML UDP PO SCH ×4 (08:30→22:17)
[2020-10-09] MEDS: GABAPENTIN 300 MG CAP PO SCH ×3 (08:32→22:18)
[2020-10-09] MEDS: lisinopril 20 MG TAB PO SCH (08:32)
[2020-10-09] MEDS: LORATADINE 10 MG TAB PO SCH (08:33)
[2020-10-09] MEDS: PANTOprazole 40 MG TAB PO SCH ×2 (08:33→22:15)
[2020-10-09] MEDS: rifAXIMin 550 MG TABLET PO SCH ×2 (08:33→22:19)
[2020-10-09] MEDS: ZINC SULFATE 220 MG CAPSULE PO SCH (08:33)
[2020-10-09] MEDS: traMADol HCL 50 MG TABLET PO PRN ×3 (08:34→22:18)
[2020-10-09] MEDS: ASPIRIN 81 MG ECTAB PO SCH (08:56)
[2020-10-09 12:48] LABS: Hematocrit (blood only) 40.9 % (42-52); Hemoglobin 14.8 g/dL (14.0-18.0); Mean Corpuscular Hemoglobin 32.4 pg (25-34); Mean Corpuscular Hgb Conc 36.2 g/dL (32-36); Mean Corpuscular Volume 89.5 fL (80-100); Mean Platelet Volume 9.8 fL (7.4-10.4); Platelet Count 110 K/uL (130-400); RDW Coefficient of Variation 13.6 % (11.5-14.5); RDW Standard Deviation 44.6 fL (36.4-46.3); Red Blood Count 4.57 M/uL (4.7-6.1); White Blood Count 10.15 K/uL (4.8-10.8)
--- NOTE | 2020-10-09 18:09 | Hospitalist Progress Note ---
Date of Service October 09, 2020 Assessment & Plan (1) Abdominal pain: (2) Cirrhosis: (3) Hepatic encephalopathy: +FOBT Hx of Varices Present on admission with abdominal pain associated with nausea CT abd/pelvis showed liver cirrhosis, splenomegaly, abdominal varices. Questiona ble thickening of the gallbladder wall could be related to liver cirrhosis or represent developing cholecystitis. Gallbladder u/s liver cirrhosis. slightly prominent gallbladder wall without evidence of cholelithiasis or cholecystitis. Abdominal xray showed no evidence of bowel obstruction. No evidence of free air. Ammonia level 54 on admission, then dropped to 41 today Gastro on board recommended to start on Lactulose and Rifaximin and Zinc sulfate daily Patient had a bloody bowel movement this morning Hemoglobin stable at 14.8 Case discussed with GI Dr. Bejarano to notify about the GI bleed and positive FOBT Aspirin on hold for the GI bleed Dr. Bejarano recommended to continue monitor hemoglobin and okay to continue clear liquid diet Patient refused the clear liquid diet and would like his diet to advance to full liquid diet Continue pain control and antiemetic Continue to monitor H&H and will make n.p.o. after midnight (4) Elevated troponin: Mostly chronic due to hx of elevating troponin EKG showed no acute ischemic changes Troponin 0.058, 0.057, 0.066, 0.069 Cardiology on board and no evidence of acute coronary syndrome Echo showed no significant valvular pathology. Left ventricular is normal in size. Left ventricular wall motion is normal. Ejection fraction 55 to 60%. No additional cardiac testing needed as per cardiology Continue to hold aspirin due to GI bleed Continue monitor closely (5) Weakness: Possible related with acute illness (acute decompensation) Continue monitor PT/OT eval Fall precaution (6) Elevated d-dimer: Due to acute cirrhosis decompensation CTA chest showed no evidence of pulmonary embolus. Thrombocytopenia Platelet 110 today Continue monitor CBC DVT px due to thrombocytopenia and hx of varices CODE STATUS full code Admission and Anticipated Discharge Date Admission Date: October 07, 2020 Subjective Pt was seen and examined for follow up abdominal pain and nausea Lying in bed with no distress Patient said that he continues to have lower abdominal pain associated with nausea. He had a bloody bowel movement this morning. Patient said that he has been having recurrent episode of watery diarrhea Nurse said patient refused to take the lactulose because of the diarrhea Patient would like his diet to advance because the clear liquid diet making him sick and make his stool watery Denies any chest pain, palpitation, dizziness and fever Review of Systems Review of Systems: All systems reviewed & are unremarkable except as noted in Subjective Physical Exam Physical Exam: General- No acute distress Head- atraumatic Eyes- PERRL, EOMI, ENT- oropharynx clear Neck- supple, no JVD Lungs- clear to auscultation Heart- regular rhythm; no murmur Abdomen- normal bowel sounds, +tenderness Extremities- no calf tenderness Neuro- alert, oriented x 3; PERRL, EOMI; no facial palsy; no dysarthria Skin- warm & dry Results & Data Results & [facility] ([facility]) Vital Signs (Past 12 Hours) Vital Signs Temp Pulse Pulse Resp BP Pulse Ox 10/09/20 15:10 36.3 C L 75 19 139/84 96 10/09/20 14:46 76 10/09/20 11:54 36.6 C 78 19 121/74 94 10/09/20 07:57 77 10/09/20 07:53 36.8 C 81 21 154/93 H 93 (1) Abdominal pain Abdominal location: epigastric Qualified Code(s): R10.13 - Epigastric pain
[2020-10-10 06:49] LABS: Hematocrit (blood only) 36.6 % (42-52); Hemoglobin 13.4 g/dL (14.0-18.0); Mean Corpuscular Hemoglobin 32.8 pg (25-34); Mean Corpuscular Hgb Conc 36.6 g/dL (32-36); Mean Corpuscular Volume 89.7 fL (80-100); RDW Coefficient of Variation 13.5 % (11.5-14.5); Red Blood Count 4.08 M/uL (4.7-6.1); White Blood Count 6.97 K/uL (4.8-10.8)
[2020-10-10 06:54] LABS: Mean Platelet Volume 9.6 fL (7.4-10.4); Platelet Count 91 K/uL (130-400)
[2020-10-10 07:18] LABS: BUN Creatinine Ratio 12.2 (10-20); Calcium 8.8 mg/dl (8.5-10.1); Creatinine Clr Calc Pharmacy 104.2 ml/min; Est GFR (African American) 85.9 ml/min; Est GFR (Non-African American) 74.1 ml/min; Potassium 3.4 mmol/L (3.5-5.1)
[2020-10-10] MEDS: SUCRALFATE 1 GM TAB PO SCH ×4 (07:33→20:45)
[2020-10-10] MEDS: POTASSIUM CHLORIDE / WTR 10 MEQ/100 ML PLCT IV SCH ×2 (08:43→09:46)
[2020-10-10] MEDS: GABAPENTIN 300 MG CAP PO SCH ×3 (08:46→20:46)
[2020-10-10] MEDS: LACTULOSE SYRUP 30 GM/45 ML UDP PO SCH ×4 (08:46→20:46)
[2020-10-10] MEDS: lisinopril 20 MG TAB PO SCH (08:46)
[2020-10-10] MEDS: LORATADINE 10 MG TAB PO SCH (08:46)
[2020-10-10] MEDS: rifAXIMin 550 MG TABLET PO SCH ×2 (08:47→20:46)
[2020-10-10] MEDS: PANTOprazole 40 MG TAB PO SCH ×2 (08:47→20:45)
[2020-10-10] MEDS: ZINC SULFATE 220 MG CAPSULE PO SCH (08:47)
--- NOTE | 2020-10-10 09:05 | Gastroenterology Progress Note ---
Date of Service October 10, 2020 Assessment & Plan (1) Cirrhosis: 55 year old male with history of cirrhosis decompensated with varices (grade II, found on EGD 03/2020), HTN, HLD, obesity, back pain here for abd pains and confusion. GI consulted for hyperammonemia. This has resolved with lacutlose and xifaxan but he has had difficultly tolerated dose of lactulose with 20+ loose, watery stools reported. He had hematochezia x 2 yesterday which has since resolved. No black stools Avoid narcotic analgesia Avoid benzodiazepines Lactulose, titrated to 3-5 BMs daily, trial once daily to start Continue Xifaxan 550 twice daily No NSAIDs Tylenol less than 2G daily ETOH abstinence Low NA diet less than 2G Will discuss EGD/Colonoscopy with attending Thank you for allowing us to participate in the care of this patient. Please call with any acute changes, questions or concerns. Please see addendum below with additional recommendation from my supervising physician. (2) Hepatic encephalopathy: Admission and Anticipated Discharge Date Admission Date: October 10, 2020 Supervising Physician Co-Signing Physician Notes I have discussed the patient's management with the advanced practitioner. Please refer to the nurse practitioner's note for the documented findings and plan of care. OP scopes. Subjective Pt was seen and evaluated, chart reviewed. Pt is awake, alert and oriented answering questions appropriately and providing accurate past medical history Notes that he stopped lactulose as this causes severe, watery diarrhea He had BRB on toilet tissue and mixed with stool x 2 yesterday with his severe diarrhea He has moved his bowels since and notes brown stools now No black stools No abd pain No nausea, vomiting. Is hungry No fever, chills, CP, SOB. Review of Systems Review of Systems: All systems reviewed & are unremarkable except as noted in HPI & below Physical Exam Constitutional: WD/WN, vitals as above well nourished and + acute distress; not ill appearing Neck: trachea midline, no thyromegaly Respiratory: normal respiratory effort, lungs clear to auscultation Cardiovascular: RRR, no murmur, no edema Gastrointestinal (Abdomen): normal bowel sounds, soft, nontender, no hepato splenomegaly Results & Data ([facility]) Vital Signs (Past 12 Hours) Vital Signs Temp Pulse Pulse Resp BP Pulse Ox Pulse Ox 10/10/20 08:11 36.7 C 71 16 111/68 91 10/10/20 07:55 67 93 10/10/20 03:43 36.7 C 72 18 115/70 93 10/09/20 23:46 77 10/09/20 23:38 36.9 C 78 18 124/77 92 Laboratory Results 10/10/20 10/10/20 10/10/20 Range/Units 06:40 06:37 06:37 WBC 6.97 (4.8-10.8) K/uL RBC 4.08 L (4.7-6.1) M/uL Hgb 13.4 L (14.0-18.0) g/dL Hct 36.6 L (42-52) % MCV 89.7 (80-100) fL MCH 32.8 (25-34) pg MCHC 36.6 H (32-36) g/dL RDW Std Deviation 44.0 (36.4-46.3) fL RDW Coeff of Wenceslao 13.5 (11.5-14.5) % Plt Count 91 L (130-400) K/uL MPV 9.6 (7.4-10.4) fL Sodium 140 (136-145) mmol/L Potassium 3.4 L (3.5-5.1) mmol/L Chloride 107 (98-107) mmol/L Carbon Dioxide 27 (21-32) mmol/L Anion Gap 6.0 (3-11) BUN 13 (7-18) mg/dl Creatinine 1.10 (0.6-1.4) mg/dl Est Cr Clr Drug Dosing 104.2 ml/min Est GFR ( Amer) 85.9 ml/min Est GFR (Non-Af Amer) 74.1 ml/min BUN/Creatinine Ratio 12.2 (10-20) Glucose 95 (70-99) mg/dl Calcium 8.8 (8.5-10.1) mg/dl Ammonia 40.0 H (11-32) umol/L Stool Occult Bld Scrn (Negative) 10/09/20 10/09/20 Range/Units 12:19 09:00 WBC 10.15 (4.8-10.8) K/uL RBC 4.57 L (4.7-6.1) M/uL Hgb 14.8 (14.0-18.0) g/dL Hct 40.9 L (42-52) % MCV 89.5 (80-100) fL MCH 32.4 (25-34) pg MCHC 36.2 H (32-36) g/dL RDW Std Deviation 44.6 (36.4-46.3) fL RDW Coeff of Wenceslao 13.6 (11.5-14.5) % Plt Count 110 L (130-400) K/uL MPV 9.8 (7.4-10.4) fL Sodium (136-145) mmol/L Potassium (3.5-5.1) mmol/L Chloride (98-107) mmol/L Carbon Dioxide (21-32) mmol/L Anion Gap (3-11) BUN (7-18) mg/dl Creatinine (0.6-1.4) mg/dl Est Cr Clr Drug Dosing ml/min Est GFR ( Amer) ml/min Est GFR (Non-Af Amer) ml/min BUN/Creatinine Ratio (10-20) Glucose (70-99) mg/dl Calcium (8.5-10.1) mg/dl Ammonia (11-32) umol/L Stool Occult Bld Scrn Positive A (Negative)
[2020-10-10] MEDS: traMADol HCL 50 MG TABLET PO PRN ×2 (14:05→19:19)
--- NOTE | 2020-10-10 15:42 | XRay Report ---
KUB HISTORY: Generalized abdominal pain COMPARISON: Chest and abdominal series 10/07/2020. Abdomen and pelvis CT 10/08/2020. FINDINGS: The bowel gas pattern is unremarkable. There are no dilated loops of small bowel to suggest an obstruction. There is a 5 mm left renal stone. No right renal stone. No ureteral calculi. The sp nemo remains enlarged. No pneumoperitoneum or pneumatosis. IMPRESSION: 1. Left-sided nephrolithiasis. No ureteral calculi. 2. Splenomegaly, unchanged. 3. No evidence for bowel obstruction. ACT 112: Negative or not required by law. Electronically signed by: Carlos Su M.D. 10/10/2020 3:52 PM
--- NOTE | 2020-10-10 16:00 | Hospitalist Progress Note ---
Date of Service October 10, 2020 Assessment & Plan (1) Abdominal pain: (2) Cirrhosis: (3) Hepatic encephalopathy: +FOBT Hx of Varices Present on admission with abdominal pain associated with nausea CT abd/pelvis showed liver cirrhosis, splenomegaly, abdominal varices. Questiona ble thickening of the gallbladder wall could be related to liver cirrhosis or represent developing cholecystitis. Gallbladder u/s liver cirrhosis. slightly prominent gallbladder wall without evidence of cholelithiasis or cholecystitis. Abdominal xray showed no evidence of bowel obstruction. No evidence of free air. Ammonia level 54 on admission, then dropped to 41 today Gastro on board recommended to start on Lactulose and Rifaximin and Zinc sulfate daily Patient had a bloody bowel movement this morning Hemoglobin stable at 14.8 Case discussed with GI Dr. Bejarano to notify about the GI bleed and positive FOBT Aspirin on hold for the GI bleed Dr. Bejarano recommended to continue monitor hemoglobin and okay to continue clear liquid diet Patient refused the clear liquid diet and would like his diet to advance to full liquid diet Continue pain control and antiemetic Continue to monitor H&H and will make n.p.o. after midnight 10/10/20 Hgb stable at 13.4 Denies any more episode of bloody stool Continue to have left side abdominal pain KUB done today showed no evidence for bowel obstruction. case discussed with Gastro that recommended to continue Lactulose, titrated to 3-5 BMs daily, trial once daily to start and Xifaxan 550 twice daily Will try to avoid narcotic analgesic and benzodiazepines No NSAIDs Ok with Tylenol less than 2G daily GI plan for EGD/Colonoscopy outpatient since hgb stable Low fiber diet resumed Will add deven (4) Elevated troponin: Mostly chronic due to hx of elevating troponin EKG showed no acute ischemic changes Troponin 0.058, 0.057, 0.066, 0.069 Cardiology on board and no evidence of acute coronary syndrome Echo showed no significant valvular pathology. Left ventricular is normal in size. Left ventricular wall motion is normal. Ejection fraction 55 to 60%. No additional cardiac testing needed as per cardiology Continue to hold aspirin due to GI bleed Continue monitor closely (5) Weakness: Possible related with acute illness (acute decompensation) Continue monitor PT/OT eval Fall precaution (6) Elevated d-dimer: Due to acute cirrhosis decompensation CTA chest showed no evidence of pulmonary embolus. Thrombocytopenia Platelet 110 today Continue monitor CBC DVT px due to thrombocytopenia and hx of varices CODE STATUS full code Admission and Anticipated Discharge Date Admission Date: October 10, 2020 Subjective Pt was seen and examined for follow up abdominal pain and nausea Lying in bed with no acute distress Patient said that he continues to have lower abdominal pain and nausea. He said that he had 1 bowel movement this morning, but multiple episodes last night He said that the pain med provide a little relief Pt and are not happy because no scope done and patient continue to have left side abdominal pain Denies any chest pain, palpitation, dizziness and fever Review of Systems Review of Systems: All systems reviewed & are unremarkable except as noted in Subjective Physical Exam Physical Exam: General- No acute distress Head- atraumatic Eyes- PERRL, EOMI, ENT- oropharynx clear Neck- supple, no JVD Lungs- clear to auscultation Heart- regular rhythm; no murmur Abdomen- normal bowel sounds, +L side tenderness Extremities- no calf tenderness Neuro- alert, oriented x 3; PERRL, EOMI; no facial palsy; no dysarthria Skin- warm & dry Results & Data Results & Data ([facility]) Vital Signs (Past 12 Hours) Vital Signs Temp Pulse Pulse Resp BP Pulse Ox Pulse Ox 10/10/20 15:07 36.9 C 78 18 114/82 93 10/10/20 11:12 36.7 C 77 16 130/79 93 10/10/20 08:11 36.7 C 71 16 111/68 91 10/10/20 07:55 67 93 (1) Abdominal pain Abdominal location: epigastric Qualified Code(s): R10.13 - Epigastric pain
[2020-10-10] MEDS: DICYCLOMINE HCL 10 MG CAP PO SCH (20:44)
[2020-10-10] MEDS ORDERED: METOCLOPRAMIDE HCL 10 MG TABLET PO PRN (22:03)
[2020-10-11 06:26] LABS: Hematocrit (blood only) 35.6 % (42-52); Hemoglobin 13.1 g/dL (14.0-18.0); Mean Corpuscular Hemoglobin 32.3 pg (25-34); Mean Corpuscular Hgb Conc 36.8 g/dL (32-36); Mean Corpuscular Volume 87.9 fL (80-100); RDW Coefficient of Variation 13.5 % (11.5-14.5); RDW Standard Deviation 43.2 fL (36.4-46.3); Red Blood Count 4.05 M/uL (4.7-6.1); White Blood Count 6.86 K/uL (4.8-10.8)
[2020-10-11 06:49] LABS: Mean Platelet Volume 10.1 fL (7.4-10.4); Platelet Count 89 K/uL (130-400)
[2020-10-11 06:56] LABS: BUN Creatinine Ratio 11.6 (10-20); Calcium 8.5 mg/dl (8.5-10.1); Creatinine Clr Calc Pharmacy 98.4 ml/min; Est GFR (African American) 80.6 ml/min; Est GFR (Non-African American) 69.5 ml/min; Potassium 3.1 mmol/L (3.5-5.1)
[2020-10-11] MEDS: SUCRALFATE 1 GM TAB PO SCH ×3 (07:37→16:16)
[2020-10-11] MEDS: lisinopril 20 MG TAB PO SCH (08:33)
[2020-10-11] MEDS: ZINC SULFATE 220 MG CAPSULE PO SCH (08:33)
[2020-10-11] MEDS: LORATADINE 10 MG TAB PO SCH (08:33)
[2020-10-11] MEDS: DICYCLOMINE HCL 10 MG CAP PO SCH (08:33)
[2020-10-11] MEDS: rifAXIMin 550 MG TABLET PO SCH (08:33)
[2020-10-11] MEDS: PANTOprazole 40 MG TAB PO SCH (08:33)
[2020-10-11] MEDS: LACTULOSE SYRUP 30 GM/45 ML UDP PO SCH ×2 (08:34→14:26)
[2020-10-11] MEDS: GABAPENTIN 300 MG CAP PO SCH ×2 (08:34→14:00)
[2020-10-11] MEDS ORDERED: POTASSIUM CHLORIDE CRTAB 20 MEQ TABCR PO STA (08:39)
--- NOTE | 2020-10-11 15:02 | Hospitalist Progress Note ---
Date of Service October 11, 2020 Assessment & Plan (1) Abdominal pain: (2) Cirrhosis: (3) Hepatic encephalopathy: +FOBT Hx of Varices Present on admission with abdominal pain associated with nausea CT abd/pelvis showed liver cirrhosis, splenomegaly, abdominal varices. Questiona ble thickening of the gallbladder wall could be related to liver cirrhosis or represent developing cholecystitis. Gallbladder u/s liver cirrhosis. slightly prominent gallbladder wall without evidence of cholelithiasis or cholecystitis. Abdominal xray showed no evidence of bowel obstruction. No evidence of free air. Ammonia level 54 on admission, then dropped to 41 today Gastro on board recommended to start on Lactulose and Rifaximin and Zinc sulfate daily Patient had a bloody bowel movement this morning Hemoglobin stable at 14.8 Case discussed with GI Dr. Bejarano to notify about the GI bleed and positive FOBT Aspirin on hold for the GI bleed Dr. Bejarano recommended to continue monitor hemoglobin and okay to continue clear liquid diet Patient refused the clear liquid diet and would like his diet to advance to full liquid diet Continue pain control and antiemetic Continue to monitor H&H and will make n.p.o. after midnight 10/11/20 Hgb stable at 13.1 Denies any more episode of bloody stool KUB done on 10/11 showed no evidence for bowel obstruction. case discussed with Gastro that recommended to continue Lactulose, titrated to 3-5 BMs daily, trial once daily to start and Xifaxan 550 twice daily Continue to try to avoid narcotic analgesic and benzodiazepines and No NSAIDs Ok with Tylenol less than 2G daily GI plan for EGD/Colonoscopy outpatient since hgb stable Continue Low fiber diet Continue Bentyl BID Abdominal pain improves significantly Ok from Gastro standpoint to discharge home (4) Elevated troponin: Mostly chronic due to hx of elevating troponin EKG showed no acute ischemic changes Troponin 0.058, 0.057, 0.066, 0.069 Cardiology on board and no evidence of acute coronary syndrome Echo showed no significant valvular pathology. Left ventricular is normal in size. Left ventricular wall motion is normal. Ejection fraction 55 to 60%. No additional cardiac testing needed as per cardiology Continue to hold aspirin due to GI bleed Continue monitor closely (5) Weakness: Possible related with acute illness (acute decompensation) Continue monitor PT/OT eval Fall precaution (6) Elevated d-dimer: Due to acute cirrhosis decompensation CTA chest showed no evidence of pulmonary embolus. Hypokalemia K 3.1 today K replaced Continue K supplement Continue monitor BMP Thrombocytopenia Platelet 89 No active sign of bleeding Continue monitor CBC DVT px due to thrombocytopenia and hx of varices CODE STATUS full code Admission and Anticipated Discharge Date Admission Date: October 10, 2020 Subjective Pt was seen and examined for follow of of abdominal pain Lying in bed with no acute distress Pt said that he feels much better He said that his abdominal pain is better He said that he had 3 bm last night, but none this morning He said that he did not get the lactulose this morning He said that the bentyl helps with the pain Denies any chest pain, palpitation, dizziness and SOB Review of Systems Review of Systems: All systems reviewed & are unremarkable except as noted in Subjective Physical Exam Physical Exam: General- No acute distress Head- atraumatic Eyes- PERRL, EOMI, ENT- oropharynx clear Neck- supple, no JVD Lungs- clear to auscultation Heart- regular rhythm; no murmur Abdomen- normal bowel sounds, +mild L side tenderness Extremities- no calf tenderness Neuro- alert, oriented x 3; PERRL, EOMI; no facial palsy; no dysarthria Skin- warm & dry Results & Data Results & Data ([facility]) Vital Signs (Past 12 Hours) Vital Signs Temp Pulse Pulse Resp BP Pulse Ox 10/11/20 14:19 36.5 C 75 20 120/75 94 10/11/20 11:17 36.5 C 75 20 120/75 94 10/11/20 08:00 72 10/11/20 07:44 36.7 C 76 19 128/77 94 10/11/20 04:00 36.8 C 71 18 125/84 94 (1) Abdominal pain Abdominal location: epigastric Qualified Code(s): R10.13 - Epigastric pain
[2020-10-11] MEDS ORDERED: DICYCLOMINE HCL 10 MG CAP PO ONE (15:18)
--- NOTE | 2020-10-24 07:50 | Discharge Summary ---
Date of Service October 11, 2020 Admission HPI Per Admitting Provider Pt is 54 y/o M with PMH cirrhosis, esophageal varices, HTN, dyslipidemia, obesity, back pain from trauma presented to ER with complaint of abdominal pain. Patient with history hospitalization 03/2020 for abdominal pain. He states since that time has been taking Reglan 3 times daily, Bentyl at bedtime and has Zofran to use as needed for breakthrough nausea. Patient states felt like he was doing well on that regimen and would only have occasional abdominal pain after eating, however the past 2 weeks has noted increased abdominal pain after eating described as pain to lower abdomen. This week symptoms of gotten i ncreasingly worse and pain occurs after eating. Past 2 to 3 days has had decreased oral intake secondary to abdominal pain. Denies vomiting. Denies diarrhea. Last BM yesterday. Patient also reports past 1 to 2 weeks has had fatigue and has barely been able to complete his workday. Also complains of lightheadedness with standing and walking, resolves with sitting and resting. Denies syncope. Denies vision changes, headache. Patient states today when getting up to go to the bathroom he had sharp pain to left side of chest that lasted 5 minutes, resolved with sitting. Denies fever/chills, melena, hematochezia, neck pain, SOB, orthopnea, palpitations, cough, sore throat, choking, otalgia, rhinorrhea, noted abdominal distention, paresthesias, extremity weakness, extremity edema, rashes, dysuria, hematuria, urinary frequency. Denies known tick bite. Denies recent travels. Denies ill contacts. Admission Exam Per Admitting Provider General: no distress, WDWN Head: normocephalic, atraumatic Eyes: PERRL, EOM's intact, conjunctiva non-injected, anicteric ENT: normal inspection external ears, nose, mucous membranes moist Neck: supple, trachea midline Lungs: clear, no respiratory distress, no wheezing/rhonchi/rales CV: RRR, no murmur, no pretibial edema Abd: protuberant, normal BS, soft, +mild tenderness to palpation RUQ, RLQ, LLQ without rebound or guarding Ext: no cyanosis, no calf tenderness Neuro: A&O x 3, no focal deficits noted, normal affect Skin: warm, dry Principal Diagnosis Abdominal pain: Cirrhosis: Hepatic encephalopathy: Hx of Varices Elevated troponin: Weakness: Elevated d-dimer: Thrombocytopenia Discharge Exam General- No acute distress Head- atraumatic Eyes- PERRL, EOMI, ENT- oropharynx clear Neck- supple, no JVD Lungs- clear to auscultation Heart- regular rhythm; no murmur Abdomen- normal bowel sounds, +mild L side tenderness Extremities- no calf tenderness Neuro- alert, oriented x 3; PERRL, EOMI; no facial palsy; no dysarthria Skin- warm & dry Discharge Data Allergies Allergy/AdvReac Type Severity Reaction Status Date / Time hydrocodone [From Vicodin] Allergy Intermediate Hallucinati Verified 10/23/20 11:55 ng Consultations 10/07/20 20:48 ED Decision to Admit Stat 10/08/20 01:35 Consult Cardiology Routine 10/08/20 06:16 Consult Gastroenterology Routine Ordered Studies 10/07/20 17:23 US gallbladder Stat 10/07/20 18:34 CT angio chest PE protocol Stat 10/07/20 22:39 CT abd pelvis wo con Urgent KUB HISTORY: Generalized abdominal pain COMPARISON: Chest and abdominal series 10/07/2020. Abdomen and pelvis CT 10/08/2020. FINDINGS: The bowel gas pattern is unremarkable. There are no dilated loops of small bowel to suggest an obstruction. There is a 5 mm left renal stone. No right renal stone. No ureteral calculi. The spleen remains enlarged. No pneumoperitoneum or pneumatosis. IMPRESSION: 1. Left-sided nephrolithiasis. No ureteral calculi. 2. Splenomegaly, unchanged. 3. No evidence for bowel obstruction. ACT 112: Negative or not required by law. Electronically signed by: Carlos Su M.D. 10/10/2020 3:52 PM Dictated: 10/10/20 1533Transcribed: 10/10/[address] SCAN OF THE ABDOMEN AND PELVIS WITHOUT CONTRAST CLINICAL HISTORY: abd pain COMPARISON STUDY: March 14, 2012 TECHNIQUE: CT scan of the abdomen and pelvis was performed from the lung bases to the proximal femurs. Images are reviewed in the axial, sagittal, and coronal planes. IV contrast was not administered for this examination. A dose lowering technique was utilized adhering to the principles of ALARA. CT DOSE: 1304.84 mGy.cm FINDINGS: Lower chest: The heart is normal in size and configuration, without pericardial effusion. The lung bases and pleural spaces are clear. Liver: The unenhanced liver is normal in size and attenuation. Lobulated liver contour is again seen which could represent liver cirrhosis. There is no intrahepatic biliary ductal dilatation. Gallbladder: Is fluid-filled without intraluminal calculi. There is minimal gallbladder wall thickening is seen which might represent developing cholecystitis. Spleen: Is enlarged. Pancreas: Unremarkable. Adrenal glands: Unremarkable. Kidneys: The unenhanced kidneys are normal in size without hydronephrosis. There is no contour deforming renal mass lesion. Excreted contrast material is seen within bilateral renal pelvises likely from recent contrast-enhanced CT of the chest. Bowel: Minimal hiatal hernia. Bowel loops are nondilated. Appendix is normal in caliber. Peritoneum: There is no free intraperitoneal gas is seen. Varices are demonstrated. Mild mesenteric edema is seen, most prominent inferiorly to the gallbladder fossa, stable since prior study. Vasculature: The abdominal aorta is normal in course and caliber. Adenopathy: No mesenteric lymphadenopathy seen. Multiple small retroperitoneal lymph nodes are seen, measuring less than 1 cm in short axis and considered nonpathological by CT size criteria. Pelvic viscera: Urinary bladder is decompressed which limits evaluation. Prostate gland is mildly enlarged. Skeletal structures: Multilevel degenerative changes of the spine. IMPRESSION: 1. Liver cirrhosis. Splenomegaly. Abdominal varices. Mild mesenteric edema is unchanged since prior study. 2. Questionable thickening of the gallbladder wall could be related to liver cirrhosis or represent developing cholecystitis. No gallstones. 3. Nondilated loops of bowel. Normal appendix. ACT 112: Negative or not required by law. The above report was generated using voice recognition software. It may contain grammatical, syntax or spelling errors. Electronically signed by: Cori Francisco DO 10/08/2020 9:22 AM Dictated: 10/08/20 0855Transcribed: 10/08/[address] ANGIOGRAM OF THE CHEST CLINICAL HISTORY: ro PE COMPARISON STUDY: July 05, 2020 TECHNIQUE: Following the IV administration of mL of Optiray, CT angiogram of the thorax was performed from the thoracic inlet to the lung bases utilizing the pulmonary embolus protocol. Images are reviewed in the axial, sagittal, and coronal planes. IV contrast was administered without complication. MIP imaging was performed. A dose lowering technique was utilized adhering to the principles of ALARA. CT DOSE: 787.62 mGy.cm FINDINGS: There is adequate opacification within main pulmonary artery. No definite pulmonary embolus is seen. Main pulmonary artery is dilated measuring 3.3 cm in diameter which could be seen in pulmonary hypertension. No pathologically enlarged axillary mediastinal or hilar lymph nodes were visualized. There was no evidence of thoracic aortic dilatation. Tracheobronchial tree is patent. No large infiltrates or consolidative lesions are seen. Mild atelectasis is seen in the dependent portions of bilateral lower lobes. No pleural effusions are visualized. Limited evaluation of upper abdominal viscera shows further interval enlargement of the spleen now measuring 20 cm in anterior-posterior dimension and multiple nodular structures within upper abdominal which could represent varices or/and prominent lymph nodes. Evaluation of osseous structures shows no significant degenerative changes of the spine. IMPRESSION: 1. No evidence of pulmonary embolus. 2. No infiltrates or consolidative lesions. 3. Dilatation of the main pulmonary artery which could be seen in pulmonary hypertension. 4. Splenomegaly, possible varices and prominent lymph nodes within partially visualized upper abdomen. ACT 112: Negative or not required by law. The above report was generated using voice recognition software. It may contain grammatical, syntax or spelling errors. Electronically signed by: Cori Francisco DO 10/07/2020 7:13 PM Dictated: 10/07/201901Transcribed: 10/07/201901 ABDOMINAL ULTRASOUND, RIGHT UPPER QUADRANT HISTORY: epigastric pain. COMPARISON: March 15, 2020 FINDINGS: Pancreas: Partially obscured by overlying bowel gas. No focal pancreatic lesions are seen. Liver: Diffuse increase in echogenicity and coarsening of echotexture of its parenchyma likely represent cirrhosis. No focal lesion or intrahepatic biliary dilatation seen. Liver is measuring 16 cm in length. Gallbladder: Is fluid-filled without evidence of intraluminal calculi. Minimal prominence of gallbladder wall measures 0.4 cm. Sonographic Torres's sign is negative. No pericholecystic edema is demonstrated. CBD: 0.4 cm Right kidney: No hydronephrosis. IMPRESSION: 1. Liver cirrhosis. 2. Slightly prominent gallbladder wall without evidence of cholelithiasis or cholecystitis. ACT 112: Negative or not required by law. The above report was generated using voice recognition software. It may contain grammatical, syntax or spelling errors. Electronically signed by: Cori Francisco DO 10/07/2020 8:50 PM Dictated: 10/07/202044Transcribed: 10/07/202044 XR abdomen 2V w PA chest CLINICAL HISTORY: epigastric pain COMPARISON STUDY: No previous studies for comparison. FINDINGS: The erect chest reveals no evidence of free air. There is no evidence of focal pulmonary consolidation.] Erect and supine views of the abdomen reveal no abnormally dilated loops of large or small bowel. There are no transition zone to indicate bowel obstruction. IMPRESSION: No evidence of bowel obstruction. No evidence of free air. ACT 112: Negative or not required by law. The above report was generated using voice recognition software. It may contain grammatical, syntax or spelling errors. Electronically signed by: Cori Francisco DO 10/07/2020 7:37 PM Dictated: 10/07/201935Transcribed: 10/07/201935 Hospital Course (1) Abdominal pain: (2) Cirrhosis: (3) Hepatic encephalopathy: +FOBT Hx of Varices Present on admission with abdominal pain associated with nausea CT abd/pelvis showed liver cirrhosis, splenomegaly, abdominal varices. Questionable thickening of the gallbladder wall could be related to liver ci rrhosis or represent developing cholecystitis. Gallbladder u/s liver cirrhosis. slightly prominent gallbladder wall without evidence of cholelithiasis or cholecystitis. Abdominal xray showed no evidence of bowel obstruction. No evidence of free air. Ammonia level 54 on admission, then dropped to 41 today Gastro on board recommended to start on Lactulose and Rifaximin and Zinc sulfate daily Patient had a bloody bowel movement this morning Hemoglobin stable at 14.8 Case discussed with GI Dr. Bejarano to notify about the GI bleed and positive FOBT Aspirin on hold for the GI bleed Dr. Bejarano recommended to continue monitor hemoglobin and okay to continue clear liquid diet Patient refused the clear liquid diet and would like his diet to advance to full liquid diet Continue pain control and antiemetic Continue to monitor H&H and will make n.p.o. after midnight 10/11/20 Hgb stable at 13.1 Denies any more episode of bloody stool KUB done on 10/11 showed no evidence for bowel obstruction. case discussed with Gastro that recommended to continue Lactulose, titrated to 3-5 BMs daily, trial once daily to start and Xifaxan 550 twice daily Continue to try to avoid narcotic analgesic and benzodiazepines and No NSAIDs Ok with Tylenol less than 2G daily GI plan for EGD/Colonoscopy outpatient since hgb stable Continue Low fiber diet Continue Bentyl BID Abdominal pain improves significantly Ok from Gastro standpoint to discharge home (4) Elevated troponin: Mostly chronic due to hx of elevating troponin EKG showed no acute ischemic changes Troponin 0.058, 0.057, 0.066, 0.069 Cardiology on board and no evidence of acute coronary syndrome Echo showed no significant valvular pathology. Left ventricular is normal in size. Left ventricular wall motion is normal. Ejection fraction 55 to 60%. No additional cardiac testing needed as per cardiology Continue to hold aspirin due to GI bleed Continue monitor closely (5) Weakness: Possible related with acute illness (acute decompensation) Continue monitor PT/OT eval Fall precaution (6) Elevated d-dimer: Due to acute cirrhosis decompensation CTA chest showed no evidence of pulmonary embolus. Hypokalemia K 3.1 today K replaced Continue K supplement Continue monitor BMP Thrombocytopenia Platelet 89 No active sign of bleeding Continue monitor CBC DVT px due to thrombocytopenia and hx of varices CODE STATUS full code Total Time Total Time Spent Total Time Spent (In Minutes): 35 minutes Total Time Includes: Examination of the Patient, Discharge Planning, Medication Reconciliation, Communication With Other Providers and Other Discharge Plan Discharge Items Patient Disposition: Home - Self-Care Reason For Visit: CP Discharge Diagnosis: Abdominal pain: Cirrhosis: Hepatic encephalopathy: Hx of Varices Elevated troponin: Weakness: Elevated d-dimer: Thrombocytopenia Activity: Resume your previous activity Non-emergency contact: Primary Care Provider Call non-emergency contact if: you have any medication questions Follow-up/Referrals: Tim Brown DO [Primary Care Provider] - (Date & Time 10/18/2020 11:00 AM Provider Tim Brown DO Department [facility] ) Diet: Low Fiber Addtl Attending Provider Instructions: Follow up with your primary care provider Dr. Brown on 10/18/2020 at 11:00 AM at the [facility] Follow up with gastroenterology to arrange for outpatient EGD and Colonoscopy Continue Lactulose daily but titrated to have 3-5 bowel movements daily Avoid any NSAID such as motrin, aleve, ibuprofen, naproxen, advil,... due to risk of bleeding Ok to take Tylenol with less than 2G daily Check CBC in 1 week to monitor your hemoglobin and platelet count Increase potassium intake in your diet Check BMP in 1 week to monitor electrolytes Pending Studies at Discharge: No Stand-Alone Forms: My [facility], Smoking Cessation Medications and DC Order Prescriptions: Continued lisinopril [Prinivil] 20 mg tablet 20 mg PO QAM RF: 0 pantoprazole [Protonix] 40 mg tablet,delayed release (DR/EC) 40 mg PO BID RF: 0 loratadine [Claritin] 10 mg tablet 10 mg PO QAM RF: 0 tramadol 50 mg tablet 50 - 100 mg PO Q6H PRN (Reason: Pain) RF: 0 ondansetron 4 mg tablet,disintegrating 4 mg translingual Q8H PRN (Reason: Nausea And Vomiting) RF: 0 metoclopramide HCl [Reglan] 10 mg tablet 5 mg PO BID RF: 0 sucralfate [Carafate] 1 gram Tablet 1 g PO ACHS RF: 0 gabapentin 300 mg capsule 300 mg PO TID RF: 0 Discontinued dicyclomine 20 mg tablet 20 mg PO HS RF: 0 No Action potassium chloride 10 mEq tablet extended release 10 meq PO QAM RF: 0 lactulose 20 gram/30 mL solution 15 ml PO QAM RF: 0 rifaximin 550 mg Tablet 550 mg PO BID RF: 0 Discharge Orders: Discharge Order (Routine); Ordered 10/11/20 Ordered By: Timbo Rivera Admission Data Admit Date/Time: 10/07/20 22:43 Attending Provider: Timbo Rivera Admit Provider: Greg Dudley Primary Care Provider: Tim Brown Other Providers: Greg Dudley ; Christopher Bejarano ; Douglas Crawford ; Elizabeth Medeiros Other Interventions: Discharge Summary Assessment (RN) Last Done: 10/11/20 14:19
== END 2020-10-11 17:40 | disposition home or self-care (01) ==
LOC: 2S 16:54 → ED 16:54 → 2S 10-08 01:01

== ENCOUNTER 2020-10-23 10:11 | Observation (INO) ==
[2020-10-23 11:36] LABS: Hematocrit (blood only) 37.1 % (42-52); Hemoglobin 13.3 g/dL (14.0-18.0); Mean Corpuscular Hemoglobin 32.7 pg (25-34); Mean Corpuscular Hgb Conc 35.8 g/dL (32-36); Mean Corpuscular Volume 91.2 fL (80-100); RDW Coefficient of Variation 13.7 % (11.5-14.5); RDW Standard Deviation 45.5 fL (36.4-46.3); Red Blood Count 4.07 M/uL (4.7-6.1); White Blood Count 4.83 K/uL (4.8-10.8)
[2020-10-23 11:47] LABS: INR 1.1 (0.9-1.1); Partial Thromboplastin Ratio 0.9; Partial Thromboplastin Time 23.8 Seconds (21.0-31.0); Prothrombin Time 10.7 Seconds (9.0-12.0)
[2020-10-23] MEDS ORDERED: SODIUM CHLORIDE 0.9% 500 ML IV ONE (11:48)
[2020-10-23] MEDS ORDERED: fentaNYL citrate 100 MCG/2 ML VIAL IV STA (11:48)
[2020-10-23] MEDS ORDERED: ONDANSETRON INJ 2 MG/ML 2 ML VIAL IV STA (11:48)
--- NOTE | 2020-10-23 11:54 | Emergency Department Note ---
Impression & Plan Left-sided chest pain, Fatigue ED Provider Note Name: CLARITA PENA Age: 55 Sex: M Arrives Via: Walk-In Informant: Patient, ED Provider: Tristan Nobles MD Chief Complaint: Weakness and chest pain Impression: Left sided chest pain Fatigue Medical Decision Makin yr old male with history of liver cirrhosis, gave, htn, amongst multiple other medical issues arrives for evaluation of reported weakness/confusion and left chest pain. He has EKG similar to previous on arrival. Labs with stable hgb, and ammonia is lower than normal at 30. He does have elevated Troponin but this is chronic for him. With history I would avoid ASA unless clearly ACS which is it not yet certain. He has no peritonitis on examination and is not septic. Given small dose pain medications with resolution of pain. Given history and chest pain I feel that rule out reasonable and consulted hospitalist who will bring in for further management. Does seem consistent with gastric in nature but difficult to ferret this out within er. Prior Medical Record and Triage/Nursing Notes reviewed by Me Additional history obtained from chart Differentials:Infection, dehydration, metabolic abnormality, hypo/hyperglycemia, electrolyte disturbance, anemia, hypoxia, cardiac sources, intracerebral event, toxicologic, neurologic, as well as other pathologies. Vital Signs: reviewed and remarkable for no significant abnormalities Interventions: saline lock, fentanyl iv, zofran iv, nss bolus Labs:Reviewed and remarkable for elevated trop (at baseline) Imaging:X ray results are stated below per my interpretation: Chest: 1 view: No infiltrate, no effusion, normal cardiac border. EKG:Per My Interpretation: Indication Chest pain: NSR 68 bpm, qtc 416. No Ectopy. No Ischemia. Compared to EKG 10/09/20, no significant changes. Cardiac/Tele Monitoring: Cardiac Monitoring: An Order was placed for continuous cardiac monitoring. The monitor shows a rate of 80 with a normal sinus rhythm. Consults:[facility] Hospitalist will bring in for further management Plan: Disposition:Hospitalization. Condition: Good History of Present Illness:55 yr old male arrives for evaluation of weakness. Patient with worsening weakness and feeling foggy over the last few days. Associated with left chest pain which began today. Radiates from epigastrium. No radiation to back, shoulder, neck. No sob, syncope, fevers, palpitations, nausea, vomiting, urinary symptoms. He has not had normal BM in the last few days. He did have EGD a few days ago with finding of gastritis. Patient notes history of varices, cirrhosis and previous elevated ammonia. No falls, trauma, head injury, headache, neck pain, nor neuro deficits. ROS: See above HPI for pertinent positives & negatives. A total of 10 systems reviewed and were otherwise negative. Past Medical History:See Below Past Surgical History:See Below Family History:See Below Social History:See Below Home Medications:See Below Allergies:vicodin Vitals:Blood Pressure: 131/81, Pulse 66, RR 16, T 36.9C, O2 95% on RA Physical Exam: GENERAL: Patient is anxious appearing and in minimal distress. EYES: No scleral icterus, unremarkable pupils. ENT: Mucous membranes moist, no nasal congestion. NECK: No masses appreciated, nomeningismus, trachea is midline. RESPIRATORY: No dyspnea. Clear to auscultation and equal bilaterally. No wheeze, no rhonchi. CARDIOVASCULAR: Regular rate and rhythm.No murmurs, rubs, gallops appreciated. GASTROINTESTINAL: Abdomen soft, non-tender, no peritonitis.Bowel sounds positive.No masses appreciated. BACK: No midline tenderness, no CVA tenderness EXTREMITIES: Normal motion all extremities, no cyanosis, no edema. NEUROLOGIC: Alert and oriented, no acute motor or sensory deficits, no focal weakness, cranial nerves grossly intact. SKIN: No rash, no jaundice, no diaphoresis. PSYCH: Appropriate GCS: 15 ED Course: Times/Reassessments: stable, feeling better, not comfortable with discharge Tristan Nobles MD Past Med/Surg History Medical History (Updated 10/23/20 @ 19:56 by Tristan Nobles MD) Abdominal pain Anemia Anemia Cirrhosis Cough DVT prophylaxis Elevated troponin Elevated troponin GAVE (gastric antral vascular ectasia) GI bleed H/O backache History of night sweats HTN (hypertension) Hx of allergic rhinitis Hx of anxiety disorder Hx of chest pain Hx of cirrhosis Hx of esophageal varices Hx of urticaria Hypertension Positive colorectal cancer screening using Cologuard test Serum ammonia increased Thrombocytopenia Weakness Surgical History H/O colonoscopy History of esophagogastroduodenoscopy (EGD) Hx of arthroscopy of knee Family History (Updated 10/23/20 @ 14:21 by Erica Quinn PA-C) Mother Cancer Stomach cancer, 36 Social History Smoking Status: Never smoker Second Hand Exposure: No; Hx Alcohol Use: No Hx Substance Use: No Preferred Language: [place] Communication Ability: Effective 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 Required: No Beliefs That Will Affect Care: None marital status: Single Current Living Situation: Family and Significant Other Current Living Situation Comment: [facility] [place] 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 Other Information That Helps Us Care for You: No Feels Safe at Home: Yes Safety Concerns: Feels Safe At This Time Childhood Exposure to Second-Hand Smoke: No Assistive Devices: Glasses Allergies Allergies Allergy/AdvReac Type Severity Reaction Status Date / Time hydrocodone [From Vicodin] Allergy Intermediate Hallucinati Verified 10/23/20 11:55 ng Home Meds Home Medications Medication Instructions Recorded Confirmed lisinopril 20 mg tablet 20 mg PO QAM 02/17/19 10/23/20 loratadine 10 mg tablet 10 mg PO QAM 02/17/19 10/23/20 pantoprazole 40 mg tablet,delayed 40 mg PO BID 02/17/19 10/23/20 release tramadol 50 mg tablet 50 - 100 mg PO Q6H PRN 02/17/19 10/23/20 ondansetron 4 mg TRANSLINGUAL Q8H PRN 03/11/20 10/23/20 gabapentin 300 mg PO TID 07/05/20 10/23/20 metoclopramide HCl [Reglan] 5 mg PO BID 07/05/20 10/23/20 sucralfate [Carafate] 1 g PO ACHS 07/05/20 10/23/20 lactulose 15 ml PO QAM 10/23/20 10/23/20 potassium chloride 10 meq PO QAM 10/23/20 10/23/20 rifaximin 550 mg PO BID 10/23/20 10/23/20 Results & Data (ED) Vital Signs Vital Signs - 24 hr 10/23/20 10:36 10/23/20 10:48 10/23/20 11:00 Temperature 36.8 C Temperature Source Temporal Artery Scan Pulse Rate 71 66 67 Pulse Rate [Apical] Pulse Rate from SpO2 Sensor Respiratory Rate 16 12 10 L Respiratory Effort / Characteristics Non-Labored Respiratory Depth Normal Blood Pressure 148/90 H Blood Pressure [Left Arm] Blood Pressure Mean 109 Blood Pressure Mean [Left Arm] Pulse Oximetry 96 Oxygen Delivery Method Room Air Sepsis Recent Fever Within 48 Hours No Sepsis New/Unexplained Change in Mental Status No Sepsis Action Taken by Nursing No Action Required 10/23/20 11:30 10/23/20 12:00 10/23/20 12:08 Temperature Temperature Source Pulse Rate 63 72 66 Pulse Rate [Apical] Pulse Rate from SpO2 Sensor 65 Respiratory Rate 13 17 13 Respiratory Effort / Characteristics Respiratory Depth Blood Pressure 127/78 Blood Pressure [Left Arm] Blood Pressure Mean 94 Blood Pressure Mean [Left Arm] Pulse Oximetry 95 Oxygen Delivery Method Sepsis Recent Fever Within 48 Hours Sepsis New/Unexplained Change in Mental Status Sepsis Action Taken by Nursing 10/23/20 12:12 10/23/20 12:30 10/23/20 12:31 Temperature Temperature Source Pulse Rate 64 67 Pulse Rate [Apical] 63 Pulse Rate from SpO2 Sensor 62 69 Respiratory Rate 18 15 25 H Respiratory Effort / Characteristics Respiratory Depth Blood Pressure 140/79 Blood Pressure [Left Arm] 127/78 Blood Pressure Mean 99 Blood Pressure Mean [Left Arm] 94 Pulse Oximetry 96 95 93 Oxygen Delivery Method Room Air Sepsis Recent Fever Within 48 Hours Sepsis New/Unexplained Change in Mental Status Sepsis Action Taken by Nursing 10/23/20 13:00 10/23/20 13:30 10/23/20 14:00 Temperature Temperature Source Pulse Rate 67 63 Pulse Rate [Apical] 67 Pulse Rate from SpO2 Sensor 66 62 Respiratory Rate 16 15 18 Respiratory Effort / Characteristics Respiratory Depth Blood Pressure 133/81 133/80 Blood Pressure [Left Arm] 141/84 H Blood Pressure Mean 98 97 Blood Pressure Mean [Left Arm] 103 Pulse Oximetry 96 97 96 Oxygen Delivery Method Room Air Sepsis Recent Fever Within 48 Hours Sepsis New/Unexplained Change in Mental Status Sepsis Action Taken by Nursing Laboratory Data Result diagrams: 10/23/20 Unknown 10/23/20 Unknown Lab Results 10/23/20 Range/Units 12:09 Ammonia 31.0 (11-32) umol/L Administered Medications Lactated Ringer's (Lr) 1,000 mls @ 125 mls/hr IV .Q8H THERESA Stop: 10/24/20 00:22 Last Admin: 10/23/20 16:58 Dose: 125 mls/hr Documented by: [id number] Ondansetron HCl (Ondansetron Inj 2 Mg/Ml 2 Ml Vial) 4 mg IV Q6H PRN PRN Reason: Nausea Stop: 11/22/20 16:22 Last Admin: 10/23/20 17:09 Dose: 4 mg Documented by: [id number] Sucralfate (Sucralfate 1 Gm Tab) 1 gm PO ACHS THERESA Stop: 11/22/20 16:29 Last Admin: 10/23/20 17:45 Dose: 1 gm Documented by: [id number] Tramadol HCl (Tramadol Hcl 50 Mg Tablet) 50 mg PO Q6H PRN PRN Reason: Pain Stop: 11/22/20 16:22 Last Admin: 10/23/20 17:08 Dose: 50 mg Documented by: [id number] Discontinued Medications Al Hydrox/Mg Hydrox/Simethicone (Aluminum/Magnesium Susp 30 Ml Udc) 15 ml PO Q4H PRN PRN Reason: Dyspepsia Stop: 11/22/20 16:22 Last Admin: 10/23/20 19:31 Dose: 15 ml Documented by: [id number] Al Hydrox/Mg Hydrox/Simethicone 1 ml/Diphenhydramine HCl 2.5 mg/Lidocaine HCl 1 ml/ Sucralfate 200 mg/ BARCODE IDENTIFIER 1 ea 0 ml PO ONE ONE Stop: 10/23/20 14:14 Last Admin: 10/23/20 16:57 Dose: 5 ml Documented by: [id number] Famotidine (Famotidine 20mg/5ml Iv Push) 20 mg IV ONE STA Stop: 10/23/20 14:14 Last Admin: 10/23/20 14:57 Dose: 20 mg Documented by: [id number] Fentanyl Citrate (Fentanyl Citrate 100 Mcg/2 Ml Vial) 50 mcg IV NOW STA Stop: 10/23/20 11:49 Last Admin: 10/23/20 12:04 Dose: 50 mcg Documented by: [id number] Sodium Chloride (Nss) 500 mls @ 999 mls/hr IV .Q31M ONE Stop: 10/23/20 12:18 Last Infusion: 10/23/20 12:37 Dose: 0 mls/hr Documented by: [id number] Admin: 10/23/20 12:04 Dose: 999 mls/hr Documented by: [id number] Lactulose (Lactulose Syrup 20 Gm/30 Ml Udc) 20 gm PO ONE ONE Stop: 10/23/20 16:46 Last Admin: 10/23/20 17:45 Dose: 20 gm Documented by: [id number] Ondansetron HCl (Ondansetron Inj 2 Mg/Ml 2 Ml Vial) 4 mg IV NOW STA Stop: 10/23/20 11:49 Last Admin: 10/23/20 12:04 Dose: 4 mg Documented by: [id number] Imaging Data Radiologist's Impression: Chest X-Ray 10/23/20 11:18 XR chest 1V portable HISTORY: Atypical Chest Pain COMPARISON: Chest 10/07/2020. FINDINGS: The lungs are clear. Cardiac silhouette is normal in size. No pleural effusions. No pneumothorax. IMPRESSION: No acute process. ACT 112: Negative or not required by law. Electronically signed by: Carlos Su M.D. 10/23/2020 12:24 PM KUB X-Ray 10/23/20 13:53 KUB HISTORY: epigastric pain COMPARISON: KUB 10/10/2020. FINDINGS: The bowel gas pattern is unremarkable. There are no dilated loops of small bowel to suggest an obstruction. Stable 4 mm stone within the lower pole the left kidney. No ureteral calculi. The spleen remains enlarged. There is moderate well-formed stool seen within the colon. No pneumoperitoneum or pneumatosis. IMPRESSION: 1. Stable left-sided nephrolithiasis. No ureteral calculi. 2. Splenomegaly, unchanged. 3. No evidence for bowel obstruction. ACT 112: Negative or not required by law. Electronically signed by: Carlos Su M.D. 10/23/2020 2:49 PM Discharge Plan Visit Data Chief Complaint: Nausea Stated Complaint: NAUSEA DIZZY CONFUSION ED Provider: Tristan Nobles Discharge Problem: Left-sided chest pain, Fatigue Patient Disposition: Admitted As Inpatient Discharge Instructions Interventions: ED Discharge Assessment Last Done: 10/23/20 16:08 Discharge Problem: Fatigue Qualifiers: Fatigue type: unspecified Qualified Code(s): R53.83 - Other fatigue
[2020-10-23 11:55] LABS: Albumin Level 3.9 gm/dl (3.4-5.0); BUN Creatinine Ratio 10.3 (10-20); Calcium 9.3 mg/dl (8.5-10.1); Creatinine Clr Calc Pharmacy 92.9 ml/min; Est GFR (African American) 75.1 ml/min; Est GFR (Non-African American) 64.8 ml/min; Potassium 3.9 mmol/L (3.5-5.1)
[2020-10-23 11:56] LABS: Mean Platelet Volume 9.5 fL (7.4-10.4); Platelet Count 87 K/uL (130-400)
[2020-10-23 11:57] LABS: Basophils # (auto) 0.02 K/uL (0-0.2); Basophils % (auto) 0.4 %; Eosinophils # (auto) 0.15 K/uL (0-0.5); Eosinophils % (auto) 3.1 %; Lymphocytes # (auto) 0.68 K/uL (1.2-3.4); Lymphocytes % (auto) 14.1 %; Monocytes # (auto) 0.53 K/uL (0.11-0.59); Neutrophils # (auto) 3.45 K/uL (1.4-6.5); Neutrophils % (auto) 71.4 %; Platelet Estimate Decreased (Normal)
[2020-10-23 12:02] LABS: Albumin Globulin Ratio 1.3 (0.9-2); Bilirubin,Total 2.4 mg/dl (0.2-1); Globulin 2.9 gm/dl (2.5-4.0); Total Protein 6.8 gm/dl (6.4-8.2); Troponin I 0.052 ng/ml (0-0.045)
--- NOTE | 2020-10-23 12:26 | XRay Report ---
XR chest 1V portable HISTORY: Atypical Chest Pain COMPARISON: Chest 10/07/2020. FINDINGS: The lungs are clear. Cardiac silhouette is normal in size. No pleural effusions. No pneumot horax. IMPRESSION: No acute process. ACT 112: Negative or not required by law. Electronically signed by: Carlos Su M.D. 10/23/2020 12:24 PM
--- NOTE | 2020-10-23 13:10 | Electrocardiogram Report ---
Test Reason : Blood Pressure : / mmHG Vent. Rate : 068 BPM Atrial Rate : 068 BPM P-R Int : 156 ms QRS Dur : 084 ms QT Int : 392 ms P-R-T Axes : 040 -10 038 degrees QTc Int : 416 ms Normal sinus rhythm Poor R wave progression, consider anterior TN vs. lead placement vs. LVH Abnormal ECG When compared with ECG of 09-OCT-2020 05:19, No significant change was found Confirmed by Ed Monroe ([id number]) on 10/23/2020 1:10:00 PM Referred By: Confirmed By:Shawn Monroe
[2020-10-23] MEDS ORDERED: ALUMINUM/MAGNESIUM SUSP 1 ML, diphenhydrAMINE Syrup 2.5 MG, LIDOCAINE VISCOUS 2% SOLN 1 ML PO ONE (14:13)
[2020-10-23] MEDS ORDERED: FAMOTIDINE 20MG/5ML IV PUSH IV STA (14:13)
[2020-10-23 14:18] LABS: Thyroid Stimulating Hormone 1.54 uIu/ml (0.300-4.500)
--- NOTE | 2020-10-23 14:22 | History & Physical Report ---
Date of Service October 23, 2020 Assessment & Plan (1) Epigastric abdominal pain: This is a 55-year-old male who has significant past medical history of cirrhosis, moderate esophageal varices, G AVE, HTN, HLD, anxiety, obesity who presents to ED secondary to epigastric abdominal pain x4 to 5 days. Patient presents with worsening epigastric abdominal pain, similar to prior presentation earlier this month. Initial work-up so far unremarkable. KUB pending. He has not had a bowel movement in 4 days despite lactulose, he is passing flatus. Last flatus approximately 1 hour ago. Recently had EGD/colonoscopy on 10/19, biopsies pending but did reveal G AVE and moderate esophageal varices. No signs or symptoms of active bleeding. Patient with unintentional 20 pound weight loss in the past month. Admit to med telemetry under observation Consult gastroenterology for further input Trial IV Pepcid 20 mg x 1 now as well as Magic swizzle with Carafate Resume Bentyl 10 mg 3 times daily, patient states recently stopped and feels pain worsened since Last CT abdomen pelvis questionable for gallbladder wall thickening, ultrasound confirmed thickening but no evidence of stone or active cholecystitis He is afebrile and LFTs WNL except elevated total bili at 2.4, direct bili only 0.4 Consider HIDA scan -as patient states pain much worse after ingestion of food and liquid, no abdominal bruits noted KUB ordered and is pending -patient with bowel sounds so not likely obstructive (2) Troponin level elevated: Chronic elevation of troponin Pain epigastric in origin and likely noncardiac EKG unremarkable Recent admission patient had cardiac work-up and was seen and evaluated by cardiology, echocardiogram WNL with EF 55 to 60% will repeat troponin x1 for thoroughness (3) Cirrhosis: (4) GAVE (gastric antral vascular ectasia): Follows [facility] Continue lactulose, rifaximin, Protonix No signs or symptoms of hepatic encephalopathy GI consulted Will give 20 g dose of lactulose x1 now, no BM in 4 days (5) Thrombocytopenia: Platelet count stable No signs or symptoms of bleeding, monitor (6) Anemia: H&H stable at 13.3 and 37.1 Check anemia panel (7) HTN (hypertension): Blood pressure stable and controlled on lisinopril (8) DVT prophylaxis: SCD/teds No chemical prophylaxis secondary to GAVE Dispo: med tele PCP: Kevin FULL CODE Pt was seen and examined in collaboration with Dr. Rivera, please see addendum History of Present Illness Chief Complaint: Epigastric abdominal pain x4 to 5 days. Primary Care Provider: Tim Brown, DO This is a 55-year-old male who has significant past medical history of cirrhosis, moderate esophageal varices, G AVE, HTN, HLD, anxiety, obesity who presents to ED secondary to epigastric abdominal pain x4 to 5 days. Patient's girlfriend is at bedside. He comes to ED today after canceling his beach vacation when she was to leave for today secondary to worsening epigastric pain for the past 4 to 5 days. Pain is located in epigastrium and radiates to left upper quadrant. Pain is constant but waxes and wanes in severity. When he arrived at ED it was 10 out of 10 and currently it is 7/10. He describes it is a constant dull ache. It is made worse with food. He last ate 2 days ago and it was a hoagie. He states he can eat but every time after he eats he gets excruciating epigastric pain. He also states he has not had a bowel movement in 4 days. Typically with lactulose he has been moving his bowels 2-3 times daily. He took an extra dose of lactulose yesterday without result. He did not take it yet today. He also admits to losing 20 pounds unintentionally in the past mo nth. He has been following with gastroenterology and hepatology secondary to his diagnosis of cirrhosis. On 10/19 he underwent an upper GI and colonoscopy which revealed gave in moderate esophageal varices. He denies any vomiting, hematemesis, melena or hematochezia. He does admit to nausea. He further complains of being extremely tired. Lately with work he has been able to work a few hours and come home and take a nap. For the past month he has noticed increasing and worsening fatigue which is new for him. He has not had anything to eat or drink yet today. Symptoms occur even with drinking water. He denies any dysphagia, fever, chills, sweats, night sweats, lightheadedness, dizziness, chest pain, shortness of breath, cough, URI symptoms, dysuria, increased urgency or frequency with urination. In ED patient remained hemodynamically stable. Lab work notable for a stable anemia at 13.3 and 37.1, platelet 87, BUN 13, creatinine 1.23, total bilirubin 2.4, LFTs WNL, troponin 0.052, ammonia 31. Chest x-ray showed no acute process. Of significance patient was recently admitted on 10/07 and discharged on 10/11 secondary to similar symptoms with abdominal pain and increased confusion. During that admission he did have a mild elevation in ammonia level which responded with lactulose and Xifaxan. He also states that GI recently stopped his Bentyl. He further underwent cardiac e valuation due to an elevated troponin. He was seen and evaluated by cardiology and troponin remained stable. Echocardiogram was normal with an EF of 55 to 60%. Allergies Allergy/AdvReac Type Severity Reaction Status Date / Time hydrocodone [From Vicodin] Allergy Intermediate Hallucinati Verified 10/23/20 11:55 ng Home Medications Medication Instructions Recorded Confirmed Type lisinopril 20 mg tablet 20 mg PO QAM 02/17/19 10/23/20 History loratadine 10 mg tablet 10 mg PO QAM 02/17/19 10/23/20 History pantoprazole 40 mg tablet,delayed 40 mg PO BID 02/17/19 10/23/20 History release tramadol 50 mg tablet 50 - 100 mg PO Q6H PRN 02/17/19 10/23/20 History ondansetron 4 mg TRANSLINGUAL Q8H PRN 03/11/20 10/23/20 History gabapentin 300 mg PO TID 07/05/20 10/23/20 History metoclopramide HCl [Reglan] 5 mg PO BID 07/05/20 10/23/20 History lactulose 15 ml PO QAM 10/23/20 10/23/20 History potassium chloride 10 meq PO QAM 10/23/20 10/23/20 History rifaximin 550 mg PO BID 10/23/20 10/23/20 History nadolol 40 mg PO QAM #30 tab 10/26/20 Rx warfarin [Jantoven] 2.5 mg PO DAILY@1600 #30 tab 10/26/20 Rx Past Med/Surg History Medical History (Updated 10/23/20 @ 19:56 by Tristan Nobles MD) Abdominal pain Anemia Anemia Cirrhosis Cough DVT prophylaxis Elevated troponin Elevated troponin GAVE (gastric antral vascular ectasia) GI bleed H/O backache History of night sweats HTN (hypertension) Hx of allergic rhinitis Hx of anxiety disorder Hx of chest pain Hx of cirrhosis Hx of esophageal varices Hx of urticaria Hypertension Positive colorectal cancer screening using Cologuard test Serum ammonia increased Thrombocytopenia Weakness Surgical History H/O colonoscopy History of esophagogastroduodenoscopy (EGD) Hx of arthroscopy of knee Family History (Updated 10/23/20 @ 14:21 by Erica Quinn PA-C) Mother Cancer Stomach cancer, 36 Social History Smoking Status: Never smoker Second Hand Exposure: No; Hx Alcohol Use: No Hx Substance Use: No Preferred Language: [place] Communication Ability: Effective Building Dismantler Required: No Beliefs That Will Affect Care: None marital status: Single Current Living Situation: Family and Significant Other Current Living Situation Comment: [facility] 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 Other Information That Helps Us Care for You: No Feels Safe at Home: Yes Safety Concerns: Feels Safe At This Time Childhood Exposure to Second-Hand Smoke: No Assistive Devices: Glasses Review of Systems Review of Systems: All systems reviewed & are unremarkable except as noted in HPI & below Physical Exam Physical Exam: Constitutional: WD/WN, vitals as above, NAD, sitting up in bed, pleasant, conversing easily Head: Normocephalic, Atraumatic Eyes: PERRL, conjunctivae normal, anicteric sclerae ENMT: external ear and nose normal, oropharynx normal Neck: trachea midline, no thyromegaly normal visual inspection Respiratory: normal respiratory effort, lungs clear to auscultation, no wheeze, rales, rhonchi. Normal insp/exp effort, no accessory muscle use Cardiovascular: RRR, no murmur, no edema Vessels: no JVD or carotid bruit Chest: normal inspection of chest Abdomen: normal bowel sounds, soft, tender to palpation in epigastrium, no rebound, no guarding, no rigidity, no hepatosplenomegaly Musculoskeletal: no cyanosis or clubbing, extremities motor strength 5/5 Skin: no rashes, warm and dry normal turgor Neurologic: PERRL, EOMI, accommodation nl, no face palsy, no dysarthria CN's II-XI intact bilaterally and moves all extremities Psychiatric: A+Ox3, euthymic affect Lymphatic: no cervical or axillary lymphadenopathy : deferred Results & Data Results & Data ([facility]) Vital Signs (Past 12 Hours) Vital Signs Temp Pulse Pulse Resp BP BP Pulse Ox 10/23/20 12:12 63 18 127/78 96 10/23/20 10:36 36.8 C 71 16 148/90 H 96 Diagnostic Findings Chest X-Ray 10/23/20 11:18 XR chest 1V portable HISTORY: Atypical Chest Pain COMPARISON: Chest 10/07/2020. FINDINGS: The lungs are clear. Cardiac silhouette is normal in size. No pleural effusions. No pneumothorax. IMPRESSION: No acute process. ACT 112: Negative or not required by law. Electronically signed by: Carlos Su M.D. 10/23/2020 12:24 PM Medications Administered Medication List Discontinued Medications Fentanyl Citrate (Fentanyl Citrate 100 Mcg/2 Ml Vial) 50 mcg IV NOW STA Stop: 10/23/20 11:49 Last Admin: 10/23/20 12:04 Dose: 50 mcg Documented by: [id number] Sodium Chloride (Nss) 500 mls @ 999 mls/hr IV .Q31M ONE Stop: 10/23/20 12:18 Last Infusion: 10/23/20 12:37 Dose: 0 mls/hr Documented by: [id number] Admin: 10/23/20 12:04 Dose: 999 mls/hr Documented by: [id number] Ondansetron HCl (Ondansetron Inj 2 Mg/Ml 2 Ml Vial) 4 mg IV NOW STA Stop: 10/23/20 11:49 Last Admin: 10/23/20 12:04 Dose: 4 mg Documented by: [id number] ECG Rate (beats per minute): 68 Rhythm: normal sinus COVID-19 Results Results COVID-19 Adm Lab Results: RBC 4.16 M/uL (4.7-6.1) L 10/26/20 WBC 5.95 K/uL (4.8-10.8) 10/26/20 Hgb 13.5 g/dL (14.0-18.0) L 10/26/20 Hct 37.7 % (42-52) L 10/26/20 Plt Count 104 K/uL (130-400) L 10/26/20 Neutrophils (%) (Auto) 61.9 % 10/26/20 Lymphocytes (%) (Auto) 22.4 % 10/26/20 Monocytes # (Auto) 0.67 K/uL (0.11-0.59) H 10/26/20 Eosinophils # (Auto) 0.23 K/uL (0-0.5) 10/26/20 Immature Granulocyte % (Auto) 0.2 % 10/26/20 Neutrophils # (Auto) 3.69 K/uL (1.4-6.5) 10/26/20 Lymphocytes # (Auto) 1.33 K/uL (1.2-3.4) 10/26/20 Monocytes # (Auto) 0.67 K/uL (0.11-0.59) H 10/26/20 Eosinophils # (Auto) 0.23 K/uL (0-0.5) 10/26/20 Basophils # (Auto) 0.02 K/uL (0-0.2) 10/26/20 Immature Granulocyte # (Auto) 0.01 K/uL (0.00-0.02) 10/26/20 Ovalocytes 1+ 10/24/20 Na 138 mmol/L (136-145) 10/25/20 K 3.5 mmol/L (3.5-5.1) 10/25/20 Cl 105 mmol/L (98-107) 10/25/20 CO2 28 mmol/L (21-32) 10/25/20 Anion Gap 5.0 (3-11) 10/25/20 BUN 13 mg/dl (7-18) 10/25/20 Creatinine 1.14 mg/dl (0.6-1.4) 10/25/20 BUN/Creatinine Ratio 11.5 (10-20) 10/25/20 Glucose Level 92 mg/dl (70-99) 10/25/20 Ca 9.1 mg/dl (8.5-10.1) 10/25/20 Total Bilirubin 2.2 mg/dl (0.2-1) H 10/25/20 Direct Bilirubin 0.4 mg/dl (0-0.2) H 10/23/20 AST/SGOT 31 U/L (15-37) 10/25/20 ALT/SGPT 40 U/L (12-78) 10/25/20 Alkaline Phosphatase 65 U/L (45-117) 10/25/20 Total Protein 6.6 gm/dl (6.4-8.2) 10/25/20 Albumin 3.6 gm/dl (3.4-5.0) 10/25/20 Globulin 3.0 gm/dl (2.5-4.0) 10/25/20 Albumin/Globulin Ratio 1.2 (0.9-2) 10/25/20 Troponin I 0.052 ng/ml (0-0.045) H* 10/23/20 Ferritin 117.6 ng/ml (8-388) 10/24/20 PTT 23.8 Seconds (21.0-31.0) 10/23/20 INR 1.0 (0.9-1.1) 10/26/20 COVID-19 PCR NEGATIVE (Negative) 10/23/20 Chest X-Ray 10/23/20 Code Status & VTE Plan Code Status Full Code VTE Prophylaxis Plan VTE Prophylaxis will be ordered: Yes Supervising Physician Co-Signing Physician Notes Pt was seen and examined and examined. Agreed with Erica VENCES exam, assessment and plan. 55-year-old male who has significant past medical history of cirrhosis, moderate esophageal varices, G AVE, HTN, HLD, anxiety, obesity who presents to ED secondary to epigastric abdominal pain x4 to 5 days. Pt was dis charged 2 weeks ago for similar symptoms of abdominal pain. He said that after her last discharge, pain was improved with the Bentyl. He said that he had upper GI and colonoscopy done on 10/19 outpatient which revealed gave in moderate esophageal varices. He said that gastro told him to discontinue the Bentyl. He said that pain seems to get worst after the scope. Pt said that pain is located in the epigastric area and radiated to left upper quadrant. Pain is constant but waxes and wanes in severity. Symptoms seem to get worst with food or liquid. KUB in the ER showed Splenomegaly, unchanged. No evidence for bowel obstruction. Will continue pain carafate, pepcid and bentyl added. Will consult Gastro. Continue pain control. Will monitor closely. MD Miguel
--- NOTE | 2020-10-23 14:50 | XRay Report ---
KUB HISTORY: epigastric pain COMPARISON: KUB 10/10/2020. FINDINGS: The bowel gas pattern is unremarkable. There are no dilated loops of small bowel to suggest an obstruction. Stable 4 mm stone within the lower pole the left kidney. No ureteral calculi. The s pleen remains enlarged. There is moderate well-formed stool seen within the colon. No pneumoperitoneu m or pneumatosis. IMPRESSION: 1. Stable left-sided nephrolithiasis. No ureteral calculi. 2. Splenomegaly, unchanged. 3. No evidence for bowel obstruction. ACT 112: Negative or not required by law. Electronically signed by: Carlos Su M.D. 10/23/2020 2:49 PM
[2020-10-23 15:12] LABS: Iron 33 mcg/dl (35-175); Total Iron Binding Capacity 219 mcg/dl (250-450); Transferrin 169 mg/dl (200-360)
[2020-10-23] MEDS ORDERED: LACTATED RINGER'S 1,000 ML IV SCH (16:23)
[2020-10-23] MEDS ORDERED: ACETAMINOPHEN 325 MG TAB PO PRN (16:23)
[2020-10-23] MEDS ORDERED: POLYETHYLENE (MIRALAX) 17 GM PACK PO PRN (16:23)
[2020-10-23] MEDS ORDERED: METOCLOPRAMIDE HCL 5 MG TABLET PO PRN (16:23)
[2020-10-23] MEDS ORDERED: ALUMINUM/MAGNESIUM SUSP 30 ML UDC PO PRN ×2 (16:23→19:38)
[2020-10-23] MEDS ORDERED: MAGNESIUM HYDROXIDE SUSP 30 ML UDC PO PRN (16:23)
[2020-10-23] MEDS ORDERED: LACTULOSE SYRUP 20 GM/30 ML UDC PO ONE (16:45)
[2020-10-23] MEDS: traMADol HCL 50 MG TABLET PO PRN ×2 (17:08→23:12)
[2020-10-23] MEDS: ONDANSETRON INJ 2 MG/ML 2 ML VIAL IV PRN ×2 (17:09→23:13)
[2020-10-23] MEDS: SUCRALFATE 1 GM TAB PO SCH ×2 (17:45→21:26)
[2020-10-23] MEDS ORDERED: SUCRALFATE 1 GM TAB PO SCH (21:00)
[2020-10-23] MEDS: PANTOprazole 40 MG TAB PO SCH (21:24)
[2020-10-23] MEDS: rifAXIMin 550 MG TABLET PO SCH (21:25)
[2020-10-23] MEDS: DICYCLOMINE HCL 10 MG CAP PO SCH (21:25)
[2020-10-23] MEDS: GABAPENTIN 300 MG CAP PO SCH (21:26)
[2020-10-24 06:15] LABS: Hemoglobin 12.8 g/dL (14.0-18.0); Mean Corpuscular Hemoglobin 32.5 pg (25-34); Mean Corpuscular Hgb Conc 35.6 g/dL (32-36); Mean Corpuscular Volume 91.4 fL (80-100); RDW Coefficient of Variation 13.7 % (11.5-14.5); RDW Standard Deviation 45.4 fL (36.4-46.3); Red Blood Count 3.94 M/uL (4.7-6.1); White Blood Count 4.67 K/uL (4.8-10.8)
[2020-10-24 06:21] LABS: Mean Platelet Volume 10.1 fL (7.4-10.4); Platelet Count 91 K/uL (130-400)
[2020-10-24 06:41] LABS: Basophils # (auto) 0.02 K/uL (0-0.2); Basophils % (auto) 0.4 %; Eosinophils # (auto) 0.17 K/uL (0-0.5); Eosinophils % (auto) 3.6 %; Immature Granulocytes # (auto) 0.01 K/uL (0.00-0.02); Immature Granulocytes % (auto) 0.2 %; Lymphocytes # (auto) 0.91 K/uL (1.2-3.4); Lymphocytes % (auto) 19.5 %; Monocytes # (auto) 0.55 K/uL (0.11-0.59); Monocytes % (auto) 11.8 %; Neutrophils # (auto) 3.01 K/uL (1.4-6.5); Neutrophils % (auto) 64.5 %; Ovalocytes 1+
[2020-10-24 06:42] LABS: Albumin Level 3.6 gm/dl (3.4-5.0); BUN Creatinine Ratio 10.6 (10-20); Calcium 8.8 mg/dl (8.5-10.1); Creatinine Clr Calc Pharmacy 102.7 ml/min; Est GFR (Non-African American) 73.3 ml/min; Magnesium 2.3 mg/dl (1.8-2.4); Potassium 3.6 mmol/L (3.5-5.1)
[2020-10-24 06:47] LABS: Albumin Globulin Ratio 1.3 (0.9-2); Bilirubin,Total 2.4 mg/dl (0.2-1); Ferritin 117.6 ng/ml (8-388); Globulin 2.7 gm/dl (2.5-4.0); Total Protein 6.3 gm/dl (6.4-8.2)
[2020-10-24] MEDS: POTASSIUM CHLORIDE 10 MEQ TABCR PO SCH (08:29)
[2020-10-24] MEDS: rifAXIMin 550 MG TABLET PO SCH ×2 (08:30→20:56)
[2020-10-24] MEDS: DICYCLOMINE HCL 10 MG CAP PO SCH (08:30)
[2020-10-24] MEDS: SUCRALFATE 1 GM TAB PO SCH ×2 (08:30→12:02)
[2020-10-24] MEDS: GABAPENTIN 300 MG CAP PO SCH ×3 (08:30→20:54)
[2020-10-24] MEDS: lisinopril 20 MG TAB PO SCH (08:31)
[2020-10-24] MEDS: PANTOprazole 40 MG TAB PO SCH ×2 (08:31→20:56)
[2020-10-24] MEDS: LORATADINE 10 MG TAB PO SCH (08:31)
[2020-10-24] MEDS: traMADol HCL 50 MG TABLET PO PRN ×2 (08:34→20:59)
--- NOTE | 2020-10-24 11:23 | Gastrointestinal Consultation ---
Date of Consultation October 24, 2020 Assessment & Plan (1) Cirrhosis: 55 year old male with cirrhosis, moderate esophageal varices, GAVE, HTN, HLD, anxiety admitted with upper abd pain since last week associated with PO intake, change in bowel habits, constipation Would D/C Bentyl Start IV Reglan [address] Liver Continue other medications as ordered For constipation can add miralax 1-2 times daily Thank you for allowing us to participate in the care of this patient. Please call with any acute changes, questions or concerns. Please see addendum below with additional recommendation from my supervising physician. Supervising Physician Co-Signing Physician Notes Attg add: I interviewed and examined pt, reviewed chart and labs. Pt with cirrhosis, s/p recent EGD and cscopy now admit with upper abdominal p ain/pressure that worsens after eating, also with constipation x 5 days. PE is without evidence of confusion, tremor/HE; his abdomen is non tender and non distended, without ascites or tmpyany. DDX = constipation, gastroparesis, gallstones. Will rx constipation with miralax, begin Reglan, liver CT. Will plan GB uls as well. History of Present Illness Reason for Consultation: abd pain Requesting Physician: Miguel Attending Physician: Timbo Rivera MD History of Present Illness 55 year old male with history of cirrhosis, moderate esophageal varices, G AVE, HTN, HLD, anxiety, obesity who presents to ED secondary to epigastric abdominal pain x 4 to 5 days. notes pain is epigastric in location. Intermittent. Associated with PO. Pain can radiate bilateral upper quadrants. Mild nausea but no vomiting. Notes no BM in over week. Allergies Allergy/AdvReac Type Severity Reaction Status Date / Time hydrocodone [From Vicodin] Allergy Intermediate Hallucinati Verified 10/23/20 11:55 ng Home Medications Medication Instructions Recorded Confirmed Type lisinopril 20 mg tablet 20 mg PO QAM 02/17/19 10/23/20 History loratadine 10 mg tablet 10 mg PO QAM 02/17/19 10/23/20 History pantoprazole 40 mg tablet,delayed 40 mg PO BID 02/17/19 10/23/20 History release tramadol 50 mg tablet 50 - 100 mg PO Q6H PRN 02/17/19 10/23/20 History ondansetron 4 mg TRANSLINGUAL Q8H PRN 03/11/20 10/23/20 History gabapentin 300 mg PO TID 07/05/20 10/23/20 History metoclopramide HCl [Reglan] 5 mg PO BID 07/05/20 10/23/20 History sucralfate [Carafate] 1 g PO ACHS 07/05/20 10/23/20 History lactulose 15 ml PO QAM 10/23/20 10/23/20 History potassium chloride 10 meq PO QAM 10/23/20 10/23/20 History rifaximin 550 mg PO BID 10/23/20 10/23/20 History Patient History Medical History (Updated 10/23/20 @ 19:56 by Tristan Nobles MD) Abdominal pain Anemia Anemia Cirrhosis Cough DVT prophylaxis Elevated troponin Elevated troponin GAVE (gastric antral vascular ectasia) GI bleed H/O backache History of night sweats HTN (hypertension) Hx of allergic rhinitis Hx of anxiety disorder Hx of chest pain Hx of cirrhosis Hx of esophageal varices Hx of urticaria Hypertension Positive colorectal cancer screening using Cologuard test Serum ammonia increased Thrombocytopenia Weakness Surgical History H/O colonoscopy History of esophagogastroduodenoscopy (EGD) Hx of arthroscopy of knee Family History (Updated 10/23/20 @ 14:21 by Erica Quinn PA-C) Mother Cancer Stomach cancer, 36 Social History Smoking Status: Never smoker Second Hand Exposure: No; Hx Alcohol Use: No Hx Substance Use: No Preferred Language: Kinyarwanda Communication Ability: Effective 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 Painter Required: No Beliefs That Will Affect Care: None marital status: Single Current Living Situation: Family and Significant Other Current Living Situation Comment: [facility] 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 Other Information That Helps Us Care for You: No Feels Safe at Home: Yes Safety Concerns: Feels Safe At This Time Childhood Exposure to Second-Hand Smoke: No Assistive Devices: None Review of Systems Review of Systems: All systems reviewed & are unremarkable except as noted in HPI & below Physical Exam Constitutional: WD/WN, vitals as above no acute distress Neck: trachea midline, no thyromegaly Respiratory: normal respiratory effort, lungs clear to auscultation Cardiovascular: RRR, no murmur, no edema Gastrointestinal (Abdomen): normal bowel sounds, soft, nontender, no hepatosplenomegaly Results & Data ([facility]) Vital Signs (Past 12 Hours) Vital Signs Temp Pulse Pulse Resp BP Pulse Ox 10/24/20 11:01 36.9 C 67 20 128/84 91 10/24/20 07:44 66 10/24/20 06:56 36.9 C 71 18 119/77 93 10/24/20 03:15 36.8 C 66 16 122/78 94 Laboratory Results 10/24/20 10/24/20 10/23/20 Range/Units 05:54 05:54 Unknown WBC 4.67 L (4.8-10.8) K/uL RBC 3.94 L (4.7-6.1) M/uL Hgb 12.8 L (14.0-18.0) g/dL Hct 36.0 L (42-52) % MCV 91.4 (80-100) fL MCH 32.5 (25-34) pg MCHC 35.6 (32-36) g/dL RDW Std Deviation 45.4 (36.4-46.3) fL RDW Coeff of Wenceslao 13.7 (11.5-14.5) % Plt Count 91 L (130-400) K/uL MPV 10.1 (7.4-10.4) fL Immature Gran % (Auto) 0.2 % Neut % (Auto) 64.5 % Lymph % (Auto) 19.5 % [place] % (Auto) 11.8 % Eos % (Auto) 3.6 % Baso % (Auto) 0.4 % Neut # (Auto) 3.01 (1.4-6.5) K/uL Lymph # (Auto) 0.91 L (1.2-3.4) K/uL [place] # (Auto) 0.55 (0.11-0.59) K/uL Eos # (Auto) 0.17 (0-0.5) K/uL Baso # (Auto) 0.02 (0-0.2) K/uL Immature Gran # (Auto) 0.01 (0.00-0.02) K/uL Platelet Estimate (Normal) Ovalocytes 1+ PT (9.0-12.0) Seconds INR (0.9-1.1) APTT (21.0-31.0) Seconds PTT Ratio Sodium 140 (136-145) mmol/L Potassium 3.6 (3.5-5.1) mmol/L Chloride 107 (98-107) mmol/L Carbon Dioxide 31 (21-32) mmol/L Anion Gap 2.0 L (3-11) BUN 12 (7-18) mg/dl Creatinine 1.11 (0.6-1.4) mg/dl Est Cr Clr Drug Dosing 102.7 ml/min Est GFR ( Amer) 85.0 ml/min Est GFR (Non-Af Amer) 73.3 ml/min BUN/Creatinine Ratio 10.6 (10-20) Glucose 90 (70-99) mg/dl Calcium 8.8 (8.5-10.1) mg/dl Magnesium 2.3 (1.8-2.4) mg/dl Iron (35-175) mcg/dl TIBC (250-450) mcg/dl Transferrin (200-360) mg/dl Ferritin 117.6 (8-388) ng/ml Total Bilirubin 2.4 H (0.2-1) mg/dl Direct Bilirubin 0.4 H (0-0.2) mg/dl AST 34 (15-37) U/L ALT 42 (12-78) U/L Alkaline Phosphatase 60 (45-117) U/L Ammonia (11-32) umol/L Troponin I (0-0.045) ng/ml Total Protein 6.3 L (6.4-8.2) gm/dl Albumin 3.6 (3.4-5.0) gm/dl Globulin 2.7 (2.5-4.0) gm/dl Albumin/Globulin Ratio 1.3 (0.9-2) Lipase (73-393) U/L Vitamin B12 (193-986) pg/ml Folate (>5.38) ng/ml TSH (0.300-4.500) uIu/ml COVID-19 Eval Order SARS-CoV-2 (PCR) (Negative) 10/23/20 10/23/20 10/23/20 Range/Units Unknown Unknown Unknown WBC (4.8-10.8) K/uL RBC (4.7-6.1) M/uL Hgb (14.0-18.0) g/dL Hct (42-52) % MCV (80-100) fL MCH (25-34) pg MCHC (32-36) g/dL RDW Std Deviation (36.4-46.3) fL RDW Coeff of Wenceslao (11.5-14.5) % Plt Count (130-400) K/uL MPV (7.4-10.4) fL Immature Gran % (Auto) % Neut % (Auto) % Lymph % (Auto) % [place] % (Auto) % Eos % (Auto) % Baso % (Auto) % Neut # (Auto) (1.4-6.5) K/uL Lymph # (Auto) (1.2-3.4) K/uL [place] # (Auto) (0.11-0.59) K/uL Eos # (Auto) (0-0.5) K/uL Baso # (Auto) (0-0.2) K/uL Immature Gran # (Auto) (0.00-0.02) K/uL Platelet Estimate (Normal) Ovalocytes PT 10.7 (9.0-12.0) Seconds INR 1.1 (0.9-1.1) APTT 23.8 (21.0-31.0) Seconds PTT Ratio 0.9 Sodium 141 (136-145) mmol/L Potassium 3.9 (3.5-5.1) mmol/L Chloride 106 (98-107) mmol/L Carbon Dioxide 32 (21-32) mmol/L Anion Gap 3.0 (3-11) BUN 13 (7-18) mg/dl Creatinine 1.23 (0.6-1.4) mg/dl Est Cr Clr Drug Dosing 92.9 ml/min Est GFR ( Amer) 75.1 ml/min Est GFR (Non-Af Amer) 64.8 ml/min BUN/Creatinine Ratio 10.3 (10-20) Glucose 91 (70-99) mg/dl Calcium 9.3 (8.5-10.1) mg/dl Magnesium (1.8-2.4) mg/dl Iron (35-175) mcg/dl TIBC (250-450) mcg/dl Transferrin (200-360) mg/dl Ferritin (8-388) ng/ml Total Bilirubin 2.4 H (0.2-1) mg/dl Direct Bilirubin (0-0.2) mg/dl AST 37 (15-37) U/L ALT 45 (12-78) U/L Alkaline Phosphatase 68 (45-117) U/L Ammonia (11-32) umol/L Troponin I 0.052 H* (0-0.045) ng/ml Total Protein 6.8 (6.4-8.2) gm/dl Albumin 3.9 (3.4-5.0) gm/dl Globulin 2.9 (2.5-4.0) gm/dl Albumin/Globulin Ratio 1.3 (0.9-2) Lipase 137 (73-393) U/L Vitamin B12 (193-986) pg/ml Folate (>5.38) ng/ml TSH 1.540 (0.300-4.500) uIu/ml COVID-19 Eval Order SARS-CoV-2 (PCR) (Negative) 10/23/20 10/23/20 10/23/20 Range/Units Unknown 18:06 14:45 WBC 4.83 (4.8-10.8) K/uL RBC 4.07 L (4.7-6.1) M/uL Hgb 13.3 L (14.0-18.0) g/dL Hct 37.1 L (42-52) % MCV 91.2 (80-100) fL MCH 32.7 (25-34) pg MCHC 35.8 (32-36) g/dL RDW Std Deviation 45.5 (36.4-46.3) fL RDW Coeff of Wenceslao 13.7 (11.5-14.5) % Plt Count 87 L (130-400) K/uL MPV 9.5 (7.4-10.4) fL Immature Gran % (Auto) 0.0 % Neut % (Auto) 71.4 % Lymph % (Auto) 14.1 % [place] % (Auto) 11.0 % Eos % (Auto) 3.1 % Baso % (Auto) 0.4 % Neut # (Auto) 3.45 (1.4-6.5) K/uL Lymph # (Auto) 0.68 L (1.2-3.4) K/uL [place] # (Auto) 0.53 (0.11-0.59) K/uL Eos # (Auto) 0.15 (0-0.5) K/uL Baso # (Auto) 0.02 (0-0.2) K/uL Immature Gran # (Auto) 0.00 (0.00-0.02) K/uL Platelet Estimate Decreased L (Normal) Ovalocytes PT (9.0-12.0) Seconds INR (0.9-1.1) APTT (21.0-31.0) Seconds PTT Ratio Sodium (136-145) mmol/L Potassium (3.5-5.1) mmol/L Chloride (98-107) mmol/L Carbon Dioxide (21-32) mmol/L Anion Gap (3-11) BUN (7-18) mg/dl Creatinine (0.6-1.4) mg/dl Est Cr Clr Drug Dosing ml/min Est GFR ( Amer) ml/min Est GFR (Non-Af Amer) ml/min BUN/Creatinine Ratio (10-20) Glucose (70-99) mg/dl Calcium (8.5-10.1) mg/dl Magnesium (1.8-2.4) mg/dl Iron (35-175) mcg/dl TIBC (250-450) mcg/dl Transferrin (200-360) mg/dl Ferritin (8-388) ng/ml Total Bilirubin (0.2-1) mg/dl Direct Bilirubin (0-0.2) mg/dl AST (15-37) U/L ALT (12-78) U/L Alkaline Phosphatase (45-117) U/L Ammonia (11-32) umol/L Troponin I 0.051 H* (0-0.045) ng/ml Total Protein (6.4-8.2) gm/dl Albumin (3.4-5.0) gm/dl Globulin (2.5-4.0) gm/dl Albumin/Globulin Ratio (0.9-2) Lipase (73-393) U/L Vitamin B12 572 (193-986) pg/ml Folate (>5.38) ng/ml TSH (0.300-4.500) uIu/ml COVID-19 Eval Order SARS-CoV-2 (PCR) (Negative) 10/23/20 10/23/20 10/23/20 Range/Units 14:45 14:45 14:15 WBC (4.8-10.8) K/uL RBC (4.7-6.1) M/uL Hgb (14.0-18.0) g/dL Hct (42-52) % MCV (80-100) fL MCH (25-34) pg MCHC (32-36) g/dL RDW Std Deviation (36.4-46.3) fL RDW Coeff of Wenceslao (11.5-14.5) % Plt Count (130-400) K/uL MPV (7.4-10.4) fL Immature Gran % (Auto) % Neut % (Auto) % Lymph % (Auto) % [place] % (Auto) % Eos % (Auto) % Baso % (Auto) % Neut # (Auto) (1.4-6.5) K/uL Lymph # (Auto) (1.2-3.4) K/uL [place] # (Auto) (0.11-0.59) K/uL Eos # (Auto) (0-0.5) K/uL Baso # (Auto) (0-0.2) K/uL Immature Gran # (Auto) (0.00-0.02) K/uL Platelet Estimate (Normal) Ovalocytes PT (9.0-12.0) Seconds INR (0.9-1.1) APTT (21.0-31.0) Seconds PTT Ratio Sodium (136-145) mmol/L Potassium (3.5-5.1) mmol/L Chloride (98-107) mmol/L Carbon Dioxide (21-32) mmol/L Anion Gap (3-11) BUN (7-18) mg/dl Creatinine (0.6-1.4) mg/dl Est Cr Clr Drug Dosing ml/min Est GFR ( Amer) ml/min Est GFR (Non-Af Amer) ml/min BUN/Creatinine Ratio (10-20) Glucose (70-99) mg/dl Calcium (8.5-10.1) mg/dl Magnesium (1.8-2.4) mg/dl Iron 33 L (35-175) mcg/dl TIBC 219 L (250-450) mcg/dl Transferrin 169 L (200-360) mg/dl Ferritin (8-388) ng/ml Total Bilirubin (0.2-1) mg/dl Direct Bilirubin (0-0.2) mg/dl AST (15-37) U/L ALT (12-78) U/L Alkaline Phosphatase (45-117) U/L Ammonia (11-32) umol/L Troponin I (0-0.045) ng/ml Total Protein (6.4-8.2) gm/dl Albumin (3.4-5.0) gm/dl Globulin (2.5-4.0) gm/dl Albumin/Globulin Ratio (0.9-2) Lipase (73-393) U/L Vitamin B12 (193-986) pg/ml Folate 11.60 (>5.38) ng/ml TSH (0.300-4.500) uIu/ml COVID-19 Eval Order SARS-CoV-2 (PCR) NEGATIVE (Negative) 10/23/20 10/23/20 Range/Units 14:15 12:09 WBC (4.8-10.8) K/uL RBC (4.7-6.1) M/uL Hgb (14.0-18.0) g/dL Hct (42-52) % MCV (80-100) fL MCH (25-34) pg MCHC (32-36) g/dL RDW Std Deviation (36.4-46.3) fL RDW Coeff of Wenceslao (11.5-14.5) % Plt Count (130-400) K/uL MPV (7.4-10.4) fL Immature Gran % (Auto) % Neut % (Auto) % Lymph % (Auto) % [place] % (Auto) % Eos % (Auto) % Baso % (Auto) % Neut # (Auto) (1.4-6.5) K/uL Lymph # (Auto) (1.2-3.4) K/uL [place] # (Auto) (0.11-0.59) K/uL Eos # (Auto) (0-0.5) K/uL Baso # (Auto) (0-0.2) K/uL Immature Gran # (Auto) (0.00-0.02) K/uL Platelet Estimate (Normal) Ovalocytes PT (9.0-12.0) Seconds INR (0.9-1.1) APTT (21.0-31.0) Seconds PTT Ratio Sodium (136-145) mmol/L Potassium (3.5-5.1) mmol/L Chloride (98-107) mmol/L Carbon Dioxide (21-32) mmol/L Anion Gap (3-11) BUN (7-18) mg/dl Creatinine (0.6-1.4) mg/dl Est Cr Clr Drug Dosing ml/min Est GFR ( Amer) ml/min Est GFR (Non-Af Amer) ml/min BUN/Creatinine Ratio (10-20) Glucose (70-99) mg/dl Calcium (8.5-10.1) mg/dl Magnesium (1.8-2.4) mg/dl Iron (35-175) mcg/dl TIBC (250-450) mcg/dl Transferrin (200-360) mg/dl Ferritin (8-388) ng/ml Total Bilirubin (0.2-1) mg/dl Direct Bilirubin (0-0.2) mg/dl AST (15-37) U/L ALT (12-78) U/L Alkaline Phosphatase (45-117) U/L Ammonia 31.0 (11-32) umol/L Troponin I (0-0.045) ng/ml Total Protein (6.4-8.2) gm/dl Albumin (3.4-5.0) gm/dl Globulin (2.5-4.0) gm/dl Albumin/Globulin Ratio (0.9-2) Lipase (73-393) U/L Vitamin B12 (193-986) pg/ml Folate (>5.38) ng/ml TSH (0.300-4.500) uIu/ml COVID-19 Eval Order Covid19 at [facility] SARS-CoV-2 (PCR) (Negative)
[2020-10-24] MEDS ORDERED: OPTIRAY 320 100ml IV ONE (12:12)
--- NOTE | 2020-10-24 12:44 | CT Scan Report ---
CT liver wo/w con CT DOSE: 2289.06 mGycm CLINICAL HISTORY: cirrhosis ,abd pain TECHNIQUE: Unenhanced images were obtained through the upper abdomen. The patient was then scanned in a dynamic helical fashion during intravenous administration of 94 cc of Optiray 320. 32nd and 82nd i mages were acquired. A dose lowering technique was utilized adhering to the principles of ALARA. COMPARISON STUDY: Noncontrast CT scan performed 10/08/2020 FINDINGS: There is a 2.5 mm right lower lobe pulmonary nodule. There is mild dependent basilar atelectasis. The re is mild hepatic steatosis. Underlying hepatic cirrhosis is suspected. The hepatic veins appear pat ent. There is a thrombus within the left portal vein. The hepatic parenchyma appears somewhat heterog eneous adjacent to this area. This is likely secondary to the portal vein thrombus. It would be diffi cult with certainty to exclude a small adjacent mass. There is persistent gallbladder wall thickening/pericholecystic fluid likely secondary to hepatocellu lar disease The spleen is enlarged measuring 20 cm. No intrinsic pancreatic masses are visualized. No adrenal masses are visualized. There are no solid renal masses. There is left-sided nephrolithiasis There is no evidence of abdominal aortic aneurysm. There are prominent upper abdominal lymph nodes, likely secondary to hepatocellular disease. There ar e upper abdominal varices. There are esophageal varices. There is stable stranding within the fat anterior to the right lobe of the liver. . IMPRESSION: 1. Suspected hepatic cirrhosis with varices and splenomegaly 2. Stable gallbladder wall thickening likely secondary to hepatocellular disease. 3. Interval development of a left portal vein thrombus. There is slight heterogeneity of the surround ing liver, likely secondary to the portal vein thrombus although a small adjacent mass would be diffi cult to exclude 4. Mildly enlarged upper abdominal lymph nodes, likely secondary to chronic liver disease 5. Left-sided nephrolithiasis ACT 112: Negative or not required by law. Electronically signed by: Paul Shirley M.D. 10/24/2020 12:43 PM
[2020-10-24] MEDS: METOCLOPRAMIDE HCL 5 MG TABLET PO SCH ×2 (14:11→20:53)
--- NOTE | 2020-10-24 17:45 | Hospitalist Progress Note ---
Date of Service October 24, 2020 Assessment & Plan (1) Epigastric abdominal pain: This is a 55-year-old male who has significant past medical history of cirrhosis, moderate esophageal varices, G AVE, HTN, HLD, anxiety, obesity who presents to ED secondary to epigastric abdominal pain x4 to 5 days. KUB showed no acute finding He has not had a bowel movement in 5 days despite lactulose, he is passing flatus. Recently had EGD/colonoscopy on 10/19, biopsies pending but did reveal G AVE and moderate esophageal varices. No signs or symptoms of active bleeding. Patient with unintentional 20 pound weight loss in the past month. CT liver showed interval development of a left portal vein thrombus. There is slight heterogeneity of the surrounding liver, likely secondary to the portal vein thrombus although a small adjacent mass would be difficult to exclude Will compare imaging with outpatient imaging to check if the left portal vein thrombus has been present If thrombus is a new finding, will consider to start on a low dose anticoagulant, will need to monitor for bleeding due to low platelet Gastro on board Bentyl was discontinued and starting on Reglan IV GI was notified about the imaging CT finding (2) Troponin level elevated: Chronic elevation of troponin Pain epigastric in origin and likely noncardiac EKG unremarkable Recent admission patient had cardiac work-up and was seen and evaluated by cardiology, echocardiogram WNL with EF 55 to 60% Denies any chest pain (3) Cirrhosis: (4) GAVE (gastric antral vascular ectasia): Follows [facility] Continue lactulose, rifaximin, Protonix No signs or symptoms of hepatic encephalopathy GI consulted Will give 20 g dose of lactulose x1 now, no BM in 5 days (5) Thrombocytopenia: Platelet count stable No signs or symptoms of bleeding, monitor (6) Anemia: H&H stable at 13.3 and 37.1 Check anemia panel (7) HTN (hypertension): Blood pressure stable and controlled on lisinopril . (8) DVT prophylaxis: SCD/teds No chemical prophylaxis secondary to GAVE Dispo: robina vaughn PCP: Kevin FULL CODE Admission and Anticipated Discharge Date Admission Date: October 23, 2020 Subjective Patient was seen and examined for follow-up of epigastric abdominal pain Lying in bed with no acute distress Patient said that his abdominal pain is much better today He said that he is not having any nausea Denies any chest pain, palpitation, dizziness, shortness of breath. No known frequent open Review of Systems Review of Systems: All systems reviewed & are unremarkable except as noted in Subjective Physical Exam Physical Exam: General- No acute distress Head- atraumatic Eyes- PERRL, EOMI, ENT- oropharynx clear Neck- supple, no JVD Lungs- clear to auscultation Heart- regular rhythm; no murmur Abdomen- normal bowel sounds, +mild L side tenderness Extremities- no calf tenderness Neuro- alert, oriented x 3; PERRL, EOMI; no facial palsy; no dysarthria Skin- warm & dry Results & Data Results & Data ([facility]) Vital Signs (Past 12 Hours) Vital Signs Temp Pulse Pulse Resp BP Pulse Ox 10/24/20 15:07 72 10/24/20 15:05 37.0 C 60 18 122/74 93 10/24/20 11:01 36.9 C 67 20 128/84 91 10/24/20 07:44 66 10/24/20 06:56 36.9 C 71 18 119/77 93
[2020-10-24] MEDS ORDERED: POLYETHYLENE (MIRALAX) 17 GM PACK PO STA (20:26)
[2020-10-24] MEDS ORDERED: LACTULOSE SYRUP 30 GM/45 ML UDP PO STA (20:33)
[2020-10-24] MEDS: DOCUSATE SODIUM/SENNA 50/8.6MG TAB PO SCH (20:53)
[2020-10-25 07:33] LABS: Hematocrit (blood only) 36.5 % (42-52); Mean Corpuscular Hemoglobin 32.5 pg (25-34); Mean Corpuscular Hgb Conc 35.6 g/dL (32-36); Mean Corpuscular Volume 91.3 fL (80-100); Platelet Count 102 K/uL (130-400); RDW Coefficient of Variation 13.6 % (11.5-14.5); RDW Standard Deviation 45.1 fL (36.4-46.3); White Blood Count 5.01 K/uL (4.8-10.8)
[2020-10-25 08:00] LABS: Albumin Level 3.6 gm/dl (3.4-5.0); BUN Creatinine Ratio 11.5 (10-20); Calcium 9.1 mg/dl (8.5-10.1); Creatinine Clr Calc Pharmacy 99.9 ml/min; Est GFR (African American) 82.3 ml/min; Potassium 3.5 mmol/L (3.5-5.1)
[2020-10-25 08:03] LABS: Albumin Globulin Ratio 1.2 (0.9-2); Bilirubin,Total 2.2 mg/dl (0.2-1); Total Protein 6.6 gm/dl (6.4-8.2)
[2020-10-25] MEDS: PANTOprazole 40 MG TAB PO SCH ×2 (08:21→20:34)
[2020-10-25] MEDS: POTASSIUM CHLORIDE 10 MEQ TABCR PO SCH (08:21)
[2020-10-25] MEDS: METOCLOPRAMIDE HCL 5 MG TABLET PO SCH ×3 (08:22→20:34)
[2020-10-25] MEDS: LORATADINE 10 MG TAB PO SCH (08:22)
[2020-10-25] MEDS: lisinopril 20 MG TAB PO SCH (08:22)
[2020-10-25] MEDS: rifAXIMin 550 MG TABLET PO SCH ×2 (08:22→20:34)
[2020-10-25] MEDS: DOCUSATE SODIUM/SENNA 50/8.6MG TAB PO SCH (08:22)
[2020-10-25] MEDS: GABAPENTIN 300 MG CAP PO SCH ×3 (08:23→20:34)
[2020-10-25] MEDS ORDERED: POLYETHYLENE (MIRALAX) 17 GM PACK PO SCH (09:00)
--- NOTE | 2020-10-25 09:31 | Gastroenterology Progress Note ---
Date of Service October 25, 2020 Assessment & Plan (1) Cirrhosis: 55 year old male with cirrhosis, moderate esophageal varices, GAVE, HTN, HLD, anxiety admitted with upper abd pain since last week associated with PO intake, change in bowel habits, constipation. CT overnight w/ hepatic cirrhosis and interval development of a left portal vein thrombus noted slight heterogeneity of the surrounding liver, likely secondary to the portal vein thrombus although a small adjacent mass would be difficult to exclude Check AFP Will review imaging with attending and discuss role of anticoagulation Would D/C Bentyl Cont Relglan 5 mg TID Continue other medications as ordered Add miralax 1-2 times daily Thank you for allowing us to participate in the care of this patient. Please call with any acute changes, questions or concerns. Please see addendum below with additional recommendation from my supervising physician. Admission and Anticipated Discharge Date Admission Date: October 23, 2020 Supervising Physician Co-Signing Physician Notes Attg add: I interviewed and examined pt, reviewed chart and labs. Pt with large BM with resolution of abdominal pain. He has no other complaints. Labs stable, Ct showed segmental PVT and splenomegaly. RECS: Abd pain - presumably related to constipation, resolved. Cont lactulose, also Reglan. Consider GES as outpt. PVT - Begin COumadin, counselled regarding bleeding risk. Will also begin nadolol for VB prophy. Subjective Pt was seen and evaluated, chart reviewed Notes his abd pain is somewhat improved. It is left sided this morning No BMs CT reviewed ? PVT Review of Systems Review of Systems: All systems reviewed & are unremarkable except as noted in HPI & below Physical Exam Constitutional: WD/WN, vitals as above well developed and well nourished; no acute distress and not ill appearing Neck: trachea midline, no thyromegaly Respiratory: normal respiratory effort, lungs clear to auscultation Cardiovascular: RRR, no murmur, no edema Gastrointestinal (Abdomen): normal bowel sounds, soft, nontender, no hepatosplenomegaly Skin: no rashes, warm and dry Results & Data ([facility]) Vital Signs (Past 12 Hours) Vital Signs Temp Pulse Pulse Resp BP BP Pulse Ox 10/25/20 07:44 37.0 C 71 16 118/77 94 10/25/20 03:24 37.2 C 70 16 114/75 94 10/25/20 00:42 73 10/24/20 23:50 37 C 74 16 108/69 91
[2020-10-25] MEDS: nadoloL 40 MG TAB PO SCH (11:00)
[2020-10-25] MEDS ORDERED: WARFARIN SOD 2.5 MG TAB PO ONE (18:28)
[2020-10-25] MEDS ORDERED: WARFARIN SOD 2.5 MG TAB PO SCH (18:30)
--- NOTE | 2020-10-25 18:30 | Hospitalist Progress Note ---
Date of Service October 25, 2020 Assessment & Plan (1) Epigastric abdominal pain: This is a 55-year-old male who has significant past medical history of cirrhosis, moderate esophageal varices, G AVE, HTN, HLD, anxiety, obesity who presents to ED secondary to epigastric abdominal pain x4 to 5 days. KUB showed no acute finding He has not had a bowel movement in 5 days despite lactulose, he is passing flatus. Recently had EGD/colonoscopy on 10/19, biopsies pending but did reveal G AVE and moderate esophageal varices. No signs or symptoms of active bleeding. Patient with unintentional 20 pound weight loss in the past month. CT liver showed interval development of a left portal vein thrombus. There is slight heterogeneity of the surrounding liver, likely secondary to the portal vein thrombus although a small adjacent mass would be difficult to exclude Will compare imaging with outpatient imaging to check if the left portal vein thrombus has been present If thrombus is a new finding, will consider to start on a low dose anticoagulant, will need to monitor for bleeding due to low platelet Gastro on board IV Reglan was transitioned to p.o. Reglan 5 mg 3 times daily Case discussed with GI Dr. Boggs that recommended to start on Coumadin for the portal vein thrombosis We will not bridge with IV heparin due to the risk of bleeding with a low platelet Continue monitor PT/INR Follow-up with the Coumadin clinic Okay to discharge in a.m. if tolerated nadolol as per GI (2) Troponin level elevated: Chronic elevation of troponin Pain epigastric in origin and likely noncardiac EKG unremarkable Recent admission patient had cardiac work-up and was seen and evaluated by cardiology, echocardiogram WNL with EF 55 to 60% Denies any chest pain (3) Cirrhosis: (4) GAVE (gastric antral vascular ectasia): Follows [facility] Continue lactulose, rifaximin, Protonix No signs or symptoms of hepatic encephalopathy GI consulted Will give 20 g dose of lactulose x1 now, no BM in 6 days GI recommended to start nadolol 40 mg daily (5) Thrombocytopenia: Platelet count 102 No signs or symptoms of bleeding, monitor (6) Anemia: Hemoglobin 13 stable (7) HTN (hypertension): Blood pressure stable and controlled on lisinopril . (8) DVT prophylaxis: SCD/teds No chemical prophylaxis secondary to GAVE Dispo: med tele PCP: Kevin FULL CODE Admission and Anticipated Discharge Date Admission Date: October 25, 2020 Subjective Patient was seen and examined for follow-up of epigastric abdominal pain Lying in bed with no acute distress Patient said that he feels much better today He said that he is not having any nausea Denies any chest pain, palpitation, dizziness, shortness of breath. Review of Systems Review of Systems: All systems reviewed & are unremarkable except as noted in Subjective Physical Exam Physical Exam: General- No acute distress Head- atraumatic Eyes- PERRL, EOMI, ENT- oropharynx clear Neck- supple, no JVD Lungs- clear to auscultation Heart- regular rhythm; no murmur Abdomen- normal bowel sounds, +mild L side tenderness Extremities- no calf tenderness Neuro- alert, oriented x 3; PERRL, EOMI; no facial palsy; no dysarthria Skin- warm & dry Results & Data Results & Data ([facility]) Vital Signs (Past 12 Hours) Vital Signs Temp Pulse Pulse Resp BP Pulse Ox 10/25/20 15:30 68 10/25/20 15:01 36.9 C 66 20 108/69 99 10/25/20 12:03 36.6 C 68 18 123/81 91 10/25/20 09:45 67 10/25/20 07:44 37.0 C 71 16 118/77 94
[2020-10-25] MEDS ORDERED: LACTULOSE SYRUP 20 GM/30 ML UDC PO ONE (18:36)
[2020-10-25] MEDS: LACTULOSE SYRUP 20 GM/30 ML UDC PO SCH (20:34)
[2020-10-26 06:06] LABS: Basophils # (auto) 0.02 K/uL (0-0.2); Basophils % (auto) 0.3 %; Eosinophils # (auto) 0.23 K/uL (0-0.5); Eosinophils % (auto) 3.9 %; Hematocrit (blood only) 37.7 % (42-52); Hemoglobin 13.5 g/dL (14.0-18.0); Immature Granulocytes # (auto) 0.01 K/uL (0.00-0.02); Immature Granulocytes % (auto) 0.2 %; Lymphocytes # (auto) 1.33 K/uL (1.2-3.4); Lymphocytes % (auto) 22.4 %; Mean Corpuscular Hemoglobin 32.5 pg (25-34); Mean Corpuscular Hgb Conc 35.8 g/dL (32-36); Mean Corpuscular Volume 90.6 fL (80-100); Mean Platelet Volume 10.4 fL (7.4-10.4); Monocytes # (auto) 0.67 K/uL (0.11-0.59); Monocytes % (auto) 11.3 %; Neutrophils # (auto) 3.69 K/uL (1.4-6.5); Neutrophils % (auto) 61.9 %; Platelet Count 104 K/uL (130-400); RDW Coefficient of Variation 13.5 % (11.5-14.5); RDW Standard Deviation 44.4 fL (36.4-46.3); Red Blood Count 4.16 M/uL (4.7-6.1); White Blood Count 5.95 K/uL (4.8-10.8)
[2020-10-26 06:15] LABS: Prothrombin Time 10.5 Seconds (9.0-12.0)
[2020-10-26] MEDS: nadoloL 40 MG TAB PO SCH (08:02)
[2020-10-26] MEDS: rifAXIMin 550 MG TABLET PO SCH (08:02)
[2020-10-26] MEDS: METOCLOPRAMIDE HCL 5 MG TABLET PO SCH ×2 (08:02→13:21)
[2020-10-26] MEDS: LORATADINE 10 MG TAB PO SCH (08:02)
[2020-10-26] MEDS: POTASSIUM CHLORIDE 10 MEQ TABCR PO SCH (08:02)
[2020-10-26] MEDS: lisinopril 20 MG TAB PO SCH (08:02)
[2020-10-26] MEDS: GABAPENTIN 300 MG CAP PO SCH ×2 (08:02→13:21)
[2020-10-26] MEDS: PANTOprazole 40 MG TAB PO SCH (08:02)
[2020-10-26] MEDS: LACTULOSE SYRUP 20 GM/30 ML UDC PO SCH (08:03)
--- NOTE | 2020-10-26 09:46 | Hospitalist Progress Note ---
Date of Service October 26, 2020 Assessment & Plan (1) Epigastric abdominal pain: This is a 55-year-old male who has significant past medical history of cirrhosis, moderate esophageal varices, G AVE, HTN, HLD, anxiety, obesity who presents to ED secondary to epigastric abdominal pain x4 to 5 days. KUB showed no acute finding He has not had a bowel movement in 5 days despite lactulose, he is passing flatus. Recently had EGD/colonoscopy on 10/19, biopsies pending but did reveal G AVE and moderate esophageal varices. No signs or symptoms of active bleeding. Patient with unintentional 20 pound weight loss in the past month. CT liver showed interval development of a left portal vein thrombus. There is slight heterogeneity of the surrounding liver, likely secondary to the portal vein thrombus although a small adjacent mass would be difficult to exclude Gastrology consulted IV Reglan was transitioned to p.o. Reglan 5 mg 3 times daily- will change to BID on DC Case discussed with GI Dr. Boggs that recommended to start on Coumadin for the portal vein thrombosis - started on 2.5 mg daily We will not bridge with IV heparin due to the risk of bleeding with a low platelet Continue monitor PT/INR Follow-up with the Coumadin clinic, Anticoagulation clinic contacted Also started on nadolol Plan to follow-up with GI as outpatient Constipation Received 20 g dose of lactulose x1, no BM for multiple days, now had several BMs overnight Discharge on MiraLAX 1-2 a day Possible gastroparesis, continue Reglan 5 mg twice daily DC Bentyl (2) Troponin level elevated: Chronic elevation of troponin Pain epigastric in origin and likely noncardiac EKG unremarkable Recent admission patient had cardiac work-up and was seen and evaluated by cardiology, echocardiogram WNL with EF 55 to 60% Denies any chest pain (3) Cirrhosis: (4) GAVE (gastric antral vascular ectasia): Follows [facility] Continue lactulose, rifaximin, Protonix No signs or symptoms of hepatic encephalopathy GI consulted GI recommended to start nadolol 40 mg daily (5) Thrombocytopenia: Platelet count 102 No signs or symptoms of bleeding, monitor (6) Anemia: Hemoglobin 13 stable (7) HTN (hypertension): Blood pressure stable and controlled on lisinopril . (8) DVT prophylaxis: SCD/teds Initially No chemical prophylaxis secondary to GAVE, now started coumadin Dispo: med tele PCP: Dr. Brown FULL CODE Admission and Anticipated Discharge Date Admission Date: October 25, 2020 Subjective Patient was seen and examined for follow-up of epigastric abdominal pain, portal vein thrombus Patient says his abd. pain much improved Had several BMs overnight Denies any nausea Denies any chest pain, palpitation,shortness of breath. However he was feeling little dizzy this morning when he went to the bathroom. Discussed with him that we can monitor him and to rehydrate him as he probably lost fluids overnight having multiple bowel movements. Patient feels that he would like to be discharged today. Discussed with the nurse, she will walk the patient in the hallway, to make sure that he feels well, will check vital signs if okay, can DC. Patient is saying that he was already back to bathroom and feels fine. Also discussed with GI, okay to discharge and patient will follow up with them as outpatient. Review of Systems Review of Systems: All systems reviewed & are unremarkable except as noted in HPI & below Constitutional: no fever Respiratory: no cough and no dyspnea Cardiovascular: no chest pain and no palpitations Gastrointestinal: + abdominal pain (much improved); no nausea and no vomiting Physical Exam Physical Exam: General- No acute distress Head- atraumatic Eyes- PERRL, EOMI, ENT- oropharynx clear Neck- supple, no JVD Lungs- clear to auscultation Heart- regular rhythm; no murmur Abdomen- normal bowel sounds, +mild L side tenderness Extremities- no calf tenderness Neuro- alert, oriented x 3; PERRL, EOMI; no facial palsy; no dysarthria Skin- warm & dry Results & Data Results & Data ([facility]) Vital Signs (Past 12 Hours) Vital Signs Temp Pulse Pulse Resp BP Pulse Ox 10/26/20 07:49 70 10/26/20 06:31 36.9 C 60 18 111/71 96 10/26/20 02:30 36.7 C 61 18 117/71 94 10/26/20 00:25 61 10/25/20 21:58 36.9 C 63 18 104/68 93 Laboratory Results 10/26/20 10/26/20 Range/Units 05:27 05:27 WBC 5.95 (4.8-10.8) K/uL RBC 4.16 L (4.7-6.1) M/uL Hgb 13.5 L (14.0-18.0) g/dL Hct 37.7 L (42-52) % MCV 90.6 (80-100) fL MCH 32.5 (25-34) pg MCHC 35.8 (32-36) g/dL RDW Std Deviation 44.4 (36.4-46.3) fL RDW Coeff of Wenceslao 13.5 (11.5-14.5) % Plt Count 104 L (130-400) K/uL MPV 10.4 (7.4-10.4) fL Immature Gran % (Auto) 0.2 % Neut % (Auto) 61.9 % Lymph % (Auto) 22.4 % [place] % (Auto) 11.3 % Eos % (Auto) 3.9 % Baso % (Auto) 0.3 % Neut # (Auto) 3.69 (1.4-6.5) K/uL Lymph # (Auto) 1.33 (1.2-3.4) K/uL [place] # (Auto) 0.67 H (0.11-0.59) K/uL Eos # (Auto) 0.23 (0-0.5) K/uL Baso # (Auto) 0.02 (0-0.2) K/uL Immature Gran # (Auto) 0.01 (0.00-0.02) K/uL PT 10.5 (9.0-12.0) Seconds INR 1.0 (0.9-1.1) Medications Administered Current Inpatient Medications Acetaminophen (Acetaminophen 325 Mg Tab) 650 mg PO Q4H PRN PRN Reason: Pain or Fever Stop: 11/22/20 16:22 Al Hydrox/Mg Hydrox/Simethicone (Aluminum/Magnesium Susp 30 Ml Udc) 15 ml PO Q8H PRN PRN Reason: epigastric discomfort Stop: 11/22/20 19:37 Last Admin: 10/24/20 08:35 Dose: 15 ml Documented by: Gabapentin (Gabapentin 300 Mg Cap) 300 mg PO TID [facility] Stop: 11/22/20 20:59 Last Admin: 10/26/20 08:02 Dose: 300 mg Documented by: Lactulose (Lactulose Syrup 20 Gm/30 Ml Udc) 20 gm PO BID [facility] Stop: 11/24/20 20:59 Last Admin: 10/26/20 08:03 Dose: 20 gm Documented by: Lisinopril (Lisinopril 20 Mg Tab) 20 mg PO [facility] Stop: 11/23/20 08:59 Last Admin: 10/26/20 08:02 Dose: 20 mg Documented by: Loratadine (Loratadine 10 Mg Tab) 10 mg PO [facility] Stop: 11/23/20 08:59 Last Admin: 10/26/20 08:02 Dose: 10 mg Documented by: Magnesium Hydroxide (Magnesium Hydroxide Susp 30 Ml Udc) 30 ml PO Q12H PRN PRN Reason: Constipation Stop: 11/22/20 16:22 Last Admin: 10/23/20 21:27 Dose: 30 ml Documented by: Metoclopramide HCl (Metoclopramide Hcl 5 Mg Tablet) 5 mg PO TID [facility] Stop: 11/23/20 13:59 Last Admin: 10/26/20 08:02 Dose: 5 mg Documented by: Nadolol (Nadolol 40 Mg Tab) 40 mg PO [facility] Stop: 11/24/20 09:29 Last Admin: 10/26/20 08:02 Dose: 40 mg Documented by: Ondansetron HCl (Ondansetron Inj 2 Mg/Ml 2 Ml Vial) 4 mg IV Q6H PRN PRN Reason: Nausea Stop: 11/22/20 16:22 Last Admin: 10/23/20 23:13 Dose: 4 mg Documented by: Pantoprazole Sodium (Pantoprazole 40 Mg Tab) 40 mg PO BID [facility] Stop: 11/22/20 20:59 Last Admin: 10/26/20 08:02 Dose: 40 mg Documented by: Potassium Chloride (Potassium Chloride 10 Meq Tabcr) 10 meq PO [facility] Stop: 11/23/20 08:59 Last Admin: 10/26/20 08:02 Dose: 10 meq Documented by: Rifaximin (Rifaximin 550 Mg Tablet) 550 mg PO BID [facility] Stop: 11/22/20 20:59 Last Admin: 10/26/20 08:02 Dose: 550 mg Documented by: Sucralfate (Sucralfate 1 Gm Tab) 1 gm PO [facility] Stop: 11/22/20 16:29 Last Admin: 10/24/20 12:02 Dose: Not Given Documented by: Tramadol HCl (Tramadol Hcl 50 Mg Tablet) 50 mg PO Q6H PRN PRN Reason: Pain Stop: 11/22/20 16:22 Last Admin: 10/24/20 20:59 Dose: 50 mg Documented by: Warfarin Sodium (Warfarin Sod 2.5 Mg Tab) 2.5 mg PO DAILY@1600 [facility] Stop: 11/24/20 18:29 Last Admin: 10/25/20 19:29 Dose: 2.5 mg Documented by:
--- NOTE | 2020-10-26 10:03 | Gastroenterology Progress Note ---
Date of Service October 26, 2020 Assessment & Plan (1) Cirrhosis: 55 year old male with cirrhosis, moderate esophageal varices, GAVE, HTN, HLD, anxiety admitted with upper abd pain since last week associated with PO intake, change in bowel habits, constipation. CT overnight w/ hepatic cirrhosis and interval development of a left portal vein thrombus noted slight heterogeneity of the surrounding liver, likely secondary to the portal vein thrombus although a small adjacent mass would be difficult to exclude No GI contraindication to discharge To follow up as an OP w. Dr. Boggs Check AFP Continue nadolol Continue anticoagulation Will review imaging with attending and discuss role of anticoagulation Would D/C Bentyl Cont Relglan 5 mg TID Continue other medications as ordered Add miralax 1-2 times daily Thank you for allowing us to participate in the care of this patient. Please call with any acute changes, questions or concerns. Please see addendum below with additional recommendation from my supervising physician. Attg add: I interviewed and examined pt, reviewed chart and labs. Pt with report of multiple loose BM's, "feeling hot." His VS show appropriate latosha with nadolol. His exam is unchanged. Recommendations as above - nadolol, Reglan 5 BID, lactulose, coumadin. Admission and Anticipated Discharge Date Admission Date: October 25, 2020 Subjective Feeling well Start AC Abd pain resolved Moved bowels Denies black or bloody stools Tolerating PO Wants to go home Review of Systems Review of Systems: All systems reviewed & are unremarkable except as noted in HPI & below Physical Exam Constitutional: WD/WN, vitals as above Neck: trachea midline, no thyromegaly Respiratory: normal respiratory effort, lungs clear to auscultation Cardiovascular: RRR, no murmur, no edema Gastrointestinal (Abdomen): normal bowel sounds, soft, nontender, no hepatosplenomegaly Results & Data ([facility]) Vital Signs (Past 12 Hours) Vital Signs Temp Pulse Pulse Resp BP Pulse Ox 10/26/20 07:49 70 10/26/20 06:31 36.9 C 60 18 111/71 96 10/26/20 02:30 36.7 C 61 18 117/71 94 10/26/20 00:25 61 Laboratory Results 10/26/20 10/26/20 Range/Units 05:27 05:27 WBC 5.95 (4.8-10.8) K/uL RBC 4.16 L (4.7-6.1) M/uL Hgb 13.5 L (14.0-18.0) g/dL Hct 37.7 L (42-52) % MCV 90.6 (80-100) fL MCH 32.5 (25-34) pg MCHC 35.8 (32-36) g/dL RDW Std Deviation 44.4 (36.4-46.3) fL RDW Coeff of Wenceslao 13.5 (11.5-14.5) % Plt Count 104 L (130-400) K/uL MPV 10.4 (7.4-10.4) fL Immature Gran % (Auto) 0.2 % Neut % (Auto) 61.9 % Lymph % (Auto) 22.4 % [place] % (Auto) 11.3 % Eos % (Auto) 3.9 % Baso % (Auto) 0.3 % Neut # (Auto) 3.69 (1.4-6.5) K/uL Lymph # (Auto) 1.33 (1.2-3.4) K/uL [place] # (Auto) 0.67 H (0.11-0.59) K/uL Eos # (Auto) 0.23 (0-0.5) K/uL Baso # (Auto) 0.02 (0-0.2) K/uL Immature Gran # (Auto) 0.01 (0.00-0.02) K/uL PT 10.5 (9.0-12.0) Seconds INR 1.0 (0.9-1.1)
--- NOTE | 2020-10-26 14:05 | Discharge Summary ---
Date of Service October 26, 2020 Admission HPI Per Admitting Provider This is a 55-year-old male who has significant past medical history of cirrhosis, moderate esophageal varices, G AVE, HTN, HLD, anxiety, obesity who presents to ED secondary to epigastric abdominal pain x4 to 5 days. Patient's girlfriend is at bedside. He comes to ED today after canceling his beach vacation when she was to leave for today secondary to worsening epigastric pain for the past 4 to 5 days. Pain is located in epigastrium and radiates to left upper quadrant. Pain is constant but waxes and wanes in severity. When he arrived at ED it was 10 out of 10 and currently it is 7/10. He describes it is a constant dull ache. It is made worse with food. He last ate 2 days ago and it was a hoagie. He states he can eat but every time after he eats he gets excruciating epigastric pain. He also states he has not had a bowel movement in 4 days. Typically with lactulose he has been moving his bowels 2-3 times daily. He took an extra dose of lactulose yesterday without result. He did not take it yet today. He also admits to losing 20 pounds unintentionally in the past month. He has been following with gastroenterology and hepatology secondary to his diagnosis of cirrhosis. On 10/19 he underwent an upper GI and colonoscopy which revealed gave in moderate esophageal varices. He denies any vomiting, hematemesis, melena or hematochezia. He does admit to nausea. He further complains of being extremely tired. Lately with work he has been able to work a few hours and come home and take a nap. For the past month he has noticed increasing and worsening fatigue which is new for him. He has not had anything to eat or drink yet today. Symptoms occur even with drinking water. He denies any dysphagia, fever, chills, sweats, night sweats, lightheadedness, dizziness, chest pain, shortness of breath, cough, URI symptoms, dysuria, increased urgency or frequency with urination. In ED patient remained hemodynamically stable. Lab work notable for a stable anemia at 13.3 and 37.1, platelet 87, BUN 13, creatinine 1.23, total bilirubin 2.4, LFTs WNL, troponin 0.052, ammonia 31. Chest x-ray showed no acute process. Of significance patient was recently admitted on 10/07 and discharged on 10/11 secondary to similar symptoms with abdominal pain and increased confusion. During that admission he did have a mild elevation in ammonia level which responded with lactulose and Xifaxan. He also states that GI recently stopped his Bentyl. He further underwent cardiac evaluation due to an elevated troponin. He was seen and evaluated by cardiology and troponin remained stable. Echocardiogram was normal with an EF of 55 to 60%. Admission Exam Per Admitting Provider Constitutional: WD/WN, vitals as above, NAD, sitting up in bed, pleasant, conversing easily Head: Normocephalic, Atraumatic Eyes: PERRL, conjunctivae normal, anicteric sclerae ENMT: external ear and nose normal, oropharynx normal Neck: trachea midline, no thyromegaly normal visual inspection Respiratory: normal respiratory effort, lungs clear to auscultation, no wheeze, rales, rhonchi. Normal insp/exp effort, no accessory muscle use Cardiovascular: RRR, no murmur, no edema Vessels: no JVD or carotid bruit Chest: normal inspection of chest Abdomen: normal bowel sounds, soft, tender to palpation in epigastrium, no rebound, no guarding, no rigidity, no hepatosplenomegaly Musculoskeletal: no cyanosis or clubbing, extremities motor strength 5/5 Skin: no rashes, warm and dry normal turgor Neurologic: PERRL, EOMI, accommodation nl, no face palsy, no dysarthria CN's II-XI intact bilaterally and moves all extremities Psychiatric: A+Ox3, euthymic affect Lymphatic: no cervical or axillary lymphadenopathy : deferred Principal Diagnosis Epigastric pain, constipation Portal vein thrombosis Splenomegaly Cirrhosis GAVE Discharge Exam General- No acute distress Head- atraumatic Eyes- PERRL, EOMI, ENT- oropharynx clear Neck- supple, no JVD Lungs- clear to auscultation Heart- regular rhythm; no murmur Abdomen- normal bowel sounds, +mild L side tenderness Extremities- no calf tenderness Neuro- alert, oriented x 3; PERRL, EOMI; no facial palsy; no dysarthria Skin- warm & dry Discharge Data Allergies Allergy/AdvReac Type Severity Reaction Status Date / Time hydrocodone [From Vicodin] Allergy Intermediate Hallucinati Verified 10/23/20 11:55 ng Consultations 10/23/20 13:31 ED Decision to Admit Stat 10/23/20 14:09 Consult Gastroenterology Routine Ordered Studies 10/24/20 11:23 CT liver wo/w con Routine IMPRESSION: 1. Suspected hepatic cirrhosis with varices and splenomegaly 2. Stable gallbladder wall thickening likely secondary to hepatocellular disease. 3. Interval development of a left portal vein thrombus. There is slight heterogeneity of the surrounding liver, likely secondary to the portal vein thrombus although a small adjacent mass would be difficult to exclude 4. Mildly enlarged upper abdominal lymph nodes, likely secondary to chronic liver disease 5. Left-sided nephrolithiasis Hospital Course (1) Epigastric abdominal pain: This is a 55-year-old male who has significant past medical history of cirrhosis, moderate esophageal varices, G AVE, HTN, HLD, anxiety, obesity who presents to ED secondary to epigastric abdominal pain x4 to 5 days. KUB showed no acute finding He has not had a bowel movement in 5 days despite lactulose, he is passing flatus. Recently had EGD/colonoscopy on 10/19, biopsies pending but did reveal G AVE and moderate esophageal varices. No signs or symptoms of active bleeding. Patient with unintentional 20 pound weight loss in the past month. CT liver showed interval development of a left portal vein thrombus. There is slight heterogeneity of the surrounding liver, likely secondary to the portal vein thrombus although a small adjacent mass would be difficult to exclude Gastrology consulted IV Reglan was transitioned to p.o. Reglan 5 mg 3 times daily- will change to BID on DC Case discussed with GI Dr. Boggs that recommended to start on Coumadin for the portal vein thrombosis - started on 2.5 mg daily We will not bridge with IV heparin due to the risk of bleeding with a low platelet Continue monitor PT/INR Follow-up with the Coumadin clinic, Anticoagulation clinic contacted Also started on nadolol Plan to follow-up with GI as outpatient Constipation Received 20 g dose of lactulose x1, no BM for multiple days, now had several BMs overnight Discharge on MiraLAX 1-2 a day Possible gastroparesis, continue Reglan 5 mg twice daily DC Bentyl (2) Troponin level elevated: Chronic elevation of troponin Pain epigastric in origin and likely noncardiac EKG unremarkable Recent admission patient had cardiac work-up and was seen and evaluated by cardiology, echocardiogram WNL with EF 55 to 60% Denies any chest pain (3) Cirrhosis: (4) GAVE (gastric antral vascular ectasia): Follows [facility] Continue lactulose, rifaximin, Protonix No signs or symptoms of hepatic encephalopathy GI consulted GI recommended to start nadolol 40 mg daily (5) Thrombocytopenia: Platelet count 102 No signs or symptoms of bleeding, monitor (6) Anemia: Hemoglobin 13 stable (7) HTN (hypertension): Blood pressure stable and controlled on lisinopril . (8) DVT prophylaxis: SCD/teds Initially No chemical prophylaxis secondary to GAVE, now started coumadin PCP: Dr. Brown Total Time Total Time Spent Total Time Spent (In Minutes): 40 Total Time Includes: Examination of the Patient, Discharge Planning, Medication Reconciliation and Communication With Other Providers Discharge Plan Discharge Items Patient Disposition: Home - Self-Care Reason For Visit: EPIGASTRIC PAIN Discharge Diagnosis: Epigastric pain, constipation Portal vein thrombosis Splenomegaly Cirrhosis GAVE Activity: Per Instructions section Non-emergency contact: Primary Care Provider and Top Icer Call non-emergency contact if: you have any medication questions and your symptoms worsen Follow-up/Referrals: Tim Brown DO [Primary Care Provider] - (Date & Time 11/02/2020 10:00 AM Provider Tim Brown DO [facility] ) Diet: Low Fat Addtl Attending Provider Instructions: Follow-up with your primary care doctor, the appointment was scheduled for you for November 02. You will also need to follow-up with gastroenterology. Take Reglan twice a day. Take MiraLAX 1-2 a day as needed. You can obtain MiraLAX [id number]. You should have 1-2 soft stools a day. You were also started on a new medication, nadolol, take it daily as prescribed. You were started on blood thinner, Coumadin (warfarin). Take it as prescribed, 2.5 mg a day. You will need to follow-up closely with anticoagulation clinic, you will be contacted by them and will receive further instructions about blood work and possible dose change. Pending Studies at Discharge: No Stand-Alone Forms: My [facility] [employer], Smoking Cessation Medications and OK Order Prescriptions: New warfarin [Jantoven] 2.5 mg Tablet 2.5 mg PO DAILY@1600 Qty: 30 RF: 0 nadolol 40 mg Tablet 40 mg PO QAM Qty: 30 RF: 0 Continued lisinopril [Prinivil] 20 mg tablet 20 mg PO QAM RF: 0 pantoprazole [Protonix] 40 mg tablet,delayed release (DR/EC) 40 mg PO BID RF: 0 loratadine [Claritin] 10 mg tablet 10 mg PO QAM RF: 0 tramadol 50 mg tablet 50 - 100 mg PO Q6H PRN (Reason: Pain) RF: 0 ondansetron 4 mg tablet,disintegrating 4 mg translingual Q8H PRN (Reason: Nausea And Vomiting) RF: 0 metoclopramide HCl [Reglan] 10 mg tablet 5 mg PO BID RF: 0 gabapentin 300 mg capsule 300 mg PO TID RF: 0 potassium chloride 10 mEq tablet extended release 10 meq PO QAM RF: 0 lactulose 20 gram/30 mL solution 15 ml PO QAM RF: 0 rifaximin 550 mg Tablet 550 mg PO BID RF: 0 Discontinued sucralfate [Carafate] 1 gram Tablet 1 g PO ACHS RF: 0 Discharge Orders: Discharge Order (Routine); Ordered 10/26/20 Ordered By: Hubert Quijano Admission Data Admit Date/Time: 10/25/20 11:20 Attending Provider: Hubert Quijano Admit Provider: Timbo Rivera Primary Care Provider: Tim Brown Other Providers: Elizabeth Medeiros ; Timbo Rivera
== END 2020-10-26 15:07 | disposition home or self-care (01) ==
LOC: 2N 10:11 → ED 10:11 → 2N 16:08 → SUATTDRO 10-25 11:20
DX: Z79.899 Other long term (current) drug therapy; I10 Essential (primary) hypertension; I81 Portal vein thrombosis; K74.60 Unspecified cirrhosis of liver; K31.819 Angiodysplasia of stomach and duodenum without bleeding; E66.9 Obesity, unspecified; R63.4 Abnormal weight loss; D64.9 Anemia, unspecified; R10.13 Epigastric pain; D69.6 Thrombocytopenia, unspecified; K59.00 Constipation, unspecified; R16.1 Splenomegaly, not elsewhere classified; Z68.31 Body mass index [BMI] 31.0-31.9, adult; R79.89 Other specified abnormal findings of blood chemistry

== ENCOUNTER 2021-07-07 09:21 | Observation (INO) ==
[2021-07-07 10:47] LABS: Hematocrit (blood only) 37.2 % (42-52); Hemoglobin 13.8 g/dL (14.0-18.0); Mean Corpuscular Hemoglobin 32.8 pg (25-34); Mean Corpuscular Hgb Conc 37.1 g/dL (32-36); Mean Corpuscular Volume 88.4 fL (80-100); Mean Platelet Volume 9.4 fL (7.4-10.4); Platelet Count 91 K/uL (130-400); RDW Coefficient of Variation 13.6 % (11.5-14.5); RDW Standard Deviation 44.5 fL (36.4-46.3); Red Blood Count 4.21 M/uL (4.7-6.1); White Blood Count 4.66 K/uL (4.8-10.8)
[2021-07-07 10:53] LABS: INR 1.2 (0.9-1.1); Partial Thromboplastin Ratio 0.9; Partial Thromboplastin Time 24.2 Seconds (21.0-31.0)
--- NOTE | 2021-07-07 10:59 | XRay Report ---
XR chest 1V portable CLINICAL HISTORY: Intermittent chest pain. COMPARISON STUDY: Chest CT October 07, 2020. Chest radiograph November 09, 2020. FINDINGS: Lung volumes are mildly diminished. Minimal bibasilar opacities favor atelectasis. There is no pneumothorax or pleural effusion. Mild enlargement of the cardiac silhouette. Mediastinal contour s are normal. There is no evidence for pulmonary edema. IMPRESSION: No acute cardiopulmonary findings. ACT 112: Negative or not required by law. Electronically signed by: Arnol Oliva M.D. 07/07/2021 10:58 AM
[2021-07-07 11:01] LABS: Basophils # (auto) 0.04 K/uL (0-0.2); Basophils % (auto) 0.9 %; Eosinophils # (auto) 0.26 K/uL (0-0.5); Eosinophils % (auto) 5.6 %; Immature Granulocytes # (auto) 0.01 K/uL (0.00-0.02); Immature Granulocytes % (auto) 0.2 %; Lymphocytes % (auto) 17.2 %; Monocytes # (auto) 0.53 K/uL (0.11-0.59); Monocytes % (auto) 11.4 %; Neutrophils # (auto) 3.02 K/uL (1.4-6.5); Neutrophils % (auto) 64.7 %; Troponin I 0.04 ng/ml (0-0.04)
[2021-07-07 11:02] LABS: Albumin Globulin Ratio 2.1 (0.9-2); BUN Creatinine Ratio 12.3 (10-20); Bilirubin Direct 0.4 mg/dl (0-0.2); Bilirubin,Total 2.3 mg/dl (0.2-1.0); Calcium 9.6 mg/dl (8.5-10.1); Creatinine Clr Calc Pharmacy 103.3 ml/min; Est GFR (African American) 82.3 ml/min; Globulin 1.9 gm/dl (2.5-4.0); Potassium 3.7 mmol/L (3.5-5.1); Total Protein 5.9 gm/dl (6.0-8.3)
[2021-07-07] MEDS ORDERED: SODIUM CHLORIDE 0.9% 1000ML 1,000 ML IV SCH (11:07)
[2021-07-07] MEDS ORDERED: ONDANSETRON INJ 2 MG/ML 2 ML VIAL IV STA ×2 (11:07→12:39)
[2021-07-07] MEDS ORDERED: OPTIRAY 320 125ml IV ONE (12:08)
--- NOTE | 2021-07-07 12:22 | CT Scan Report ---
CT ANGIOGRAPHY OF THE CHEST, PULMONARY EMBOLUS PROTOCOL CLINICAL HISTORY: Midsternal chest pain. Evaluate for pulmonary embolus. COMPARISON STUDY: Chest CT October 07, 2020. Chest radiograph performed earlier today. TECHNIQUE: Following IV administration of 120 mL of Optiray, helical axial images of the chest were o btained utilizing the pulmonary embolus protocol. Maximal intensity projections and sagittal and cor onal reformats were viewed on an independent 3D workstation. IV contrast was administered without co mplication. Automated exposure control was utilized for the study. A dose lowering technique was ut ilized adhering to the principles of ALARA. CT DOSE: 3222.49 mGy.cm FINDINGS: No pulmonary emboli are identified. There is no thoracic aortic dissection. Mild cardiomeg krysten is noted. There is no pericardial effusion. 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 Splenomegaly is present. There is mild gallbladder wall thickening with adjacent stranding. There ma y also be wall thickening of the hepatic flexure of the colon. Findings are better depicted on the ab dominal CT which will be reported separately. No pneumothorax or pleural effusion is present. There i s no consolidation to suggest pneumonia. No suspicious pulmonary nodules. No acute fracture or suspic ious lesion within visualized portions of the bony thorax. No thoracic lymphadenopathy. IMPRESSION: 1. No pulmonary emboli identified. 2. No acute process within the chest. 3. Cardiomegaly. 4. Cirrhosis with splenomegaly and upper abdominal varices, better depicted on the CT of the abdomen and pelvis will be reported separately. ACT 112: Negative or not required by law. Electronically signed by: Arnol Oliva M.D. 07/07/2021 12:21 PM
--- NOTE | 2021-07-07 12:23 | CT Scan Report ---
HEAD CT NONCONTRAST CT DOSE: HISTORY: Hallucinations. neuro symptoms TECHNIQUE: Multiaxial CT images of the head were performed without the use of intravenous contrast. A utomated exposure control was utilized for this study. A dose lowering technique was utilized adheri ng to the principles of ALARA. Comparison: Head CT 01/21/2020. Findings: The paranasal sinuses and right mastoid air cells are clear. There are few opacified left m astoid air cells. The calvarium and skull base are intact. The ventricles and sulci are within normal limits. There is no mass, hematoma, midline shift, or acute infarct. Impression: No acute intracranial abnormality. ACT 112: Negative or not required by law. Electronically signed by: Carlos Su M.D. 07/07/2021 12:21 PM
--- NOTE | 2021-07-07 12:32 | CT Scan Report ---
CT abd pelvis IV con only CLINICAL HISTORY: portal/mesenteric vein thrombus, liver cirrhosis TECHNIQUE: Helical axial images of the abdomen and pelvis were obtained and displayed. Automated dose lowering techniques and/or adjustment according to patient size were utilized for this exam. This e xam was performed with intravenous contrast. COMPARISON: Comparison is made to CT abdomen pelvis 11/09/2000 FINDINGS: Lower chest: No acute abnormality Liver: Nodular contour of the liver is seen compatible with cirrhosis. Gallbladder and biliary tree: No calcified gallstones. Normal caliber wall. No intra- or extrahepatic biliary ductal dilation. Pancreas: Unremarkable, no focal lesions. Spleen: Splenomegaly is noted, the spleen measures 20 cm. Adrenals: Unremarkable. Kidneys and ureters: Nonobstructive nephrolithiasis is seen. Bladder: Diffuse homogeneous wall thickening is seen. Reproductive organs: Prostatomegaly is seen. Bowel: Wall thickening is seen in the ascending colon with surrounding fat stranding. Lymph nodes Retroperitoneal: Subcentimeter lymph nodes are noted. Mesenteric: Unremarkable. Pelvic: Unremarkable. Peritoneum: Normal. Vessels: Atherosclerotic calcifications are seen. No thrombus is seen in the portal vein. There is qu estionable trace residual superior mesenteric vein thrombus. Extensive varices are seen. Interval lizeth r total resolution of splenic vein thrombus. Abdominal wall: Unremarkable. Bones: Degenerative changes in the visualized spine. IMPRESSION: 1. Interval near resolution of superior mesenteric vein thrombus, no portal vein thrombus is seen. I nterval near total resolution of splenic vein thrombosis. 2. Redemonstration of cirrhosis and splenomegaly. ACT 112: Negative or not required by law. Electronically signed by: Alexis Maldonado M.D. 07/07/2021 12:30 PM
--- NOTE | 2021-07-07 13:24 | Emergency Department Note ---
Impression & Plan Chronic abdominal pain, Cirrhosis, Nausea & vomiting, Splenomegaly, Confusion ED Provider Note CHIEF COMPLAINT: Illness HISTORY OF PRESENT ILLNESS: Holli Weinstein is a 55 year old male with history of cirrhosis, moderate esophageal varices, GAVE, SMV and splenic vein thrombosis, previously on Coumdain (currently being held for upcoming procedure), HTN, DLD among others listed below who presents to the Emergency Department for evaluation of illness. The patient states that he is "very sick" and has been following with Dr. Boggs of Gastroenterology for chronic intermittent left lower abdominal pains with nausea and vomiting which recently became worse about 2 weeks ago. He was reportedly previously on Reglan which had been helping, however, this was stopped due to tremor and confusion. He was then placed on Nadolol in addition to his other medications. In addition to previous imaging studies and gastric emptying study, the patient was scheduled to have an EGD/EUS and liver biopsy with on 07/11/21 for further workup of his ongoing symptoms. In preparation for this study, he was instructed to stop taking his Coumadin, which he has been holding x 5 days. Over the past 1-2 weeks, the patient states that he has had increased pain to his left lower abdominal quadrant as well as worsening nausea and some vomiting. His pain and nausea becomes worse after eating/drinking and he has been avoiding oral intake secondary to this. He has been taking antiemetics in order to keep food/liquids down and states that his last episode of vomiting was about a week ago. His symptoms seem to be worse in the morning. He feels better if he lays still but notes exacerbation of his symptoms with movement. He also notes diarrhea but has been taking lactulose as described. He has not noticed any hematemesis, hematochezia or melena. He does note difficulty starting his stream of urine and states that it just "trickles out". No dysuria or hematuria. In addition to these symptoms, the patient also states that he has been having intermittent confusion and hallucinations which have also been ongoing x 1-2 weeks. He states that at times, he does not remember where he is or why/how he got there. Last evening, he states that his family had come over to visit but he does not remember them being there or speaking to him. also notes that he has been hallucinating - seeing spiders, and itching himself. The patient notes having these symptoms in the past when he was previously on Nadolol. The patient also notes intermittent left sided chest pains and shortness of breath which worsens with exertion. He also states that he has been having intermittent numbness/tingling radiating down his left arm which will last about 30 seconds at a time before resolving on its own. He notices this to happen mostly when he is experiencing bad episodes of his abdominal pain. No recent t rauma or falls, no swelling to his extremities. The patient otherwise denies headaches, lightheadedness/dizziness, syncope, fevers/chills, palpitations, weakness, or back pain. 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 The patient denies drinking alcohol or recreational drug use. The patient did contact Dr. Boggs regarding his symptoms today and was virtually emergency department for more immediate evaluation. REVIEW OF SYSTEMS: 10 systems were reviewed and were negative unless otherwise stated in HPI as above PHYSICAL EXAM: VITALS: Vitals are noted on the nurse's note and reviewed by myself. Vital signs stable. General: Resting in bed, no acute distress HEENT: Normocephalic, atraumatic, PERRL, EOMI, mucous membranes moist, oropharynx clear Neck: Supple, no cervical lymphadenopathy, no tenderness to palpation, ROM intact without pain or difficulty Resp: Good inspiratory effort on room air, lung sounds clear bilaterally CV: Regular rate and rhythm, peripheral pulses palpated Back: No midline tenderness to the thoracic spine, no midline tenderness to the lumbar spine, no obvious step-offs or deformities, no CVA tenderness Abd: Soft, non-distended. Normal bowel sounds to auscultation. Tender to p alpation over the left lower abdominal quadrant, no rebound, guarding or rigidity. No peritoneal signs. No palpable masses, no ascites. MSK: Moving all extremities with strength 5/5, sensation and peripheral pulses intact Integumentary: Warm, dry, no appreciable rashes Neuro: Awake, alert and oriented x 3, interacting and answering questions appropriately Differential diagnosis includes etiologies such as intracranial hemorrhage/ischemia/mass, medication reaction, electrolyte abnormalities, p ulmonary embolism, acute cardiac event, appendicitis, diverticulitis, obstruction, inflammatory bowel disease, renal colic, PUD, biliary pathology, pancreatitis, mesenteric ischemia, aortic pathology, infections, genitourinary, UTI, perforated viscus, as well as others were entertained. EMERGENCY DEPARTMENT COURSE: Physical exam and history were performed. Nursing triage notes, EMR, and med ication list were personally reviewed. Patient with history of cirrhosis, moderate esophageal varices, GAVE, SMV and splenic vein thrombosis, previously on Coumdain (currently being held for upcoming procedure), HTN, DLD among others, currently following with Dr. Boggs of gastroenterology for chronic intermittent abdominal pains with nausea and vomiting presents for worsening symptoms over the past 1-2 weeks. Additional history and symptoms as described above. Physical exam as above. EKG was obtained and reviewed by myself. This did show sinus bradycardia at 53 bpm. No concern for ectopy or acute ischemic change. When compared to study from 11/09/2020, no significant change was found. The patient was offered medications. IV access was established and he was given 1 L NSS and Zofran 4mg. Chest x-ray was obtained and reviewed by radiologist and myself as below. Imaging was negative for acute cardiopulmonary findings. CT of the head, CT angiogram of the chest and CT with contrast of the abdomen and pelvis were obtained and reviewed by radiologist and myself as below. I maging of the head was negative for acute intracranial findings. Imaging of the chest was negative for acute PE or other concerning findings. CT of the abdomen/pelvis showed near resolution of superior mesenteric vein thrombus and splenic vein thrombus, no portal vein thrombosis seen. Also redemonstrated cirrhosis and splenomegaly. Upon reevaluation, the patient was still feeling nauseous and was given an additional dose of Zofran 4 mg. I discussed the results of the above findings with him at bedside. I then contacted Brandi Dow PA-C who works with Dr. Boggs of Gastroenterology. She arrived to evaluate the patient. After evaluating the patient, she did recommend giving a dose of Emend 150 mg IV for ongoing nausea, which was administered. She also recommended admitting the patient with the medicine service for ongoing management. I did discuss the patient's case with DAVID Lawler who agreed to evaluate the patient for ongoing management with Dr. Morocho. I updated the patient on my discussions with the above providers. He and his verbalized understanding agreement with the treatment plan as above. The chart was completed utilizing Dragon Speech Voice Recognition Software. Grammatical errors, random word insertions, pronoun errors, and incomplete sentences are an occasional consequence of this system due to software limitations, ambient noise, and hardware issues. Any formal questions or concerns about the content, text, or information contained within the body of this dictation should be directly addressed to the provider for clarification. Past Med/Surg History Medical History Anemia Cirrhosis Cough Elevated troponin Gastric varices GAVE (gastric antral vascular ectasia) HTN (hypertension) Hx of allergic rhinitis Hx of anxiety disorder Hx of esophageal varices Hx of urticaria Hypertension Mesenteric vein thrombosis Portal hypertension Portal vein thrombosis Thrombocytopenia Surgical History H/O colonoscopy History of esophagogastroduodenoscopy (EGD) Hx of arthroscopy of knee Family History Mother Cancer Stomach cancer, 36 Social History Smoking Status: Never smoker Second Hand Exposure: No; Hx Alcohol Use: No Hx Substance Use: No Preferred Language: Belgian Communication Ability: Effective 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 Beliefs That Will Affect Care: None marital status: Single Current Living Situation: Family and Significant Other Current Living Situation Comment: [facility] 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 Safe at Home: Yes Childhood Exposure to Second-Hand Smoke: No Assistive Devices: Glasses Allergies Allergies Allergy/AdvReac Type Severity Reaction Status Date / Time hydrocodone [From Vicodin] Allergy Intermediate Hallucinati Verified 07/07/21 12:52 ng Home Meds Home Medications Medication Instructions Recorded Confirmed loratadine 10 mg tablet (Claritin) 10 mg PO QAM 02/17/19 07/07/21 pantoprazole 40 mg tablet,delayed 40 mg PO BID 02/17/19 07/07/21 release (Protonix) tramadol 50 mg tablet 50 - 100 mg PO Q6H PRN 02/17/19 07/07/21 lactulose 20 gram/30 mL oral 15 ml PO HS 10/23/20 07/07/21 solution lisinopril 2.5 mg tablet 2.5 mg PO QAM 07/07/21 07/07/21 ondansetron HCl 4 mg tablet 4 mg PO Q6H PRN 07/07/21 07/07/21 propranolol 20 mg tablet 20 mg PO BID 07/07/21 07/07/21 warfarin 10 mg tablet 10 mg PO SUMOTUTHFRSA 07/07/21 07/07/21 warfarin 10 mg tablet 15 mg PO WE 07/07/21 07/07/21 Results & Data (ED) Vital Signs Vital Signs - 24 hr 07/07/21 09:34 07/07/21 11:14 07/07/21 12:33 Temperature 36.4 C L Temperature Source Temporal Artery Scan Pulse Rate 58 L Pulse Rate [Apical] 54 L 58 L Respiratory Rate 20 18 19 Respiratory Effort / Characteristics Non-Labored Respiratory Depth Normal Blood Pressure 134/88 Blood Pressure [Right Arm] 128/79 125/76 Blood Pressure Mean 103 Blood Pressure Mean [Right Arm] 95 92 Blood Pressure Position [Right Arm] Sitting Pulse Oximetry 97 95 99 Oxygen Delivery Method Room Air Room Air Room Air Sepsis Recent Fever Within 48 Hours No Sepsis New/Unexplained Change in Mental Status N/A Sepsis Action Taken by Nursing No Action Required 07/07/21 13:00 07/07/21 14:00 Temperature Temperature Source Pulse Rate Pulse Rate [Apical] 54 L 58 L Respiratory Rate 16 19 Respiratory Effort / Characteristics Respiratory Depth Blood Pressure Blood Pressure [Right Arm] 137/62 141/85 H Blood Pressure Mean Blood Pressure Mean [Right Arm] 87 103 Blood Pressure Position [Right Arm] Sitting Pulse Oximetry 98 99 Oxygen Delivery Method Room Air Room Air Sepsis Recent Fever Within 48 Hours Sepsis New/Unexplained Change in Mental Status Sepsis Action Taken by Nursing Laboratory Data Result diagrams: 07/07/21 10:30 07/07/21 10:30 Lab Results 07/07/21 07/07/21 07/07/21 Range/Units 10:30 10:30 10:30 WBC 4.66 L (4.8-10.8) K/uL RBC 4.21 L (4.7-6.1) M/uL Hgb 13.8 L (14.0-18.0) g/dL Hct 37.2 L (42-52) % MCV 88.4 (80-100) fL MCH 32.8 (25-34) pg MCHC 37.1 H (32-36) g/dL RDW Std Deviation 44.5 (36.4-46.3) fL RDW Coeff of Wenceslao 13.6 (11.5-14.5) % Plt Count 91 L (130-400) K/uL MPV 9.4 (7.4-10.4) fL Immature Gran % (Auto) 0.2 % Neut % (Auto) 64.7 % Lymph % (Auto) 17.2 % Wagoner % (Auto) 11.4 % Eos % (Auto) 5.6 % Baso % (Auto) 0.9 % Neut # (Auto) 3.02 (1.4-6.5) K/uL Lymph # (Auto) 0.80 L (1.2-3.4) K/uL Wagoner # (Auto) 0.53 (0.11-0.59) K/uL Eos # (Auto) 0.26 (0-0.5) K/uL Baso # (Auto) 0.04 (0-0.2) K/uL Immature Gran # (Auto) 0.01 (0.00-0.02) K/uL PT 13.0 H (9.0-12.0) Seconds INR 1.2 H (0.9-1.1) APTT 24.2 (21.0-31.0) Seconds PTT Ratio 0.9 Sodium 141 (136-145) mmol/L Potassium 3.7 (3.5-5.1) mmol/L Chloride 109 H (98-107) mmol/L Carbon Dioxide 28 (21-32) mmol/L Anion Gap 4 (3-11) BUN 14 (6-23) mg/dl Creatinine 1.14 (0.6-1.4) mg/dl Est Cr Clr Drug Dosing 103.3 ml/min Est GFR ( Amer) 82.3 ml/min Est GFR (Non-Af Amer) 71.0 ml/min BUN/Creatinine Ratio 12.3 (10-20) Glucose 95 (70-99(Fasting)) mg/dl Calcium 9.6 (8.5-10.1) mg/dl Total Bilirubin 2.3 H (0.2-1.0) mg/dl Direct Bilirubin 0.4 H (0-0.2) mg/dl AST 22 (13-39) U/L ALT 14 (7-52) U/L Alkaline Phosphatase 60 (34-104) U/L Ammonia (18-72) umol/L Troponin I 0.04 (0-0.04) ng/ml Total Protein 5.9 L (6.0-8.3) gm/dl Albumin 4.0 (3.4-5.0) gm/dl Globulin 1.9 L (2.5-4.0) gm/dl Albumin/Globulin Ratio 2.1 H (0.9-2) Lipase 35 (11-82) U/L SARS-CoV-2, RNA, NAAT (NEGATIVE) 07/07/21 07/07/21 Range/Units 10:50 14:30 WBC (4.8-10.8) K/uL RBC (4.7-6.1) M/uL Hgb (14.0-18.0) g/dL Hct (42-52) % MCV (80-100) fL MCH (25-34) pg MCHC (32-36) g/dL RDW Std Deviation (36.4-46.3) fL RDW Coeff of Wenceslao (11.5-14.5) % Plt Count (130-400) K/uL MPV (7.4-10.4) fL Immature Gran % (Auto) % Neut % (Auto) % Lymph % (Auto) % Wagoner % (Auto) % Eos % (Auto) % Baso % (Auto) % Neut # (Auto) (1.4-6.5) K/uL Lymph # (Auto) (1.2-3.4) K/uL Wagoner # (Auto) (0.11-0.59) K/uL Eos # (Auto) (0-0.5) K/uL Baso # (Auto) (0-0.2) K/uL Immature Gran # (Auto) (0.00-0.02) K/uL PT (9.0-12.0) Seconds INR (0.9-1.1) APTT (21.0-31.0) Seconds PTT Ratio Sodium (136-145) mmol/L Potassium (3.5-5.1) mmol/L Chloride (98-107) mmol/L Carbon Dioxide (21-32) mmol/L Anion Gap (3-11) BUN (6-23) mg/dl Creatinine (0.6-1.4) mg/dl Est Cr Clr Drug Dosing ml/min Est GFR ( Amer) ml/min Est GFR (Non-Af Amer) ml/min BUN/Creatinine Ratio (10-20) Glucose (70-99(Fasting)) mg/dl Calcium (8.5-10.1) mg/dl Total Bilirubin (0.2-1.0) mg/dl Direct Bilirubin (0-0.2) mg/dl AST (13-39) U/L ALT (7-52) U/L Alkaline Phosphatase (34-104) U/L Ammonia 30.0 (18-72) umol/L Troponin I (0-0.04) ng/ml Total Protein (6.0-8.3) gm/dl Albumin (3.4-5.0) gm/dl Globulin (2.5-4.0) gm/dl Albumin/Globulin Ratio (0.9-2) Lipase (11-82) U/L SARS-CoV-2, RNA, NAAT NEGATIVE (NEGATIVE) Administered Medications Discontinued Medications Sodium Chloride (Nss 1000ml) 1,000 mls @ 999 mls/hr IV .Q1H1M THERESA Stop: 07/07/21 12:07 Last Infusion: 07/07/21 14:48 Dose: 0 mls/hr Documented by: [id number] Admin: 07/07/21 11:12 Dose: 999 mls/hr Documented by: [id number] Fosaprepitant 150 mg/ Sodium (Chloride) 145 mls @ 300 mls/hr IV ONE ONE Stop: 07/07/21 14:26 Last Infusion: 07/07/21 15:01 Dose: 0 mls/hr Documented by: [id number] Admin: 07/07/21 14:28 Dose: 300 mls/hr Documented by: [id number] Ioversol (Optiray 320 125ml) 120 ml IV ONCE ONE Stop: 07/07/21 12:09 Last Admin: 07/07/21 12:08 Dose: 120 ml Documented by: [id number] Ondansetron HCl (Ondansetron Inj 2 Mg/Ml 2 Ml Vial) 4 mg IV NOW STA Stop: 07/07/21 11:08 Last Admin: 07/07/21 11:12 Dose: 4 mg Documented by: [id number] Ondansetron HCl (Ondansetron Inj 2 Mg/Ml 2 Ml Vial) 4 mg IV NOW STA Stop: 07/07/21 12:40 Last Admin: 07/07/21 13:13 Dose: 4 mg Documented by: [id number] Imaging Data Radiologist's Impression: Chest X-Ray 07/07/21 10:16 XR chest 1V portable CLINICAL HISTORY: Intermittent chest pain. COMPARISON STUDY: Chest CT October 07, 2020. Chest radiograph November 09, 2020. FINDINGS: Lung volumes are mildly diminished. Minimal bibasilar opacities favor atelectasis. There is no pneumothorax or pleural effusion. Mild enlargement of the cardiac silhouette. Mediastinal contours are normal. There is no evidence for pulmonary edema. IMPRESSION: No acute cardiopulmonary findings. ACT 112: Negative or not required by law. Electronically signed by: Arnol Oliva M.D. 07/07/2021 10:58 AM Abdomen/Pelvis CT 07/07/21 10:25 CT abd pelvis IV con only CLINICAL HISTORY: portal/mesenteric vein thrombus, liver cirrhosis TECHNIQUE: Helical axial images of the abdomen and pelvis were obtained and displayed. Automated dose lowering techniques and/or adjustment according to patient size were utilized for this exam. This exam was performed with intravenous contrast. COMPARISON: Comparison is made to CT abdomen pelvis 11/09/2000 FINDINGS: Lower chest: No acute abnormality Liver: Nodular contour of the liver is seen compatible with cirrhosis. Gallbladder and biliary tree: No calcified gallstones. Normal caliber wall. No intra- or extrahepatic biliary ductal dilation. Pancreas: Unremarkable, no focal lesions. Spleen: Splenomegaly is noted, the spleen measures 20 cm. Adrenals: Unremarkable. Kidneys and ureters: Nonobstructive nephrolithiasis is seen. Bladder: Diffuse homogeneous wall thickening is seen. Reproductive organs: Prostatomegaly is seen. Bowel: Wall thickening is seen in the ascending colon with surrounding fat stranding. Lymph nodes Retroperitoneal: Subcentimeter lymph nodes are noted. Mesenteric: Unremarkable. Pelvic: Unremarkable. Peritoneum: Normal. Vessels: Atherosclerotic calcifications are seen. No thrombus is seen in the portal vein. There is questionable trace residual superior mesenteric vein thrombus. Extensive varices are seen. Interval near total resolution of splenic vein thrombus. Abdominal wall: Unremarkable. Bones: Degenerative changes in the visualized spine. IMPRESSION: 1. Interval near resolution of superior mesenteric vein thrombus, no portal vein thrombus is seen. Interval near total resolution of splenic vein thromb osis. 2. Redemonstration of cirrhosis and splenomegaly. ACT 112: Negative or not required by law. Electronically signed by: Alexis Maldonado M.D. 07/07/2021 12:30 PM Chest CTA 07/07/21 10:25 CT ANGIOGRAPHY OF THE CHEST, PULMONARY EMBOLUS PROTOCOL CLINICAL HISTORY: Midsternal chest pain. Evaluate for pulmonary embolus. COMPARISON STUDY: Chest CT October 07, 2020. Chest radiograph performed earlier today. TECHNIQUE: Following IV administration of 120 mL of Optiray, helical axial images of the chest were obtained utilizing the pulmonary embolus protocol. Maximal intensity projections and sagittal and coronal reformats were viewed on an independent 3D workstation. IV contrast was administered without complication. Automated exposure control was utilized for the study. A dose lowering technique was utilized adhering to the principles of ALARA. CT DOSE: 3222.49 mGy.cm FINDINGS: No pulmonary emboli are identified. There is no thoracic aortic dissection. Mild cardiomegaly is noted. There is no pericardial effusion. 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 Splenomegaly is present. There is mild gallbladder wall thickening with adjacent stranding. There may also be wall thickening of the hepatic flexure of the colon. Findings are better depicted on the abdominal CT which will be reported separately. No pneumothorax or pleural effusion is present. There is no consolidation to suggest pneumonia. No suspicious pulmonary nodules. No acute fracture or suspicious lesion within visualized portions of the bony thorax. No thoracic lymphadenopathy. IMPRESSION: 1. No pulmonary emboli identified. 2. No acute process within the chest. 3. Cardiomegaly. 4. Cirrhosis with splenomegaly and upper abdominal varices, better depicted on the CT of the abdomen and pelvis will be reported separately. ACT 112: Negative or not required by law. Electronically signed by: Arnol Oliva M.D. 07/07/2021 12:[address] 07/07/21 10:[address] DOSE: HISTORY: Hallucinations. neuro symptoms TECHNIQUE: Multiaxial CT images of the head were performed without the use of intravenous contrast. Automated exposure control was utilized for this study. A dose lowering technique was utilized adhering to the principles of ALARA. Comparison: Head CT 01/21/2020. Findings: The paranasal sinuses and right mastoid air cells are clear. There are few opacified left mastoid air cells. The calvarium and skull base are intact. The ventricles and sulci are within normal limits. There is no mass, hematoma, midline shift, or acute infarct. Impression: No acute intracranial abnormality. ACT 112: Negative or not required by law. Electronically signed by: Carlos Su M.D. 07/07/2021 12:21 PM Discharge Plan Visit Data Chief Complaint: Illness Stated Complaint: LIGHTHEADED, NAUSEA ED Provider: Rayshawn Gale ED Midlevel Provider: Kiersten Mccall Discharge Problem: Chronic abdominal pain, Cirrhosis, Nausea & vomiting, Splenomegaly, Confusion Patient Disposition: Admitted As Inpatient Forms [facility] Pres[facility] Prescriptions: No Action pantoprazole [Protonix] 40 mg tablet,delayed release (DR/EC) 40 mg PO BID RF: 0 loratadine [Claritin] 10 mg tablet 10 mg PO QAM RF: 0 tramadol 50 mg tablet 50 - 100 mg PO Q6H PRN (Reason: Pain) RF: 0 lactulose 20 gram/30 mL solution 15 ml PO HS RF: 0 lisinopril 2.5 mg tablet 2.5 mg PO QAM RF: 0 warfarin 10 mg tablet 15 mg PO WE RF: 0 warfarin 10 mg tablet 10 mg PO SUMOTUTHFRSA RF: 0 ondansetron HCl 4 mg tablet 4 mg PO Q6H PRN (Reason: Nausea) RF: 0 propranolol 20 mg tablet 20 mg PO BID RF: 0 Referrals Referrals: Tim Brown DO [Primary Care Provider] -
[2021-07-07] MEDS ORDERED: FOSAPREPITANT DIMEGLUMINE 150 MG in SODIUM CHLORIDE 0.9% 145 ML IV ONE (13:58)
--- NOTE | 2021-07-07 15:18 | Gastrointestinal Consultation ---
Date of Consultation July 07, 2021 Assessment & Plan (1) Nausea & vomiting: (2) Abdominal pain: (3) Cirrhosis: (4) GAVE (gastric antral vascular ectasia): 55 y/o male with h/o cirrhosis, EV, GAVE, splenic vein and SMV thrombosis, who presented w/ worsening nausea, vomiting, abd pain. These are chronic intermittent problems for him with no clear answer. Previously was helped with Reglan however lately this was stopped d/t tremor, confusion. Symptoms can be provoked with movement, but also with eating. He tolerates 1 small meal per day; has had some weight loss. No overt decompensation clinically with respect to his liver disease (no ascites, HE, GIB). MELD is 12. Spleen is enlarged; however complains of pain in the LLQ rather than LUQ. Abd is soft; no diverticulitis noted on CT and no leukocytosis. - Given his inability to tolerate much PO, recommend admit to obs to help manage his symptoms - Trial of Emend IV x 1 - Trial of clear liquids - Given the propensity for his symptoms to worsen with movement I wonder about an underlying vertiginous disorder - Continue Lactulose - Continue daily PPI - Given underlying stress/history of anxiety could consider Remeron to help as well - EGD/EUS planned for SaturdayJuly 11 - Avoid Tylenol > 2 gm daily, avoid hepatotoxins, ETOH Thank you for allowing us to participate in the care of this patient. Please call with any acute changes, questions or concerns. Please see addendum below with additional recommendation from my supervising physician. Supervising Physician Co-Signing Physician Notes Attg add: I interviewed and examined pt, reviewed chart and labs. Pt presented with worsening of chronic nausea and abdominal pain, also confusion. He recently began reglan and nadolol. Now s/p Emend with marked improvement in his symptoms. He has no complaints on my exam. Labs, CT unremarkable. He is ok to d/c home. D/c nadolol, reglan. History of Present Illness Reason for Consultation: abd pain, n/v Requesting Physician: LIZ Harden PA-C History of Present Illness 55 year old male with history of cirrhosis, moderate esophageal varices, GAVE, SMV and splenic vein thrombosis (was on Coumadin now held), HTN, HLD, anxiety, and others with worsening n/v, abd pain. He has chronic intermittent symptoms, has been on Reglan for the nausea/abd pain and propranolol for varices. Reglan was increased but now being held d/t reports of tremor, confusion; his significant other notes he was seeing things that weren't there (spiders). He reports nausea that begins in the AM upon waking; seems to be better toward the end to the day. Provoking factor is moving around; if he lays flat and perfectly still, symptoms seem to improve. In the AM he eats very little; maybe a few crackers. Eats nothing for lunch or snack. Then for dinner will have pizza, half a hoagie, or spaghetti. However this also tends to make his nausea worse. He has been avoiding eating for this reason; he has lost approx 4 lbs. Had vomiting 1 week ago but none since. He's had some gas/belching but not really more than normal. He has chronic intermittent abd pain; describes at LLQ area; comes and goes; can be worsened with eating. No relieving factors. Shoshana ls move well; takes lactulose 1-2 x daily. Typically has 3 loose BMs daily. No melena, hematochezia, syncope. No hematemesis, fever, chills. Has some intermittent CP at times. Has some SOB at times. No leg edema, falls. 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 In the ER CTAP nonacute, of note - near total resolution of SMV thrombus and splenic vein thrombus, and CTA chest, CT head w/ no acute findings. Labs stable. He has gotten two doses of Zofran and a liter of IV fluid; no improvement in his nausea. He is compliant w/ daily PPI, propranolol, lactulose. He is off Coumadin for upcoming procedure. Recent GES neg. He is scheduled for EGD/EUS - liver biopsy on SaturdayJuly 11. EGD 10/2020: Moderate esophageal varices. GAVE. Colonoscopy 10/2020: - Diverticulosis in the sigmoid colon. - A tattoo was seen in the transverse colon. A post-polypectomy scar was found at the tattoo site. There was no evidence of residual polyp tissue. - Four 1 to 2 mm polyps in the transverse colon and in the ascending colon, removed with a cold snare. Resected and retrieved. - Focal small ulceration at hepatic flexure. - Mild portal colopathy. - Proximal colon AVM's. Allergies Allergy/AdvReac Type Severity Reaction Status Date / Time hydrocodone [From Vicodin] Allergy Intermediate Hallucinati Verified 07/07/21 12:52 ng Home Medications Medication Instructions Recorded Confirmed Type loratadine 10 mg tablet (Claritin) 10 mg PO QAM 02/17/19 07/07/21 History pantoprazole 40 mg tablet,delayed 40 mg PO BID 02/17/19 07/07/21 History release (Protonix) tramadol 50 mg tablet 50 - 100 mg PO Q6H PRN 02/17/19 07/07/21 History lactulose 20 gram/30 mL oral 15 ml PO HS 10/23/20 07/07/21 History solution lisinopril 2.5 mg tablet 2.5 mg PO QAM 07/07/21 07/07/21 History ondansetron HCl 4 mg tablet 4 mg PO Q6H PRN 07/07/21 07/07/21 History propranolol 20 mg tablet 20 mg PO BID 07/07/21 07/07/21 History warfarin 10 mg tablet 10 mg PO SUMOTUTHFRSA 07/07/21 07/07/21 History warfarin 10 mg tablet 15 mg PO WE 07/07/21 07/07/21 History Patient History Medical History Anemia Cirrhosis Cough Elevated troponin Gastric varices GAVE (gastric antral vascular ectasia) HTN (hypertension) Hx of allergic rhinitis Hx of anxiety disorder Hx of esophageal varices Hx of urticaria Hypertension Mesenteric vein thrombosis Portal hypertension Portal vein thrombosis Thrombocytopenia Surgical History H/O colonoscopy History of esophagogastroduodenoscopy (EGD) Hx of arthroscopy of knee Family History Mother Cancer Stomach cancer, 36 Social History Smoking Status: Never smoker Second Hand Exposure: No; Hx Alcohol Use: No Hx Substance Use: No Preferred Language: Honduran Communication Ability: Effective Diagnostic Radiologic Technologist Required: No Beliefs That Will Affect Care: None marital status: Single Current Living Situation: Family and Significant Other Current Living Situation Comment: [facility] 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 Safe at Home: Yes Childhood Exposure to Second-Hand Smoke: No Assistive Devices: Glasses Review of Systems Review of Systems: All systems reviewed & are unremarkable except as noted in HPI & below Physical Exam Constitutional: WD/WN, vitals as above Eyes: PERRL, conjunctivae normal, anicteric sclerae A few beats of right- sided nystagmus which fatigues Respiratory: normal respiratory effort, lungs clear to auscultation Cardiovascular: RRR, no murmur, no edema Gastrointestinal (Abdomen): Inspection/Auscultation: abdomen normal to inspection and normal bowel sounds; abdomen not distended and no abdominal wall ecchymosis Percussion/Palpation: abdomen soft; no guarding, no abdominal mass and no ascites Musculoskeletal: mildly tender over the LLQ without rebound Skin: no rashes, warm and dry Neurologic: No aterixis. Psychiatric: A+Ox3, euthymic affect Results & Data ([facility]) Vital Signs (Past 12 Hours) Vital Signs Temp Pulse Pulse Resp BP BP Pulse Ox 07/07/21 14:00 58 L 19 141/85 H 99 07/07/21 13:00 54 L 16 137/62 98 07/07/21 12:33 58 L 19 125/76 99 07/07/21 11:14 54 L 18 128/79 95 07/07/21 09:34 36.4 C L 58 L 20 134/88 97 Laboratory Results 07/07/21 07/07/21 07/07/21 Range/Units 14:30 10:50 10:30 WBC (4.8-10.8) K/uL RBC (4.7-6.1) M/uL Hgb (14.0-18.0) g/dL Hct (42-52) % MCV (80-100) fL MCH (25-34) pg MCHC (32-36) g/dL RDW Std Deviation (36.4-46.3) fL RDW Coeff of Wenceslao (11.5-14.5) % Plt Count (130-400) K/uL MPV (7.4-10.4) fL Immature Gran % (Auto) % Neut % (Auto) % Lymph % (Auto) % Hughes % (Auto) % Eos % (Auto) % Baso % (Auto) % Neut # (Auto) (1.4-6.5) K/uL Lymph # (Auto) (1.2-3.4) K/uL Hughes # (Auto) (0.11-0.59) K/uL Eos # (Auto) (0-0.5) K/uL Baso # (Auto) (0-0.2) K/uL Immature Gran # (Auto) (0.00-0.02) K/uL PT (9.0-12.0) Seconds INR (0.9-1.1) APTT (21.0-31.0) Seconds PTT Ratio Sodium 141 (136-145) mmol/L Potassium 3.7 (3.5-5.1) mmol/L Chloride 109 H (98-107) mmol/L Carbon Dioxide 28 (21-32) mmol/L Anion Gap 4 (3-11) BUN 14 (6-23) mg/dl Creatinine 1.14 (0.6-1.4) mg/dl Est Cr Clr Drug Dosing 103.3 ml/min Est GFR ( Amer) 82.3 ml/min Est GFR (Non-Af Amer) 71.0 ml/min BUN/Creatinine Ratio 12.3 (10-20) Glucose 95 (70-99(Fasting)) mg/dl Calcium 9.6 (8.5-10.1) mg/dl Total Bilirubin 2.3 H (0.2-1.0) mg/dl Direct Bilirubin 0.4 H (0-0.2) mg/dl AST 22 (13-39) U/L ALT 14 (7-52) U/L Alkaline Phosphatase 60 (34-104) U/L Ammonia 30.0 (18-72) umol/L Troponin I 0.04 (0-0.04) ng/ml Total Protein 5.9 L (6.0-8.3) gm/dl Albumin 4.0 (3.4-5.0) gm/dl Globulin 1.9 L (2.5-4.0) gm/dl Albumin/Globulin Ratio 2.1 H (0.9-2) Lipase 35 (11-82) U/L SARS-CoV-2, RNA, NAAT NEGATIVE (NEGATIVE) 07/07/21 07/07/21 Range/Units 10:30 10:30 WBC 4.66 L (4.8-10.8) K/uL RBC 4.21 L (4.7-6.1) M/uL Hgb 13.8 L (14.0-18.0) g/dL Hct 37.2 L (42-52) % MCV 88.4 (80-100) fL MCH 32.8 (25-34) pg MCHC 37.1 H (32-36) g/dL RDW Std Deviation 44.5 (36.4-46.3) fL RDW Coeff of Wenceslao 13.6 (11.5-14.5) % Plt Count 91 L (130-400) K/uL MPV 9.4 (7.4-10.4) fL Immature Gran % (Auto) 0.2 % Neut % (Auto) 64.7 % Lymph % (Auto) 17.2 % Hughes % (Auto) 11.4 % Eos % (Auto) 5.6 % Baso % (Auto) 0.9 % Neut # (Auto) 3.02 (1.4-6.5) K/uL Lymph # (Auto) 0.80 L (1.2-3.4) K/uL Hughes # (Auto) 0.53 (0.11-0.59) K/uL Eos # (Auto) 0.26 (0-0.5) K/uL Baso # (Auto) 0.04 (0-0.2) K/uL Immature Gran # (Auto) 0.01 (0.00-0.02) K/uL PT 13.0 H (9.0-12.0) Seconds INR 1.2 H (0.9-1.1) APTT 24.2 (21.0-31.0) Seconds PTT Ratio 0.9 Sodium (136-145) mmol/L Potassium (3.5-5.1) mmol/L Chloride (98-107) mmol/L Carbon Dioxide (21-32) mmol/L Anion Gap (3-11) BUN (6-23) mg/dl Creatinine (0.6-1.4) mg/dl Est Cr Clr Drug Dosing ml/min Est GFR ( Amer) ml/min Est GFR (Non-Af Amer) ml/min BUN/Creatinine Ratio (10-20) Glucose (70-99(Fasting)) mg/dl Calcium (8.5-10.1) mg/dl Total Bilirubin (0.2-1.0) mg/dl Direct Bilirubin (0-0.2) mg/dl AST (13-39) U/L ALT (7-52) U/L Alkaline Phosphatase (34-104) U/L Ammonia (18-72) umol/L Troponin I (0-0.04) ng/ml Total Protein (6.0-8.3) gm/dl Albumin (3.4-5.0) gm/dl Globulin (2.5-4.0) gm/dl Albumin/Globulin Ratio (0.9-2) Lipase (11-82) U/L SARS-CoV-2, RNA, NAAT (NEGATIVE) Diagnostic Findings CTAP: FINDINGS: Lower chest: No acute abnormality Liver: Nodular contour of the liver is seen compatible with cirrhosis. Gallbladder and biliary tree: No calcified gallstones. Normal caliber wall. No intra- or extrahepatic biliary ductal dilation. Pancreas: Unremarkable, no focal lesions. Spleen: Splenomegaly is noted, the spleen measures 20 cm. Adrenals: Unremarkable. Kidneys and ureters: Nonobstructive nephrolithiasis is seen. Bladder: Diffuse homogeneous wall thickening is seen. Reproductive organs: Prostatomegaly is seen. Bowel: Wall thickening is seen in the ascending colon with surrounding fat stranding. Lymph nodes Retroperitoneal: Subcentimeter lymph nodes are noted. Mesenteric: Unremarkable. Pelvic: Unremarkable. Peritoneum: Normal. Vessels: Atherosclerotic calcifications are seen. No thrombus is seen in the portal vein. There is questionable trace residual superior mesenteric vein thrombus. Extensive varices are seen. Interval near total resolution of splenic vein thrombus. Abdominal wall: Unremarkable. Bones: Degenerative changes in the visualized spine. IMPRESSION: 1. Interval near resolution of superior mesenteric vein thrombus, no portal vein thrombus is seen. Interval near total resolution of splenic vein thrombosis. 2. Redemonstration of cirrhosis and splenomegaly. Head CT: Impression: No acute intracranial abnormality. Chest CTA: FINDINGS: No pulmonary emboli are identified. There is no thoracic aortic dissection. Mild cardiomegaly is noted. There is no pericardial effusion. 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 Splenomegaly is present. There is mild gallbladder wall thickening with adjacent stranding. There may also be wall thickening of the hepatic flexure of the colon. Findings are better depicted on the abdominal CT which will be reported separately. No pneumothorax or pleural effusion is present. There is no consolidation to suggest pneumonia. No suspicious pulmonary nodules. No acute fracture or suspicious lesion within visualized portions of the bony thorax. No thoracic lymphadenopathy. IMPRESSION: 1. No pulmonary emboli identified. 2. No acute process within the chest. 3. Cardiomegaly. 4. Cirrhosis with splenomegaly and upper abdominal varices, better depicted on the CT of the abdomen and pelvis will be reported separately.
--- NOTE | 2021-07-07 15:44 | History & Physical Report ---
Date of Service July 07, 2021 Assessment & Plan (1) Abdominal pain: (2) Nausea & vomiting: Plan: Admit to [facility] with telemetry Patient presenting from home with reports of worsening LLQ abdominal pain and nausea and vomiting x 2 weeks Seems to be a longstanding, intermittent issue for the patient In the ED, CT ABD/pelvis unremarkable for acute findings Received 2 doses of IV Zofran in ED without much relief of nausea, currently receiving a dose of Emend Symptoms were previously controlled with Reglan however recently stopped due to tremor, confusion Conservative management with clear liquid diet, IVF, as needed antiemetics GI consult, input appreciated (3) Chest pain: Plan: Seems to be noncardiac in nature Initial troponin negative, EKG without acute ST changes Trend troponin (4) Altered mental status: Plan: Patient reporting episodes of memory loss, confusion, hallucinations Mental status currently appears to be at baseline Does not appear encephalopathic, ammonia level WNL Head CT unremarkable for acute findings Brain MRI (5) Cirrhosis: (6) Gastric varices: (7) Portal hypertension: Plan: Currently appears compensated Scheduled for EUS on 07/11/2021 Continue lactulose and propanolol (8) Mesenteric vein thrombosis: (9) Portal vein thrombosis: Plan: Coumadin on hold due to planned EUS Noted outpatient MRI on 06/22/2021 demonstrated nonocclusive thrombus in the main portal vein extending into the left portal vein and additional nonocclusive thrombus in the superior mesenteric vein. (10) HTN (hypertension): Plan: BP controlled, continue lisinopril (11) DVT prophylaxis: Plan: SCDs for now History of Present Illness Chief Complaint: LLQ abdominal pain, intractable nausea and vomiting Primary Care Provider: Tim Brown DO 55-year-old male with PMH cirrhosis with esophageal varices, history of portal vein and mesenteric vein thromboses on Coumadin (however currently on hold due to planned procedure), HTN, GERD, depression and anxiety, and other problems listed below who presents the ED for evaluation of left lower quadrant abdominal pain and intractable nausea and vomiting. Patient is somewhat of a poor historian. Seems like patient has a longstanding history of abdominal pain with nausea however symptoms have been worse over the past couple of weeks. Patient has been following closely with GI. Patient diagnosed with portal vein and mesenteric vein thrombosis October 2020 and was placed on Coumadin. Completed 6 months of Coumadin treatment and Coumadin was subsequently discontinued. Outpatient liver MRI on 06/22/2021 demonstrated nonocclusive thrombus in the main portal vein extending into the left portal vein and additional nonocclusive thrombus in the superior mesenteric vein. Coumadin was restarted however placed on hold shortly after due to planned EUS in a few days. Patient also previously on nadolol however recently resumed by GI (patient is currently taking propanolol due to insurance coverage issues). Patient states that nausea and abdominal pain are made worse with any type of p.o. intake. He had a few episodes of vomiting last week however none since. Symptoms previously was helped with Reglan however recently was stopped due to tremor and confusion. He reports continued to have 3-4 bowel movements per day while being on lactulose. He also endorses a few episodes of left-sided chest pain. No specific causative or alleviating factors. Pain is described as sharp and radiates into the left arm with some associated left hand tingling. Pain usually last for couple minutes and resolves on its own. Patient reports exertional shortness of breath. No cough or sputum production. No fevers or chills. Patient and gi rlfriend report a few episodes of confusion with hallucinations, they are attributing this to the propanolol. Denies lightheadedness, dizziness, diaphoresis, syncopal events. Has had some urinary hesitancy however denies dysuria. In the ED, patient is hemodynamically stable, labs are unremarkable. Patient was given 2 doses of IV Zofran without any relief and nausea, then received a dose of Emend. CT chest/ABD/pelvis unremarkable for acute findings. Allergies Allergy/AdvReac Type Severity Reaction Status Date / Time hydrocodone [From Vicodin] Allergy Intermediate Hallucinati Verified 07/07/21 12:52 ng Home Medications Medication Instructions Recorded Confirmed Type loratadine 10 mg tablet (Claritin) 10 mg PO QAM 02/17/19 07/07/21 History pantoprazole 40 mg tablet,delayed 40 mg PO BID 02/17/19 07/07/21 History release (Protonix) tramadol 50 mg tablet 50 - 100 mg PO Q6H PRN 02/17/19 07/07/21 History lactulose 20 gram/30 mL oral 15 ml PO HS 10/23/20 07/07/21 History solution lisinopril 2.5 mg tablet 2.5 mg PO QAM 07/07/21 07/07/21 History ondansetron HCl 4 mg tablet 4 mg PO Q6H PRN 07/07/21 07/07/21 History propranolol 20 mg tablet 20 mg PO BID 07/07/21 07/07/21 History Past Med/Surg History Medical History Anemia Cirrhosis Cough Elevated troponin Gastric varices GAVE (gastric antral vascular ectasia) HTN (hypertension) Hx of allergic rhinitis Hx of anxiety disorder Hx of esophageal varices Hx of urticaria Hypertension Mesenteric vein thrombosis Portal hypertension Portal vein thrombosis Thrombocytopenia Surgical History H/O colonoscopy History of esophagogastroduodenoscopy (EGD) Hx of arthroscopy of knee Family History Mother Cancer Stomach cancer, 36 Social History Smoking Status: Never smoker Second Hand Exposure: No; Hx Alcohol Use: No Hx Substance Use: No Preferred Language: Occitan Communication Ability: Effective 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 Beliefs That Will Affect Care: None marital status: Single Current Living Situation: Family and Significant Other Current Living Situation Comment: [facility] 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 Safe at Home: Yes Childhood Exposure to Second-Hand Smoke: No Assistive Devices: Glasses Review of Systems Review of Systems: ROS per HPI, all other systems reviewed and negative Physical Exam Constitutional: WD/WN, vitals as above Eyes: PERRL, conjunctivae normal, anicteric sclerae ENMT: external ear and nose normal, oropharynx normal Respiratory: normal respiratory effort, lungs clear to auscultation Cardiovascular: Rate/Rhythm: regular rate and regular rhythm Vessels: normal peripheral pulses Extremities: no edema Gastrointestinal (Abdomen): Inspection/Auscultation: normal bowel sounds Percussion/Palpation: + abdomen tender (LLQ) and abdomen soft; no hepatosplenomegaly Musculoskeletal: no cyanosis or clubbing, extremities motor strength 5/5 Skin: no rashes, warm and dry Neurologic: PERRL, EOMI, accommodation nl, no face palsy, no dysarthria Psychiatric: A+Ox3, euthymic affect Results & Data Results & Data ([facility]) Vital Signs (Past 12 Hours) Vital Signs Temp Pulse Pulse Resp BP BP Pulse Ox 07/07/21 14:00 58 L 19 141/85 H 99 07/07/21 13:00 54 L 16 137/62 98 07/07/21 12:33 58 L 19 125/76 99 07/07/21 11:14 54 L 18 128/79 95 07/07/21 09:34 36.4 C L 58 L 20 134/88 97 Laboratory Results Short CBC 07/07/21 Range/Units 10:30 WBC 4.66 L (4.8-10.8) K/uL Hgb 13.8 L (14.0-18.0) g/dL Hct 37.2 L (42-52) % Plt Count 91 L (130-400) K/uL BMP 07/07/21 10:30 Sodium 141 Potassium 3.7 Chloride 109 H Carbon Dioxide 28 BUN 14 Creatinine 1.14 Glucose 95 Calcium 9.6 Cardiac Enzymes 07/07/21 Range/Units 10:30 Troponin I 0.04 (0-0.04) ng/ml Liver Function 07/07/21 Range/Units 10:30 Total Bilirubin 2.3 H (0.2-1.0) mg/dl Direct Bilirubin 0.4 H (0-0.2) mg/dl AST 22 (13-39) U/L ALT 14 (7-52) U/L Alkaline Phosphatase 60 (34-104) U/L Albumin 4.0 (3.4-5.0) gm/dl Diagnostic Findings Chest X-Ray 07/07/21 10:16 XR chest 1V portable CLINICAL HISTORY: Intermittent chest pain. COMPARISON STUDY: Chest CT October 07, 2020. Chest radiograph November 09, 2020. FINDINGS: Lung volumes are mildly diminished. Minimal bibasilar opacities favor atelectasis. There is no pneumothorax or pleural effusion. Mild enlargement of the cardiac silhouette. Mediastinal contours are normal. There is no evidence for pulmonary edema. IMPRESSION: No acute cardiopulmonary findings. ACT 112: Negative or not required by law. Electronically signed by: Arnol Oliva M.D. 07/07/2021 10:58 AM Abdomen/Pelvis CT 07/07/21 10:25 CT abd pelvis IV con only CLINICAL HISTORY: portal/mesenteric vein thrombus, liver cirrhosis TECHNIQUE: Helical axial images of the abdomen and pelvis were obtained and displayed. Automated dose lowering techniques and/or adjustment according to patient size were utilized for this exam. This exam was performed with intravenous contrast. COMPARISON: Comparison is made to CT abdomen pelvis 11/09/2000 FINDINGS: Lower chest: No acute abnormality Liver: Nodular contour of the liver is seen compatible with cirrhosis. Gallbladder and biliary tree: No calcified gallstones. Normal caliber wall. No intra- or extrahepatic biliary ductal dilation. Pancreas: Unremarkable, no focal lesions. Spleen: Splenomegaly is noted, the spleen measures 20 cm. Adrenals: Unremarkable. Kidneys and ureters: Nonobstructive nephrolithiasis is seen. Bladder: Diffuse homogeneous wall thickening is seen. Reproductive organs: Prostatomegaly is seen. Bowel: Wall thickening is seen in the ascending colon with surrounding fat stranding. Lymph nodes Retroperitoneal: Subcentimeter lymph nodes are noted. Mesenteric: Unremarkable. Pelvic: Unremarkable. Peritoneum: Normal. Vessels: Atherosclerotic calcifications are seen. No thrombus is seen in the portal vein. There is questionable trace residual superior mesenteric vein thrombus. Extensive varices are seen. Interval near total resolution of splenic vein thrombus. Abdominal wall: Unremarkable. Bones: Degenerative changes in the visualized spine. IMPRESSION: 1. Interval near resolution of superior mesenteric vein thrombus, no portal vein thrombus is seen. Interval near total resolution of splenic vein thrombosis. 2. Redemonstration of cirrhosis and splenomegaly. ACT 112: Negative or not required by law. Electronically signed by: Alexis Maldonado M.D. 07/07/2021 12:30 PM Chest CTA 07/07/21 10:25 CT ANGIOGRAPHY OF THE CHEST, PULMONARY EMBOLUS PROTOCOL CLINICAL HISTORY: Midsternal chest pain. Evaluate for pulmonary embolus. COMPARISON STUDY: Chest CT October 07, 2020. Chest radiograph performed earlier today. TECHNIQUE: Following IV administration of 120 mL of Optiray, helical axial images of the chest were obtained utilizing the pulmonary embolus protocol. Maximal intensity projections and sagittal and coronal reformats were viewed on an independent 3D workstation. IV contrast was administered without complication. Automated exposure control was utilized for the study. A dose lowering technique was utilized adhering to the principles of ALARA. CT DOSE: 3222.49 mGy.cm FINDINGS: No pulmonary emboli are identified. There is no thoracic aortic dissection. Mild cardiomegaly is noted. There is no pericardial effusion. Pa raesophageal and upper abdominal varices are noted. Splenomegaly is present. There is mild gallbladder wall thickening with adjacent stranding. There may also be wall thickening of the hepatic flexure of the colon. Findings are better depicted on the abdominal CT which will be reported separately. No pneumothorax or pleural effusion is present. There is no consolidation to suggest pneumonia. No suspicious pulmonary nodules. No acute fracture or suspicious lesion within visualized portions of the bony thorax. No thoracic lymphadenopathy. IMPRESSION: 1. No pulmonary emboli identified. 2. No acute process within the chest. 3. Cardiomegaly. 4. Cirrhosis with splenomegaly and upper abdominal varices, better depicted on the CT of the abdomen and pelvis will be reported separately. ACT 112: Negative or not required by law. Electronically signed by: Arnol Oliva M.D. 07/07/2021 12:[address] 07/07/21 10:[address] DOSE: HISTORY: Hallucinations. neuro symptoms TECHNIQUE: Multiaxial CT images of the head were performed without the use of intravenous contrast. Automated exposure control was utilized for this study. A dose lowering technique was utilized adhering to the principles of ALARA. Comparison: Head CT 01/21/2020. Findings: The paranasal sinuses and right mastoid air cells are clear. There are few opacified left mastoid air cells. The calvarium and skull base are intact. The ventricles and sulci are within normal limits. There is no mass, hematoma, midline shift, or acute infarct. Impression: No acute intracranial abnormality. ACT 112: Negative or not required by law. Electronically signed by: Carlos Su M.D. 07/07/2021 12:21 PM Code Status & VTE Plan Code Status Patient is a full code as per my discussion with him. Patient states that if he were to be unable to make decisions for himself, his girlfriend, Muna would be his decision-maker. VTE Prophylaxis Plan VTE Prophylaxis will be ordered: Yes Supervising Physician Co-Signing Physician Notes Patient is a 55-year-old male with history of cirrhosis, esophageal varices, H/O portal vein and mesenteric vein thrombosis and other medical problems presents with history of intractable nausea, vomiting, left lower quadrant abdominal pain. He follows with [facility] gastroenterology as outpatient and was recently taken off of Coumadin temporarily is being planned for endoscopic ultrasound. Outpatient MRI demonstrated nonocclusive thrombus of the main portal vein extending to the left portal vein and also noted nonocclusive thrombus in the superior mesenteric vein. Patient also states having episodic confusion for the past couple of days but currently oriented x3. Please review HPI for complete details of presentation. Blood work suggestive of thrombocytopenia 90 1K, total bilirubin 2.3. CT head showed no acute abnormality. Chest CTA showed no PE, no acute process in the chest. Cardiomegaly noted. Abdominal CTA showed interval near resolution of superior mesenteric vein thrombosis, no portal vein thrombosis seen. Interval near total resolution of splenic vein thrombosis noted. Cirrhosis and splenomegaly noted. Symptoms resolved after receiving Emend while in ED. On exam patient is moderately built and nourished, no apparent distress, normocephalic atraumatic, EOMI, normal breath sounds, clear to auscultation, S1-S2, no murmur, no pedal edema, abdomen soft, left lower quadrant tender, no guarding or rigidity, normal bowel sounds, alert, awake, oriented, grossly no focal deficits. Patient is admitted for management of intractable nausea, vomiting, abdominal pain. GI consulted. Clear liquid diet. Pain control. Also needed further evaluation with a brain MRI to rule out any acute process. I personally reviewed the record. Patient is interviewed and examined at bedside. Patient's care is coordinated with Haily Key LPN. Please refer to the documentation above for details of patient's presentation and for discussion of other issues.
--- NOTE | 2021-07-07 19:06 | Electrocardiogram Report ---
Test Reason : Blood Pressure : / mmHG Vent. Rate : 053 BPM Atrial Rate : 053 BPM P-R Int : 176 ms QRS Dur : 096 ms QT Int : 450 ms P-R-T Axes : 039 -13 038 degrees QTc Int : 422 ms Sinus bradycardia Otherwise normal ECG When compared with ECG of 09-NOV-2020 10:43, No significant change was found Confirmed by Ed Monroe ([id number]) on 07/07/2021 7:06:16 PM Referred By: REFERRED SELF Confirmed By:Shawn Monroe
--- NOTE | 2021-07-07 19:57 | Discharge Summary ---
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 Patient is somewhat of a poor historian. Seems like patient has a longstanding history of abdominal pain with nausea however symptoms have been worse over the past couple of weeks. Patient has been following closely with GI. Patient diagnosed with portal vein and mesenteric vein thrombosis October 2020 and was placed on Coumadin. Completed 6 months of Coumadin treatment and Coumadin was subsequently discontinued. Outpatient liver MRI on 06/22/2021 demonstrated nonocclusive thrombus in the main portal vein extending into the left portal vein and additional nonocclusive thrombus in the superior mesenteric vein. Coumadin was restarted however placed on hold shortly after due to planned EUS in a few days. Patient also previously on nadolol however recently resumed by GI (patient is currently taking propanolol due to insurance coverage issues). Patient states that nausea and abdominal pain are made worse with any type of p.o. intake. He had a few episodes of vomiting last week however none since. Symptoms previously was helped with Reglan however recently was stopped due to tremor and confusion. He reports continued to have 3-4 bowel movements per day while being on lactulose. He also endorses a few episodes of left-sided chest pain. No specific causative or alleviating factors. Pain is described as sharp and radiates into the left arm with some associated left hand tingling. Pain usually last for couple minutes and resolves on its own. Patient reports exertional shortness of breath. No cough or sputum production. No fevers or chills. Patient and girlfriend report a few episodes of confusion with hallucinations, they are attr ibuting this to the propanolol. Denies lightheadedness, dizziness, diaphoresis, syncopal events. Has had some urinary hesitancy however denies dysuria. In the ED, patient is hemodynamically stable, labs are unremarkable. Patient was given 2 doses of IV Zofran without any relief and nausea, then received a dose of Emend. CT chest/ABD/pelvis unremarkable for acute findings. Admission Exam Per Admitting Provider Constitutional: WD/WN, vitals as above Eyes: PERRL, conjunctivae normal, anicteric sclerae ENMT: external ear and nose normal, oropharynx normal Respiratory: normal respiratory effort, lungs clear to auscultation Cardiovascular: Rate/Rhythm: regular rate and regular rhythm Vessels: normal peripheral pulses Extremities: no edema Gastrointestinal (Abdomen): Inspection/Auscultation: normal bowel sounds Percussion/Palpation: + abdomen tender (LLQ) and abdomen soft; no hepatosplenomegaly Musculoskeletal: no cyanosis or clubbing, extremities motor strength 5/5 Skin: no rashes, warm and dry Neurologic: PERRL, EOMI, accommodation nl, no face palsy, no dysarthria Psychiatric: A+Ox3, euthymic affect Principal Diagnosis Intractable nausea vomiting Discharge Data Allergies Allergy/AdvReac Type Severity Reaction Status Date / Time hydrocodone [From Vicodin] Allergy Intermediate Hallucinati Verified 07/07/21 12:52 ng Consultations Gastroenterology Ordered Studies Laboratory Results WBC 4.66 K/uL (4.8-10.8) L 07/07/21 10:30 RBC 4.21 M/uL (4.7-6.1) L 07/07/21 10:30 Hgb 13.8 g/dL (14.0-18.0) L 07/07/21 10:30 Hct 37.2 % (42-52) L 07/07/21 10:30 MCV 88.4 fL (80-100) 07/07/21 10:30 MCH 32.8 pg (25-34) 07/07/21 10:30 MCHC 37.1 g/dL (32-36) H 07/07/21 10:30 RDW Std Deviation 44.5 fL (36.4-46.3) 07/07/21 10:30 RDW Coeff of Wenceslao 13.6 % (11.5-14.5) 07/07/21 10:30 Plt Count 91 K/uL (130-400) L 07/07/21 10:30 MPV 9.4 fL (7.4-10.4) 07/07/21 10:30 Immature Gran % (Auto) 0.2 % 07/07/21 10:30 Neut % (Auto) 64.7 % 07/07/21 10:30 Lymph % (Auto) 17.2 % 07/07/21 10:30 Evangeline % (Auto) 11.4 % 07/07/21 10:30 Eos % (Auto) 5.6 % 07/07/21 10:30 Baso % (Auto) 0.9 % 07/07/21 10:30 Neut # (Auto) 3.02 K/uL (1.4-6.5) 07/07/21 10:30 Lymph # (Auto) 0.80 K/uL (1.2-3.4) L 07/07/21 10:30 Evangeline # (Auto) 0.53 K/uL (0.11-0.59) 07/07/21 10:30 Eos # (Auto) 0.26 K/uL (0-0.5) 07/07/21 10:30 Baso # (Auto) 0.04 K/uL (0-0.2) 07/07/21 10:30 Immature Gran # (Auto) 0.01 K/uL (0.00-0.02) 07/07/21 10:30 PT 13.0 Seconds (9.0-12.0) H 07/07/21 10:30 INR 1.2 (0.9-1.1) H 07/07/21 10:30 APTT 24.2 Seconds (21.0-31.0) 07/07/21 10:30 PTT Ratio 0.9 07/07/21 10:30 Sodium 141 mmol/L (136-145) 07/07/21 10:30 Potassium 3.7 mmol/L (3.5-5.1) 07/07/21 10:30 Chloride 109 mmol/L (98-107) H 07/07/21 10:30 Carbon Dioxide 28 mmol/L (21-32) 07/07/21 10:30 Anion Gap 4 (3-11) 07/07/21 10:30 BUN 14 mg/dl (6-23) 07/07/21 10:30 Creatinine 1.14 mg/dl (0.6-1.4) 07/07/21 10:30 Est Cr Clr Drug Dosing 103.3 ml/min 07/07/21 10:30 Est GFR ( Amer) 82.3 ml/min 07/07/21 10:30 Est GFR (Non-Af Amer) 71.0 ml/min 07/07/21 10:30 BUN/Creatinine Ratio 12.3 (10-20) 07/07/21 10:30 Glucose 95 mg/dl (70-99(Fasting)) 07/07/21 10:30 Calcium 9.6 mg/dl (8.5-10.1) 07/07/21 10:30 Total Bilirubin 2.3 mg/dl (0.2-1.0) H 07/07/21 10:30 Direct Bilirubin 0.4 mg/dl (0-0.2) H 07/07/21 10:30 AST 22 U/L (13-39) 07/07/21 10:30 ALT 14 U/L (7-52) 07/07/21 10:30 Alkaline Phosphatase 60 U/L (34-104) 07/07/21 10:30 Ammonia 30.0 umol/L (18-72) 07/07/21 10:50 Troponin I 0.03 ng/ml (0-0.04) 07/07/21 17:37 Total Protein 5.9 gm/dl (6.0-8.3) L 07/07/21 10:30 Albumin 4.0 gm/dl (3.4-5.0) 07/07/21 10:30 Globulin 1.9 gm/dl (2.5-4.0) L 07/07/21 10:30 Albumin/Globulin Ratio 2.1 (0.9-2) H 07/07/21 10:30 Lipase 35 U/L (11-82) 07/07/21 10:30 SARS-CoV-2, RNA, NAAT NEGATIVE (NEGATIVE) 07/07/21 14:30 Impressions Chest X-Ray 07/07/21 10:16 XR chest 1V portable CLINICAL HISTORY: Intermittent chest pain. COMPARISON STUDY: Chest CT October 07, 2020. Chest radiograph November 09, 2020. FINDINGS: Lung volumes are mildly diminished. Minimal bibasilar opacities favor atelectasis. There is no pneumothorax or pleural effusion. Mild enlargement of the cardiac silhouette. Mediastinal contours are normal. There is no evidence for pulmonary edema. IMPRESSION: No acute cardiopulmonary findings. ACT 112: Negative or not required by law. Electronically signed by: Arnol Oliva M.D. 07/07/2021 10:58 AM Abdomen/Pelvis CT 07/07/21 10:25 CT abd pelvis IV con only CLINICAL HISTORY: portal/mesenteric vein thrombus, liver cirrhosis TECHNIQUE: Helical axial images of the abdomen and pelvis were obtained and displayed. Automated dose lowering techniques and/or adjustment according to patient size were utilized for this exam. This exam was performed with intravenous contrast. COMPARISON: Comparison is made to CT abdomen pelvis 11/09/2000 FINDINGS: Lower chest: No acute abnormality Liver: Nodular contour of the liver is seen compatible with cirrhosis. Gallbladder and biliary tree: No calcified gallstones. Normal caliber wall. No intra- or extrahepatic biliary ductal dilation. Pancreas: Unremarkable, no focal lesions. Spleen: Splenomegaly is noted, the spleen measures 20 cm. Adrenals: Unremarkable. Kidneys and ureters: Nonobstructive nephrolithiasis is seen. Bladder: Diffuse homogeneous wall thickening is seen. Reproductive organs: Prostatomegaly is seen. Bowel: Wall thickening is seen in the ascending colon with surrounding fat stranding. Lymph nodes Retroperitoneal: Subcentimeter lymph nodes are noted. Mesenteric: Unremarkable. Pelvic: Unremarkable. Peritoneum: Normal. Vessels: Atherosclerotic calcifications are seen. No thrombus is seen in the portal vein. There is questionable trace residual superior mesenteric vein thrombus. Extensive varices are seen. Interval near total resolution of splenic vein thrombus. Abdominal wall: Unremarkable. Bones: Degenerative changes in the visualized spine. IMPRESSION: 1. Interval near resolution of superior mesenteric vein thrombus, no portal vein thrombus is seen. Interval near total resolution of splenic vein thrombosis. 2. Redemonstration of cirrhosis and splenomegaly. ACT 112: Negative or not required by law. Electronically signed by: Alexis Maldonado M.D. 07/07/2021 12:30 PM Chest CTA 07/07/21 10:25 CT ANGIOGRAPHY OF THE CHEST, PULMONARY EMBOLUS PROTOCOL CLINICAL HISTORY: Midsternal chest pain. Evaluate for pulmonary embolus. COMPARISON STUDY: Chest CT October 07, 2020. Chest radiograph performed earlier today. TECHNIQUE: Following IV administration of 120 mL of Optiray, helical axial images of the chest were obtained utilizing the pulmonary embolus protocol. Maximal intensity projections and sagittal and coronal reformats were viewed on an independent 3D workstation. IV contrast was administered without complication. Automated exposure control was utilized for the study. A dose lowering technique was utilized adhering to the principles of ALARA. CT DOSE: 3222.49 mGy.cm FINDINGS: No pulmonary emboli are identified. There is no thoracic aortic dissection. Mild cardiomegaly is noted. There is no pericardial effusion. 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 Splenomegaly is present. There is mild gallbladder wall thickening with adjacent stranding. There may also be wall thickening of the hepatic flexure of the colon. Findings are better depicted on the abdominal CT which will be reported separately. No pneumothorax or pleural effusion is present. There is no consolidation to suggest pneumonia. No suspicious pulmonary nodules. No acute fracture or suspicious lesion within visualized portions of the bony thorax. No thoracic lymphadenopathy. IMPRESSION: 1. No pulmonary emboli identified. 2. No acute process within the chest. 3. Cardiomegaly. 4. Cirrhosis with splenomegaly and upper abdominal varices, better depicted on the CT of the abdomen and pelvis will be reported separately. ACT 112: Negative or not required by law. Electronically signed by: Arnol Oliva M.D. 07/07/2021 12:[address] 07/07/21 10:[address] DOSE: HISTORY: Hallucinations. neuro symptoms TECHNIQUE: Multiaxial CT images of the head were performed without the use of intravenous contrast. Automated exposure control was utilized for this study. A dose lowering technique was utilized adhering to the principles of ALARA. Comparison: Head CT 01/21/2020. Findings: The paranasal sinuses and right mastoid air cells are clear. There are few opacified left mastoid air cells. The calvarium and skull base are intact. The ventricles and sulci are within normal limits. There is no mass, hematoma, midline shift, or acute infarct. Impression: No acute intracranial abnormality. ACT 112: Negative or not required by law. Electronically signed by: Carlos Su M.D. 07/07/2021 12:21 PM Hospital Course (1) Abdominal pain: (2) Nausea & vomiting: (3) Chest pain: (4) Altered mental status: (5) Cirrhosis: (6) Gastric varices: (7) Portal hypertension: (8) Mesenteric vein thrombosis: (9) Portal vein thrombosis: (10) HTN (hypertension): 55-year-old male with PMH cirrhosis with esophageal varices, history of portal vein and mesenteric vein thromboses on Coumadin (however currently on hold due to planned procedure), HTN, GERD, depression and anxiety who presentd the ED for evaluation of left lower quadrant abdominal pain and intractable nausea and vomiting. Patient has a history of longstanding, intermittent similar symptoms. Patient was evaluated by GI in the ED and received a dose of Emend with significant improvement in symptoms. Patient reports he is feeling well enough to go home. Labs in the ED were unremarkable. CT ABD/pelvis unremarkable for acute findings. Patient had reported some intermittent episodes of chest pain, seem to be noncardiac in nature. Troponins were negative x2, EKG without acute ST changes. Patient states that he has been having episodes of altered mental status with some short-term memory loss which seems to correlate with when Reglan dose was increased and has subsequently been stopped. Patient does not appear encephalopathic today. Ammonia level was normal. Patient has no focal deficits on exam today. Head CT was unremarkable for acute findings. Patient can follow-up with PCP for additional work-up if warranted. Patient is to be on Coumadin for portal vein and mesenteric vein thromboses however currently on hold for EUS planned on 07/11/2021. I reevaluated the patient and he states that he is feeling much better and would like to go home. Patient is hemodynamically stable. He was instructed to continue to hold his Coumadin and to keep appointment for EUS on 07/11/2021. He was also instructed to make a follow up appointment with his PCP. Total Time Total Time Spent Total Time Spent (In Minutes): 40 Discharge Plan Discharge Items Patient Disposition: Home - Self-Care Reason For Visit: Nausea and Vomiting Discharge Diagnosis: Nausea and Vomiting, resolved after dose of Emend Activity: Resume your previous activity Non-emergency contact: Primary Care Provider and [employer] Call non-emergency contact if: you have any medication questions, your symptoms worsen, your pain is not controlled and you have a fever Follow-up/Referrals: Tim Brown, DO [Primary Care Provider] - (call on Saturday to make a follow up appt with Dr. Brown for 1-2 weeks) Diet: Heart Healthy Addtl Attending Provider Instructions: You came to the hospital for evaluation of abdominal pain, nausea, and vomiting. Your symptoms improved greatly after 1 dose of Emend. You were feeling well enough to be discharged home. Your labs and imaging studies were unremarkable. You were seen by GI, Dr. Boggs. Continue to hold Coumadin for your GI procedure on 07/11/21. You had reported some intermittent confusion and memory loss. Head CT was unremarkable. Follow up with your PCP for additional work up. Pending Studies at Discharge: No Stand-Alone Forms: My [facility], Smoking Cessation Medications and DC Order Prescriptions: Continued pantoprazole [Protonix] 40 mg tablet,delayed release (DR/EC) 40 mg PO BID RF: 0 loratadine [Claritin] 10 mg tablet 10 mg PO QAM RF: 0 tramadol 50 mg tablet 50 - 100 mg PO Q6H PRN (Reason: Pain) RF: 0 lactulose 20 gram/30 mL solution 15 ml PO HS RF: 0 lisinopril 2.5 mg tablet 2.5 mg PO QAM RF: 0 ondansetron HCl 4 mg tablet 4 mg PO Q6H PRN (Reason: Nausea) RF: 0 propranolol 20 mg tablet 20 mg PO BID RF: 0 Discontinued warfarin 10 mg tablet 15 mg PO WE RF: 0 warfarin 10 mg tablet 10 mg PO SUMOTUTHFRSA RF: 0 Discharge Orders: Discharge Order (Routine); Ordered 07/07/21 Ordered By: Haily Key Admission Data Admit Date/Time: 07/07/21 14:47 Attending Provider: Gerry Morocho Admit Provider: Gerry Morocho Primary Care Provider: Tim Brown Other Interventions: Discharge Summary Assessment (RN) Last Done: 07/07/21 19:56 Supervising Physician Co-Signing Physician Notes Patient refused to stay hospitalized for further evaluation. His symptoms resolved after receiving event. He was advised to seek immediate medical attention if his symptoms reoccurs or worsens. Advised to follow-up with ne urology as outpatient. Also advised to follow-up with gastroenterology as outpatient for endoscopic ultrasound scheduled on July 11. I personally reviewed the record. Patient is interviewed and examined at bedside. Patient's care is coordinated with Haily Key INTELLIGENCE OPERATIONS SPECIALIST. Please refer to the documentation above for details of patient's presentation and for discussion of other issues.
== END 2021-07-07 17:52 | disposition home or self-care (01) ==
LOC: EDINP 09:21 → ED 09:21 → EDINP 17:51 → UNDODISOB 19:18

== ENCOUNTER 2023-06-24 09:12 | Inpatient (IN) ==
[2023-06-24] MEDS: SODIUM CHLORIDE 0.9% 500 ML IV ONE (10:10)
[2023-06-24] MEDS: ONDANSETRON INJ 2 MG/ML 2 ML VIAL IV STA (10:10)
[2023-06-24] MEDS: MoRPHine SULFATE 4 MG/ML 1 ML CARP\\VIAL IV STA (10:10)
--- NOTE | 2023-06-24 10:13 | Emergency Department Note ---
ED Provider Note History of Present Illness Chief Complaint: Back Injury/Pain Stated Complaint: LOWER BACK PAIN Time Seen by Provider: 06/24/23 09:22 57-year-old male who presents to the emergency department with complaint of lower back pain radiating into both buttocks. The patient reports that he injured his back 2 weeks ago while bowling. He felt a pop, and has had progressively worsening symptoms. The patient was recently seen at the [facility] orthopedics, and was treated with a Medrol Dosepak. The patient reports that he should complete his pack tomorrow. The patient reports no significant improvement of his symptoms. Patient reports that he also had an x- ray performed at his orthopedic visit that showed significant arthritis. The patient denies any injuries since he last saw orthopedics. The patient reports that he had a difficult time getting out of bed this morning with pain shooting down both legs. Patient has been trying multiple things to help with the pain, including intermittently applying ice, heat and Marco Brooks. Patient also reports that he had black stools this morning. The patient is on Coumadin for history of DVT. The patient reports that his INRs usually run steadily around 2. The patient denies any lennie abdominal pain, reporting a all of the pain is in his back. Patient reports that he also has issues with constipation, and does take laxatives to maintain 4-5 bowel movements daily. The patient reports decreased stool output over the past few days. Patient also has some Flexeril at home that was prescribed by his PCP, and reports that they also are not helping with the pain. The patient has previously taken tramadol for additional pain relief, but does not have any at home. The patient currently rates his discomfort a 10 out of 10. Patient denies any bladder or bowel incontinence. Home Medications Medication Instructions Recorded Confirmed Type loratadine 10 mg tablet (Claritin) 10 mg PO QAM 02/17/19 06/24/23 History pantoprazole 40 mg tablet,delayed 40 mg PO BID 02/17/19 06/24/23 History release (Protonix) tramadol 50 mg tablet 50 - 100 mg PO Q6H PRN Pain 02/17/19 06/24/23 History lactulose 20 gram/30 mL oral 10 ml PO HS 10/23/20 06/24/23 History solution lisinopril 2.5 mg tablet 2.5 mg PO QAM 07/07/21 06/24/23 History ondansetron HCl 4 mg tablet 4 mg PO Q6H PRN Nausea 07/07/21 06/24/23 History propranolol 20 mg tablet 20 mg PO BID 07/07/21 06/24/23 History mirtazapine 7.5 mg tablet 7.5 mg PO HS 06/24/23 06/24/23 History warfarin 5 mg tablet 10 mg DAILY 06/24/23 06/24/23 History Allergies Allergy/AdvReac Type Severity Reaction Status Date / Time hydrocodone [From Vicodin] Allergy Intermediate Hallucinati Verified 07/07/21 12:52 ng Past Med/Surg History Medical History Non-specific colitis Hypokalemia Supratherapeutic INR Gastric varices Portal hypertension Mesenteric vein thrombosis Portal vein thrombosis HTN (hypertension) Anemia Thrombocytopenia Cirrhosis GAVE (gastric antral vascular ectasia) Cirrhosis Hepatic encephalopathy Elevated d-dimer Elevated troponin HTN (hypertension) Cirrhosis Cough Hypertension Hx of urticaria Hx of allergic rhinitis Hx of anxiety disorder Hx of esophageal varices Surgical History Hx of arthroscopy of knee History of esophagogastroduodenoscopy (EGD) H/O colonoscopy Family History Mother Cancer Stomach cancer, 36 Social History Smoking Status: Never smoker Second Hand Exposure: No; Do You Dip or Chew Tobacco: No; Hx Alcohol Use: No Hx Substance Use: No Preferred Language: Portuguese Communication Ability: Effective Paper Winder Required: No Beliefs That Will Affect Care: None marital status: Single Current Living Situation: Significant Other Current Living Situation Comment: with Muna 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 Safe at Home: Yes Safety Concerns: Feels Safe At This Time Childhood Exposure to Second-Hand Smoke: No Assistive Devices: Glasses Physical Exam Vital Signs Vital Signs - 24 hr 06/24/23 09:14 06/24/23 10:17 06/24/23 10:20 Temperature 36.4 C L Temperature Source Oral Pulse Rate 86 75 74 Pulse Rate [Right Finger] Pulse Rate from SpO2 Sensor Respiratory Rate 20 16 16 Respiratory Effort / Characteristics Non-Labored Respiratory Depth Normal Blood Pressure 150/88 H Blood Pressure [Left Arm] Blood Pressure Mean 108 Blood Pressure Mean [Left Arm] Pulse Oximetry 96 Oxygen Delivery Method Room Air Sepsis Recent Fever Within 48 Hours No Sepsis New/Unexplained Change in Mental Status N/A Sepsis Action Taken by Nursing No Action Required 06/24/23 10:24 06/24/23 10:30 06/24/23 10:40 Temperature Temperature Source Pulse Rate 79 73 71 Pulse Rate [Right Finger] Pulse Rate from SpO2 Sensor Respiratory Rate 16 18 Respiratory Effort / Characteristics Respiratory Depth Blood Pressure Blood Pressure [Left Arm] Blood Pressure Mean Blood Pressure Mean [Left Arm] Pulse Oximetry Oxygen Delivery Method Sepsis Recent Fever Within 48 Hours Sepsis New/Unexplained Change in Mental Status Sepsis Action Taken by Nursing 06/24/23 10:50 06/24/23 11:00 06/24/23 11:00 Temperature Temperature Source Pulse Rate 74 74 Pulse Rate [Right Finger] Pulse Rate from SpO2 Sensor 75 Respiratory Rate 16 13 Respiratory Effort / Characteristics Respiratory Depth Blood Pressure 129/78 Blood Pressure [Left Arm] Blood Pressure Mean 93 Blood Pressure Mean [Left Arm] Pulse Oximetry 95 Oxygen Delivery Method Sepsis Recent Fever Within 48 Hours Sepsis New/Unexplained Change in Mental Status Sepsis Action Taken by Nursing 06/24/23 11:10 06/24/23 11:13 06/24/23 11:20 Temperature Temperature Source Pulse Rate 68 69 Pulse Rate [Right Finger] 74 Pulse Rate from SpO2 Sensor 69 69 Respiratory Rate 19 16 13 Respiratory Effort / Characteristics Respiratory Depth Blood Pressure Blood Pressure [Left Arm] 129/78 Blood Pressure Mean Blood Pressure Mean [Left Arm] 95 Pulse Oximetry 96 94 94 Oxygen Delivery Method Room Air Sepsis Recent Fever Within 48 Hours Sepsis New/Unexplained Change in Mental Status Sepsis Action Taken by Nursing 06/24/23 11:30 06/24/23 11:40 06/24/23 11:50 Temperature Temperature Source Pulse Rate 71 71 70 Pulse Rate [Right Finger] Pulse Rate from SpO2 Sensor 72 73 69 Respiratory Rate 15 14 14 Respiratory Effort / Characteristics Respiratory Depth Blood Pressure Blood Pressure [Left Arm] Blood Pressure Mean Blood Pressure Mean [Left Arm] Pulse Oximetry 92 93 93 Oxygen Delivery Method Sepsis Recent Fever Within 48 Hours Sepsis New/Unexplained Change in Mental Status Sepsis Action Taken by Nursing 06/24/23 12:13 06/24/23 12:13 06/24/23 12:15 Temperature Temperature Source Pulse Rate 74 72 Pulse Rate [Right Finger] Pulse Rate from SpO2 Sensor 70 Respiratory Rate 19 15 Respiratory Effort / Characteristics Respiratory Depth Blood Pressure 136/79 Blood Pressure [Left Arm] Blood Pressure Mean 89 Blood Pressure Mean [Left Arm] Pulse Oximetry 97 Oxygen Delivery Method Room Air Sepsis Recent Fever Within 48 Hours Sepsis New/Unexplained Change in Mental Status Sepsis Action Taken by Nursing 06/24/23 12:15 Temperature Temperature Source Pulse Rate Pulse Rate [Right Finger] Pulse Rate from SpO2 Sensor Respiratory Rate Respiratory Effort / Characteristics Respiratory Depth Blood Pressure 130/81 Blood Pressure [Left Arm] Blood Pressure Mean 97 Blood Pressure Mean [Left Arm] Pulse Oximetry Oxygen Delivery Method Sepsis Recent Fever Within 48 Hours Sepsis New/Unexplained Change in Mental Status Sepsis Action Taken by Nursing CONSTITUTIONAL: Healthy and well nourished. Alert and oriented X 3. Patient is sitting on the side of the bed in moderate discomfort. HEENT: No conjunctival injection or pallor. RESPIRATORY: Clear to auscultation bilaterally with no wheezing, crackles, rhonchi or stridor. CARDIOVASCULAR: Regular rate and rhythm with no murmurs, rubs or gallops. GASTROINTESTINAL: Bowel sounds present in all quadrants. Abdomen is soft and nontender to palpation. MUSCULOSKELETAL: Examination shows tenderness to palpation through the lower lumbar spine and paraspinous muscles without obvious spasm. Patient has a positive sitting straight leg raise bilaterally with negative crossover. No lower extremity edema noted. INTEGUMENTARY: No rash or other significant dermatologic conditions noted. HEMATOLOGIC: No ecchymosis or petechiae. PSYCHIATRIC: Positive affect. NEUROLOGIC: Lower extremities are sensory intact. Course Course Patient history and physical exam were performed. Nurses notes were reviewed. Vital signs were reviewed, showing an elevated blood pressure. The patient is not febrile, tachycardic or hypoxic. Because of concern for GI bleed as well, I did ask the patient to initially try to provide a stool sample. When he was unable to do so, IV access was established, and labs were drawn. The patient was administered IV morphine and Zofran for pain. He was also hydrated with a normal saline 500 cc bolus. Digital rectal exam was performed with a positive stool Hemoccult. Review of lab shows a mild anemia which is baseline for the patient when compared to prior labs. CBC is otherwise grossly normal without leukocytosis, neutrophilic shift or bandemia. Coag studies shows an INR of 3.8. Patient is also hypokalemic at 3.0, again with prior episodes of hypokalemia in the past. Patient also has elevated total bilirubin which appears to be around the patient's baseline. He does have an elevated AST. CT with IV contrast of the lumbar spine and abdomen/pelvis shows a moderate to severe proximal colitis, without evidence for obstruction or abdominal free air. No obvious ureteral calculi, appendicitis or diverticulitis noted. The patient did require several rounds of IV opioid analgesics, none of which provided any significant relief. Given the patient's intractable back pain, lumbar radicular symptoms, as well has a probable upper GI bleed, I did suggest admission, and the patient was in agreement. The patient was administered IV Protonix. Patient was also administered potassium chloride 20 mEq per K rider. Because of ongoing intractable back pain, I did recommend an MRI of the lumbar spine, with the patient in agreement. He did have to be administered IV Ativan to undergo that incident. Noncontrast MRI of the lumbar spine showed evidence for superior endplate L4 compression fracture. Findings were discussed with Dr. London the attending physician, [facility] have agreed to evaluate the patient please see their dictation for further treatment and final disposition. Administered Medications Hydrocortisone (Hydrocortisone Acetate 25 Mg Supp) 25 mg [place] BID THERESA Stop: 07/25/23 03:04 Last Admin: 06/25/23 08:33 Dose: Not Given Documented By: Admin: 06/25/23 05:10 Dose: Not Given Documented By: SIMON Pantoprazole Sodium 40 mg/ (Dextrose) 100 mls @ 20 mls/hr IV Q5H THERESA Stop: 07/24/23 14:59 Last Admin: 06/25/23 08:31 Dose: 8 mg/hr, 20 mls/hr Documented By: Infusion: 06/25/23 07:54 Dose: Infused Documented By: Admin: 06/25/23 02:54 Dose: 8 mg/hr, 20 mls/hr Documented By: Infusion: 06/25/23 02:54 Dose: Infused Documented By: Admin: 06/24/23 21:57 Dose: 8 mg/hr, 20 mls/hr Documented By: Infusion: 06/24/23 21:21 Dose: Infused Documented By: Admin: 06/24/23 16:21 Dose: 8 mg/hr, 20 mls/hr Documented By: ESME Octreotide Acetate 500 mcg/ (Sodium Chloride) 100.5 mls @ 10.05 mls/hr IV .Q10H [facility] Stop: 07/24/23 15:29 Last Admin: 06/24/23 23:44 Dose: 50 mcg/hr, 10.1 mls/hr Documented By: Infusion: 06/24/23 23:44 Dose: Infused Documented By: Admin: 06/24/23 16:20 Dose: 50 mcg/hr, 10.1 mls/hr Documented By: ESME Piperacillin Sod/Tazobactam (Sod 4.5 gm/ Dextrose) 100 mls @ 25 mls/hr IV Q8H [facility]; Protocol Stop: 06/26/23 20:59 Last Admin: 06/25/23 05:10 Dose: 25 mls/hr Documented By: Infusion: 06/25/23 00:23 Dose: Infused Documented By: Admin: 06/24/23 20:23 Dose: 25 mls/hr Documented By: SIMON Lactulose (Lactulose Syrup 10 Gm/15 Ml Btl 960 Ml) 6.[address] [facility] Stop: 07/24/23 20:59 Last Admin: 06/24/23 20:24 Dose: 6.666 gm Documented By: SIMON Lisinopril (Lisinopril 2.5 Mg Tab) 2.5 mg PO [facility] Stop: 07/25/23 08:59 Last Admin: 06/25/23 08:33 Dose: 2.5 mg Documented By: JOSE Mirtazapine (Mirtazapine Tab 15 Mg Tab) 7.[address] [facility] Stop: 07/24/23 20:59 Last Admin: 06/24/23 20:23 Dose: 7.5 mg Documented By: SIMON Morphine Sulfate (Morphine Sulfate 2 Mg/Ml Carp) 2 mg IV Q6H PRN PRN Reason: Pain Stop: 07/08/23 15:22 Last Admin: 06/25/23 02:04 Dose: 2 mg Documented By: Admin: 06/24/23 19:47 Dose: 2 mg Documented By: SIMON Discontinued Medications Hydromorphone HCl (Hydromorphone Inj 0.5 Mg/0.5 Ml Syr) 0.5 mg IV NOW STA Stop: 06/24/23 10:50 Last Admin: 06/24/23 10:57 Dose: 0.5 mg Documented By: SCOTT Hydromorphone HCl (Hydromorphone Inj 0.5 Mg/0.5 Ml Syr) 0.5 mg IV NOW STA Stop: 06/24/23 12:28 Last Admin: 06/24/23 12:56 Dose: 0.5 mg Documented By: SCOTT Sodium Chloride (Nss) 500 mls @ 999 mls/hr IV .Q31M ONE Stop: 06/24/23 10:25 Last Infusion: 06/24/23 10:46 Dose: Infused Documented By: Admin: 06/24/23 10:10 Dose: 999 mls/hr Documented By: SCOTT Pantoprazole Sodium 80 mg/ (Dextrose) 120 mls @ 480 mls/hr IV ONE STA Stop: 06/24/23 12:41 Last Infusion: 06/24/23 16:56 Dose: Infused Documented By: Admin: 06/24/23 15:10 Dose: 480 mls/hr Documented By: SCOTT Potassium Chloride (K Andre / Wtr) 10 meq in 100 mls @ 100 mls/hr IV Q1H THERESA Stop: 06/24/23 14:44 Last Infusion: 06/24/23 16:57 Dose: Infused Documented By: Admin: 06/24/23 15:27 Dose: 100 mls/hr Documented By: Infusion: 06/24/23 15:08 Dose: Infused Documented By: Admin: 06/24/23 12:56 Dose: 100 mls/hr Documented By: SCOTT Potassium Chloride (K Andre / Wtr) 10 meq in 100 mls @ 100 mls/hr IV Q1H THERESA Stop: 06/24/23 18:14 Last Infusion: 06/24/23 20:03 Dose: Infused Documented By: Admin: 06/24/23 19:03 Dose: 100 mls/hr Documented By: Infusion: 06/24/23 19:03 Dose: Infused Documented By: Admin: 06/24/23 18:06 Dose: 100 mls/hr Documented By: Infusion: 06/24/23 18:05 Dose: Infused Documented By: Admin: 06/24/23 17:05 Dose: 100 mls/hr Documented By: ISRAEL Piperacillin Sod/Tazobactam (Sod 4.5 gm/ Dextrose) 100 mls @ 200 mls/hr IV NOW ONE; Protocol Stop: 06/24/23 15:59 Last Infusion: 06/24/23 16:56 Dose: Infused Documented By: Admin: 06/24/23 16:20 Dose: 200 mls/hr Documented By: ESME Ioversol (Optiray 320 500ml) 90 ml IV ONCE ONE Stop: 06/24/23 12:16 Last Admin: 06/24/23 12:16 Dose: 90 ml Documented By: LES Lidocaine (Lidocaine 5% 1 Patch) 1 patch TD ONE ONE Stop: 06/24/23 15:31 Last Admin: 06/24/23 17:16 Dose: 1 patch Documented By: ESME Lorazepam (Lorazepam 1 Mg/1 Ml Syr Ed Inj Use) 1 mg IV ONE STA Stop: 06/24/23 13:01 Last Admin: 06/24/23 13:35 Dose: 1 mg Documented By: SCOTT Morphine Sulfate (Morphine Sulfate 4 Mg/Ml 1 Ml Carp\Vial) 4 mg IV NOW STA Stop: 06/24/23 09:56 Last Admin: 06/24/23 10:10 Dose: 4 mg Documented By: SCOTT Octreotide Acetate (Octreotide Bolus From Bag) 50 mcg IV ONE ONE Stop: 06/24/23 16:01 Last Admin: 06/24/23 16:21 Dose: 50 mcg Documented By: ESME Ondansetron HCl (Ondansetron Inj 2 Mg/Ml 2 Ml Vial) 4 mg IV NOW STA Stop: 06/24/23 09:56 Last Admin: 06/24/23 10:10 Dose: 4 mg Documented By: SCOTT Medical Decision Making Medical Records Attestation: I reviewed the patient's medical records. Home Medications was personally reviewed by me Laboratory Data Attestation: I reviewed the patient's lab results. 06/25/23 01:59 06/25/23 01:59 Lab Results 06/24/23 Range/Units 10:14 WBC 8.92 (4.8-10.8) K/ul RBC 3.99 L (4.70-6.10) M/uL Hgb 13.5 L (14.0-18.0) g/dl Hct 36.5 L (42.0-52.0) % MCV 91.5 (80.0-100.0) fL MCH 33.8 (25.0-34.0) pg MCHC 37.0 H (32.0-36.0) g/dL RDW Std Deviation 47.8 H (36.4-46.3) fL RDW Coeff of Wenceslao 14.5 (11.5-14.5) % Plt Count 140 (130-400) K/uL MPV 9.2 L (9.4-12.4) fL Immature Gran % (Auto) 0.3 % Neut % (Auto) 72.1 % Lymph % (Auto) 14.7 % Leslie % (Auto) 8.3 % Eos % (Auto) 3.8 % Baso % (Auto) 0.8 % Neut # (Auto) 6.43 (1.40-6.50) K/uL Lymph # (Auto) 1.31 (1.20-3.40) K/uL Leslie # (Auto) 0.74 H (0.11-0.59) K/uL Eos # (Auto) 0.34 (0.00-0.50) K/uL Baso # (Auto) 0.07 (0.00-0.20) K/uL Immature Gran # (Auto) 0.03 (0.01-0.20) K/uL PT 37.9 H (9.0-12.0) Seconds INR 3.8 H (0.9-1.1) APTT 37 H (21-31) Seconds PTT Ratio 1.3 Sodium 140 (136-145) mmol/L Potassium 3.0 L (3.5-5.1) mmol/L Chloride 106 (98-107) mmol/L Carbon Dioxide 28 (21-32) mmol/L Anion Gap 6 (3-11) BUN 15 (6-23) mg/dl Creatinine 1.08 (0.6-1.4) mg/dl Est Cr Clr Drug Dosing Not Reportable Est GFR ( Amer) 86.6 ml/min Est GFR (Non-Af Amer) 74.7 ml/min BUN/Creatinine Ratio 13.9 (10-20) Glucose 98 (70-99(Fasting)) mg/dl Calcium 9.2 (8.6-10.3) mg/dl Magnesium 2.1 (1.7-2.4) mg/dl Total Bilirubin 1.9 H (0.2-1.0) mg/dl AST 50 H (13-39) U/L ALT 39 (7-52) U/L Alkaline Phosphatase 104 (34-104) U/L Total Protein 6.5 (6.0-8.3) gm/dl Albumin 4.3 (3.4-5.0) gm/dl Globulin 2.2 L (2.5-4.0) gm/dl Albumin/Globulin Ratio 2.0 (0.9-2) Lipase 33 (11-82) U/L Imaging Data Attestation: I personally reviewed and interpreted this imaging study as follows: My Impression: My interpretation of a CT with IV contrast of the lumbar spine does not show any obvious fractures. My interpretation of the CT with IV contrast of the abdomen and pelvis shows a notable colitis without evidence for obvious abscess, abdominal free air, appendicitis, diverticulitis or constipation. My interpretation of noncontrast MRI of the lumbar spine shows a superior endplate L4 compression fracture. No additional nerve compression or disc fragments/herniations appreciated. Radiologist reports were also reviewed with concurrence. Radiologist's Impression: Abdomen/Pelvis CT 06/24/23 11:[address] WITH IV CONTRAST CT DOSE: HISTORY: Back pain, GI bleed TECHNIQUE: Multiaxial CT images of the abdomen and pelvis were performed following the use of intravenous contrast. A dose lowering technique was utilized adhering to the principles of ALARA. COMPARISON STUDY: Abdomen and pelvis CT 07/13/2021. FINDINGS: Linear densities within the lungs posteriorly favor dependent change/atelectasis. No pneumoperitoneum. No pneumatosis. No acute fractures identified. Nodular contour to the liver consistent with cirrhosis. No hepatic masses. The main portal vein and splenic vein are dilated but appear patent. Small amount of chronic thrombus again noted within the superior mesenteric vein on image 196. Severe splenomegaly measuring up to 22 cm in length. This is slightly increased in size. No perisplenic fluid collections. Gastrohepatic, periportal, peripancreatic lymphadenopathy is again noted. Chronic calcification within the portal and splenic veins again noted. No retroperitoneal lymphadenopathy. The pancreas and adrenal glands are unremarkable. No hydronephrosis. There is a 7 mm stone within the lower pole of the left kidney distal paraesophageal and upper abdominal varicosities again noted. No pelvic lymphadenopathy or pelvic free fluid. The bladder is unremarkable. The prostate gland is enlarged. Mild presacral edema is unchanged and likely chronic. No dilated loops of bowel to suggest an obstruction. Moderate to severe thickening of the cecum, ascending colon, and hepatic flexure of the colon with pericolonic fat stranding. This is consistent with a nonspecific colitis. The major mesenteric vessels appear patent. No perforation or abscess identified. Normal appendix. No significant change the bladder wall thickening and pericholecystic fluid. IMPRESSION: 1. Moderate to severe thickening of the proximal colon consistent with a nonspecific colitis. This favors an infectious or inflammatory process. 2. No evidence for bowel obstruction. 3. Cirrhotic liver with severe splenomegaly and upper abdominal/paraesophageal varices again noted. This is consistent with underlying portal hypertension. 4. The main portal vein and splenic vein appear patent. Small amount of chronic thrombus within the superior mesenteric vein, unchanged. 5. Bladder wall thickening/pericholecystic fluid remains unchanged. ACT 112: Negative or not required by law. Electronically signed by: Carlos Su M.D. 06/24/2023 12:[address] 06/24/23 11:34 CT lumbar spine w con HISTORY: 57 years-old Male LBP w/ bilat radiculitis chronic low back pain with lower extremity radicular symptoms COMPARISON: CT abdomen and pelvis of same day, CT lumbar spine 01/21/2020. TECHNIQUE: Multiple axial CT images of the lumbar spine were obtained with the use of IV contrast. A dose lowering technique was used consistent with the principals of ALARA. FINDINGS: Mild multilevel spondylitic spurring and moderate facet arthrosis. No significant disc space narrowing, acute fracture or subluxation. Transverse processes are intact. The imaged sacrum and iliac bones are unremarkable. Unchanged chronic wedge deformities. Partially imaged splenomegaly. Inflammatory stranding within the presacral/retroperitoneal tissues. The central canal and neural foramina will be better evaluated on the same day MRI lumbar spine. There is mild central canal stenosis at L3-L4 and L4-L5 with at least mild bilateral foraminal narrowing. IMPRESSION: 1. No acute fracture, subluxation or endplate erosion identified by CT. 2. Degenerative changes as above with chronic appearing thoracolumbar wedge deformities. 3. Please refer to the CT abdomen and pelvis study of same day for discussion of the splenomegaly and other findings. ACT 112: Negative or not required by law. The above report was generated using voice recognition software. It may contain grammatical, syntax or spelling errors. Electronically signed by: Carlos Adan M.D. 06/24/2023 12:46 PM Lumbar Spine MRI 06/24/23 12:27 LUMBAR SPINE MRI HISTORY: Low back pain w/ bilat radiculitis TECHNIQUE: Multiplanar multisequence MRI of the lumbar spine was performed without the use of contrast. COMPARISON: Lumbar spine CT 06/24/2023. FINDINGS: For the purpose of the report the L5-S1 disc space will be located on axial image 32 of 36. There is a mild superior endplate compression fracture at L4. This appears to be acute to subacute. There is minimal paravertebral edema. This demonstrates less than 10% loss of height centrally. No associated retropulsion. No additional fractures within the lumbar spine. The visualized sacrum is intact. Disc spaces are reserved. The conus terminates at the L1 level. Mild facet degenerative changes within the lumbar spine. No suspicious osseous lesions. L1-L2: Small broad-based posterior disc bulge resulting in mild central canal and mild bilateral neural foraminal narrowing. L2-L3: Broad-based posterior disc bulge with ligamentum and facet hypertrophy resulting in mild central canal and mild bilateral neural foraminal narrowing. L3-L4: Broad-based posterior disc bulge resulting in mild central canal and mild bilateral neural foraminal narrowing. L4-L5: Broad-based posterior disc bulge with mild ligamentum flavum and facet hypertrophy resulting in mild central canal and mild bilateral neural foraminal narrowing. L5-S1: No significant central canal or neural foraminal narrowing. IMPRESSION: 1. A mild acute to subacute superior endplate compression fracture at L4. No associated retropulsion. 2. Mild degenerative changes within the lumbar spine as described above. ACT 112: Negative or not required by law. Electronically signed by: Carlos Su M.D. 06/24/2023 3:11 PM MDM Narrative See ED Course section for further details of today's visit. The patient presents with a 2-week history of lower back pain secondary to an injury while bowling. The patient did have outpatient follow-up with orthopedics, with a normal x-ray of the lumbar spine. The patient was treated with a Medrol Dosepak and muscle relaxers. With persistent symptoms, and development of black tarry stools this morning, I was most concerned for GI bleed. Workup today, including stool guaiac test which was positive, has indicated an upper GI bleed. Review of labs does not show any significant anemia. CT imaging of the abdomen, although the patient denied any abdominal discomfort, showed a moderate to severe proximal colitis without abscess formation or evidence of perforation. Additional MRI imaging of the lumbar spine showed a superior endplate compression fracture of L4. Patient did have significant intractable pain, and given his Coumadin use with upper GI bleed, as well as colitis, I did feel that further hospital admission was warranted. Attending Attestation: I Silvano London MD I have reviewed the advanced practitioner's documentation and discussed the case with them and agree with the plan of care. Will bring in for symptom control and further evaluation with MRI of the back. I accept the responsibility for the associated risk of managing the patient. Impression Acute upper GI bleed, Closed compression fracture of L4 vertebra, Colitis, USP (current) use of anticoagulants Discharge Plan Visit Data Chief Complaint: Back Injury/Pain Stated Complaint: LOWER BACK PAIN ED Provider: Silvano London ED Midlevel Provider: Adriel Freed Discharge Problem: Acute upper GI bleed, Closed compression fracture of L4 vertebra, Colitis, USP (current) use of anticoagulants Patient Disposition: Admitted As Inpatient Discharge Instructions Interventions: ED Discharge Assessment Last Done: 06/24/23 16:15 Discharge Problem: Closed compression fracture of L4 vertebra Qualifiers: Encounter type: initial encounter Qualified Code(s): S32.040A - Wedge compression fracture of fourth lumbar vertebra, initial encounter for closed fracture
[2023-06-24 10:40] LABS: Basophils # (auto) 0.07 K/uL (0.00-0.20); Basophils % (auto) 0.8 %; Eosinophils # (auto) 0.34 K/uL (0.00-0.50); Eosinophils % (auto) 3.8 %; Hematocrit (blood only) 36.5 % (42.0-52.0); Hemoglobin 13.5 g/dl (14.0-18.0); Immature Granulocytes # (auto) 0.03 K/uL (0.01-0.20); Immature Granulocytes % (auto) 0.3 %; Lymphocytes # (auto) 1.31 K/uL (1.20-3.40); Lymphocytes % (auto) 14.7 %; Mean Corpuscular Hemoglobin 33.8 pg (25.0-34.0); Mean Corpuscular Volume 91.5 fL (80.0-100.0); Mean Platelet Volume 9.2 fL (9.4-12.4); Monocytes # (auto) 0.74 K/uL (0.11-0.59); Monocytes % (auto) 8.3 %; Neutrophils # (auto) 6.43 K/uL (1.40-6.50); Neutrophils % (auto) 72.1 %; Platelet Count 140 K/uL (130-400); RDW Coefficient of Variation 14.5 % (11.5-14.5); RDW Standard Deviation 47.8 fL (36.4-46.3); Red Blood Count 3.99 M/uL (4.70-6.10); White Blood Count 8.92 K/ul (4.8-10.8)
[2023-06-24 10:56] LABS: Alanine Aminotransferase 39 U/L (7-52); Albumin Level 4.3 gm/dl (3.4-5.0); Alkaline Phosphatase 104 U/L (34-104); Anion Gap 6 (3-11); Aspartate Aminotransferase 50 U/L (13-39); BUN Creatinine Ratio 13.9 (10-20); Bilirubin,Total 1.9 mg/dl (0.2-1.0); Blood Urea Nitrogen 15 mg/dl (6-23); Calcium 9.2 mg/dl (8.6-10.3); Carbon Dioxide 28 mmol/L (21-32); Chloride 106 mmol/L (98-107); Est GFR (African American) 86.6 ml/min; Est GFR (Non-African American) 74.7 ml/min; Globulin 2.2 gm/dl (2.5-4.0); Glucose 98 mg/dl (70-99(Fasting)); Lipase 33 U/L (11-82); Sodium 140 mmol/L (136-145); Total Protein 6.5 gm/dl (6.0-8.3)
[2023-06-24] MEDS: HYDROmorphone INJ 0.5 MG/0.5 ML SYR IV STA ×2 (10:57→12:56)
[2023-06-24 11:03] LABS: INR 3.8 (0.9-1.1); Partial Thromboplastin Ratio 1.3; Partial Thromboplastin Time 37 Seconds (21-31); Prothrombin Time 37.9 Seconds (9.0-12.0)
[2023-06-24] MEDS: OPTIRAY 320 500ml IV ONE (12:16)
--- NOTE | 2023-06-24 12:47 | CT Scan Report ---
ABDOMEN AND PELVIS CT WITH IV CONTRAST CT DOSE: HISTORY: Back pain, GI bleed TECHNIQUE: Multiaxial CT images of the abdomen and pelvis were performed following the use of intrave nous contrast. A dose lowering technique was utilized adhering to the principles of ALARA. COMPARISON STUDY: Abdomen and pelvis CT 07/13/2021. FINDINGS: Linear densities within the lungs posteriorly favor dependent change/atelectasis. No pneumo peritoneum. No pneumatosis. No acute fractures identified. Nodular contour to the liver consistent wi th cirrhosis. No hepatic masses. The main portal vein and splenic vein are dilated but appear patent. Small amount of chronic thrombus again noted within the superior mesenteric vein on image 196. Sever e splenomegaly measuring up to 22 cm in length. This is slightly increased in size. No perisplenic fl uid collections. Gastrohepatic, periportal, peripancreatic lymphadenopathy is again noted. Chronic ca lcification within the portal and splenic veins again noted. No retroperitoneal lymphadenopathy. The pancreas and adrenal glands are unremarkable. No hydronephrosis. There is a 7 mm stone within the low er pole of the left kidney distal paraesophageal and upper abdominal varicosities again noted. No pel jazzmine lymphadenopathy or pelvic free fluid. The bladder is unremarkable. The prostate gland is enlarged . Mild presacral edema is unchanged and likely chronic. No dilated loops of bowel to suggest an obstr uction. Moderate to severe thickening of the cecum, ascending colon, and hepatic flexure of the colon with pericolonic fat stranding. This is consistent with a nonspecific colitis. The major mesenteric vessels appear patent. No perforation or abscess identified. Normal appendix. No significant change t he bladder wall thickening and pericholecystic fluid. IMPRESSION: 1. Moderate to severe thickening of the proximal colon consistent with a nonspecific colitis. This fa vors an infectious or inflammatory process. 2. No evidence for bowel obstruction. 3. Cirrhotic liver with severe splenomegaly and upper abdominal/paraesophageal varices again noted. T his is consistent with underlying portal hypertension. 4. The main portal vein and splenic vein appear patent. Small amount of chronic thrombus within the s uperior mesenteric vein, unchanged. 5. Bladder wall thickening/pericholecystic fluid remains unchanged. ACT 112: Negative or not required by law. Electronically signed by: Carlos Su M.D. 06/24/2023 12:44 PM
--- NOTE | 2023-06-24 12:48 | CT Scan Report ---
CT lumbar spine w con HISTORY: 57 years-old Male LBP w/ bilat radiculitis chronic low back pain with lower extremity radic ular symptoms COMPARISON: CT abdomen and pelvis of same day, CT lumbar spine 01/21/2020. TECHNIQUE: Multiple axial CT images of the lumbar spine were obtained with the use of IV contrast. A dose lowering technique was used consistent with the principals of ALARA. FINDINGS: Mild multilevel spondylitic spurring and moderate facet arthrosis. No significant disc space narrowin g, acute fracture or subluxation. Transverse processes are intact. The imaged sacrum and iliac bones are unremarkable. Unchanged chronic wedge deformities. Partially imaged splenomegaly. Inflammatory stranding within the presacral/retroperitoneal tissues. T he central canal and neural foramina will be better evaluated on the same day MRI lumbar spine. There is mild central canal stenosis at L3-L4 and L4-L5 with at least mild bilateral foraminal narrowing. IMPRESSION: 1. No acute fracture, subluxation or endplate erosion identified by CT. 2. Degenerative changes as above with chronic appearing thoracolumbar wedge deformities. 3. Please refer to the CT abdomen and pelvis study of same day for discussion of the splenomegaly and other findings. ACT 112: Negative or not required by law. The above report was generated using voice recognition software. It may contain grammatical, syntax o r spelling errors. Electronically signed by: Carlos Adan M.D. 06/24/2023 12:46 PM
[2023-06-24] MEDS: POTASSIUM CHLORIDE / WTR 10 MEQ/100 ML PLCT IV SCH ×2 (12:56→17:05)
[2023-06-24] MEDS: LORazepam 1 MG/1 ML SYR ED Inj Use IV STA (13:35)
[2023-06-24] MEDS ORDERED: ONDANSETRON INJ 2 MG/ML 2 ML VIAL IV PRN (14:04)
[2023-06-24] MEDS ORDERED: POLYETHYLENE (MIRALAX) 17 GM PACK PO PRN (14:04)
[2023-06-24] MEDS ORDERED: ACETAMINOPHEN 325 MG TAB PO PRN (14:04)
[2023-06-24] MEDS ORDERED: MAGNESIUM HYDROXIDE SUSP 30 ML UDC PO PRN (14:04)
[2023-06-24] MEDS ORDERED: ALUMINUM/MAGNESIUM SUSP 30 ML UDC PO PRN (14:04)
--- NOTE | 2023-06-24 14:19 | History & Physical Report ---
Date of Service June 24, 2023 Assessment & Plan (1) GI bleed: (2) Supratherapeutic INR: (3) Hypokalemia: (4) Non-specific colitis: (5) Cirrhosis: (6) Mesenteric vein thrombosis: (7) HTN (hypertension): Plan Mr. Weinstein is a 57 year old male that presents to the ED today with complains of lower back pain. Two weeks ago his pain started with a 'popping' sound and he took a muscle relaxer with minimal relief; he was seen by Ortho as an outpatient on 06/19 and a lumbar x-ray ordered with results indicating mild lumbar spondylosis. He was prescribed PO steroids and was to begin physical therapy. This morning he was unable to lift either his left or right leg. Historically, he has not been able to lift his left leg, but never had any issues with his right leg. This morning, he saw that had black tarry stool; also noted difficulty with his urine stream. He felt that he was starting to feel that he was 'going to pass out'. He was able to sit and did not fall. When sitting, he was having increased pain in his legs. Unsure when the sharp pain is going to occur.He applies ice and rests as best he can. He also reports diaphoresis one time yesterday. Reports increased urgency with urination over the past week or two in addition to increased loose stools and less control of being able to stop his stool. He does not take any Iron supplements. He has been consistent with his lactulose. At the beginning of the week he did notice some black tarry stools around the same time he started taking the prescribed steroids for his back pain. Incidentally, his blood work indicated a supratherapeutic INR of 3.8 and reported dark tarry stools. FOBT +. 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 Pt denies DOE, dizziness, visual or auditory changes, chest pain, SOB, palpitations, recent falls or trauma. Suspect multifactorial problem list including a GIB; will keep NPO after MN pending possible scope and will place on Protonix and Octreotide gtt. Will check Q6 H/H and transfuse Hgb < 7.0; type/cross ordered. Will provide pain control and ortho spine consult for subacute compression L4 fracture, Will empirically treat non specific colitis with abx and adjust based on stool and CD cultures; trend lactate. Monitor supratherapeuric INR by holding Coumadin tonight. #GIB: Acute FOBT + Abd/pelvis CT: Moderate to severe thickening of the proximal colon consistent with a n onspecific colitis. Infectious vs. inflammatory process. No SBO Cirrhotic liver with severe splenomegaly/upper abdominal/paraesophageal varices again noted. consistent with underlying portal hypertension. Main portal vein and splenic vein appear patent. Small amount of chronic thrombus within the superior mesenteric vein, unchanged. Bladder wall thickening/pericholecystic fluid remains unchanged. Hgb 13.5; will check H/H Q6h x3 Protonix 80 mg given in ED; will start a Protonix gtt with bolus and Octreotide gtt with bolus per GI reccs Type and Cross with blood consent done; transfuse Hgb < 7.0 GI consultation placed given FOBT + and complex GI history GI plan for scope on 06/25 pending INR < 2.0. #Intractable back pain: Acute Saw Ortho as OPT; started on PO steroids OPT lumbar x-ray results show mild arthritic changes Lumbar/spine CT: no fracture; degenerative changes Lumbar MRI: Denies loss of bowel/bladder + straight leg raise on exam pain control; lidocaine patch and Morphine PRN Orthospine consult placed #Non-specific colitis: Acute Abdomen/pelvis CT: Moderate to severe thickening of the proximal colon consistent with a nonspecific colitis. Infectious vs. inflammatory process. No SBO Cirrhotic liver with severe splenomegaly/upper abdominal/paraesophageal varices again noted. consistent with underlying portal hypertension. Main portal vein and splenic vein appear patent. Small amount of chronic thrombus within the superior mesenteric vein, unchanged. Bladder wall thickening/pericholecystic fluid remains unchanged. Empirically treat with Zosyn IV and adjust based on culture results stool culture and CDiff ordered #Supratherapeutic INR: Acute Taking Coumadin for H/O SMV Thrombosis; hold Takes 10 mg daily plus 15 mg Q Saturday last INR check was in May 2023; currently getting it checked Q6 weeks per pt. Recheck INR tonight @ 2100 and in AM Suspect INR increased d/t recent steroids started as OPT; will hold on any Vitamin K dosing unless overt signs of bleeding Plan for scope by GI pending INR < 2.0. If not less than 2.0 on Saturday, will scope on Saturday Hypokalemia: Acute Serum K+ 3.0; replace with K+ riders Repeat BMP at 2099 No ectopy on monitor H/O Esophageal Varicies: GAVE syndrome: Chronic Recent banding by GI 05/14/23 HTN: Chronic Takes Lisinopril; continue GERD: Chronic Takes Protonix; will place on IV Protonix gtt Disposition: PCP: Tim Brown PA-C Code Status: Full Code VTE Prophylaxis: Teds + SCDs for now I spent a total of 87 minutes coordinating, documenting, and providing care for this patient excluding time spent in the performance of separately billed services. All of the aforementioned completed while collaborating with the assigned attending physician for a full treatment plan. Please see their addendum for further details. History of Present Illness Chief Complaint: back pain/GIB Primary Care Provider: Tim Brown DO Mr. Weinstein is a 57 year old male that presents to the ED today with complains of lower back pain. Two weeks ago his pain started with a 'popping' sound and he took a muscle relaxer with minimal relief; he was seen by Ortho as an outpatient on 06/19 and a lumbar x-ray ordered with results indicating mild lumbar spondylosis. He was prescribed PO steroids and was to begin physical therapy. This morning he was unable to lift either his left or right leg. H istorically, he has not been able to lift his left leg, but never had any issues with his right leg. This morning, he saw that had black tarry stool; also noted difficulty with his urine stream. He felt that he was starting to feel that he was 'going to pass out'. He was able to sit and did not fall. When sitting, he was having increased pain in his legs. Unsure when the sharp pain is going to occur.He applies ice and rests as best he can. He also reports diaphoresis one time yesterday. Reports increased urgency with urination over the past week or two in addition to increased loose stools and less control of being able to stop his stool. He does not take any Iron supplements. He has been consistent with his lactulose. At the beginning of the week he did notice some black tarry stools around the same time he started taking the prescribed steroids for his back pain. Incidentally, his blood work indicated a supratherapeutic INR of 3.8 and reported dark tarry stools. FOBT +. 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 Pt denies DOE, dizziness, visual or auditory changes, chest pain, SOB, palpitations, recent falls or trauma. Suspect multifactorial problem list including a GIB; will keep NPO after MN pending possible scope and will place on Protonix and Octreotide gtt. Will check Q6 H/H and transfuse Hgb < 7.0; type/cross ordered. Will provide pain control and ortho spine consult for subacute compression L4 fracture, Will empirically treat non specific colitis with abx and adjust based on stool and CD cultures; trend lactate. Monitor supratherapeuric INR by holding Coumadin tonight. Patient will be admitted for further evaluation and management. Please see A/P for further details. Allergies Allergy/AdvReac Type Severity Reaction Status Date / Time hydrocodone [From Vicodin] Allergy Intermediate Hallucinati Verified 07/07/21 12:52 ng Home Medications Medication Instructions Recorded Confirmed Type loratadine 10 mg tablet (Claritin) 10 mg PO QAM 02/17/19 06/24/23 History pantoprazole 40 mg tablet,delayed 40 mg PO BID 02/17/19 06/24/23 History release (Protonix) tramadol 50 mg tablet 50 - 100 mg PO Q6H PRN Pain 02/17/19 06/24/23 History lactulose 20 gram/30 mL oral 10 ml PO HS 10/23/20 06/24/23 History solution lisinopril 2.5 mg tablet 2.5 mg PO QAM 07/07/21 06/24/23 History ondansetron HCl 4 mg tablet 4 mg PO Q6H PRN Nausea 07/07/21 06/24/23 History propranolol 20 mg tablet 20 mg PO BID 07/07/21 06/24/23 History mirtazapine 7.5 mg tablet 7.5 mg PO HS 06/24/23 06/24/23 History warfarin 5 mg tablet 10 mg DAILY 06/24/23 06/24/23 History Past Med/Surg History Medical History Non-specific colitis Hypokalemia Supratherapeutic INR Gastric varices Portal hypertension Mesenteric vein thrombosis Portal vein thrombosis HTN (hypertension) Anemia Thrombocytopenia Cirrhosis GAVE (gastric antral vascular ectasia) Cirrhosis Hepatic encephalopathy Elevated d-dimer Elevated troponin HTN (hypertension) Cirrhosis Cough Hypertension Hx of urticaria Hx of allergic rhinitis Hx of anxiety disorder Hx of esophageal varices Surgical History Hx of arthroscopy of knee History of esophagogastroduodenoscopy (EGD) H/O colonoscopy Family History Mother Cancer Stomach cancer, 36 Social History Smoking Status: Never smoker Second Hand Exposure: No; Do You Dip or Chew Tobacco: No; Hx Alcohol Use: No Hx Substance Use: No Preferred Language: [place] Islander Communication Ability: Effective Program Development Specialist Required: No Beliefs That Will Affect Care: None marital status: Single Current Living Situation: Family and Significant Other Current Living Situation Comment: [facility] 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 Safe at Home: Yes Childhood Exposure to Second-Hand Smoke: No Assistive Devices: Glasses Review of Systems Review of Systems: Neuro: (-) Falls, trauma, slurred speech HEENT: (-) DOE, dizziness, dysphagia, visual or auditory changes CV: (-) CP, palpitations, swelling Resp: (-) SOB GI: (-) appetite changes, N/V/D, bowel changes : (-) urinary changes (+) tarry stools Skin: (-) rashes Psych: (-) anxiety, depression Physical Exam Physical Exam: Neuro: AAOx4, PERRLA, no aphagia, memory changes, CNII-XII grossly intact HEENT: head normocephalic, moist mucus membranes CV: S1/S2, (-) M/G/R, (-) edema, cap refill < 3 seconds Resp: Lungs CTA in all hoover. On RA GI: Abdomen soft, tender, Ax4 bowel sounds, (-) CVA tenderness Musculoskeletal: 5/5 B/L UE strength, 5/5 B/L LE strength. No gait disturbance Skin: (-) rashes , (-) erythema. Psych: euthymic mood Results & Data Results & Data Vital Signs (Past 12 Hours) Vital Signs Temp Pulse Pulse Resp BP BP Pulse Ox 06/24/23 12:15 130/81 06/24/23 12:15 72 15 97 06/24/23 12:13 74 19 06/24/23 12:13 136/79 06/24/23 11:50 70 14 93 06/24/23 11:40 71 14 93 06/24/23 11:30 71 15 92 06/24/23 11:20 69 13 94 06/24/23 11:13 74 16 129/78 94 06/24/23 11:10 68 19 96 06/24/23 11:00 129/78 06/24/23 11:00 74 13 95 06/24/23 10:50 74 16 06/24/23 10:40 71 18 06/24/23 10:30 73 16 06/24/23 10:24 79 06/24/23 10:20 74 16 06/24/23 10:17 75 16 06/24/23 09:14 36.4 C L 86 20 150/88 H 96 O2 Del Method 06/24/23 12:15 06/24/23 12:15 Room Air 06/24/23 12:13 06/24/23 12:13 06/24/23 11:50 06/24/23 11:40 06/24/23 11:30 06/24/23 11:20 06/24/23 11:13 Room Air 06/24/23 11:10 06/24/23 11:00 06/24/23 11:00 06/24/23 10:50 06/24/23 10:40 06/24/23 10:30 06/24/23 10:24 06/24/23 10:20 06/24/23 10:17 06/24/23 09:14 Room Air Laboratory Results Short CBC 06/24/23 Range/Units 10:14 WBC 8.92 (4.8-10.8) K/ul Hgb 13.5 L (14.0-18.0) g/dl Hct 36.5 L (42.0-52.0) % Plt Count 140 (130-400) K/uL BMP 06/24/23 10:14 Sodium 140 Potassium 3.0 L Chloride 106 Carbon Dioxide 28 BUN 15 Creatinine 1.08 Glucose 98 Calcium 9.2 Liver Function 06/24/23 Range/Units 10:14 Total Bilirubin 1.9 H (0.2-1.0) mg/dl AST 50 H (13-39) U/L ALT 39 (7-52) U/L Alkaline Phosphatase 104 (34-104) U/L Albumin 4.3 (3.4-5.0) gm/dl Diagnostic Findings Abdomen/Pelvis CT 06/24/23 11:[address] WITH IV CONTRAST CT DOSE: HISTORY: Back pain, GI bleed TECHNIQUE: Multiaxial CT images of the abdomen and pelvis were performed following the use of intravenous contrast. A dose lowering technique was utilized adhering to the principles of ALARA. COMPARISON STUDY: Abdomen and pelvis CT 07/13/2021. FINDINGS: Linear densities within the lungs posteriorly favor dependent change/atelectasis. No pneumoperitoneum. No pneumatosis. No acute fractures identified. Nodular contour to the liver consistent with cirrhosis. No hepatic masses. The main portal vein and splenic vein are dilated but appear patent. Small amount of chronic thrombus again noted within the superior mesenteric vein on image 196. Severe splenomegaly measuring up to 22 cm in length. This is slightly increased in size. No perisplenic fluid collections. Gastrohepatic, periportal, peripancreatic lymphadenopathy is again noted. Chronic calcification within the portal and splenic veins again noted. No retroperitoneal lymphadenopathy. The pancreas and adrenal glands are unremarkable. No hydronephrosis. There is a 7 mm stone within the lower pole of the left kidney distal paraesophageal and upper abdominal varicosities again noted. No pelvic lymphadenopathy or pelvic free fluid. The bladder is unremarkable. The prostate gland is enlarged. Mild presacral edema is unchanged and likely chronic. No dilated loops of bowel to suggest an obstruction. Moderate to severe thickening of the cecum, ascending colon, and hepatic flexure of the colon with pericolonic fat stranding. This is consistent with a nonspecific colitis. The major mesenteric vessels appear patent. No perforation or abscess identified. Normal appendix. No significant change the bladder wall thickening and pericholecystic fluid. IMPRESSION: 1. Moderate to severe thickening of the proximal colon consistent with a nonspecific colitis. This favors an infectious or inflammatory process. 2. No evidence for bowel obstruction. 3. Cirrhotic liver with severe splenomegaly and upper abdominal/paraesophageal varices again noted. This is consistent with underlying portal hypertension. 4. The main portal vein and splenic vein appear patent. Small amount of chronic thrombus within the superior mesenteric vein, unchanged. 5. Bladder wall thickening/pericholecystic fluid remains unchanged. ACT 112: Negative or not required by law. Electronically signed by: Carlos Su M.D. 06/24/2023 12:[address] 06/24/23 11:34 CT lumbar spine w con HISTORY: 57 years-old Male LBP w/ bilat radiculitis chronic low back pain with lower extremity radicular symptoms COMPARISON: CT abdomen and pelvis of same day, CT lumbar spine 01/21/2020. TECHNIQUE: Multiple axial CT images of the lumbar spine were obtained with the use of IV contrast. A dose lowering technique was used consistent with the p rincipals of VITO. FINDINGS: Mild multilevel spondylitic spurring and moderate facet arthrosis. No significant disc space narrowing, acute fracture or subluxation. Transverse processes are intact. The imaged sacrum and iliac bones are unremarkable. Unchanged chronic wedge deformities. Partially imaged splenomegaly. Inflammatory stranding within the presacral/retroperitoneal tissues. The central canal and neural foramina will be better evaluated on the same day MRI lumbar spine. There is mild central canal stenosis at L3-L4 and L4-L5 with at least mild bilateral foraminal narrowing. IMPRESSION: 1. No acute fracture, subluxation or endplate erosion identified by CT. 2. Degenerative changes as above with chronic appearing thoracolumbar wedge deformities. 3. Please refer to the CT abdomen and pelvis study of same day for discussion of the splenomegaly and other findings. ACT 112: Negative or not required by law. The above report was generated using voice recognition software. It may contain grammatical, syntax or spelling errors. Electronically signed by: Carlos Adan M.D. 06/24/2023 12:46 PM Code Status & VTE Plan Code Status Full code in the event of cardiac or respiratory arrest VTE Prophylaxis Plan VTE Prophylaxis will be ordered: Yes Supervising Physician Co-Signing Physician Notes Attending addendum: The patient was seen and examined in the emergency room in presence of the He was brought into ER with complaints of ongoing low back pain with radiation to the legs Noted to have black stool as well He does not have any bladder and/or bowel problem Has had numbness or tingling in the extremities which seems to be improving but the pain and weakness persist Denies any chest pain, shortness of breath or palpitation On examination Lying in bed without any acute distress but looks to very anxious Hemodynamically stable and is afebrile Chest-clear to auscultate bilaterally Heart-S1-S2, regular Abdomen-benign Extremities-negative for any edema 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 Bilateral lower legs weakness and straight leg raising is positive on either side with the pain is starting at the back and going down to the legs below the knee. His admission labs, medications ,EKG and imaging studies reviewed Noted to have heme positive stool with stable hemoglobin L4 compression fracture on MRI with radiculopathy without any bladder and or bowel problem Supratherapeutic INR GI and orthospine will be consulted Agree with assessment and plan as outlined above by Babita Pérez
[2023-06-24] MEDS ORDERED: PANTOprazole 80 MG in DEXTROSE 5% 100 ML IV ONE (14:34)
[2023-06-24] MEDS ORDERED: PANTOPRAZOLE BOLUS/DRIP IV STA (14:34)
--- NOTE | 2023-06-24 14:50 | Gastrointestinal Consultation ---
Date of Consultation June 24, 2023 Assessment & Plan (1) Supratherapeutic INR: 57 year old male with history of cirrhosis, esophageal banded 05/14/23, GAVE, SMV and splenic vein thrombosis (on Coumadin), HTN, HLD, anxiety presenting with back pain, noted to have hemepositive dark stools. I was not able to discuss with patient as he was out of room despite attempt x 2 NPO after midnight Trend H&H Monitor and document GI output Recommend to hold coumadin Trend INR Tentative EGD 06/25 pending INR, goal for < 2 IV PPI bolus and drip IV Octreotide bolus and drip We appreciate assistance in the management of any serological abnormality and corrections to include: hemoglobin >7, INR <2, platelets >50,000, potassium levels >3.5 but <5.3, and sodium levels within 5 points of the reference range prior to endoscopic evaluation. Thank you for allowing us to participate in the care of this patient. Please call with any acute changes, questions or concerns. Please see addendum below with additional recommendation from my supervising physician. Supervising Physician Co-Signing Physician Notes I personally saw and evaluated the patient on 06/24/2023 with DAVID Cooper and agree with her findings and plan of care. Patient AAOx3, no asterixis, abdomen soft and non-tender, no ascites, sclera anicteric. 57 y/o M with history of decompensated cirrhosis c/b SMV and splenic vein thrombosis on coumadin, HE on lactulose, and bleeding EV last banded 05/14. Patient admitted with back pain that he was recently started on prednisone for a few days ago. He also reports that he has had a 1 day history of black stools (2 episodes). No hematochezia or hematemesis. INR was 3.8 on admission. Last EGD 05/14/23 with grade II EV banded x2 and non-bleeding GAVE. His hgb here is stable at 13.5 (baseline). BUN 15 with Cr of 1. Platelets 140. We will plan for EGD tomorrow as long as INR <2. If above 2 we will plan for Saturday. NPO at midnight. IV PPI gtt and IV octreotide gtt. As he has no ascites no need for IV ceftriaxone. Continue to trend H/H. He was due now for repeat assessment of his varices so we can band if needed and if he has bleeding GAVE that would need treated as well. Meg Velez, Gastroenterology and Hepatology History of Present Illness Reason for Consultation: + FOBT Requesting Physician: Shavon Attending Physician: Shavon History of Present Illness 57 year old male with history of cirrhosis, esophageal banded 05/14/23, GAVE, SMV and splenic vein thrombosis (on Coumadin), HTN, HLD, anxiety admitted through the ED with back pain. GI was asked to evaluate for FOBT+. I attempted to see patient 2 but he was not in his room. HGB 13 BUN 15 INR 3.8 Stool occult + per consultation CTAP 2023: 1. Moderate to severe thickening of the proximal colon consistent with a nonspecific colitis. This favors an infectious or inflammatory process. 2. No evidence for bowel obstruction. 3. Cirrhotic liver with severe splenomegaly and upper abdominal/paraesophageal varices again noted. This is consistent with underlying portal hypertension. 4. The main portal vein and splenic vein appear patent. Small amount of chronic thrombus within the superior mesenteric vein, unchanged. 5. Bladder wall thickening/pericholecystic fluid remains unchanged. Allergies Allergy/AdvReac Type Severity Reaction Status Date / Time hydrocodone [From Vicodin] Allergy Intermediate Hallucinati Verified 07/07/21 12:52 ng Home Medications Medication Instructions Recorded Confirmed Type loratadine 10 mg tablet (Claritin) 10 mg PO QAM 02/17/19 07/07/21 History pantoprazole 40 mg tablet,delayed 40 mg PO BID 02/17/19 07/07/21 History release (Protonix) tramadol 50 mg tablet 50 - 100 mg PO Q6H PRN Pain 02/17/19 07/07/21 History lactulose 20 gram/30 mL oral 15 ml PO HS 10/23/20 07/07/21 History solution lisinopril 2.5 mg tablet 2.5 mg PO QAM 07/07/21 07/07/21 History ondansetron HCl 4 mg tablet 4 mg PO Q6H PRN Nausea 07/07/21 07/07/21 History propranolol 20 mg tablet 20 mg PO BID 07/07/21 07/07/21 History mirtazapine 7.5 mg tablet mg 06/24/23 History mirtazapine 7.5 mg tablet mg 06/24/23 History warfarin 5 mg tablet mg 06/24/23 06/24/23 History Patient History Medical History Non-specific colitis Hypokalemia Supratherapeutic INR Gastric varices Portal hypertension Mesenteric vein thrombosis Portal vein thrombosis HTN (hypertension) Anemia Thrombocytopenia Cirrhosis GAVE (gastric antral vascular ectasia) Cirrhosis Hepatic encephalopathy Elevated d-dimer Elevated troponin HTN (hypertension) Cirrhosis Cough Hypertension Hx of urticaria Hx of allergic rhinitis Hx of anxiety disorder Hx of esophageal varices Surgical History Hx of arthroscopy of knee History of esophagogastroduodenoscopy (EGD) H/O colonoscopy Family History Mother Cancer Stomach cancer, 36 Social History Smoking Status: Never smoker Second Hand Exposure: No; Do You Dip or Chew Tobacco: No; Hx Alcohol Use: No Hx Substance Use: No Preferred Language: Latvian Communication Ability: Effective Reimbursement Director Required: No Beliefs That Will Affect Care: None marital status: Single Current Living Situation: Family and Significant Other Current Living Situation Comment: [facility] [employer] 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 Safe at Home: Yes Childhood Exposure to Second-Hand Smoke: No Assistive Devices: Glasses Review of Systems Review of Systems: Pt out of room, now ROS Physical Exam Physical Exam: Pt out of room, no PE Results & Data Vital Signs (Past 12 Hours) Vital Signs Temp Pulse Pulse Resp BP BP Pulse Ox 06/24/23 12:15 130/81 06/24/23 12:15 72 15 97 06/24/23 12:13 74 19 06/24/23 12:13 136/79 06/24/23 11:50 70 14 93 06/24/23 11:40 71 14 93 06/24/23 11:30 71 15 92 06/24/23 11:20 69 13 94 06/24/23 11:13 74 16 129/78 94 06/24/23 11:10 68 19 96 06/24/23 11:00 129/78 06/24/23 11:00 74 13 95 06/24/23 10:50 74 16 06/24/23 10:40 71 18 06/24/23 10:30 73 16 06/24/23 10:24 79 06/24/23 10:20 74 16 06/24/23 10:17 75 16 06/24/23 09:14 36.4 C L 86 20 150/88 H 96 O2 Del Method 06/24/23 12:15 06/24/23 12:15 Room Air 06/24/23 12:13 06/24/23 12:13 06/24/23 11:50 06/24/23 11:40 06/24/23 11:30 06/24/23 11:20 06/24/23 11:13 Room Air 06/24/23 11:10 06/24/23 11:00 06/24/23 11:00 06/24/23 10:50 06/24/23 10:40 06/24/23 10:30 06/24/23 10:24 06/24/23 10:20 06/24/23 10:17 06/24/23 09:14 Room Air Laboratory Results 06/24/23 Range/Units 10:14 WBC 8.92 (4.8-10.8) K/ul RBC 3.99 L (4.70-6.10) M/uL Hgb 13.5 L (14.0-18.0) g/dl Hct 36.5 L (42.0-52.0) % MCV 91.5 (80.0-100.0) fL MCH 33.8 (25.0-34.0) pg MCHC 37.0 H (32.0-36.0) g/dL RDW Std Deviation 47.8 H (36.4-46.3) fL RDW Coeff of Wenceslao 14.5 (11.5-14.5) % Plt Count 140 (130-400) K/uL MPV 9.2 L (9.4-12.4) fL Immature Gran % (Auto) 0.3 % Neut % (Auto) 72.1 % Lymph % (Auto) 14.7 % [place] % (Auto) 8.3 % Eos % (Auto) 3.8 % Baso % (Auto) 0.8 % Neut # (Auto) 6.43 (1.40-6.50) K/uL Lymph # (Auto) 1.31 (1.20-3.40) K/uL [place] # (Auto) 0.74 H (0.11-0.59) K/uL Eos # (Auto) 0.34 (0.00-0.50) K/uL Baso # (Auto) 0.07 (0.00-0.20) K/uL Immature Gran # (Auto) 0.03 (0.01-0.20) K/uL PT 37.9 H (9.0-12.0) Seconds INR 3.8 H (0.9-1.1) APTT 37 H (21-31) Seconds PTT Ratio 1.3 Sodium 140 (136-145) mmol/L Potassium 3.0 L (3.5-5.1) mmol/L Chloride 106 (98-107) mmol/L Carbon Dioxide 28 (21-32) mmol/L Anion Gap 6 (3-11) BUN 15 (6-23) mg/dl Creatinine 1.08 (0.6-1.4) mg/dl Est Cr Clr Drug Dosing Not Reportable Est GFR ( Amer) 86.6 ml/min Est GFR (Non-Af Amer) 74.7 ml/min BUN/Creatinine Ratio 13.9 (10-20) Glucose 98 (70-99(Fasting)) mg/dl Calcium 9.2 (8.6-10.3) mg/dl Magnesium Pending Total Bilirubin 1.9 H (0.2-1.0) mg/dl AST 50 H (13-39) U/L ALT 39 (7-52) U/L Alkaline Phosphatase 104 (34-104) U/L Total Protein 6.5 (6.0-8.3) gm/dl Albumin 4.3 (3.4-5.0) gm/dl Globulin 2.2 L (2.5-4.0) gm/dl Albumin/Globulin Ratio 2.0 (0.9-2) Lipase 33 (11-82) U/L
[2023-06-24 14:58] LABS: Magnesium 2.1 mg/dl (1.7-2.4)
[2023-06-24] MEDS ORDERED: STAT IV/IM STA (15:09)
[2023-06-24] MEDS: PANTOprazole 80 MG in DEXTROSE 5% 100 ML IV STA (15:10)
--- NOTE | 2023-06-24 15:13 | Magnetic Resonance Report ---
LUMBAR SPINE MRI HISTORY: Low back pain w/ bilat radiculitis TECHNIQUE: Multiplanar multisequence MRI of the lumbar spine was performed without the use of contras t. COMPARISON: Lumbar spine CT 06/24/2023. FINDINGS: For the purpose of the report the L5-S1 disc space will be located on axial image 32 of 36. There is a mild superior endplate compression fracture at L4. This appears to be acute to subacute. T here is minimal paravertebral edema. This demonstrates less than 10% loss of height centrally. No ass ociated retropulsion. No additional fractures within the lumbar spine. The visualized sacrum is intac t. Disc spaces are reserved. The conus terminates at the L1 level. Mild facet degenerative changes wi thin the lumbar spine. No suspicious osseous lesions. L1-L2: Small broad-based posterior disc bulge resulting in mild central canal and mild bilateral neur al foraminal narrowing. L2-L3: Broad-based posterior disc bulge with ligamentum and facet hypertrophy resulting in mild centr al canal and mild bilateral neural foraminal narrowing. L3-L4: Broad-based posterior disc bulge resulting in mild central canal and mild bilateral neural for aminal narrowing. L4-L5: Broad-based posterior disc bulge with mild ligamentum flavum and facet hypertrophy resulting i n mild central canal and mild bilateral neural foraminal narrowing. L5-S1: No significant central canal or neural foraminal narrowing. IMPRESSION: 1. A mild acute to subacute superior endplate compression fracture at L4. No associated retropulsion. 2. Mild degenerative changes within the lumbar spine as described above. ACT 112: Negative or not required by law. Electronically signed by: Carlos Su M.D. 06/24/2023 3:11 PM
[2023-06-24 16:18] LABS: Hematocrit (blood only) 32.6 % (42.0-52.0); Hemoglobin 11.6 g/dl (14.0-18.0)
[2023-06-24] MEDS: PIPER/TAZO 4.5g in D5W MINI-B 100 ML IV ONE (16:20)
[2023-06-24] MEDS: OCTREOTIDE ACETATE 500 MCG in 0.9 % SODIUM CHLORIDE 100 ML IV SCH (16:20)
[2023-06-24] MEDS: PANTOprazole 40 MG in DEXTROSE 5% MINI-B 100 ML IV SCH (16:21)
[2023-06-24] MEDS: OCTREOTIDE BOLUS FROM BAG IV ONE (16:21)
[2023-06-24] MEDS: LIDOCAINE 5% 1 PATCH TD ONE (17:16)
[2023-06-24] MEDS ORDERED: SODIUM CHLORIDE 0.9% 250 ML IV PRN (18:00)
[2023-06-24] MEDS: MoRPHine SULFATE 2 MG/ML CARP IV PRN (19:47)
[2023-06-24] MEDS: MIRTAZAPINE TAB 15 MG TAB PO SCH (20:23)
[2023-06-24] MEDS: PIPERACILLIN/TAZOBACTAM 4.5 GM in DEXTROSE 5% MINI-B 100 ML IV SCH (20:23)
[2023-06-24] MEDS: LACTULOSE SYRUP 10 GM/15 ML BTL 960 ML PO SCH (20:24)
[2023-06-24 21:58] LABS: Hematocrit (blood only) 32.6 % (42.0-52.0); Hemoglobin 11.8 g/dl (14.0-18.0)
[2023-06-24 22:16] LABS: BUN Creatinine Ratio 11.1 (10-20); Calcium 8.6 mg/dl (8.6-10.3); Creatinine Clr Calc Pharmacy 94.8 ml/min; Est GFR (African American) 78.6 ml/min; Est GFR (Non-African American) 67.8 ml/min; Potassium 3.6 mmol/L (3.5-5.1)
[2023-06-25 02:21] LABS: Hematocrit (blood only) 31.6 % (42.0-52.0); Hemoglobin 11.3 g/dl (14.0-18.0); Mean Corpuscular Hemoglobin 33.3 pg (25.0-34.0); Mean Corpuscular Hgb Conc 35.8 g/dL (32.0-36.0); Mean Corpuscular Volume 93.2 fL (80.0-100.0); Mean Platelet Volume 9.4 fL (9.4-12.4); Platelet Count 103 K/uL (130-400); RDW Coefficient of Variation 14.5 % (11.5-14.5); RDW Standard Deviation 49.4 fL (36.4-46.3); Red Blood Count 3.39 M/uL (4.70-6.10); White Blood Count 4.95 K/ul (4.8-10.8)
[2023-06-25 02:36] LABS: Albumin Globulin Ratio 1.9 (0.9-2); Albumin Level 3.5 gm/dl (3.4-5.0); BUN Creatinine Ratio 12.2 (10-20); Bilirubin,Total 2.3 mg/dl (0.2-1.0); Calcium 8.3 mg/dl (8.6-10.3); Creatinine Clr Calc Pharmacy 96.5 ml/min; Est GFR (African American) 80.3 ml/min; Est GFR (Non-African American) 69.3 ml/min; Globulin 1.8 gm/dl (2.5-4.0); Phosphorus 3.2 mg/dl (2.5-4.9); Potassium 3.6 mmol/L (3.5-5.1); Total Protein 5.3 gm/dl (6.0-8.3)
[2023-06-25] MEDS: HYDROCORTISONE ACETATE 25 MG SUPP PR SCH (05:10)
[2023-06-25] MEDS: lisinopril 2.5 MG TAB PO SCH (08:33)
[2023-06-25 08:51] LABS: INR 3.8 (0.9-1.1); Prothrombin Time 37.9 Seconds (9.0-12.0)
[2023-06-25] MEDS: LIDOCAINE 5% 1 PATCH TD SCH (09:29)
--- NOTE | 2023-06-25 09:29 | Gastroenterology Progress Note ---
Date of Service June 25, 2023 Assessment & Plan (1) Supratherapeutic INR: Plan: 57 year old male with history of cirrhosis, esophageal banded 05/14/23, GAVE, SMV and splenic vein thrombosis (on Coumadin), HTN, HLD, anxiety presenting with back pain, noted to have hemepositive dark stools. On arrival, his INR was supratherapeutic. INR was held but he was not reversed. INR this am remains 3.8. He has remained hemodynamically stable, stable HGB without BUN elevation. No further BMs, no report of hematemesis or coffee ground emesis. Will discuss with attending, however, given elevated INR, anticipate cancelling EGD today. Trend H&H Monitor and document GI output PO PPI BID May stop Octreotide Keep OP EGD as planned Thank you for allowing us to participate in the care of this patient. Please call with any acute changes, questions or concerns. Please see addendum below with additional recommendation from my supervising physician. Admission and Anticipated Discharge Date Admission Date: June 24, 2023 Supervising Physician Co-Signing Physician Notes I saw and evaluated the patient, we were consulted for question of melena as an outpatient. The patient was admitted for back discomfort and has had a stable hemoglobin and hematocrit over night but no report of dark sticky stool, coffee-ground emesis, hematemesis or hematochezia. Of note the patient is on anticoagulation as an outpatient for treatment of the portal vein thrombosis. Recommendations Advance diet as tolerated as there does not appear to be evidence of an active gastrointestinal bleeding I suspect the dark stool is related to oozing as result of over anticoagulation Begin use of Carafate 1 g 4 times daily Avoid use of nonsteroidals Please call with any additional questions or concerns Subjective Pt was seen and evaluated, chart reviewed. Was NPO for EGD today pending INR. INR returned unchanged at 3.8. No overt signs of GI bleeding. HGB last evening 11.8 and this AM 11.3 Normal BUN Review of Systems Review of Systems: All systems reviewed & are unremarkable except as noted in HPI & below Physical Exam Constitutional: WD/WN, vitals as above Respiratory: normal respiratory effort, lungs clear to auscultation Cardiovascular: Rate/Rhythm: regular rate Gastrointestinal (Abdomen): normal bowel sounds, soft, nontender, no hepatosplenomegaly Skin: no rashes, warm and dry Results & Data Vital Signs (Past 12 Hours) Vital Signs Temp Pulse Pulse Resp BP Pulse Ox O2 Del Method 06/25/23 08:09 36.8 C 67 18 127/73 92 Room Air 06/25/23 03:27 36.7 C 65 16 114/73 92 Room Air 06/24/23 23:36 36.8 C 69 16 121/74 93 Room Air 06/24/23 22:00 70 Laboratory Results 06/25/23 06/25/23 06/25/23 Range/Units 08:42 08:11 01:59 WBC 4.95 (4.8-10.8) K/ul RBC 3.39 L (4.70-6.10) M/uL Hgb 11.3 L (14.0-18.0) g/dl Hct 31.6 L (42.0-52.0) % MCV 93.2 (80.0-100.0) fL MCH 33.3 (25.0-34.0) pg MCHC 35.8 (32.0-36.0) g/dL RDW Std Deviation 49.4 H (36.4-46.3) fL RDW Coeff of Wenceslao 14.5 (11.5-14.5) % Plt Count 103 L (130-400) K/uL MPV 9.4 (9.4-12.4) fL Immature Gran % (Auto) % Neut % (Auto) % Lymph % (Auto) % [place] % (Auto) % Eos % (Auto) % Baso % (Auto) % Neut # (Auto) (1.40-6.50) K/uL Lymph # (Auto) (1.20-3.40) K/uL [place] # (Auto) (0.11-0.59) K/uL Eos # (Auto) (0.00-0.50) K/uL Baso # (Auto) (0.00-0.20) K/uL Immature Gran # (Auto) (0.01-0.20) K/uL PT 37.9 H (9.0-12.0) Seconds INR 3.8 H (0.9-1.1) APTT (21-31) Seconds PTT Ratio Sodium 137 (136-145) mmol/L Potassium 3.6 (3.5-5.1) mmol/L Chloride 108 H (98-107) mmol/L Carbon Dioxide 24 (21-32) mmol/L Anion Gap 5 (3-11) BUN 14 (6-23) mg/dl Creatinine 1.15 (0.6-1.4) mg/dl Est Cr Clr Drug Dosing 96.5 Est GFR ( Amer) 80.3 ml/min Est GFR (Non-Af Amer) 69.3 ml/min BUN/Creatinine Ratio 12.2 (10-20) Glucose 114 H (70-99(Fasting)) mg/dl Calcium 8.3 L (8.6-10.3) mg/dl Phosphorus 3.2 (2.5-4.9) mg/dl Magnesium (1.7-2.4) mg/dl Total Bilirubin 2.3 H (0.2-1.0) mg/dl AST 37 (13-39) U/L ALT 30 (7-52) U/L Alkaline Phosphatase 84 (34-104) U/L Total Protein 5.3 L (6.0-8.3) gm/dl Albumin 3.5 (3.4-5.0) gm/dl Globulin 1.8 L (2.5-4.0) gm/dl Albumin/Globulin Ratio 1.9 (0.9-2) Lipase (11-82) U/L Hepatitis C Ab (EIA) Pending Blood Type O Positive Antibody Screen POSITIVE A Antibody Identification Pending Antibody ID Referred Pending Antibody ID Comment Pending Crossmatch See Detail 06/24/23 06/24/23 06/24/23 Range/Units 21:44 18:30 16:07 WBC (4.8-10.8) K/ul RBC (4.70-6.10) M/uL Hgb 11.8 L 11.6 L (14.0-18.0) g/dl Hct 32.6 L 32.6 L (42.0-52.0) % MCV (80.0-100.0) fL MCH (25.0-34.0) pg MCHC (32.0-36.0) g/dL RDW Std Deviation (36.4-46.3) fL RDW Coeff of Wenceslao (11.5-14.5) % Plt Count (130-400) K/uL MPV (9.4-12.4) fL Immature Gran % (Auto) % Neut % (Auto) % Lymph % (Auto) % [place] % (Auto) % Eos % (Auto) % Baso % (Auto) % Neut # (Auto) (1.40-6.50) K/uL Lymph # (Auto) (1.20-3.40) K/uL [place] # (Auto) (0.11-0.59) K/uL Eos # (Auto) (0.00-0.50) K/uL Baso # (Auto) (0.00-0.20) K/uL Immature Gran # (Auto) (0.01-0.20) K/uL PT (9.0-12.0) Seconds INR (0.9-1.1) APTT (21-31) Seconds PTT Ratio Sodium 139 (136-145) mmol/L Potassium 3.6 (3.5-5.1) mmol/L Chloride 108 H (98-107) mmol/L Carbon Dioxide 27 (21-32) mmol/L Anion Gap 4 (3-11) BUN 13 (6-23) mg/dl Creatinine 1.17 (0.6-1.4) mg/dl Est Cr Clr Drug Dosing 94.8 Est GFR ( Amer) 78.6 ml/min Est GFR (Non-Af Amer) 67.8 ml/min BUN/Creatinine Ratio 11.1 (10-20) Glucose 158 H (70-99(Fasting)) mg/dl Calcium 8.6 (8.6-10.3) mg/dl Phosphorus (2.5-4.9) mg/dl Magnesium (1.7-2.4) mg/dl Total Bilirubin (0.2-1.0) mg/dl AST (13-39) U/L ALT (7-52) U/L Alkaline Phosphatase (34-104) U/L Total Protein (6.0-8.3) gm/dl Albumin (3.4-5.0) gm/dl Globulin (2.5-4.0) gm/dl Albumin/Globulin Ratio (0.9-2) Lipase (11-82) U/L Hepatitis C Ab (EIA) Blood Type Cancelled Antibody Screen Cancelled Antibody Identification Antibody ID Referred Antibody ID Comment Crossmatch See Detail 06/24/23 Range/Units 10:14 WBC 8.92 (4.8-10.8) K/ul RBC 3.99 L (4.70-6.10) M/uL Hgb 13.5 L (14.0-18.0) g/dl Hct 36.5 L (42.0-52.0) % MCV 91.5 (80.0-100.0) fL MCH 33.8 (25.0-34.0) pg MCHC 37.0 H (32.0-36.0) g/dL RDW Std Deviation 47.8 H (36.4-46.3) fL RDW Coeff of Wenceslao 14.5 (11.5-14.5) % Plt Count 140 (130-400) K/uL MPV 9.2 L (9.4-12.4) fL Immature Gran % (Auto) 0.3 % Neut % (Auto) 72.1 % Lymph % (Auto) 14.7 % [place] % (Auto) 8.3 % Eos % (Auto) 3.8 % Baso % (Auto) 0.8 % Neut # (Auto) 6.43 (1.40-6.50) K/uL Lymph # (Auto) 1.31 (1.20-3.40) K/uL [place] # (Auto) 0.74 H (0.11-0.59) K/uL Eos # (Auto) 0.34 (0.00-0.50) K/uL Baso # (Auto) 0.07 (0.00-0.20) K/uL Immature Gran # (Auto) 0.03 (0.01-0.20) K/uL PT 37.9 H (9.0-12.0) Seconds INR 3.8 H (0.9-1.1) APTT 37 H (21-31) Seconds PTT Ratio 1.3 Sodium 140 (136-145) mmol/L Potassium 3.0 L (3.5-5.1) mmol/L Chloride 106 (98-107) mmol/L Carbon Dioxide 28 (21-32) mmol/L Anion Gap 6 (3-11) BUN 15 (6-23) mg/dl Creatinine 1.08 (0.6-1.4) mg/dl Est Cr Clr Drug Dosing Not Reportable Est GFR ( Amer) 86.6 ml/min Est GFR (Non-Af Amer) 74.7 ml/min BUN/Creatinine Ratio 13.9 (10-20) Glucose 98 (70-99(Fasting)) mg/dl Calcium 9.2 (8.6-10.3) mg/dl Phosphorus (2.5-4.9) mg/dl Magnesium 2.1 (1.7-2.4) mg/dl Total Bilirubin 1.9 H (0.2-1.0) mg/dl AST 50 H (13-39) U/L ALT 39 (7-52) U/L Alkaline Phosphatase 104 (34-104) U/L Total Protein 6.5 (6.0-8.3) gm/dl Albumin 4.3 (3.4-5.0) gm/dl Globulin 2.2 L (2.5-4.0) gm/dl Albumin/Globulin Ratio 2.0 (0.9-2) Lipase 33 (11-82) U/L Hepatitis C Ab (EIA) Blood Type Antibody Screen Antibody Identification Antibody ID Referred Antibody ID Comment Crossmatch
--- NOTE | 2023-06-25 10:12 | Consultation ---
Date of Consultation June 25, 2023 Assessment & Plan (1) Closed compression fracture of L4 vertebra: Holli has an acute to subacute L4 compression fracture. Dr. Melton has reviewed imaging and treatment plan. Treatment is conservative. I will order an LSO brace to be worn when standing and walking. May remove when lying in bed and in a seated position. No lifting over 5 pounds. Ambulate ad sven. He is orthopedically stable. Recommend follow-up in our office in 2 weeks. Will sign off. History of Present Illness Attending Physician: Hubert Quijano MD History of Present Illness Holli Is a pleasant 57-year-old gentleman who a few weeks ago was bowling and felt an acute onset of lower back pain. It progressively worsened over the next several days. He was trying to self treat at home with some Flexeril and tramadol. He followed up with [facility] orthopedics last week (06/19)where he states x-rays were performed. Pain became so severe that he presented to the emergency room yesterday. He states he was unable to lift his legs to move out of bed because of the back pain, therefore presented to the ER. He denies any radicular pain. Pain is reproduced with walking and in a seated position. He is most comfortable standing still. He has been ambulating independently at home. He notes some occasional urinary retention last week. Denies perineum numbness. He is also been having black tarry stools and is scheduled for EGD today.He has had supratherapeutic INR upon presentation to the ER. He is on Coumadin due to a splenic thrombosis. Allergies Allergy/AdvReac Type Severity Reaction Status Date / Time hydrocodone [From Vicodin] Allergy Intermediate Hallucinati Verified 07/07/21 12:52 ng Home Medications Medication Instructions Recorded Confirmed Type loratadine 10 mg tablet (Claritin) 10 mg PO QAM 02/17/19 06/24/23 History pantoprazole 40 mg tablet,delayed 40 mg PO BID 02/17/19 06/24/23 History release (Protonix) tramadol 50 mg tablet 50 - 100 mg PO Q6H PRN Pain 02/17/19 06/24/23 History lactulose 20 gram/30 mL oral 10 ml PO HS 10/23/20 06/24/23 History solution lisinopril 2.5 mg tablet 2.5 mg PO QAM 07/07/21 06/24/23 History ondansetron HCl 4 mg tablet 4 mg PO Q6H PRN Nausea 07/07/21 06/24/23 History propranolol 20 mg tablet 20 mg PO BID 07/07/21 06/24/23 History mirtazapine 7.5 mg tablet 7.5 mg PO HS 06/24/23 06/24/23 History warfarin 5 mg tablet 10 mg DAILY 06/24/23 06/24/23 History Patient History Medical History Non-specific colitis Hypokalemia Supratherapeutic INR Gastric varices Portal hypertension Mesenteric vein thrombosis Portal vein thrombosis HTN (hypertension) Anemia Thrombocytopenia Cirrhosis GAVE (gastric antral vascular ectasia) Cirrhosis Hepatic encephalopathy Elevated d-dimer Elevated troponin HTN (hypertension) Cirrhosis Cough Hypertension Hx of urticaria Hx of allergic rhinitis Hx of anxiety disorder Hx of esophageal varices Surgical History Hx of arthroscopy of knee History of esophagogastroduodenoscopy (EGD) H/O colonoscopy Family History Mother Cancer Stomach cancer, 36 Social History Smoking Status: Never smoker Second Hand Exposure: No; Do You Dip or Chew Tobacco: No; Hx Alcohol Use: No Hx Substance Use: No Preferred Language: Polish Communication Ability: Effective 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 He is a lidocaine patch over the left flank. Alert and oriented x 3 No acute distress He is able to roll over in bed unassisted with only in mild distress Strength is 5/5 bilateral EHL, dorsiflexion, plantarflexion, quadriceps, hamstrings, hip flexors, hip abductor's and hip adductor's. Results & Data Vital Signs (Past 12 Hours) Vital Signs Temp Pulse Resp BP Pulse Ox O2 Del Method 06/25/23 08:09 36.8 C 67 18 127/73 92 Room Air 06/25/23 03:27 36.7 C 65 16 114/73 92 Room Air 06/24/23 23:36 36.8 C 69 16 121/74 93 Room Air Diagnostic Findings [place], [place] [phone] Magnetic Resonance Report Patient: HOLLI PENA Admit Date: 06/24/23 MR#: [id number] Address1: [address] Acct ID:[id number] Address2: [address] Date: 1965 [facility] Zip: [place] [address] Age: 57 Location: ED Sex: M Room/Bed: Att Phy: Diagnosis: LOWER BACK PAIN Ara Phy: Tim Brown DO Service Date: 06/24/23 Fam Phy: Interpreting Phy: Carlos Su MDAdmit Phy: Ordering Phy: Adriel Freed PA cc: ~ LUMBAR SPINE MRI HISTORY: Low back pain w/ bilat radiculitis TECHNIQUE: Multiplanar multisequence MRI of the lumbar spine was performed without the use of contrast. COMPARISON: Lumbar spine CT 06/24/2023. FINDINGS: For the purpose of the report the L5-S1 disc space will be located on axial image 32 of 36. There is a mild superior endplate compression fracture at L4. This appears to be acute to subacute. There is minimal paravertebral edema. This demonstrates less than 10% loss of height centrally. No associated retropulsion. No additional fractures within the lumbar spine. The visualized sacrum is intact. Disc spaces are reserved. The conus terminates at the L1 level. Mild facet degenerative changes within the lumbar spine. No suspicious osseous lesions. L1-L2: Small broad-based posterior disc bulge resulting in mild central canal and mild bilateral neural foraminal narrowing. L2-L3: Broad-based posterior disc bulge with ligamentum and facet hypertrophy resulting in mild central canal and mild bilateral neural foraminal narrowing. L3-L4: Broad-based posterior disc bulge resulting in mild central canal and mild bilateral neural foraminal narrowing. L4-L5: Broad-based posterior disc bulge with mild ligamentum flavum and facet hypertrophy resulting in mild central canal and mild bilateral neural foraminal narrowing. L5-S1: No significant central canal or neural foraminal narrowing. IMPRESSION: 1. A mild acute to subacute superior endplate compression fracture at L4. No associated retropulsion. 2. Mild degenerative changes within the lumbar spine as described above. ACT 112: Negative or not required by law. Electronically signed by: Carlos Su M.D. 06/24/2023 3:11 PM Dictated: 06/24/23 1505 Transcribed: 06/24/23 1505 (1) Closed compression fracture of L4 vertebra Encounter type: initial encounter Qualified Code(s): S32.040A - Wedge compression fracture of fourth lumbar vertebra, initial encounter for closed fracture
[2023-06-25] MEDS: PHYTONADIONE 5 MG TAB PO STA (10:31)
--- NOTE | 2023-06-25 10:36 | Hospitalist Progress Note ---
Date of Service June 25, 2023 Assessment & Plan (1) GI bleed: (2) Supratherapeutic INR: (3) Hypokalemia: (4) Non-specific colitis: (5) Cirrhosis: (6) Mesenteric vein thrombosis: (7) HTN (hypertension): Plan Mr. Weinstein is a 57 year old male that presents to the ED today with complains of lower back pain. Two weeks ago his pain started with a 'popping' sound and he took a muscle relaxer with minimal relief; he was seen by Ortho as an outpatient on 06/19 and a lumbar x-ray ordered with results indicating mild lumbar spondylosis. He was prescribed PO steroids and was to begin physical therapy. This morning he was unable to lift either his left or right leg. Historically, he has not been able to lift his left leg, but never had any issues with his right leg. This morning, he saw that had black tarry stool; also noted difficulty with his urine stream. He felt that he was starting to feel that he was 'going to pass out'. He was able to sit and did not fall. When sitting, he was having increased pain in his legs. Unsure when the sharp pain is going to occur.He applies ice and rests as best he can. He also reports diaphoresis one time yesterday. Reports increased urgency with urination over the past week or two in addition to increased loose stools and less control of being able to stop his stool. He does not take any Iron supplements. He has been consistent with his lactulose. At the beginning of the week he did notice some black tarry stools around the same time he started taking the prescribed steroids for his back pain. Incidentally, his blood work indicated a supratherapeutic INR of 3.8 and reported dark tarry stools. FOBT +. 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 Pt denies DOE, dizziness, visual or auditory changes, chest pain, SOB, palpitations, recent falls or trauma. Suspect multifactorial problem list including a GIB; will keep NPO after MN pending possible scope and will place on Protonix and Octreotide gtt. Will check Q6 H/H and transfuse Hgb < 7.0; type/cross ordered. Will provide pain control and ortho spine consult for subacute compression L4 fracture, Will empirically treat non specific colitis with abx and adjust based on stool and CD cultures; trend lactate. Monitor supratherapeuric INR by holding Coumadin tonight. GIB: FOBT + Abd/pelvis CT: Moderate to severe thickening of the proximal colon consistent with a nonspe cific colitis. Infectious vs. inflammatory process. No SBO Cirrhotic liver with severe splenomegaly/upper abdominal/paraesophageal varices again noted. consistent with underlying portal hypertension. Main portal vein and splenic vein appear patent. Small amount of chronic thrombus within the superior mesenteric vein, unchanged. Bladder wall thickening/pericholecystic fluid remains unchanged. Hgb 13.5; monitor H/H Protonix 80 mg given in ED; cont. w/Protonix gtt with bolus and Octreotide gtt with bolus per GI reccs Type and Cross with blood consent done; transfuse Hgb < 7.0 GI consultation placed given FOBT + and complex GI history GI plan for scope on 06/25 pending INR < 2.0. 06/25 cancelled EGD as INR elevated - plan for EGD as outpt at this point Per GI - The patient was admitted for back discomfort and has had a stable hemoglobin and hematocrit over night but no report of dark sticky stool, coffee- ground emesis, hematemesis or hematochezia. Of note the patient is on anticoagulation as an outpatient for treatment of the portal vein thrombosis. Recommendations Advance diet as tolerated as there does not appear to be evidence of an active gastrointestinal bleeding I suspect the dark stool is related to oozing as result of over anticoagulation Begin use of Carafate 1 g 4 times daily Avoid use of nonsteroidals Intractable back pain: Acute Saw Ortho as OPT; started on PO steroids OPT lumbar x-ray results show mild arthritic changes Lumbar/spine CT: no fracture; degenerative changes Lumbar MRI: Denies loss of bowel/bladder + straight leg raise on exam pain control; lidocaine patch and Morphine PRN Orthospine consulted - Subacute L4 compression fracture. Dr. Melton has reviewed imaging and treatment plan. Treatment is conservative. will order an LSO brace to be worn when standing and walking. May remove when lying in bed and in a seated position. No lifting over 5 pounds. Ambulate ad sven. He is orthopedically stable. Recommend follow-up in our office in 2 weeks. Non-specific colitis: Acute Abdomen/pelvis CT: Moderate to severe thickening of the proximal colon consistent with a nonspecific colitis. Infectious vs. inflammatory process. No SBO Cirrhotic liver with severe splenomegaly/upper abdominal/paraesophageal varices again noted. consistent with underlying portal hypertension. Main portal vein and splenic vein appear patent. Small amount of chronic thrombus within the superior mesenteric vein, unchanged. Bladder wall thickening/pericholecystic fluid remains unchanged. Empirically treat with Zosyn IV and adjust based on culture results stool culture and CDiff ordered Supratherapeutic INR: Acute Taking Coumadin for H/O SMV Thrombosis; hold Takes 10 mg daily plus 15 mg Q Saturday last INR check was in May 2023; currently getting it checked Q6 weeks per pt. Suspect INR increased d/t recent steroids started as OPT; will hold on any Vitamin K dosing unless overt signs of bleeding Plan for scope by GI pending INR < 2.0. If not less than 2.0 on Saturday INR elevated on 06/25 - cont. to hold coumadine Hypokalemia: replace and monitor H/O Esophageal Varicies: GAVE syndrome: Chronic Recent banding by GI 05/14/23 HTN: Chronic Takes Lisinopril; continue GERD: Chronic Takes Protonix; IV Protonix gtt for now Disposition: PCP: Tim Brown PA-C Code Status: Full Code VTE Prophylaxis: Teds + SCDs for now Admission and Anticipated Discharge Date Admission Date: June 24, 2023 Subjective Pt seen in follow up of back pain and + FOBT, supratherapeutic INR INR still elevated this AM - EGD was planned by GI but cancelled d/t elev. INR. Hgb stable and pt hemodynamically stable- plan fot outpt EGD by GI Currently pt is lying in bed in NAD but reports back pain as he did not want to take pain meds prior to possible endoscopy No fever, chills, no shortness of breath. Has difficulty moving extremities due to pain. Family is present at the bedside. Review of Systems Review of Systems: All systems reviewed & are unremarkable except as noted in Subjective Physical Exam Physical Exam: General: WD/WN M in NAD HEENT: head normocephalic, moist mucus membranes CV: S1/S2, (-) M/G/R, (-) edema Resp: Lungs CTA in all hoover. On RA GI: Abdomen soft, nontender, Ax4 bowel sounds Musculoskeletal: moves extremities (but w/ some difficulty d/t pain) Skin: (-) rashes , (-) erythema. Neuro: AAOx3, PERRL, answers appropriately, no facial asymmetry, moves extr emities (w/ some difficulty d/t pain) Results & Data Results & Data Vital Signs (Past 12 Hours) Vital Signs Temp Pulse Resp BP Pulse Ox O2 Del Method 06/25/23 08:09 36.8 C 67 18 127/73 92 Room Air 06/25/23 03:27 36.7 C 65 16 114/73 92 Room Air 06/24/23 23:36 36.8 C 69 16 121/74 93 Room Air Laboratory Results 06/25/23 06/25/23 06/25/23 Range/Units 08:42 08:11 01:59 WBC 4.95 (4.8-10.8) K/ul RBC 3.39 L (4.70-6.10) M/uL Hgb 11.3 L (14.0-18.0) g/dl Hct 31.6 L (42.0-52.0) % MCV 93.2 (80.0-100.0) fL MCH 33.3 (25.0-34.0) pg MCHC 35.8 (32.0-36.0) g/dL RDW Std Deviation 49.4 H (36.4-46.3) fL RDW Coeff of Wenceslao 14.5 (11.5-14.5) % Plt Count 103 L (130-400) K/uL MPV 9.4 (9.4-12.4) fL Immature Gran % (Auto) % Neut % (Auto) % Lymph % (Auto) % [place] % (Auto) % Eos % (Auto) % Baso % (Auto) % Neut # (Auto) (1.40-6.50) K/uL Lymph # (Auto) (1.20-3.40) K/uL [place] # (Auto) (0.11-0.59) K/uL Eos # (Auto) (0.00-0.50) K/uL Baso # (Auto) (0.00-0.20) K/uL Immature Gran # (Auto) (0.01-0.20) K/uL PT 37.9 H (9.0-12.0) Seconds INR 3.8 H (0.9-1.1) APTT (21-31) Seconds PTT Ratio Sodium 137 (136-145) mmol/L Potassium 3.6 (3.5-5.1) mmol/L Chloride 108 H (98-107) mmol/L Carbon Dioxide 24 (21-32) mmol/L Anion Gap 5 (3-11) BUN 14 (6-23) mg/dl Creatinine 1.15 (0.6-1.4) mg/dl Est Cr Clr Drug Dosing 96.5 Est GFR ( Amer) 80.3 ml/min Est GFR (Non-Af Amer) 69.3 ml/min BUN/Creatinine Ratio 12.2 (10-20) Glucose 114 H (70-99(Fasting)) mg/dl Calcium 8.3 L (8.6-10.3) mg/dl Phosphorus 3.2 (2.5-4.9) mg/dl Magnesium (1.7-2.4) mg/dl Total Bilirubin 2.3 H (0.2-1.0) mg/dl AST 37 (13-39) U/L ALT 30 (7-52) U/L Alkaline Phosphatase 84 (34-104) U/L Total Protein 5.3 L (6.0-8.3) gm/dl Albumin 3.5 (3.4-5.0) gm/dl Globulin 1.8 L (2.5-4.0) gm/dl Albumin/Globulin Ratio 1.9 (0.9-2) Lipase (11-82) U/L Hepatitis C Ab (EIA) Pending Blood Type O Positive Antibody Screen POSITIVE A Antibody Identification Pending Antibody ID Referred Pending Antibody ID Comment Pending Crossmatch See Detail 06/24/23 06/24/23 06/24/23 Range/Units 21:44 18:30 16:07 WBC (4.8-10.8) K/ul RBC (4.70-6.10) M/uL Hgb 11.8 L 11.6 L (14.0-18.0) g/dl Hct 32.6 L 32.6 L (42.0-52.0) % MCV (80.0-100.0) fL MCH (25.0-34.0) pg MCHC (32.0-36.0) g/dL RDW Std Deviation (36.4-46.3) fL RDW Coeff of Wenceslao (11.5-14.5) % Plt Count (130-400) K/uL MPV (9.4-12.4) fL Immature Gran % (Auto) % Neut % (Auto) % Lymph % (Auto) % [place] % (Auto) % Eos % (Auto) % Baso % (Auto) % Neut # (Auto) (1.40-6.50) K/uL Lymph # (Auto) (1.20-3.40) K/uL [place] # (Auto) (0.11-0.59) K/uL Eos # (Auto) (0.00-0.50) K/uL Baso # (Auto) (0.00-0.20) K/uL Immature Gran # (Auto) (0.01-0.20) K/uL PT (9.0-12.0) Seconds INR (0.9-1.1) APTT (21-31) Seconds PTT Ratio Sodium 139 (136-145) mmol/L Potassium 3.6 (3.5-5.1) mmol/L Chloride 108 H (98-107) mmol/L Carbon Dioxide 27 (21-32) mmol/L Anion Gap 4 (3-11) BUN 13 (6-23) mg/dl Creatinine 1.17 (0.6-1.4) mg/dl Est Cr Clr Drug Dosing 94.8 Est GFR ( Amer) 78.6 ml/min Est GFR (Non-Af Amer) 67.8 ml/min BUN/Creatinine Ratio 11.1 (10-20) Glucose 158 H (70-99(Fasting)) mg/dl Calcium 8.6 (8.6-10.3) mg/dl Phosphorus (2.5-4.9) mg/dl Magnesium (1.7-2.4) mg/dl Total Bilirubin (0.2-1.0) mg/dl AST (13-39) U/L ALT (7-52) U/L Alkaline Phosphatase (34-104) U/L Total Protein (6.0-8.3) gm/dl Albumin (3.4-5.0) gm/dl Globulin (2.5-4.0) gm/dl Albumin/Globulin Ratio (0.9-2) Lipase (11-82) U/L Hepatitis C Ab (EIA) Blood Type Cancelled Antibody Screen Cancelled Antibody Identification Antibody ID Referred Antibody ID Comment Crossmatch See Detail 06/24/23 Range/Units 10:14 WBC 8.92 (4.8-10.8) K/ul RBC 3.99 L (4.70-6.10) M/uL Hgb 13.5 L (14.0-18.0) g/dl Hct 36.5 L (42.0-52.0) % MCV 91.5 (80.0-100.0) fL MCH 33.8 (25.0-34.0) pg MCHC 37.0 H (32.0-36.0) g/dL RDW Std Deviation 47.8 H (36.4-46.3) fL RDW Coeff of Wenceslao 14.5 (11.5-14.5) % Plt Count 140 (130-400) K/uL MPV 9.2 L (9.4-12.4) fL Immature Gran % (Auto) 0.3 % Neut % (Auto) 72.1 % Lymph % (Auto) 14.7 % [place] % (Auto) 8.3 % Eos % (Auto) 3.8 % Baso % (Auto) 0.8 % Neut # (Auto) 6.43 (1.40-6.50) K/uL Lymph # (Auto) 1.31 (1.20-3.40) K/uL [place] # (Auto) 0.74 H (0.11-0.59) K/uL Eos # (Auto) 0.34 (0.00-0.50) K/uL Baso # (Auto) 0.07 (0.00-0.20) K/uL Immature Gran # (Auto) 0.03 (0.01-0.20) K/uL PT 37.9 H (9.0-12.0) Seconds INR 3.8 H (0.9-1.1) APTT 37 H (21-31) Seconds PTT Ratio 1.3 Sodium 140 (136-145) mmol/L Potassium 3.0 L (3.5-5.1) mmol/L Chloride 106 (98-107) mmol/L Carbon Dioxide 28 (21-32) mmol/L Anion Gap 6 (3-11) BUN 15 (6-23) mg/dl Creatinine 1.08 (0.6-1.4) mg/dl Est Cr Clr Drug Dosing Not Reportable Est GFR ( Amer) 86.6 ml/min Est GFR (Non-Af Amer) 74.7 ml/min BUN/Creatinine Ratio 13.9 (10-20) Glucose 98 (70-99(Fasting)) mg/dl Calcium 9.2 (8.6-10.3) mg/dl Phosphorus (2.5-4.9) mg/dl Magnesium 2.1 (1.7-2.4) mg/dl Total Bilirubin 1.9 H (0.2-1.0) mg/dl AST 50 H (13-39) U/L ALT 39 (7-52) U/L Alkaline Phosphatase 104 (34-104) U/L Total Protein 6.5 (6.0-8.3) gm/dl Albumin 4.3 (3.4-5.0) gm/dl Globulin 2.2 L (2.5-4.0) gm/dl Albumin/Globulin Ratio 2.0 (0.9-2) Lipase 33 (11-82) U/L Hepatitis C Ab (EIA) Blood Type Antibody Screen Antibody Identification Antibody ID Referred Antibody ID Comment Crossmatch Medications Administered Current Inpatient Medications Acetaminophen (Acetaminophen 325 Mg Tab) 650 mg PO Q4H PRN PRN Reason: Pain or Fever Stop: 07/24/23 14:03 Al Hydrox/Mg Hydrox/Simethicone (Aluminum/Magnesium Susp 30 Ml Udc) 15 ml PO Q4H PRN PRN Reason: Dyspepsia Stop: 07/24/23 14:03 Hydrocortisone (Hydrocortisone Acetate 25 Mg Supp) 25 mg [place] BID THERESA Stop: 07/25/23 03:04 Last Admin: 06/25/23 08:33 Dose: Not Given Pantoprazole Sodium 40 mg/ (Dextrose) 100 mls @ 20 mls/hr IV Q5H THERESA Stop: 07/24/23 14:59 Last Admin: 06/25/23 08:31 Dose: 8 mg/hr, 20 mls/hr Octreotide Acetate 500 mcg/ (Sodium Chloride) 100.5 mls @ 10.05 mls/hr IV .Q10H [facility] Stop: 07/24/23 15:29 Last Admin: 06/25/23 10:26 Dose: 50 mcg/hr, 10.1 mls/hr Piperacillin Sod/Tazobactam (Sod 4.5 gm/ Dextrose) 100 mls @ 25 mls/hr IV Q8H [facility]; Protocol Stop: 06/26/23 20:59 Last Infusion: 06/25/23 10:23 Dose: Infused Lactulose (Lactulose Syrup 10 Gm/15 Ml Btl 960 Ml) 6.666 gm PO [facility] Stop: 07/24/23 20:59 Last Admin: 06/24/23 20:24 Dose: 6.666 gm Lidocaine (Lidocaine 5% 1 Patch) [facility] Stop: 07/25/23 08:59 Last Admin: 06/25/23 09:29 Dose: 1 patch Lisinopril (Lisinopril 2.5 Mg Tab) 2.5 mg PO [facility] Stop: 07/25/23 08:59 Last Admin: 06/25/23 08:33 Dose: 2.5 mg Magnesium Hydroxide (Magnesium Hydroxide Susp 30 Ml Udc) 30 ml PO Q12H PRN PRN Reason: Constipation Stop: 07/24/23 14:03 Mirtazapine (Mirtazapine Tab 15 Mg Tab) 7.5 mg PO [facility] Stop: 07/24/23 20:59 Last Admin: 06/24/23 20:23 Dose: 7.5 mg Miscellaneous (Remove Lidoderm Patch) 1 each N/A DAILY@2100 [facility] Stop: 07/25/23 20:59 Morphine Sulfate (Morphine Sulfate 2 Mg/Ml Carp) 2 mg IV Q6H PRN PRN Reason: Pain Stop: 07/08/23 15:22 Last Admin: 06/25/23 09:30 Dose: 2 mg Ondansetron HCl (Ondansetron Inj 2 Mg/Ml 2 Ml Vial) 4 mg IV Q6H PRN PRN Reason: Nausea Stop: 07/24/23 14:03 Polyethylene Glycol (Polyethylene (Miralax) 17 Gm Pack) 17 gm PO DAILY PRN PRN Reason: Constipation Stop: 07/24/23 14:03
[2023-06-25] MEDS ORDERED: ATROPINE SULFATE 0.1 MG/ML 10ML SYR IV PRN (12:29)
[2023-06-25] MEDS ORDERED: ONDANSETRON INJ 2 MG/ML 2 ML VIAL IV PRN (12:29)
[2023-06-25] MEDS ORDERED: fentaNYL citrate PF 100 MCG/2 ML VIAL IV PRN (12:29)
[2023-06-25] MEDS ORDERED: ePHEDrine sulfate 50 MG/ML AMP IV PRN (12:29)
[2023-06-25] MEDS ORDERED: PHENYLEPHRINE 100MCG/ML 5ML SYR IV PRN (12:29)
--- NOTE | 2023-06-25 12:32 | Anesthesiology Consultation ---
Date of Service June 25, 2023 History Surgery Operation Date: 06/25/23 18:00 Proposed Procedures p Esophagogastroduodenoscopy Dr Soham Rousseau, Height/Weight Height: 6 ft 4 in Weight: 116.9 kg Allergies Allergy/AdvReac Type Severity Reaction Status Date / Time hydrocodone [From Vicodin] Allergy Intermediate Hallucinati Verified 07/07/21 12:52 ng Medications Home Medications Medication Instructions Recorded Confirmed Last Taken loratadine 10 mg tablet (Claritin) 10 mg PO QAM 02/17/19 06/24/23 07/07/21 pantoprazole 40 mg tablet,delayed 40 mg PO BID 02/17/19 06/24/23 07/07/21 release (Protonix) tramadol 50 mg tablet 50 - 100 mg PO Q6H PRN Pain 02/17/19 06/24/23 07/05/21 lactulose 20 gram/30 mL oral 10 ml PO HS 10/23/20 06/24/23 07/06/21 solution lisinopril 2.5 mg tablet 2.5 mg PO QAM 07/07/21 06/24/23 07/07/21 ondansetron HCl 4 mg tablet 4 mg PO Q6H PRN Nausea 07/07/21 06/24/23 Unknown propranolol 20 mg tablet 20 mg PO BID 07/07/21 06/24/23 Unknown mirtazapine 7.5 mg tablet 7.5 mg PO HS 06/24/23 06/24/23 Unknown warfarin 5 mg tablet 10 mg DAILY 06/24/23 06/24/23 Unknown Active Medications Generic Name Dose Route Start Last Admin Trade Name Roger PRN Reason Stop Dose Admin Hydrocortisone 25 mg 06/25/23 03:05 06/25/23 08:33 Hydrocortisone Acetate 25 Mg Supp [place] 07/25/23 03:04 Not Given BID THERESA Pantoprazole Sodium 40 mg/ 100 mls @ 20 mls/hr 06/24/23 15:00 06/25/23 08:31 Dextrose IV 07/24/23 14:59 8 mg/hr Q5H THERESA 20 mls/hr Administration 8 MG/HR Octreotide Acetate 500 mcg/ 100.5 mls @ 10.05 mls/hr 06/24/23 15:30 06/25/23 10:26 Sodium Chloride IV 07/24/23 15:29 50 mcg/hr .Q10H THERESA 10.1 mls/hr Administration 50 MCG/HR Piperacillin Sod/Tazobactam 100 mls @ 25 mls/hr 06/24/23 21:00 06/25/23 10:23 Sod 4.5 gm/ Dextrose IV 06/26/23 20:59 Infused Q8H THERSEA Infusion Protocol Lactulose 6.666 gm 06/24/23 21:00 06/24/23 20:24 Lactulose Syrup 10 Gm/15 Ml Btl 960 Ml PO 07/24/23 20:59 6.666 gm HS THERESA Administration Lidocaine 1 patch 06/25/23 09:00 06/25/23 09:29 Lidocaine 5% 1 Patch TD 07/25/23 08:59 1 patch QAM THERESA Administration Lisinopril 2.5 mg 06/25/23 09:00 06/25/23 08:33 Lisinopril 2.5 Mg Tab PO 07/25/23 08:59 2.5 mg QAM THERESA Administration Mirtazapine 7.5 mg 06/24/23 21:00 06/24/23 20:23 Mirtazapine Tab 15 Mg Tab PO 07/24/23 20:59 7.5 mg HS THERESA Administration Morphine Sulfate 2 mg 06/24/23 15:23 06/25/23 09:30 Morphine Sulfate 2 Mg/Ml Carp IV 07/08/23 15:22 2 mg Q6H PRN Administration Pain Past Medical History Medical History Non-specific colitis Hypokalemia Supratherapeutic INR Gastric varices Portal hypertension Mesenteric vein thrombosis Portal vein thrombosis HTN (hypertension) Anemia Thrombocytopenia Cirrhosis GAVE (gastric antral vascular ectasia) Cirrhosis Hepatic encephalopathy Elevated d-dimer Elevated troponin HTN (hypertension) Cirrhosis Cough Hypertension Hx of urticaria Hx of allergic rhinitis Hx of anxiety disorder Hx of esophageal varices Past Family History Family History Mother Cancer Stomach cancer, 36 Past Surgical History Surgical History Hx of arthroscopy of knee History of esophagogastroduodenoscopy (EGD) H/O colonoscopy Social History Smoking Status: Never smoker Do You Dip or Chew Tobacco: No Hx Alcohol Use: No Alcohol Intake Frequency Comment: quit 25 years ago Hx Substance Use: No substance use type: does not use Physical Exam Vital Signs Last Vital Signs Temp 36.7 C 06/25/23 11:48 Pulse 64 06/25/23 11:48 Resp 18 06/25/23 11:48 BP 118/75 06/25/23 11:48 Pulse Ox 92 06/25/23 11:48 O2 Del Method Room Air 06/25/23 11:48 Testing Laboratory Results 06/25/23 01:59 06/25/23 01:59 PT 37.9 Seconds (9.0-12.0) H 06/25/23 08:11 INR 3.8 (0.9-1.1) H 06/25/23 08:11 APTT 37 Seconds (21-31) H 06/24/23 10:14 Blood Type O Positive 06/25/23 01:59 Antibody Screen POSITIVE A 06/25/23 01:59 Electrocardiogram Date: 07/13/21 DICTATED BY: Phan Smalls MD Test Reason : Blood Pressure : / mmHG Vent. Rate : 059 BPM Atrial Rate : 059 BPM P-R Int : 172 ms QRS Dur : 094 ms QT Int : 454 ms P-R-T Axes : 035 -25 017 degrees QTc Int : 449 ms Poor data quality, interpretation may be adversely affected Sinus bradycardia Otherwise normal ECG When compared with ECG of 07-JUL-2021 10:20, No significant change was found Confirmed by Phan Smalls ([id number]) on 07/13/2021 4:13:22 PM Other Testing 06/24/23: ABDOMEN AND PELVIS CT WITH IV CONTRAST CT DOSE: HISTORY: Back pain, GI bleed TECHNIQUE: Multiaxial CT images of the abdomen and pelvis were performed following the use of intravenous contrast. A dose lowering technique was utilized adhering to the principles of ALARA. COMPARISON STUDY: Abdomen and pelvis CT 07/13/2021. FINDINGS: Linear densities within the lungs posteriorly favor dependent change/atelectasis. No pneumoperitoneum. No pneumatosis. No acute fractures identified. Nodular contour to the liver consistent with cirrhosis. No hepatic masses. The main portal vein and splenic vein are dilated but appear patent. Small amount of chronic thrombus again noted within the superior mesenteric vein on image 196. Severe splenomegaly measuring up to 22 cm in length. This is slightly increased in size. No perisplenic fluid collections. Gastrohepatic, periportal, peripancreatic lymphadenopathy is again noted. Chronic calcification within the portal and splenic veins again noted. No retroperitoneal lymphadenopathy. The pancreas and adrenal glands are unremarkable. No hydronephrosis. There is a 7 mm stone within the lower pole of the left kidney distal paraesophageal and upper abdominal varicosities again noted. No pelvic lymphadenopathy or pelvic free fluid. The bladder is unremarkable. The prostate gland is enlarged. Mild presacral edema is unchanged and likely chronic. No dilated loops of bowel to suggest an obstruction. Moderate to severe thickening of the cecum, ascending colon, and hepatic flexure of the colon with pericolonic fat stranding. This is consistent with a nonspecific colitis. The major mesenteric vessels appear patent. No perforation or abscess identified. Normal appendix. No significant change the bladder wall thickening and pericholecystic fluid. IMPRESSION: 1. Moderate to severe thickening of the proximal colon consistent with a nonspecific colitis. This favors an infectious or inflammatory process. 2. No evidence for bowel obstruction. 3. Cirrhotic liver with severe splenomegaly and upper abdominal/paraesophageal varices again noted. This is consistent with underlying portal hypertension. 4. The main portal vein and splenic vein appear patent. Small amount of chronic thrombus within the superior mesenteric vein, unchanged. 5. Bladder wall thickening/pericholecystic fluid remains unchanged.
[2023-06-25] MEDS: SUCRALFATE 1 GM/10 ML UDC PO SCH (20:45)
[2023-06-26 06:20] LABS: Hematocrit (blood only) 30.7 % (42.0-52.0); Hemoglobin 11.2 g/dl (14.0-18.0); Mean Corpuscular Hemoglobin 33.1 pg (25.0-34.0); Mean Corpuscular Hgb Conc 36.5 g/dL (32.0-36.0); Mean Corpuscular Volume 90.8 fL (80.0-100.0); Mean Platelet Volume 9.3 fL (9.4-12.4); Platelet Count 102 K/uL (130-400); RDW Coefficient of Variation 14.2 % (11.5-14.5); RDW Standard Deviation 47.4 fL (36.4-46.3); Red Blood Count 3.38 M/uL (4.70-6.10); White Blood Count 4.34 K/ul (4.8-10.8)
[2023-06-26 06:30] LABS: BUN Creatinine Ratio 12.2 (10-20); Calcium 8.5 mg/dl (8.6-10.3); Creatinine Clr Calc Pharmacy 84.8 ml/min; Est GFR (African American) 68.6 ml/min; Est GFR (Non-African American) 59.2 ml/min; Phosphorus 3.7 mg/dl (2.5-4.9); Potassium 3.3 mmol/L (3.5-5.1)
[2023-06-26 06:39] LABS: INR 2.9 (0.9-1.1); Prothrombin Time 30.1 Seconds (9.0-12.0)
[2023-06-26] MEDS: POTASSIUM CHLORIDE CRTAB 20 MEQ TABCR PO STA (09:10)
[2023-06-26] MEDS: LACTULOSE SYRUP 10 GM/15 ML BTL 960 ML PO PRN (13:04)
--- NOTE | 2023-06-26 14:12 | Hospitalist Progress Note ---
Date of Service June 26, 2023 Assessment & Plan (1) GI bleed: (2) Supratherapeutic INR: (3) Hypokalemia: (4) Non-specific colitis: (5) Cirrhosis: (6) Mesenteric vein thrombosis: (7) HTN (hypertension): Plan 57 year old male that presents to the ED 06/24 with complains of lower back pain. Two weeks ago PAPER BALER his pain started with a 'popping' sound and he took a muscle relaxer with minimal relief; he was seen by Ortho as an outpatient on 06/19 and a lumbar x-ray ordered with results indicating mild lumbar spondylosis. He was prescribed PO steroids and was to begin physical therapy. On the morning of arrival, he was unable to lift either his left or right leg. Historically, he has not been able to lift his left leg, but never had any issues with his right leg. This morning, he saw that had black tarry stool (he was on steroid around the same time); also noted difficulty with his urine stream. He felt that he was starting to feel that he was 'going to pass out'. He was able to sit and did not fall. When sitting, he was having increased pain in his legs. He does not take any Iron supplements. At presentation, his INR noted to be 3.8. 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 Concern for GI bleed: Patient noted to have black tarry stool prior to arrival, was on steroid around the same time. Has history of GERD and esophageal varices. FOBT positive, admitting CTAP concerning for nonspecific colitis inflammatory versus infectious. Noted cirrhotic liver with severe splenomegaly and upper abdominal/paraesophageal varices. Chronic thrombus within the SMA noted. Baseline hemoglobin around 13, admitting hemoglobin of 13.5 --> down trended and stabilized around 11. Patient with no further bowel movement, increasing lactulose given history of liver cirrhosis to aim for 3-4 bowel movements a day. Follow-up on stool color, H&H in a.m. after expected bowel movements today as lactulose dose increased. Will change Protonix drip to p.o. Protonix for now. GI evaluated, plan for outpatient EGD. Patient to follow-up with GI on discharge. Coumadin management per below. Avoid NSAIDs, on Carafate per GI recommendation. Colitis: Noted in admitting CTAP. Patient started on Zosyn 06/24 and stool cultures/C. difficile was ordered at admission. Will complete 10 days of antibiotic therapy. c/w probiotic. Monitor replete electrolytes. Intractable low back pain Acute superior endplate compression fracture at L4 Patient came in with acute back pain No complaints of loss of control of bowel and bladder. No fever. Orthospine evaluated, LSO brace when standing and with activity. May remove while lying in bed. No lifting over 5 pounds. Conservative management. Continue with pain management including opiates and lidocaine patch. Consult PT/OT. Supratherapeutic INR: Admitting PT/INR of 3.8. Patient on Coumadin for history of SMV thrombosis. Takes 10 mg daily and 50 mg on Wednesdays. Coumadin on , INR trending down, will likely hold today and possibly resume after H&H tomorrow morning being stable. Other chronic medical conditions: Continue with/resume home meds as and when able Esophageal varices and GAVE syndromechronic, recent banding by GI on 05/14/2023. HTNchronic, take lisinopril as prior. GERDcontinue Protonix twice daily. Disposition: PT/OT, likely DC in next 1 to 2 days CODE STATUS: Full code VTE prophylaxis: Therapeutic INR for now. Admission and Anticipated Discharge Date Admission Date: June 24, 2023 Subjective Patient was seen and examined at bedside. Patient was lying in bed, on room air, resting comfortably, not in any acute distress. Patient reports increased back pain with activity, fairly controlled while at rest. Patient reports no bowel movement in the last 2 days, patient is supposed to have 3-4 bowel movements a day given his cirrhotic history. Lactulose dose will be increased. INR therapeutic today, will hold on resuming Coumadin today until patient has further bowel movements/monitor stool color and we will follow-up on the hemoglobin in AM. Physical Exam Physical Exam: GENERAL: Alert and oriented x3. NAD, on RA. HEENT: No pallor, no icterus. Pupils equal, round and reactive to light. Oral mucosa moist. NECK: No JVD, no neck masses. HEART: S1 and S2 heard. Regular rate and rhythm. No murmur, no gallop. RESPIRATORY SYSTEM: Normal AP diameter. No accessory muscle use. No wheezing, no crackles. ABDOMEN: Soft, bowel sounds present, nontender, no distention. CENTRAL NERVOUS SYSTEM: No facial droop. Speech is clear. Obeys simple commands. Moves extremities. EXTREMITIES: No edema, no erythema seen. Lower back point tenderness Results & Data Results & Data Vital Signs (Past 12 Hours) Vital Signs Temp Pulse Resp BP Pulse Ox O2 Del Method 06/26/23 12:10 37.0 C 61 18 144/82 H 95 Room Air 06/26/23 08:21 36.8 C 60 18 118/71 95 Room Air 06/26/23 04:00 37.0 C 64 16 116/68 93 Room Air
[2023-06-26] MEDS: ADVANCED PROBIOTIC 1250 MG CAPSULE PO SCH (15:17)
[2023-06-26 19:13] LABS: Adenovirus F 40/41 PCR Not Detected (NotDetected); Astrovirus PCR Not Detected (NotDetected); Campylobacter PCR Not Detected (NotDetected); Cryptosporidium PCR Not Detected (NotDetected); Cyclospora cayetanensis PCR Not Detected (NotDetected); Entamoeba histolytica PCR Not Detected (NotDetected); Enteroaggregative E.coli(EAEC) Not Detected (NotDetected); Enteropathogenic E.coli (EPEC) Not Detected (NotDetected); Enterotoxigenic E.coli (ETEC) Not Detected (NotDetected); Giardia lamblia PCR Not Detected (NotDetected); Plesiomonas shigelloides PCR Not Detected (NotDetected); Rotavirus A PCR Not Detected (NotDetected); Salmonella PCR Not Detected (NotDetected); Sapovirus PCR Not Detected (NotDetected); Shiga-like Toxin E.coli (STEC) Not Detected (NotDetected); Shigella/Enteroinvasive E.coli Not Detected (NotDetected); Vibrio cholerae PCR Not Detected (NotDetected); Vibrio species PCR Not Detected (NotDetected); Yersinia enterocolitica PCR Not Detected (NotDetected)
[2023-06-26 19:17] LABS: Norovirus GI/GII PCR DETECTED (NotDetected)
[2023-06-26] MEDS: PANTOprazole 40 MG TAB PO SCH (19:38)
[2023-06-27 06:30] LABS: Hemoglobin 11.7 g/dl (14.0-18.0); Mean Corpuscular Hemoglobin 32.9 pg (25.0-34.0); Mean Corpuscular Hgb Conc 36.6 g/dL (32.0-36.0); Mean Corpuscular Volume 89.9 fL (80.0-100.0); Mean Platelet Volume 9.1 fL (9.4-12.4); Platelet Count 106 K/uL (130-400); RDW Coefficient of Variation 13.8 % (11.5-14.5); RDW Standard Deviation 45.2 fL (36.4-46.3); Red Blood Count 3.56 M/uL (4.70-6.10); White Blood Count 4.52 K/ul (4.8-10.8)
[2023-06-27 06:49] LABS: BUN Creatinine Ratio 16.5 (10-20); Calcium 8.7 mg/dl (8.6-10.3); Creatinine Clr Calc Pharmacy 108.1 ml/min; Est GFR (African American) 91.7 ml/min; Est GFR (Non-African American) 79.1 ml/min; Potassium 3.4 mmol/L (3.5-5.1)
[2023-06-27 06:53] LABS: Prothrombin Time 20.5 Seconds (9.0-12.0)
[2023-06-27] MEDS: AMOXICILLIN/CLAVULANATE 875 MG TAB PO SCH (08:03)
[2023-06-27] MEDS: POTASSIUM CHLORIDE CRTAB 20 MEQ TABCR PO STA (08:59)
--- NOTE | 2023-06-27 10:35 | Discharge Summary ---
Date of Service June 27, 2023 Admission HPI Per Admitting Provider Mr. Weinstein is a 57 year old male that presents to the ED today with complains of lower back pain. Two weeks ago his pain started with a 'popping' sound and he took a muscle relaxer with minimal relief; he was seen by Ortho as an outpatient on 06/19 and a lumbar x-ray ordered with results indicating mild lumbar spondylosis. He was prescribed PO steroids and was to begin physical therapy. This morning he was unable to lift either his left or right leg. Historically, he has not been able to lift his left leg, but never had any issues with his right leg. This morning, he saw that had black tarry stool; also noted difficulty with his urine stream. He felt that he was starting to feel that he was 'going to pass out'. He was able to sit and did not fall. When sitting, he was having increased pain in his legs. Unsure when the sharp pain is going to occur.He applies ice and rests as best he can. He also reports diaphoresis one time yesterday. Reports increased urgency with urination over the past week or two in addition to increased loose stools and less control of being able to stop his stool. He does not take any Iron supplements. He has been consistent with his lactulose. At the beginning of the week he did notice some black tarry stools around the same time he started taking the prescribed steroids for his back pain. Incidentally, his blood work indicated a supratherapeutic INR of 3.8 and reported dark tarry stools. FOBT +. 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 Pt denies DOE, dizziness, visual or auditory changes, chest pain, SOB, palpitations, recent falls or trauma. Suspect multifactorial problem list including a GIB; will keep NPO after MN pending possible scope and will place on Protonix and Octreotide gtt. Will check Q6 H/H and transfuse Hgb < 7.0; type/cross ordered. Will provide pain control and ortho spine consult for subacute compression L4 fracture, Will empirically treat non specific colitis with abx and adjust based on stool and CD cultures; trend lactate. Monitor supratherapeuric INR by holding Coumadin tonight. Patient will be admitted for further evaluation and management. Please see A/P for further details. Admission Exam Per Admitting Provider Neuro: AAOx4, PERRLA, no aphagia, memory changes, CNII-XII grossly intact HEENT: head normocephalic, moist mucus membranes CV: S1/S2, (-) M/G/R, (-) edema, cap refill < 3 seconds Resp: Lungs CTA in all hoover. On RA GI: Abdomen soft, tender, Ax4 bowel sounds, (-) CVA tenderness Musculoskeletal: 5/5 B/L UE strength, 5/5 B/L LE strength. No gait disturbance Skin: (-) rashes , (-) erythema. Psych: euthymic mood Principal Diagnosis Concern for GI bleed Colitis Intractable low back pain Acute superior endplate compression fracture at L4 Supratherapeutic INR Discharge Exam GENERAL: Alert and oriented x3. NAD, on RA. HEENT: No pallor, no icterus. Pupils equal, round and reactive to light. Oral mucosa moist. NECK: No JVD, no neck masses. HEART: S1 and S2 heard. Regular rate and rhythm. No murmur, no gallop. RESPIRATORY SYSTEM: Normal AP diameter. No accessory muscle use. No wheezing, no crackles. ABDOMEN: Soft, bowel sounds present, nontender, no distention. CENTRAL NERVOUS SYSTEM: No facial droop. Speech is clear. Obeys simple commands. Moves extremities. EXTREMITIES: No edema, no erythema seen. Lower back point tenderness, improving Discharge Data Allergies Allergy/AdvReac Type Severity Reaction Status Date / Time hydrocodone [From Vicodin] Allergy Intermediate Hallucinati Verified 07/07/21 12:52 ng Consultations 06/24/23 13:30 ED Decision to Admit Stat 06/24/23 14:04 Consult Gastroenterology Routine 06/24/23 15:20 Consult Orthopedic Spine Surgery Routine Procedures Performed Operation Date: 06/25/23 18:00 <No data on this case meets the specified criteria> Ordered Studies 06/24/23 11:34 CT Abd and Pelvis [CT abd pelvis IV con only] Stat CT lumbar spine w con Stat 06/24/23 12:27 MRI Lumbar Spine [MR lumbar spine wo con] Stat Hospital Course (1) GI bleed: (2) Supratherapeutic INR: (3) Hypokalemia: (4) Non-specific colitis: (5) Cirrhosis: (6) Mesenteric vein thrombosis: (7) HTN (hypertension): Plan 57 year old male that presents to the ED 06/24 with complains of lower back pain. Two weeks ago [employer]GER his pain started with a 'popping' sound and he took a muscle relaxer with minimal relief; he was seen by Ortho as an outpatient on 06/19 and a lumbar x-ray ordered with results indicating mild lumbar spondylosis. He was prescribed PO steroids and was to begin physical therapy. On the morning of arrival, he was unable to lift either his left or right leg. Historically, he has not been able to lift his left leg, but never had any issues with his right leg. This morning, he saw that had black tarry stool (he was on steroid around the same time); also noted difficulty with his urine stream. He felt that he was starting to feel that he was 'going to pass out'. He was able to sit and did not fall. When sitting, he was having increased pain in his legs. He does not take any Iron supplements. At presentation, his INR noted to be 3.8. 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 Concern for GI bleed: Patient noted to have black tarry stool prior to arrival, was on steroid around the same time. Has history of GERD and esophageal varices. FOBT positive, admitting CTAP concerning for nonspecific colitis inflammatory versus infectious. Noted cirrhotic liver with severe splenomegaly and upper abdominal/paraesophageal varices. Chronic thrombus within the SMA noted. Baseline hemoglobin around 13, admitting hemoglobin of 13.5 --> down trended and stabilized around 11. Hemoglobin stabilized around 11. Continue with Protonix twice daily, avoid NSAIDs. On Carafate for next 8 days upon discharge. GI evaluated, plan for outpatient EGD. Patient to follow-up with GI on discharge. Patient to follow-up with GI in 2 to 4 weeks time upon discharge per outpatient EGD evaluation. Colitis: Noted in admitting CTAP. Patient started on Zosyn 06/24 and stool cultures/C. difficile was ordered at admission. Will complete 10 days of antibiotic therapy. c/w probiotic. Intractable low back pain Acute superior endplate compression fracture at L4 Patient came in with acute back pain No complaints of loss of control of bowel and bladder. No fever. Orthospine evaluated, LSO brace when standing and with activity. May remove while lying in bed. No lifting over 5 pounds. Conservative management. Continue with pain management including opiates and lidocaine patch. Consult PT/OT. Patient reports improvement in his back pain significantly and he is being ambulating around as prior. He is hemodynamically stable and would like to go home. Patient to follow-up with orthospine in 2 weeks time upon discharge. Patient to avoid bending, avoid heavy lifting. Supratherapeutic INR: Admitting PT/INR of 3.8. Patient on Coumadin for history of SMV thrombosis. Takes 10 mg daily and 50 mg on Wednesdays. Continue with Coumadin as prior, follow-up with Coumadin clinic in 2 days time upon discharge. Other chronic medical conditions: Continue with/resume home meds as and when able Esophageal varices and GAVE syndromechronic, recent banding by GI on 05/14/2023. HTNchronic, take lisinopril as prior. GERDcontinue Protonix twice daily. Disposition: PT/OT, likely DC in next 1 to 2 days CODE STATUS: Full code VTE prophylaxis: Therapeutic INR for now. Patient is being discharged to home with following instruction at the point of discharge: Follow-up with your primary care physician within a week time and likely you will need labs CBC/CMP/magnesium/phosphorus. Follow-up with orthospine doctor in 2 weeks time upon discharge. Wear LSO brace with ambulation and standing, remove in seated position and during sleep. Do not bend or lift more than 5 to 10 pounds. For mild to moderate pain, you can use [id number] 1 tablet Tylenol up to 3-4 times a day. For moderate to severe pain, you can use 4% lidocaine patch which is also [id number]. For your concern of GI bleed, you will need follow-up with GI in 2 to 4 weeks time upon discharge and possible EGD evaluation. Avoid NSAIDs like Motrin and Advil. For concern of colitis, you will be discharged on antibiotic to complete the 10- day course. Take your Coumadin as prior, follow-up with Coumadin clinic in 2 days time upon discharge for PT/INR and further recommendation on Coumadin doses from Coumadin clinic. As discussed at the bedside, use Pedialyte solution to replace the fluid lost through loose stools as you have multiple stools from likely norovirus related enteritis. Take your medications as prescribed. Please make sure that you are able to get your medications today by calling your pharmacy before you leave the hospital so that your treatment continuity is not broken. Home Health Attestation I certify that this patient is under my care and that I, or a physicians sales assistant displays working with me, had a face to-face encounter that meets the home health edqn-nw-rlke encounter requirements with this patient. The encounter with the patient was in whole, or in part, for the following medical condition, which is the primary reason for home health care (list medical condition): I certify that, based on my findings, the following services are medically necessary home health services: My clinical findings support the need for the above services because: Further, I certify that my clinical findings support that this patient is homebound (i.e. absences from home require considerable and taxing effort and are for medical reasons or gnosticism services or infrequently or of short duration when for other reasons) because: Certification for Home Health Services: Based on the above findings, I certify that this patient is confined to the home and needs intermittent chcf care, physical therapy and/or speech therapy or continues to need occupational therapy. The patient is under my care, and I have initiated the establishment of the plan of care. This patient will be followed by a physician who will periodically review the plan of care. Total Time Total Time Spent Total Time Spent (In Minutes): 45 Discharge Plan Discharge Items Patient Disposition: Home - Self-Care Reason For Visit: BACK PAIN/GIB/SURAPTHERAPEUTIC INR Discharge Diagnosis: Concern for GI bleed Colitis Intractable low back pain Acute superior endplate compression fracture at L4 Supratherapeutic INR Activity: As commented below Activity Comment: Do not bend, do not lift more than 5 pounds. Lifting: No more than 5 pounds Non-emergency contact: Primary Care Provider Call non-emergency contact if: you have any medication questions, your symptoms worsen and your temperature is above 101.5 Follow-up/Referrals: Tim Brown, [Primary Care Provider] - Diet: Low Fiber and Low Fat Addtl Attending Provider Instructions: Follow-up with your primary care physician within a week time and likely you will need labs CBC/CMP/magnesium/phosphorus. Follow-up with orthospine doctor in 2 weeks time upon discharge. Wear LSO brace with ambulation and standing, remove in seated position and during sleep. Do not bend or lift more than 5 to 10 pounds. For mild to moderate pain, you can use [id number] 1 tablet Tylenol up to 3-4 times a day. For moderate to severe pain, you can use 4% lidocaine patch which is also [id number]. For your concern of GI bleed, you will need follow-up with GI in 2 to 4 weeks time upon discharge and possible EGD evaluation. Avoid NSAIDs like Motrin and Advil. For concern of colitis, you will be discharged on antibiotic to complete the 10- day course. Take your Coumadin as prior, follow-up with Coumadin clinic in 2 days time upon discharge for PT/INR and further recommendation on Coumadin doses from Coumadin clinic. As discussed at the bedside, use Pedialyte solution to replace the fluid lost through loose stools as you have multiple stools from likely norovirus related enteritis. You will be discharged on small dose of potassium supplement for about a week time, follow-up with your primary care office in a week time for further recommendation on electrolyte supplement. Take your medications as prescribed. Please make sure that you are able to get your medications today by calling your pharmacy before you leave the hospital so that your treatment continuity is not broken. Addtl Compensator Worker Provider Instructions: please wear LSO brace with ambulation and standing. May remove to sleep and in seated position. Do not life over 5-10 lbs Please [facility] for follow up appointment [phone] Pending Studies at Discharge: No Stand-Alone Forms: [facility] [employer] [facility], Work/School Release, Smoking Cessation Medications and DC Order Prescriptions: New amoxicillin-pot clavulanate 875-125 mg Tablet 1 tab PO BIDM 7 Days Qty: 14 0RF Advanced Probiotic 625 mg (10 billion cell) Capsule 2 cap PO DAILY 14 Days Qty: 28 0RF sucralfate 100 mg/mL Suspension 1 g PO QID 7 Days Qty: 400 0RF potassium chloride 20 mEq tablet extended release 20 meq PO DAILY 7 Days Qty: 7 0RF Continued loratadine [Claritin] 10 mg tablet 10 mg PO QAM tramadol 50 mg tablet 50 - 100 mg PO Q6H PRN (Reason: Pain) lactulose 20 gram/30 mL solution 10 ml PO HS Rx Instructions: Titrate with goal to have 3-5 BM daily lisinopril 2.5 mg tablet 2.5 mg PO QAM ondansetron HCl 4 mg tablet 4 mg PO Q6H PRN (Reason: Nausea) propranolol 20 mg tablet 20 mg PO BID warfarin 5 mg tablet 10 mg DAILY Rx Instructions: Take 10 mg Daily. On Wednesdays, take an additional 5 mg. mirtazapine 7.5 mg tablet 7.5 mg PO HS pantoprazole 40 mg tablet,delayed release (DR/EC) 40 mg PO BID Qty: 60 0RF Discharge Orders: Discharge Order (Routine); Ordered 06/27/23 Ordered By: Darin Mendenhall Admission Data Admit Date/Time: 06/24/23 14:04 Attending Provider: Darin Mendenhall Admit Provider: Yina Pérez Primary Care Provider: Tim Brown Other Providers: Yina Pérez; Meg Velez; Peterson Melton
[2023-06-27] MEDS ORDERED: WARFARIN SOD 10 MG TAB PO SCH (16:00)
[2023-07-03] MEDS ORDERED: WARFARIN SOD 5 MG TAB PO SCH (16:00)
== END 2023-06-27 11:32 | disposition home or self-care (01) | DRG 378 ==
LOC: ED 09:12 → EDINP 14:04 → SUATTDRO 14:04 → 2E 16:15
DX: K52.9 Noninfective gastroenteritis and colitis, unspecified; K55.1 Chronic vascular disorders of intestine; K74.60 Unspecified cirrhosis of liver; E66.9 Obesity, unspecified; I10 Essential (primary) hypertension; R79.1 Abnormal coagulation profile; K76.6 Portal hypertension; I85.10 Secondary esophageal varices without bleeding; M47.816 Spondylosis without myelopathy or radiculopathy, lumbar region; Z79.01 Long term (current) use of anticoagulants; R39.15 Urgency of urination; K21.9 Gastro-esophageal reflux disease without esophagitis; K92.2 Gastrointestinal hemorrhage, unspecified; E87.6 Hypokalemia; M48.56XA Collapsed vertebra, not elsewhere classified, lumbar region, initial encounter for fracture

== ENCOUNTER 2024-02-20 14:46 | Inpatient (IN) ==
--- NOTE | 2024-02-20 15:13 | Emergency Department Note ---
Impression & Plan Acute lower GI bleeding, Left sided abdominal pain, Dyspnea on exertion, Enterocolitis, Tachyarrhythmia ED Provider Note NAME: CLARITA PENA AGE: 58 SEX: Male INFORMANT: Patient ED PROVIDER(S): Jourdan Crews MD CHIEF COMPLAINT: Bloody diarrhea PLAN: Disposition: Admitted Outpatient prescription management: none Referral: None MEDICAL DECISION MAKING: Patient presented because of bloody diarrhea. He also noted dyspnea on exertion has increased recently. He is on anticoagulation. An IV established. Patient was hydrated. I-STAT performed. CT imaging with IV contrast ordered. Stool testing ordered as well. Patient had a mild anemia on CBC. Bilirubin elevated but not significantly different than prior chemistry panel revealed slight decreased potassium. Patient was noted to have a tachydysrhythmia with a heart rate of 150 on monitoring. This was short-lived but patient was symptomatic with this. It resolved before nursing could capture it on an EKG. Patient's potassium was repleted. Magnesium and cardiac troponin ordered. Patient did not have chest pain with the episode. CT imaging shows cirrhotic morphology as well as findings of nonspecific enterocolitis. Further management in the hospital will be necessary. [facility] Case discussed and diagnostics were reviewed. Patient will be evaluated in the ER for further management and admission. Care/management discussed with: manager core Level of care consideration(s): After review of the information above and other included data, I feel the patient requires escalation of care to admission Triage Nursing notes: reviewed and agree them. Vital Signs: reviewed and remarkable for hypertension Additional History obtained from: none Chronic Medical/Social Conditions affecting care: Anticoagulation Prior/ Outside/ External records reviewed: none Differential Diagnosis: Diverticulosis, AVM, coagulopathy, colitis, inflammatory bowel disease, malignancy, Starla-Mcallister tear, esophagitis, peptic ulcer disease, variceal bleed, gastritis, epistaxis, fissure, hemorrhoids, as well as other pathologies. Diagnostics, independently interpreted by me: ECG: Twelve-lead ECG #1 reveals normal sinus rhythm at 86 bpm. Poor R wave progression. No ST elevation. Twelve-lead ECG #2 reveals sinus rhythm with PVCs at 85 bpm. Low voltage QRS. Poor R wave progression again noted. No acute ischemic change. No T wave inversion. Cardiac Monitoring: Cardiac monitoring ordered by me: The patient was placed on continuous cardiac monitoring and observed. It revealed an atrial tachydysrhythmia at about 150 bpm. Suspect A-fib/a flutter Medical decision rules: none Imaging studies: CT as above. I refer you to the EMR for further details. HPI: 58 year old Male arrives for evaluation of diarrhea and bloody stools. This started 3 months ago and is worsening. The patient also notes the following associated symptoms, dyspnea on exertion, left-sided abdominal pain rated a 6, nausea, sweating, and mild leg swelling. The patient has found no relieving factors. Current pain is rated as 6/10. Patient denies any travel or recent antibiotic use. Pt denies LOC, headache, fevers, chills, visual changes, neck pain, chest pain, breathing difficulties, vomiting, back pain, melena, urinary symptoms, numbness, weakness, lymphadenopathy, rash, or other complaints.. PAST MEDICAL HISTORY: See Below, DVT PAST SURGICAL HISTORY: See Below, SOCIAL HISTORY: See Below, non-smoker HOME MEDICATIONS: See Below ALLERGIES: See Below VITALS: See Below PHYSICAL EXAMINATION: GENERAL: Awake, alert, uncomfortable-appearing, in no distress HENT: Normocephalic, atraumatic. Oropharynx unremarkable. EYES: Mildly pale conjunctiva. Sclera non-icteric. NECK: Inspection normal. Non-tender. Supple. No nuchal rigidity. FROM. No masses. RESPIRATORY: Clear to auscultation. No wheezes. No rales. Normal respiratory effort. CARDIAC: Normal rate. Normal rhythm. No murmurs. No rubs. Extremities warm and well perfused. Pulses equal. No JVD. GI: Soft, mildly distended. Left-sided tenderness to palpation. No rebound or guarding. No masses. RECTAL: Deferred. MUSCULOSKELETAL: Atraumatic. The back is symmetrical on inspection without obvious abnormality. There is no CVA tenderness to palpation. No joint edema. LOWER EXTREMITIES: Calves are equal size bilaterally and non-tender. 1+ edema. No discoloration. NEURO: Normal sensorium. No sensory or motor deficits noted. SKIN: No rash or jaundice noted. PROCEDURES: none CRITICAL CARE: none OBSERVATION NOTE: none Past Med/Surg History Problem List (Updated 02/20/24 @ 17:34 by Jourdan Crews MD) Tachyarrhythmia (Acute) Enterocolitis (Acute) Dyspnea on exertion (Acute) Acute lower GI bleeding (Acute) Left sided abdominal pain (Acute) Encounter for pre-operative examination retirement (current) use of anticoagulants (Acute) Colitis (Acute) Closed compression fracture of L4 vertebra (Acute) Acute upper GI bleed (Acute) Confusion (Acute) Splenomegaly (Acute) Chronic abdominal pain (Acute) Altered mental status Chest pain Abdominal pain Nausea & vomiting (Acute) Left-sided chest pain (Acute) DVT prophylaxis HTN (hypertension) Non-specific colitis Hypokalemia Supratherapeutic INR Gastric varices Portal hypertension Mesenteric vein thrombosis warfarin for this per pt Portal vein thrombosis Anemia Thrombocytopenia Cirrhosis (Acute) Medical History (Updated 02/20/24 @ 17:34 by Jourdan Crews MD) History of anesthesia reaction headache one time after EGD GERD (gastroesophageal reflux disease) History of COVID-19 x5 total, last episode 2021 > not hospitalized GI bleed reason for upcoming EGD GAVE (gastric antral vascular ectasia) Hepatic encephalopathy HTN (hypertension) Hypertension Hx of urticaria Hx of allergic rhinitis Hx of anxiety disorder Hx of esophageal varices no recent issues Surgical History (Updated 07/04/23 @ 07:45 by Shahnaz Francisco RN) Hx of arthroscopy of knee left History of esophagogastroduodenoscopy (EGD) H/O colonoscopy Family History Mother Cancer Stomach cancer, 36 Social History Smoking Status: Never smoker Second Hand Exposure: No; Do You Dip or Chew Tobacco: No; Hx Alcohol Use: No Hx Substance Use: No Preferred Language: [place] Communication Ability: Effective French Translator Required: No Beliefs That Will Affect Care: None marital status: Single Current Living Situation: Spouse Current Living Situation Comment: with [facility] 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 Safe at Home: Yes Childhood Exposure to Second-Hand Smoke: No Assistive Devices: Glasses Allergies Allergies Allergy/AdvReac Type Severity Reaction Status Date / Time hydrocodone [From Vicodin] Allergy Intermediate Hallucinati Verified 02/20/24 17:14 ng Home Meds Home Medications Medication Instructions Recorded Confirmed loratadine 10 mg tablet (Claritin) 10 mg PO QAM 02/17/19 02/20/24 tramadol 50 mg tablet 50 - 100 mg PO Q6H PRN Pain 02/17/19 02/20/24 lactulose 20 gram/30 mL oral 10 ml PO HS 10/23/20 02/20/24 solution lisinopril 2.5 mg tablet 2.5 mg PO QAM 07/07/21 02/20/24 ondansetron HCl 4 mg tablet 4 mg PO Q6H PRN Nausea 07/07/21 02/20/24 propranolol 20 mg tablet 20 mg PO BID 07/07/21 02/20/24 mirtazapine 7.5 mg tablet 7.5 mg PO HS 06/24/23 02/20/24 warfarin 5 mg tablet 10 mg PO DAILY 06/24/23 02/20/24 cyclobenzaprine 10 mg tablet 10 mg PO DAILY PRN MUSCLES 02/20/24 02/20/24 Previous Rx's Medication Instructions Recorded pantoprazole 40 mg tablet,delayed 40 mg PO BID #60 tabs 06/27/23 release Results & Data (ED) Vital Signs Vital Signs - 24 hr 02/20/24 14:47 02/20/24 14:47 02/20/24 15:34 Temperature 36.6 C Temperature Source Temporal Artery Scan Pulse Rate 91 H 87 Pulse Rate from SpO2 Sensor Respiratory Rate 18 13 Blood Pressure 157/94 H Blood Pressure Mean 115 Pulse Oximetry 96 97 96 Oxygen Delivery Method Room Air Sepsis Recent Fever Within 48 Hours No Sepsis New/Unexplained Change in Mental Status N/A Sepsis Action Taken by Nursing No Action Required 02/20/24 15:54 02/20/24 16:00 02/20/24 16:21 Temperature Temperature Source Pulse Rate 87 87 84 Pulse Rate from SpO2 Sensor 82 84 Respiratory Rate 23 25 H 20 Blood Pressure Blood Pressure Mean Pulse Oximetry 98 97 Oxygen Delivery Method Sepsis Recent Fever Within 48 Hours Sepsis New/Unexplained Change in Mental Status Sepsis Action Taken by Nursing 02/20/24 16:30 02/20/24 16:45 02/20/24 16:51 Temperature Temperature Source Pulse Rate 84 92 H 83 Pulse Rate from SpO2 Sensor 83 85 83 Respiratory Rate 22 22 25 H Blood Pressure Blood Pressure Mean Pulse Oximetry 97 97 97 Oxygen Delivery Method Sepsis Recent Fever Within 48 Hours Sepsis New/Unexplained Change in Mental Status Sepsis Action Taken by Nursing 02/20/24 17:00 Temperature Temperature Source Pulse Rate 85 Pulse Rate from SpO2 Sensor 81 Respiratory Rate 20 Blood Pressure Blood Pressure Mean Pulse Oximetry 96 Oxygen Delivery Method Sepsis Recent Fever Within 48 Hours Sepsis New/Unexplained Change in Mental Status Sepsis Action Taken by Nursing Laboratory Data 02/20/24 15:31 02/20/24 15:31 Lab Results 02/20/24 02/20/24 Range/Units 15:31 15:37 WBC 4.78 L (4.8-10.8) K/ul RBC 3.19 L (4.70-6.10) M/uL Hgb 10.7 L (14.0-18.0) g/dl POC Hgb 10.2 L (14.0-18.0) g/dl Hct 30.8 L (42.0-52.0) % POC Hct 30 L (42-52) % MCV 96.6 (80.0-100.0) fL MCH 33.5 (25.0-34.0) pg MCHC 34.7 (32.0-36.0) g/dL RDW Std Deviation 53.2 H (36.4-46.3) fL RDW Coeff of Wenceslao 15.2 H (11.5-14.5) % Plt Count 115 L (130-400) K/uL MPV 8.9 L (9.4-12.4) fL Immature Gran % (Auto) 0.2 % Neut % (Auto) 67.4 % Lymph % (Auto) 18.8 % Garden % (Auto) 9.2 % Eos % (Auto) 3.6 % Baso % (Auto) 0.8 % Neut # (Auto) 3.22 (1.40-6.50) K/uL Lymph # (Auto) 0.90 L (1.20-3.40) K/uL Garden # (Auto) 0.44 (0.11-0.59) K/uL Eos # (Auto) 0.17 (0.00-0.50) K/uL Baso # (Auto) 0.04 (0.00-0.20) K/uL Immature Gran # (Auto) 0.01 (0.01-0.20) K/uL PT 22.7 H (9.0-12.0) Seconds INR 2.2 H (0.9-1.1) POC Sodium 141 (135-144) mmol/L Sodium 139 (136-145) mmol/L POC Potassium 3.3 (3.3-5.0) mmol/L Potassium 3.4 L (3.5-5.1) mmol/L POC Chloride 106 (101-112) mmol/L Chloride 110 H (98-107) mmol/L Carbon Dioxide 25 (21-32) mmol/L POC Total CO2 21 L (24-31) mmol/L Anion Gap 4 (3-11) POC Anion Gap 19.0 (16-25) mmol/L POC BUN 13 (7-18) mg/dl BUN 16 (6-23) mg/dl Creatinine 0.98 (0.6-1.4) mg/dl POC Creatinine 1.1 (0.6-1.3) mg/dl Est Cr Clr Drug Dosing 98.4 ml/min eGFR 88.28 BUN/Creatinine Ratio 16.3 (10-20) Glucose 87 (70-99(Fasting)) mg/dl POC Glucose (other) 85 (70-99) mg/dl Lactate 1.0 (0.4-2.0) mmol/L Calcium 9.4 (8.6-10.3) mg/dl POC Ioniz Calcium Kayleigh 1.28 (1.12-1.32) mmol/l Magnesium 1.8 (1.7-2.4) mg/dl Total Bilirubin 3.6 H (0.2-1.0) mg/dl AST 55 H (13-39) U/L ALT 35 (7-52) U/L Alkaline Phosphatase 83 (34-104) U/L Troponin I High Sens 2.4 (0-20) pg/ml Total Protein 6.0 (6.0-8.3) gm/dl Albumin 3.7 (3.4-5.0) gm/dl Globulin 2.3 L (2.5-4.0) gm/dl Albumin/Globulin Ratio 1.6 (0.9-2) Lipase 37 (11-82) U/L Administered Medications Potassium Chloride (K Andre / Wtr) 10 meq in 100 mls @ 100 mls/hr IV ONE ONE Stop: 02/20/24 17:56 Last Admin: 02/20/24 17:22 Dose: 100 mls/hr Documented By: MMF Discontinued Medications Sodium Chloride (Nss) 500 mls @ 999 mls/hr IV .Q31M STA Stop: 02/20/24 15:28 Last Infusion: 02/20/24 16:05 Dose: Infused Documented By: Admin: 02/20/24 15:33 Dose: 999 mls/hr Documented By: LEELA Ioversol (Optiray 320 100ml) 93 ml IV ONCE ONE Stop: 02/20/24 16:10 Last Admin: 02/20/24 16:09 Dose: 93 ml Documented By: [email or web address] Imaging Data Radiologist's Impression: Abdomen/Pelvis CT 02/20/24 14:[address] WITH IV CONTRAST CT DOSE: 1624.6 mGy.cm HISTORY: Acute generalized abdominal pain hematochezia TECHNIQUE: Multiaxial CT images of the abdomen and pelvis were performed following the IV administration of 93 cc of Optiray, A dose lowering technique was utilized adhering to the principles of ALARA. COMPARISON STUDY: 06/24/2023 FINDINGS: Cardiomegaly with coronary artery calcifications. Lung bases are currently clear. No pneumatosis or pneumoperitoneum. Cirrhosis with splenomegaly, moderate ascites with abdominal varicosities redemonstrated. The spleen measures approximately 23 cm in length which is similar to prior. Unremarkable pancreas and adrenal glands. The gallbladder is contracted. No hepatic mass identified. Calcifications within the portal and splenic veins redemonstrated. The small chronic superior mesenteric venous thrombus is nonocclusive and is again noted on image 200 series 3. There is a 7 mm nonobstructing calculus of the inferior pole right kidney. No ureteral calculi or hydronephrosis. Decompressed urinary bladder with wall thickening. Prostatomegaly. Atherosclerosis of the aorta without aneurysm. Subcentimeter retroperitoneal lymph nodes. Periesophageal varicosities. Circumferential wall thickening involves several loops of small bowel, likely secondary to the cirrhosis. Colonic diverticulosis without acute diverticulitis. No bowel obstruction. There is a small fat and fluid filled umbilical hernia. Mild wall thickening of the ascending colon and hepatic flexure. Surgical clips in the abdominal right lower quadrant. No acute fracture. IMPRESSION: 1. No bowel obstruction or pneumoperitoneum. 2. Cirrhosis with stigmata of portal venous hypertension redemonstrated including marked splenomegaly with moderate abdominal pelvic ascites and abdominal varicosities. 3. Wall thickening is noted throughout several loops of small bowel and also within the ascending colon and hepatic flexure, likely secondary to portal colopathy/enteropathy. A nonspecific enterocolitis considered less likely. 4. Colonic diverticulosis without acute diverticulitis. 5. Prostatectomy with evidence of chronic outlet obstruction. 6. Nonobstructing left nephrolithiasis. ACT 112: Negative or not required by law. The above report was generated using voice recognition software. It may contain grammatical, syntax or spelling errors. Electronically signed by: Carlos Adan M.D. 02/20/2024 5:00 PM Discharge Plan Visit Data Chief Complaint: Diarrhea Stated Complaint: DIARRHEA/3 MONTHS, WEAKNESS/WEIGHT LOSS,LIVER PROB ED Provider: Jourdna Crews Discharge Problem: Acute lower GI bleeding, Left sided abdominal pain, Dyspnea on exertion, Enterocolitis, Tachyarrhythmia Forms Stand Alone Forms: [facility] [employer] Prescriptions Prescriptions: No Action loratadine [Claritin] 10 mg tablet 10 mg PO QAM tramadol 50 mg tablet 50 - 100 mg PO Q6H PRN (Reason: Pain) lactulose 20 gram/30 mL solution 10 ml PO HS Rx Instructions: Titrate with goal to have 3-5 BM daily lisinopril 2.5 mg tablet 2.5 mg PO QAM ondansetron HCl 4 mg tablet 4 mg PO Q6H PRN (Reason: Nausea) propranolol 20 mg tablet 20 mg PO BID warfarin 5 mg tablet 10 mg PO DAILY Rx Instructions: TAKE ONE TABLET DAILY mirtazapine 7.5 mg tablet 7.5 mg PO HS pantoprazole 40 mg tablet,delayed release (DR/EC) 40 mg PO BID Qty: 60 0RF cyclobenzaprine 10 mg tablet 10 mg PO DAILY PRN (Reason: MUSCLES) Referrals Referrals: Tim Brown DO [Primary Care Provider] -
[2024-02-20] MEDS: SODIUM CHLORIDE 0.9% 500 ML IV STA (15:33)
[2024-02-20 15:51] LABS: iSTAT Creatinine 1.1 mg/dl (0.6-1.3); iSTAT Hemoglobin 10.2 g/dl (14.0-18.0); iSTAT Ionized Calcium 1.28 mmol/l (1.12-1.32); iSTAT Potassium 3.3 mmol/L (3.3-5.0)
[2024-02-20 16:06] LABS: Albumin Globulin Ratio 1.6 (0.9-2); Albumin Level 3.7 gm/dl (3.4-5.0); BUN Creatinine Ratio 16.3 (10-20); Bilirubin,Total 3.6 mg/dl (0.2-1.0); Calcium 9.4 mg/dl (8.6-10.3); Creatinine Clr Calc Pharmacy 98.4 ml/min; Globulin 2.3 gm/dl (2.5-4.0); Potassium 3.4 mmol/L (3.5-5.1)
[2024-02-20 16:08] LABS: Basophils # (auto) 0.04 K/uL (0.00-0.20); Basophils % (auto) 0.8 %; Eosinophils # (auto) 0.17 K/uL (0.00-0.50); Eosinophils % (auto) 3.6 %; Hematocrit (blood only) 30.8 % (42.0-52.0); Hemoglobin 10.7 g/dl (14.0-18.0); Immature Granulocytes # (auto) 0.01 K/uL (0.01-0.20); Immature Granulocytes % (auto) 0.2 %; Lymphocytes % (auto) 18.8 %; Mean Corpuscular Hemoglobin 33.5 pg (25.0-34.0); Mean Corpuscular Hgb Conc 34.7 g/dL (32.0-36.0); Mean Corpuscular Volume 96.6 fL (80.0-100.0); Mean Platelet Volume 8.9 fL (9.4-12.4); Monocytes # (auto) 0.44 K/uL (0.11-0.59); Monocytes % (auto) 9.2 %; Neutrophils # (auto) 3.22 K/uL (1.40-6.50); Neutrophils % (auto) 67.4 %; Platelet Count 115 K/uL (130-400); RDW Coefficient of Variation 15.2 % (11.5-14.5); RDW Standard Deviation 53.2 fL (36.4-46.3); Red Blood Count 3.19 M/uL (4.70-6.10); White Blood Count 4.78 K/ul (4.8-10.8)
[2024-02-20] MEDS: OPTIRAY 320 100ml IV ONE (16:09)
--- NOTE | 2024-02-20 16:22 | Electrocardiogram Report ---
Test Reason : Blood Pressure : */* mmHG Vent. Rate : 86 BPM Atrial Rate : 86 BPM P-R Int : 164 ms QRS Dur : 90 ms QT Int : 376 ms P-R-T Axes : 29 -23 29 degrees QTcB Int : 449 ms Normal sinus rhythm Poor R wave progression, consider anterior KS vs. lead placement vs. LVH Abnormal ECG When compared with ECG of 29-Dec-2023 13:43, No significant change was found Confirmed by Phan Smalls ([id number]) on 02/20/2024 4:22:32 PM Referred By: Confirmed By: Phan Smalls
[2024-02-20 16:31] LABS: INR 2.2 (0.9-1.1); Prothrombin Time 22.7 Seconds (9.0-12.0)
--- NOTE | 2024-02-20 17:01 | CT Scan Report ---
ABDOMEN AND PELVIS CT WITH IV CONTRAST CT DOSE: 1624.6 mGy.cm HISTORY: Acute generalized abdominal pain hematochezia TECHNIQUE: Multiaxial CT images of the abdomen and pelvis were performed following the IV administrat ion of 93 cc of Optiray, A dose lowering technique was utilized adhering to the principles of ALARA. COMPARISON STUDY: 06/24/2023 FINDINGS: Cardiomegaly with coronary artery calcifications. Lung bases are currently clear. No pneuma tosis or pneumoperitoneum. Cirrhosis with splenomegaly, moderate ascites with abdominal varicosities redemonstrated. The spleen measures approximately 23 cm in length which is similar to prior. Unremark able pancreas and adrenal glands. The gallbladder is contracted. No hepatic mass identified. Calcific ations within the portal and splenic veins redemonstrated. The small chronic superior mesenteric veno us thrombus is nonocclusive and is again noted on image 200 series 3. There is a 7 mm nonobstructing calculus of the inferior pole right kidney. No ureteral calculi or hyd ronephrosis. Decompressed urinary bladder with wall thickening. Prostatomegaly. Atherosclerosis of th e aorta without aneurysm. Subcentimeter retroperitoneal lymph nodes. Periesophageal varicosities. Cir cumferential wall thickening involves several loops of small bowel, likely secondary to the cirrhosis . Colonic diverticulosis without acute diverticulitis. No bowel obstruction. There is a small fat and fluid filled umbilical hernia. Mild wall thickening of the ascending colon and hepatic flexure. Surg ical clips in the abdominal right lower quadrant. No acute fracture. IMPRESSION: 1. No bowel obstruction or pneumoperitoneum. 2. Cirrhosis with stigmata of portal venous hypertension redemonstrated including marked splenomegaly with moderate abdominal pelvic ascites and abdominal varicosities. 3. Wall thickening is noted throughout several loops of small bowel and also within the ascending col on and hepatic flexure, likely secondary to portal colopathy/enteropathy. A nonspecific enterocolitis considered less likely. 4. Colonic diverticulosis without acute diverticulitis. 5. Prostatectomy with evidence of chronic outlet obstruction. 6. Nonobstructing left nephrolithiasis. ACT 112: Negative or not required by law. The above report was generated using voice recognition software. It may contain grammatical, syntax o r spelling errors. Electronically signed by: Carlos Adan M.D. 02/20/2024 5:00 PM
[2024-02-20 17:19] LABS: Magnesium 1.8 mg/dl (1.7-2.4)
[2024-02-20] MEDS: POTASSIUM CHLORIDE / WTR 10 MEQ/100 ML PLCT IV ONE (17:22)
[2024-02-20 17:26] LABS: Troponin I High Sensitivity 2.4 pg/ml (0-20)
--- NOTE | 2024-02-20 18:03 | History & Physical Report ---
Date of Service February 20, 2024 Assessment & Plan (1) Enterocolitis: Plan Chronic diarrhea Blood in stool/GI bleed likely UGI Left abdominal pain Enterocolitis Ascites History of cirrhosis/SMV thrombosis/GAVE syndrome Patient presents with diarrhea for about 3 months, see HPI. Patient reports blood in stool on and off. Admitting hemoglobin of 10.7, baseline around 12. Patient reports feeling tired and easily fatigued lately. Esophagogastroduodenoscopy 07/04/2023: Grade 2 esophageal varices/banded. 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 Normal duodenal bulb and second portion of the duodenum. Admitting labs reviewed, WBC 4.78K, INR 2.2, K3.4, magnesium 1.8, LFT at his baseline, lipase WNL Admitting CTAP: No bowel obstruction. Cirrhosis with stigmata of portal venous hypertension redemonstrated including marked splenomegaly with moderate abdominal pelvic ascites and abdominal varicosities. Findings suggestive of nonspecific enterocolitis of small bowel and ascending colon and hepatic flexure noted. Monitor H&H every 6 hours, pantoprazole IV twice daily, clear liquid diet, n.p.o. midnight, blood transfusion consent obtained. Transfuse blood for hemoglobin less than 7 or for symptomatic anemia. Will hold Coumadin, GI consult, possible paracentesis tomorrow. Initiate Zosyn, send stool PCR and C. difficile. Replete electrolytes. Other chronic medical conditions: Continue with/resume home meds as and when able Esophageal varices and GAVE syndromechronic, GI consulted. HTNchronic, take lisinopril as prior. GERDcontinue Protonix twice daily. 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 Patient reports losing about 20 pounds weight in last 2 months. Patient is being actively followed by GI as an outpatient, had a plan for scope next Saturday. Patient denies nausea/vomiting/pain or burning while passing urine/head ache/dizziness/sore throat/cough/chest pain. Patient reports left belly pain for about 3 weeks duration, reports subjective fever since yesterday, reports occasional palpitation lately. Patient denies smoking, states quitting drinking 25 years ago, denies recreational drug use. Medication reviewed with the patient at the bedside. Plan of care discussed with the patient and his friend at bedside in detail, they voiced understanding. Full code Allergies Allergy/AdvReac Type Severity Reaction Status Date / Time hydrocodone [From Vicodin] Allergy Intermediate Hallucinati Verified 02/20/24 17:14 Home Medications Medication Instructions Recorded Confirmed Type loratadine 10 mg tablet (Claritin) 10 mg PO QAM 02/17/19 02/20/24 History tramadol 50 mg tablet 50 - 100 mg PO Q6H PRN Pain 02/17/19 02/20/24 History lactulose 20 gram/30 mL oral 10 ml PO HS 10/23/20 02/20/24 History solution lisinopril 2.5 mg tablet 2.5 mg PO QAM 07/07/21 02/20/24 History ondansetron HCl 4 mg tablet 4 mg PO Q6H PRN Nausea 07/07/21 02/20/24 History propranolol 20 mg tablet 20 mg PO BID 07/07/21 02/20/24 History mirtazapine 7.5 mg tablet 7.5 mg PO HS 06/24/23 02/20/24 History warfarin 5 mg tablet 10 mg PO DAILY 06/24/23 02/20/24 History pantoprazole 40 mg tablet,delayed 40 mg PO BID #60 tabs 06/27/23 02/20/24 Rx release cyclobenzaprine 10 mg tablet 10 mg PO DAILY PRN MUSCLES 02/20/24 02/20/24 History Past Med/Surg History Problem List (Updated 02/20/24 @ 17:34 by Jourdan Crews MD) Tachyarrhythmia (Acute) Enterocolitis (Acute) Dyspnea on exertion (Acute) Acute lower GI bleeding (Acute) Left sided abdominal pain (Acute) 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) use of anticoagulants (Acute) Colitis (Acute) Closed compression fracture of L4 vertebra (Acute) Acute upper GI bleed (Acute) Confusion (Acute) Splenomegaly (Acute) Chronic abdominal pain (Acute) Altered mental status Chest pain Abdominal pain Nausea & vomiting (Acute) Left-sided chest pain (Acute) DVT prophylaxis HTN (hypertension) Non-specific colitis Hypokalemia Supratherapeutic INR Gastric varices Portal hypertension Mesenteric vein thrombosis warfarin for this per pt Portal vein thrombosis Anemia Thrombocytopenia Cirrhosis (Acute) Medical History (Updated 02/20/24 @ 17:34 by Jourdan Crews MD) History of anesthesia reaction headache one time after EGD GERD (gastroesophageal reflux disease) History of COVID-19 x5 total, last episode 2021 > not hospitalized GI bleed reason for upcoming EGD GAVE (gastric antral vascular ectasia) Hepatic encephalopathy HTN (hypertension) Hypertension Hx of urticaria Hx of allergic rhinitis Hx of anxiety disorder Hx of esophageal varices no recent issues Surgical History (Updated 07/04/23 @ 07:45 by Shahnaz Francisco RN) Hx of arthroscopy of knee left History of esophagogastroduodenoscopy (EGD) H/O colonoscopy Family History Mother Cancer Stomach cancer, 36 Social History Smoking Status: Never smoker Second Hand Exposure: No; Do You Dip or Chew Tobacco: No; Hx Alcohol Use: No Hx Substance Use: No Preferred Language: Paraguayan Communication Ability: Effective 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 Physical Exam Physical Exam: GENERAL: Alert and oriented x3. NAD, on RA. HEENT: No pallor, no icterus. Pupils equal, round and reactive to light. Oral mucosa moist. NECK: No JVD, no neck masses. HEART: S1 and S2 heard. Regular rate and rhythm. No murmur, no gallop. RESPIRATORY SYSTEM: Normal AP diameter. No accessory muscle use. No wheezing, no crackles. ABDOMEN: Soft, bowel sounds present, Left lumbar tender, no CVA angle tender, no distention. CENTRAL NERVOUS SYSTEM: No facial droop. Speech is clear. Obeys simple c ommands. Moves extremities. EXTREMITIES: trace ble edema, no erythema seen. Results & Data Results & Data Vital Signs (Past 12 Hours) Vital Signs Temp Pulse Resp BP Pulse Ox O2 Del Method 02/20/24 17:00 85 20 96 02/20/24 16:51 83 25 H 97 02/20/24 16:45 92 H 22 97 02/20/24 16:30 84 22 97 02/20/24 16:21 84 20 97 02/20/24 16:00 87 25 H 02/20/24 15:54 87 23 98 02/20/24 15:34 87 13 96 Room Air 02/20/24 14:47 97 02/20/24 14:47 36.6 C 91 H 18 157/94 H 96
[2024-02-20] MEDS ORDERED: CYCLOBENZAPRINE HCL 10 MG TAB PO PRN (18:13)
[2024-02-20] MEDS: MAGNESIUM SULFATE / D5W 1 GM/100 ML BAG IV STA (18:24)
[2024-02-20] MEDS: POTASSIUM CHLORIDE CRTAB 20 MEQ TABCR PO STA (18:24)
[2024-02-20] MEDS: 4.5GM X1 IV STA (18:27)
[2024-02-20] MEDS ORDERED: ONDANSETRON 4 MG OD TAB PO PRN (18:53)
[2024-02-20 19:35] LABS: Appearance Urine Clear (Clear); Bacteria Urine Automated None Seen (None Seen); Bilirubin Urine Negative (Negative); Blood Urine Negative (Negative); Cast Urine Automated 0-2 /lpf (0-2); Color Urine Yellow; Epithelial Cell Urine Auto 0-2 /hpf (0-2); Glucose Urine UA Negative (Negative); Ketones Urine Negative (Negative); Leukocyte Esterase Urine Negative (Negative); Nitrite Urine Negative (Negative); Protein Urine Trace (Negative); RBC Urine Automated 0-2 /hpf (0-2); Specific Gravity Urine > 1.045 (1.000-1.030); Urobilinogen Urine Negative (Negative); WBC Urine Automated 0-5 /hpf (0-5)
[2024-02-20] MEDS ORDERED: ACETAMINOPHEN 325 MG TAB PO PRN (20:22)
[2024-02-20 21:15] LABS: Hematocrit (blood only) 26.7 % (42.0-52.0); Hemoglobin 9.8 g/dl (14.0-18.0)
[2024-02-20] MEDS: PANTOprazole 40 MG/10 ML SYR IV SCH (21:18)
[2024-02-20] MEDS: MIRTAZAPINE TAB 15 MG TAB PO SCH (21:20)
[2024-02-20] MEDS: PROPRANOLOL HCL 20 MG TAB PO SCH (21:20)
[2024-02-20] MEDS ORDERED: Nursing to Pharmacy Communication SCH (21:30)
[2024-02-20] MEDS: POTASSIUM CHLORIDE PWD 20 MEQ PACK PO STA (22:07)
[2024-02-20] MEDS: NSS + 20MEQ KCL 20 MEQ/1,000 ML BAG IV ONE (22:12)
[2024-02-20] MEDS: MAGNESIUM SULFATE / D5W 1 GM/100 ML BAG IV ONE (22:15)
[2024-02-21] MEDS ORDERED: PIPERACILLIN/TAZOBACTAM 4.5 GM/100 ML BAG IV ONE
[2024-02-21] MEDS: PIPERACILLIN/TAZOBACTAM 4.5 GM/100 ML BAG IV SCH (00:20)
[2024-02-21 01:27] LABS: Adenovirus F 40/41 PCR Not Detected (NotDetected); Astrovirus PCR Not Detected (NotDetected); Campylobacter PCR Not Detected (NotDetected); Cryptosporidium PCR Not Detected (NotDetected); Cyclospora cayetanensis PCR Not Detected (NotDetected); Entamoeba histolytica PCR Not Detected (NotDetected); Enteroaggregative E.coli(EAEC) Not Detected (NotDetected); Enteropathogenic E.coli (EPEC) Not Detected (NotDetected); Enterotoxigenic E.coli (ETEC) Not Detected (NotDetected); Giardia lamblia PCR Not Detected (NotDetected); Plesiomonas shigelloides PCR Not Detected (NotDetected); Rotavirus A PCR Not Detected (NotDetected); Salmonella PCR Not Detected (NotDetected); Sapovirus PCR Not Detected (NotDetected); Shiga-like Toxin E.coli (STEC) Not Detected (NotDetected); Shigella/Enteroinvasive E.coli Not Detected (NotDetected); Vibrio cholerae PCR Not Detected (NotDetected); Vibrio species PCR Not Detected (NotDetected); Yersinia enterocolitica PCR Not Detected (NotDetected)
[2024-02-21 01:29] LABS: Norovirus GI/GII PCR DETECTED (NotDetected)
[2024-02-21 03:30] LABS: BUN Creatinine Ratio 13.3 (10-20); Calcium 8.7 mg/dl (8.6-10.3); Creatinine Clr Calc Pharmacy 91.9 ml/min; Hematocrit (blood only) 28.2 % (42.0-52.0); Hemoglobin 9.7 g/dl (14.0-18.0); Magnesium 2.1 mg/dl (1.7-2.4); Mean Corpuscular Hemoglobin 33.3 pg (25.0-34.0); Mean Corpuscular Hgb Conc 34.4 g/dL (32.0-36.0); Mean Corpuscular Volume 96.9 fL (80.0-100.0); Mean Platelet Volume 9.2 fL (9.4-12.4); Phosphorus 2.8 mg/dl (2.5-4.9); Platelet Count 102 K/uL (130-400); RDW Coefficient of Variation 15.2 % (11.5-14.5); RDW Standard Deviation 53.8 fL (36.4-46.3); Red Blood Count 2.91 M/uL (4.70-6.10)
[2024-02-21 04:04] LABS: INR 2.1 (0.9-1.1); Prothrombin Time 21.5 Seconds (9.0-12.0)
[2024-02-21] MEDS: LOPERAMIDE HCL 2 MG CAP PO PRN (04:36)
[2024-02-21] MEDS: ONDANSETRON INJ 2 MG/ML 2 ML VIAL IV PRN (06:03)
[2024-02-21 06:55] LABS: Hematocrit (blood only) 27.9 % (42.0-52.0); Hemoglobin 9.6 g/dl (14.0-18.0)
--- NOTE | 2024-02-21 07:48 | Electrocardiogram Report ---
Test Reason : Blood Pressure : */* mmHG Vent. Rate : 85 BPM Atrial Rate : 85 BPM P-R Int : 168 ms QRS Dur : 86 ms QT Int : 386 ms P-R-T Axes : 53 -11 56 degrees QTcB Int : 459 ms Sinus rhythm with frequent Premature ventricular complexes Low voltage QRS Poor R wave progression, consider anterior SC vs. lead placement vs. LVH Abnormal ECG When compared with ECG of 20-Feb-2024 15:21, Premature ventricular complexes are now Present Confirmed by Phan Samlls ([id number]) on 02/21/2024 7:48:18 AM Referred By: Jeffy Boggs Confirmed By: Phan Smalls
[2024-02-21] MEDS: lisinopril 2.5 MG TAB PO SCH (08:07)
[2024-02-21] MEDS: ADVANCED PROBIOTIC 625 MG CAPSULE PO SCH (08:07)
[2024-02-21] MEDS: LORATADINE 10 MG TAB PO SCH (08:08)
--- NOTE | 2024-02-21 10:17 | Gastrointestinal Consultation ---
<Statement entered by Vidal Herrera MD - 02/21/24 15:17> I personally saw and examined the patient. I have reviewed the chart and agree with the documentation provided by the CAMERA ENGINEER including discussion about the assessment, treatment and plan. 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 He reports on and off red blood in stools. stools tested positive for norovirus. CT with nonspecific enterocolitis. Patient had a colonoscopy in May of this year and was told everything looked good except for large internal hemorrhoids. He has been having some bright red blood per rectum which I suspect is from his norovirus colitis and hemorrhoids. He needs an upper endoscopy and we should hold his Coumadin. As long as he is clinically doing well, this can be done outpatient as scheduled on February 27 with his [facility] doctor. GI will follow-up in the morning. 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 He reports on and off red blood in stools. stools tested positive for norovirus. CT with nonspecific enterocolitis. Discussed case with Dr. Herrera. - recommend supportive care at this time. - If symptoms fail to improve during his stay, could consider colonoscopy for next week to evaluate as inpatient, or he could have this done with his home GI when they do EGD next week as outpatient. - continue to follow hgb/hct. transfuse as needed. - continue with protonix 40mg IV bid. - patient is requesting to advance diet. I offered clear liquids first but he wishes to try something more regular. History of Present Illness Reason for Consultation: GIB/Colitis. 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 He reports on and off red blood in stools. He has 9-10 episodes of diarrhea per day, especially within 15 to 30 minutes after oral intake. Patient reports losing about 20 pounds weight in last 2 months that he feels is secondary to symptoms. He also admits to ongoing left sided abdominal pain. Occasional dark stool but none in several days. Patient is being actively followed by [facility] as an outpatient, had a plan for EGD next Saturday - he tells me he called their office and was advised to come to [facility] for further work up of his diarrhea. He had stool studies done showing positive norovirus but otherwise unremarkable. He had CT imaging showing cirrhosis with portal hypertension, splenomegaly with moderate ascites, abdominal varicosities, and nonspecific enterocolitis. He had hgb of 10.7 on 02/19, this had fallen to 9.6 as of 02/20. INR 2.1. He reports that diarrhea has slowed down to some degree since admission and since he has been here he has only had 2 stools. Esophagogastroduodenoscopy 07/04/2023: Grade 2 esophageal varices/banded. 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 Normal duodenal bulb and second portion of the duodenum. Allergies Allergy/AdvReac Type Severity Reaction Status Date / Time hydrocodone [From Vicodin] Allergy Intermediate Hallucinati Verified 02/20/24 17:14 ng Home Medications Medication Instructions Recorded Confirmed Type loratadine 10 mg tablet (Claritin) 10 mg PO QAM 02/17/19 02/20/24 History tramadol 50 mg tablet 50 - 100 mg PO Q6H PRN Pain 02/17/19 02/20/24 History lactulose 20 gram/30 mL oral 10 ml PO HS 10/23/20 02/20/24 History solution lisinopril 2.5 mg tablet 2.5 mg PO QAM 07/07/21 02/20/24 History ondansetron HCl 4 mg tablet 4 mg PO Q6H PRN Nausea 07/07/21 02/20/24 History propranolol 20 mg tablet 20 mg PO BID 07/07/21 02/20/24 History mirtazapine 7.5 mg tablet 7.5 mg PO HS 06/24/23 02/20/24 History warfarin 5 mg tablet 10 mg PO DAILY 06/24/23 02/20/24 History pantoprazole 40 mg tablet,delayed 40 mg PO BID #60 tabs 06/27/23 02/20/24 Rx release cyclobenzaprine 10 mg tablet 10 mg PO DAILY PRN MUSCLES 02/20/24 02/20/24 History Patient History Medical History (Updated 02/20/24 @ 17:34 by Jourdan Crews MD) History of anesthesia reaction headache one time after EGD GERD (gastroesophageal reflux disease) History of COVID-19 x5 total, last episode 2021 > not hospitalized GI bleed reason for upcoming EGD GAVE (gastric antral vascular ectasia) Hepatic encephalopathy HTN (hypertension) Hypertension Hx of urticaria Hx of allergic rhinitis Hx of anxiety disorder Hx of esophageal varices no recent issues Surgical History (Updated 07/04/23 @ 07:45 by Shahnaz Francisco RN) Hx of arthroscopy of knee left History of esophagogastroduodenoscopy (EGD) H/O colonoscopy Family History Mother Cancer Stomach cancer, 36 Social History Smoking Status: Never smoker Second Hand Exposure: No; Do You Dip or Chew Tobacco: No; Hx Alcohol Use: No Hx Substance Use: No Preferred Language: Malagasy Communication Ability: Effective 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 Beliefs That Will Affect Care: None marital status: Single Current Living Situation: Spouse and Family Current Living Situation Comment: lives with and granddaughter 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 Psychiatric: Orientation: alert and oriented x 3 Affect: euthymic affect Results & Data Vital Signs (Past 12 Hours) Vital Signs Temp Pulse Pulse Resp BP Pulse Ox O2 Del Method 02/21/24 07:56 98.6 F 59 L 18 107/58 L 97 Room Air 02/21/24 07:44 62 02/21/24 03:43 98.8 F 63 18 106/68 96 Room Air 02/20/24 23:44 99.7 F H 69 18 101/59 L 95 Room Air 02/20/24 22:50 67 Coding Level of Care Code 16265 IN/OBS CONSULT LVL 3,45M Diagnoses Enterocolitis K52.9 Cirrhosis K74.60 Anemia D64.9
--- NOTE | 2024-02-21 10:31 | Electrocardiogram Report ---
Test Reason : Blood Pressure : */* mmHG Vent. Rate : 66 BPM Atrial Rate : 66 BPM P-R Int : 182 ms QRS Dur : 86 ms QT Int : 442 ms P-R-T Axes : 45 -11 20 degrees QTcB Int : 463 ms Normal sinus rhythm Poor R wave progression, consider anterior MT vs. lead placement vs. LVH Abnormal ECG When compared with ECG of 20-Feb-2024 16:52, Premature ventricular complexes are no longer Present Confirmed by Phan Smalls ([id number]) on 02/21/2024 10:31:16 AM Referred By: Jeffy Boggs Confirmed By: Phan Smalls
--- NOTE | 2024-02-21 13:19 | Hospitalist Progress Note ---
Date of Service February 21, 2024 Assessment & Plan (1) Enterocolitis: (2) Acute gastroenteropathy due to Norovirus: (3) Acute lower GI bleeding: (4) GAVE (gastric antral vascular ectasia): (5) Cirrhosis: (6) Portal hypertension: Plan Patient with essentially chronic diarrhea greater than 3 months with intermittent hematochezia. Continue to hold warfarin Supportive care for norovirus infection Reviewed GI recommendations will continue to monitor Continue empiric antibiotics Continue to monitor electrolytes Diet advance Okay to MedSurg Moderate ascites, abdomen soft, not tense, no indication for paracentesis at this time Family at bedside Admission and Anticipated Discharge Date Admission Date: February 20, 2024 Subjective Patient reports has been having on and off diarrhea for months. May have worsened slightly over the last several days. Denies any fevers at home. On and off bloody stools as well. Also complains of abdominal distention intermittently over the last few months. Physical Exam Physical Exam: Constitutional: Alert, nontoxic HEENT: Mucous membranes moist. Lungs: Clear to auscultation, decreased, no wheezes rales or rhonchi CV: S1-S2, regular Abdomen: Soft, no distention, no some left-sided tenderness, no guarding or rigidity Extremities: No significant edema Neuro: No focal deficits Psych: Cooperative, normal mood Results & Data Results & Data Vital Signs (Past 12 Hours) Vital Signs Temp Pulse Pulse Resp BP Pulse Ox O2 Del Method 02/21/24 11:44 37 C 54 L 20 103/59 L 97 Room Air 02/21/24 07:56 37 C 59 L 18 107/58 L 97 Room Air 02/21/24 07:44 62 02/21/24 03:43 37.1 C 63 18 106/68 96 Room Air Diagnostic Findings Reviewed imaging, laboratory and diagnostic studies. Pertinent findings as below. WBCs 3.9 Hemoglobin 9.6, stable INR 2.1 Electrolytes within normal range Creatinine 1.05 Stool positive for norovirus
[2024-02-21] MEDS: INFLUENZA VACC TS2024-25(6m+)/PF (IIV3) 0.5mL Syr IM ONE (15:58)
[2024-02-21 20:10] VITALS: O2SAT 94
[2024-02-22 06:11] LABS: Hemoglobin 9.9 g/dl (14.0-18.0); Mean Corpuscular Hemoglobin 34.3 pg (25.0-34.0); Mean Corpuscular Hgb Conc 35.4 g/dL (32.0-36.0); Mean Corpuscular Volume 96.9 fL (80.0-100.0); Mean Platelet Volume 9.3 fL (9.4-12.4); Platelet Count 116 K/uL (130-400); RDW Coefficient of Variation 15.3 % (11.5-14.5); RDW Standard Deviation 54.4 fL (36.4-46.3); Red Blood Count 2.89 M/uL (4.70-6.10); White Blood Count 3.62 K/ul (4.8-10.8)
[2024-02-22 06:15] LABS: BUN Creatinine Ratio 12.3 (10-20); Calcium 8.4 mg/dl (8.6-10.3); Creatinine Clr Calc Pharmacy 79.1 ml/min
[2024-02-22 07:27] VITALS: BP 110/62; PULSE 59; RESP 16; TEMP 98.8
--- NOTE | 2024-02-22 09:56 | Discharge Summary ---
Discharge Summary Date of Service February 22, 2024 Principal Dx & Hospital Course #1 = Principal Diagnosis (1) Enterocolitis: (2) Acute gastroenteropathy due to Norovirus: (3) GAVE (gastric antral vascular ectasia): (4) Cirrhosis: (5) Portal hypertension: (6) Internal bleeding hemorrhoids: (7) Pancytopenia: Due to chronic liver disease Plan Patient presented to the emergency room with reports of diarrhea ongoing for 3 months as well as bright red blood in the stool. Patient was mated to the hospital. Given some fluids. Empirically started on antibiotics. He tested positive for norovirus. His warfarin was held. He is seen by gastroenterology. They recommended ongoing supportive care. Patient has a appointment this coming Saturday with his outpatient personal banking advisor for EGD. He just recently had a colonoscopy which showed significant internal hemorrhoids. It was suspected that the patient had acute flare of his hemorrhoids with a diarrhea induced by his norovirus infection. Patient also has cirrhosis is on lactulose with a goal of 3-4 loose stools daily to prevent hepatic encephalopathy. His diarrhea exacerbated in the setting of the norovirus infection. Patient also may be developing a diarrhea prominent irritable bowel with all of these issues that may need ongoing management and can be continually addressed with his PCP or GI specialist. On day of discharge his vital signs are stable. His hemoglobin has been stable and there is no evidence of severe or dramatic blood loss. He can use can decrease his lactulose use or use Imodium as needed for severe number of diarrheal stools. Can resume his warfarin and follow-up with his outpatient PCP and GI physicians as already scheduled and coordinated. 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 Patient is being actively followed by GI as an outpatient, had a plan for scope next Saturday. Patient denies nausea/vomiting/pain or burning while passing urine/headache/dizziness/sore throat/cough/chest pain. Patient reports left belly pain for about 3 weeks duration, reports subjective fever since yesterday, reports occasional palpitation lately. Patient denies smoking, states quitting drinking 25 years ago, denies recreational drug use. Medication reviewed with the patient at the bedside. Plan of care discussed with the patient and his friend at bedside in detail, they voiced understanding. Full code Admission Exam Per Admitting Provider See H&P Discharge Exam Constitutional: Alert, nontoxic HEENT: Mucous membranes moist. Lungs: Clear to auscultation, decreased, no wheezes rales or rhonchi CV: S1-S2, regular Abdomen: Soft, nontender, some fluid wave Extremities: No significant edema Neuro: No focal deficits Psych: Cooperative, normal mood Updated Medication List Medication Instructions Recorded Confirmed Type loratadine 10 mg tablet (Claritin) 10 mg PO QAM 02/17/19 02/20/24 History tramadol 50 mg tablet 50 - 100 mg PO Q6H PRN Pain 02/17/19 02/20/24 History lactulose 20 gram/30 mL oral 10 ml PO HS 10/23/20 02/20/24 History solution lisinopril 2.5 mg tablet 2.5 mg PO QAM 07/07/21 02/20/24 History ondansetron HCl 4 mg tablet 4 mg PO Q6H PRN Nausea 07/07/21 02/20/24 History propranolol 20 mg tablet 20 mg PO BID 07/07/21 02/20/24 History mirtazapine 7.5 mg tablet 7.5 mg PO HS 06/24/23 02/20/24 History warfarin 5 mg tablet 10 mg PO DAILY 06/24/23 02/20/24 History pantoprazole 40 mg tablet,delayed 40 mg PO BID #60 tabs 06/27/23 02/20/24 Rx release cyclobenzaprine 10 mg tablet 10 mg PO DAILY PRN MUSCLES 02/20/24 02/20/24 History L.acidop,casei,lactis,rham-B.lact,nicolasa 1 cap PO DAILY 30 days #30 caps 02/22/24 Rx 625 mg (10 billion cell) capsule (Advanced Probiotic) loperamide 2 mg capsule 2 mg PO UD PRN loose stool #30 caps 02/22/24 Rx Hospital Stay Data Consultations 02/20/24 17:19 ED Decision to Admit Stat 02/20/24 20:22 Consult Gastroenterology Routine Diagnostic Imagining Performed 02/20/24 14:59 CT abd pelvis IV con only Stat Reviewed imaging, laboratory and diagnostic studies. Pertinent findings as below. WBCs 3.6 Hemoglobin 9.9 Platelets 116 Electrolytes within normal range Creatinine 1.22 Stool studies positive for norovirus Pending Results Patient Have Any Pending Studies at Discharge: No Discharge Instructions Given to Patient (Per Discharging Provider) Recall, with your lactulose you will have looser stools. Usual goal is 3-4 stools daily for people who have cirrhosis and history of hepatic encephalopathy. If you have more than 4 loose stools a day would recommend decreasing your lactulose to every other day or every third day. Only use Imodium if you are having excessive number of stools greater than 5/day. Only use Imodium until stools have decreased to less than 5/day You may have developed some type of irritable bowel, diarrhea prominent that will need to be managed with your GI physician on a chronic basis Your diarrhea may have worsened over the last few days due to norovirus infection. This will take 7 to 10 days to clear Your hemoglobin seems to be stable. I think you can resume your warfarin. Get your PT/INR checked on Saturday or Saturday per your usual process Total Time Total Time Spent Total Time Spent (In Minutes): 34
[2024-02-22] MEDS ORDERED: PANTOprazole 40 MG TAB PO SCH (21:00)
== END 2024-02-22 10:09 | disposition home or self-care (01) | DRG 392 ==
LOC: ED 14:46 → 2N 17:57 → SUATTDRO 17:57 → 2N 19:58